=== PATIENT | male | born 1980 | race Caucasian/White ===

== ENCOUNTER 2016-10-04 07:50 | Day surgery (SDC) | payer BC ==
[2016-10-03 11:07] VITALS: BMI 36.3
[~2016-10-04 07:50] MED LIST: ACETAMINOPHEN TAB 500 MG TAB PO ONE; DEXAMETHASONE SOD PHOSPHATE 10 MG/ML 1 ML VIAL IV ONE; DEXAMETHASONE SOD PHOSPHATE 4 MG/ML 1 ML VIAL IV ONE; FAMOTIDINE 20 MG/2 ML VIAL IV ONE; LACTATED RINGERS 1,000 ML IV SCH; LIDOCAINE 1% 20 ML VIAL (10MG/ML) FOR IV START INTRADERMA PRN; MIDAZOLAM 2 MG/2 ML VIAL IV PRN; ONDANSETRON 4 MG/2 ML VIAL IVP ONE; Pre Op ABX Message 1 EACH MISC MISCELLANE ONE; SCOPOLAMINE 1.5MG/72HR PATCH TRANSDERM ONE
[2016-10-04] MEDS ORDERED: LIDOCAINE 1% 20 ML VIAL (10MG/ML) FOR IV START INTRADERMA ONE (08:57)
[2016-10-04] MEDS ORDERED: LACTATED RINGERS 1,000 ML IV ONE (08:58)
[2016-10-04 09:11] LABS: Glucose,Whole Blood 85 mg/dL (75-99)
[2016-10-04] MEDS ORDERED: LIDOCAINE 4% (PF) 5 ML AMP IH ONE ×2 (09:30→09:45)
[2016-10-04] MEDS ORDERED: SUCCINYLCHOLINE CHLORIDE VIAL 200 MG/10 ML VIAL IV ONE (09:46)
[2016-10-04] MEDS ORDERED: ePHEDrine 50 MG/ML 1 ML AMP ONE (09:46)
[2016-10-04] MEDS ORDERED: MIDAZOLAM 2 MG/2 ML VIAL ONE (09:46)
[2016-10-04] MEDS ORDERED: PROPOFOL 10 MG/ML 20 ML VIAL IV ONE (09:46)
[2016-10-04] MEDS ORDERED: LIDOCAINE 1% INJ 10MG/ML (20 ML MDV) ONE (09:46)
[2016-10-04] MEDS ORDERED: DEXAMETHASONE SOD PHOS (MDV) 100 MG/10 ML VIAL ONE (09:46)
[2016-10-04] MEDS ORDERED: fentaNYL (PF) 50 MCG/ML 2 ML AMP ONE (09:46)
[2016-10-04] MEDS ORDERED: FLUORESCEIN STRIPS 1 MG STRIP MISCELLANE ONE (10:42)
[2016-10-04] MEDS ORDERED: LIDOCAINE 1%-EPI 1:100,000 20 ML VIAL SQ ONE ×2 (10:43)
[2016-10-04] MEDS ORDERED: OXYMETAZOLINE 0.05% NASL SPRAY 15 ML EA NOSTRIL ONE (10:43)
[2016-10-04] MEDS ORDERED: EPINEPHrine 1 MG/ML (MDV) 30 ML VIAL TOPICAL ONE (10:43)
[2016-10-04 11:56] VITALS: TEMP 97.9
[2016-10-04] MEDS: HYDROmorphone 1 MG/ML 1 ML SYRINGE IVP PRN ×4 (12:10→12:45)
--- NOTE | 2016-10-04 12:11 | P.OP ---
Date of Procedure: 10/04/16 Preoperative Diagnosis: Deviated nasal septum Bilateral inferior turbinate hypertrophy Bilateral functional endoscopic sinus surgery with polypectomy. Postoperative Diagnosis: same Procedure(s) Performed: Septoplasty Bilateral outfracture and submucosal resection of the inferior turbinate Functional endoscopic sinus surgery with polypectomy Anesthesia: RAINE Surgeon: Carlos Arce Estimated Blood Loss (ml): 20 Pathology: other (sinonasal) Condition: stable Disposition: PACU Indications for Procedure: Patient is a severe right septal deviation evidence of chronic sinusitis with sinonasal cysts and polyps obstruction and inflammatory changes throughout all sinuses the inferior turbinates were large and obstructive Operative Findings: Deviated nasal septum to the right widespread inflammatory changes and obstructive inferior turbinates Description of Procedure: This patient was taken to the operative room and placed in the supine position. A general inhalation anesthetic was administered to the patient by the department of anesthesia with a functioning IV line in place. The patient was monitored throughout the entire case by the department of anesthesia. The eyes were taped shut for protection. The patient was placed in a slight reverse Trendelenburg position. The patient had previously utilize Afrin nasal spray preoperatively. The nose was evaluated and the septum lateral nasal wall and inferior turbinates were injected with lidocaine 1% with epinephrine 1 100,000 bilaterally. Approximately 10 minutes were allowed wait for full vasoconstrictive effects to take place. At this point a caudal incision was made over the caudal portion of the left septum down to the mucoperichondrium. A mucoperichondrial flap was elevated on the left side and dissection was carried with use of tunnels posteriorly. We then made a crossover incision through the cartilage to the contralateral side and for the mucoperichondrial flap development was performed to the extent of visualization on the contralateral side. After the cartilage was freed with use of several crosshatching incisions and removal of some redundant strips of septal cartilage, the septum was straightened and placed back in the midline. The septum was sutured fixated to the ovarian groove. Excellent straightening occurred and the septum was visibly straight. Incision was closed with a 40 rapid Vicryl. We utilized a running nonlocking fashion for closure of the incision. A quilting stitch was used to reapproximate the septal flaps with use of a 40 rapid Vicryl. We then entered the nose with a 0 and 30 Decker connie endoscope. Previous to this we did inject the lateral nasal wall and middle turbinate and uncinate process with lidocaine 1% with epinephrine 1 100,000. Approximately 10 minutes were allowed wait for full vasoconstrictive effects to take place. Intranasal polyps were noted. They were noted bilaterally. The intranasal polyps were removed with use of a microdebrider. With use of a microdebrider and a pediatric backbiter, we took down the uncinate process bilaterally. We then opened the maxillary sinuses bilaterally. We utilized a microdebrider for this and entered the maxillary sinuses and removed diseased tissue and polypoid tissue. This was done bilaterally. After the maxillary sinuses were opened and the diseased tissue and polyps were removed we entered the ethmoid bulla and with use of a microdebrider and up-biting bosstephany and Gopalley, we remove the anterior septations and remove diseased tissue from the anterior ethmoids with direct visualization. We then followed the fovea frontalis through the basal lamella and into the posterior ethmoid air cells and did a total ethmoidectomy with removal of polypoid material. Once the ethmoids cells were all taken down we then entered the sphenoid sinus medially and inferiorly underneath the inferior attachment of the superior turbinate. The sphenoid sinus was opened entered and diseased tissue and polyps were removed bilaterally. This was done with a microdebrider and Blakesley. We then entered the frontal sinuses with a giraffe and up-biting Blakesley entered on the agar nasi cells. We open the frontal sinuses and removed sinus tissue and polypoid tissue that was diseased. We explored the frontal sinuses bilaterally. To summarize all sinuses were open all sinuses were explored and we remove diseased tissue and polyps from the sphenoid maxillary and frontal sinuses. Polyps were removed from the nose. Ethmoid sinuses were opened totally. Nasal pore/xerogel was inserted and minimal bleeding was encountered. We reinspected the skull base there is no signs of any orbital penetration or signs of any intracranial penetration. The sugical site was reinspected after the nasal pore was placed and no bleeding was seen. Attention was then paid to the inferior turbinates. The bilateral inferior turbinates were hypertrophic and obstructive. We entered the anterior portion of the inferior turbinates with use of a microdebrider. We remove bone and submucosal elements with use of a microdebrider bilaterally. The inferior turbinates underwent a submucosal resection with removal of submucosal tissue and bone. We obtained a much better and normal in size for breathing. The inferior turbinates were then outfractured and compressed with a [employer] nasal elevator. Excellent airway was obtained and was symmetric bilaterally. No bleeding was encountered. Intranasal splints were inserted and fixated at the end of the case. We utilized Craft nasal splints. There will be removed and the patient returns to the office.
[2016-10-04] MEDS ORDERED: HYDROcodone/APAP 5-325MG 1 EACH TAB PO ONE (13:02)
[2016-10-04 14:02] VITALS: BP 127/75; PULSE 69; RESP 18
== END 2016-10-04 14:23 | disposition home or self-care (01) ==
LOC: OR 07:50
PROVIDERS: ATTEND Otolaryngology
DX: J34.2 Deviated nasal septum (principal); J34.3 Hypertrophy of nasal turbinates; R43.8 Other disturbances of smell and taste; J32.0 Chronic maxillary sinusitis; J32.2 Chronic ethmoidal sinusitis; J32.1 Chronic frontal sinusitis; J33.8 Other polyp of sinus; E66.01 Morbid (severe) obesity due to excess calories; Z68.36 Body mass index [BMI] 36.0-36.9, adult; F41.9 Anxiety disorder, unspecified; F32.9 Major depressive disorder, single episode, unspecified; Z79.899 Other long term (current) drug therapy; Z88.8 Allergy status to other drugs, medicaments and biological substances
CPT/HCPCS: 30520; 31255; 30130; 94640; 88305; 88300; J2001 ×2; J0171; J2250; J0330; J1100 ×2; J2405; J3010; J1170; J2704

== ENCOUNTER 2017-02-13 16:36 | Observation (INO) | payer BC ==
[2017-02-13] MEDS ORDERED: SODIUM CHLORIDE 0.9% 1,000 ML IV ONE (17:50)
--- NOTE | 2017-02-13 18:31 | CT ---
EXAMINATION TYPE: CT brain wo con DATE OF EXAM: 02/13/2017 COMPARISON: 07/15/2014 HISTORY: Headache CT DLP: mGycm Automated exposure control for dose reduction was used. FINDINGS: Ventricles and sulci appear normal. There is no mass effect nor midline shift. There is no sign of in tracranial hemorrhage. The calvarium appears intact. There is minimal mucosal thickening in the ethmo id air cells. IMPRESSION: No intracranial abnormality. Mild ethmoid sinusitis similar to old exam.
[2017-02-13 18:36] LABS: Basophils % (A) 0 %; CH 29.9; CHCM 33.7; Eosinophils % (A) 0 %; HCT 49.6 % (39.0-53.0); HDW 2.67; HGB 16.3 gm/dL (13.0-17.5); Luc # (Auto) 0.22; Luc % (Auto) 3; Lymphocytes # (A) 2.6 k/uL (1.0-4.8); Lymphocytes % (A) 31 %; MCH 29.2 pg (25.0-35.0); MCHC 32.8 g/dL (31.0-37.0); MCV 89.1 fL (80.0-100.0); Mean Platelet Volume 6.3; Monocytes # (A) 0.5 k/uL (0-1.0); Monocytes % (A) 6 %; Neutrophils % (A) 60 %; RBC 5.57 m/uL (4.30-5.90); RDW 13.2 % (11.5-15.5); WBC 8.4 k/uL (3.8-10.6)
[2017-02-13 18:46] LABS: ALT 55 U/L (21-72); AST 31 U/L (17-59); Acetaminophen <10.0 ug/mL; Alcohol <10 mg/dL; Alkaline Phosphatase 118 U/L (38-126); Amylase 65 U/L (30-110); Anion Gap 11 mmol/L; Blood Urea Nitrogen 10 mg/dL (9-20); Carbon Dioxide 27 mmol/L (22-30); Chloride 101 mmol/L (98-107); Glucose 98 mg/dL (74-99); Magnesium 2.2 mg/dL (1.6-2.3); Non-African American GFR(MDRD) >60 (>60 ml/min/1.73 sqM); Potassium 4.9 mmol/L (3.5-5.1); Sodium 139 mmol/L (137-145); Total Bilirubin 0.5 mg/dL (0.2-1.3); Total Protein 7.6 g/dL (6.3-8.2)
--- NOTE | 2017-02-13 19:20 | ED ---
Altered Mental Status HPI - General Chief Complaint: Altered Mental Status Stated Complaint: Altered Mental Status Time Seen by Provider: 02/13/17 17:01 Source: family Mode of arrival: wheelchair Limitations: altered mental status - History of Present Illness Initial Comments: This is a 36-year-old male with a history of hypertension and psychiatric illness who presents emergency department for mental status changes. The patient was reportedly having issues over the last couple of days and feeling like he was acting differently. Today around 3 or 4 PM he suddenly developed having hallucinations. He stated that he was seeing kids and rats in his back seat of his car. He also heard yelling from these kids. He was decided to bring the emergency Department after speaking with the psychiatrist. The patient does admit to having intermittent headaches over the last few days however does not have a headache now area denies any fevers or chills. He is currently on doxycycline because of suspected urinary tract infection or STD through his primary doctor. Patient denies any other complaints. - Related Data Home Medications Medication Instructions Recorded Confirmed Lisinopril [Zestril] 10 mg PO DAILY 10/03/16 02/13/17 Acetaminophen [Tylenol] 650 mg PO Q4HR PRN 02/13/17 02/13/17 Albuterol Inhaler [Ventolin Hfa 2 puff INHALATION RT-Q6H PRN 02/13/17 02/13/17 Inhaler] Doxycycline Hyclate 100 mg PO BID 02/13/17 02/13/17 lamoTRIgine [LaMICtal] 50 mg PO BID 02/13/17 02/13/17 Previous Rx's Medication Instructions Recorded LORazepam [Ativan] 1 mg PO TID PRN #30 tab 08/14/16 Venlafaxine HCl ER [Effexor XR] 300 mg PO DAILY 30 Days 08/14/16 traZODone HCL [Desyrel] 100 mg PO HS #20 tab 08/14/16 Allergies Allergy/AdvReac Type Severity Reaction Status Date / Time aripiprazole [From Abilify] AdvReac Rash/Hives, Verified 02/13/17 18:17 AGITATION Review of Systems ROS Statement: Those systems with pertinent positive or pertinent negative responses have been documented in the HPI. ROS Other: All systems not noted in ROS Statement are negative. Past Medical History Past Medical History: Hypertension Additional Past Medical History / Comment(s): MIGRAINES, History of Any Multi-Drug Resistant Organisms: None Reported Past Surgical History: Cholecystectomy Additional Past Surgical History / Comment(s): WISDOM TEETH EXTRACTIONS Past Anesthesia/Blood Transfusion Reactions: Postoperative Nausea & Vomiting ( PONV) Additional Past Anesthesia/Blood Transfusion Reaction / Comment(s): Patient has no previous surgical history EXCEPT FOR TOOTH EXTRACTIONS. Past Psychological History: Anxiety, Depression, PTSD Additional Psychological History / Comment(s): . Smoking Status: Never smoker Past Alcohol Use History: None Reported Additional Past Alcohol Use History / Comment(s): Patient states that he drinks alcohol twice yearly. Past Drug Use History: None Reported Additional Drug Use History / Comment(s): Patient denies history of drug use. - Past Family History Father Family Medical History: No Reported History Mother Family Medical History: Diabetes Mellitus, Fibromyalgia, GERD/Reflux Additional Family Medical History / Comment(s): VERTIGO General Exam - General Exam Comments Initial Comments: Constitutional: Awake alert Appears comfortable Head: Normocephalic atraumatic Eyes: no conjunctival injection No scleral icterus EOMI Neck: No JVD Supple Heart: Regular rate rhythm normal S1-S2 no murmurs Lungs: Clear to auscultation bilaterally No wheezing No rales Abdomen: Soft nondistended nontender Extremities: Non edematous DP pulses intact Radial pulses intact Neuro: She is awake and alert. He will not answer me when I ask him what the year is. He does state that it's warm outside however does not tell me what the season is or the president. He is able to recall certain people throughout his life however does not recall most of the day today. Renal nerves II through XII are grossly intact, 5 out of 5 strength in upper and lower extremity is bilaterally, normal finger to nose and heel to espinoza testing, pupils are 4 mm and reactive bilaterally. Psych: Appropriate mood and affect Limitations: altered mental status Course Vital Signs 02/13/17 02/13/17 17:11 19:19 Temperature 99.3 F 98.1 F Pulse Rate 79 70 Respiratory 20 18 Rate Blood Pressure 143/83 137/75 O2 Sat by Pulse 100 100 Oximetry - Reevaluation(s) Reevaluation #1: 02/13/17 19:20 EKG showing normal sinus rhythm with a rate of 73. No abnormal ST segment changes or T-wave inversions. QTC is 434. Other intervals are normal. No ectopy. Medical Decision Making - Medical Decision Making This is a 36-year-old male presents emergency room for hallucinations. This is all brand-new for him. At this time unsure of the etiology of these hallucinations. CT the head was negative. Blood work is unremarkable. They could be related to the doxycycline that he is on however this is not a very common side effect. He could be related to psychiatric causes as well. I like to keep him in the hospital for further evaluation. Dr. Richard accepts the admission. - Lab Data Result diagrams: 02/13/17 17:45 02/13/17 17:45 Lab Results 02/13/17 02/13/17 02/13/17 Range/Units 17:45 17:45 17:45 WBC 8.4 (3.8-10.6) k/uL RBC 5.57 (4.30-5.90) m/uL Hgb 16.3 (13.0-17.5) gm/dL Hct 49.6 (39.0-53.0) % MCV 89.1 (80.0-100.0) fL MCH 29.2 (25.0-35.0) pg MCHC 32.8 (31.0-37.0) g/dL RDW 13.2 (11.5-15.5) % Plt Count 316 (150-450) k/uL Neutrophils % 60 % Lymphocytes % 31 % Monocytes % 6 % Eosinophils % 0 % Basophils % 0 % Neutrophils # 5.0 (1.3-7.7) k/uL Lymphocytes # 2.6 (1.0-4.8) k/uL Monocytes # 0.5 (0-1.0) k/uL Eosinophils # 0.0 (0-0.7) k/uL Basophils # 0.0 (0-0.2) k/uL Sodium 139 (137-145) mmol/L Potassium 4.9 (3.5-5.1) mmol/L Chloride 101 (98-107) mmol/L Carbon Dioxide 27 (22-30) mmol/L Anion Gap 11 mmol/L BUN 10 (9-20) mg/dL Creatinine 1.06 (0.66-1.25) mg/dL Est GFR (MDRD) Af Amer >60 (>60 ml/min/1.73 sqM) Est GFR (MDRD) Non-Af >60 (>60 ml/min/1.73 sqM) Glucose 98 (74-99) mg/dL Calcium 10.0 (8.4-10.2) mg/dL Magnesium 2.2 (1.6-2.3) mg/dL Total Bilirubin 0.5 (0.2-1.3) mg/dL AST 31 (17-59) U/L ALT 55 (21-72) U/L Alkaline Phosphatase 118 (38-126) U/L Ammonia <9 (<30) umol/L Total Protein 7.6 (6.3-8.2) g/dL Albumin 4.8 (3.5-5.0) g/dL Amylase 65 (30-110) U/L Urine Color Urine Appearance Urine pH Ur Specific [place] Urine Protein Ur Protein Confirm Urine Glucose (UA) Urine Ketones Urine Blood Urine Nitrite Urine Bilirubin Ur Bilirubin Confirm Urine Urobilinogen Ur Leukocyte Esterase Urine RBC Urine Red Cell Clumps Urine WBC Urine WBC Clumps Ur Squamous Epith Cells Ur Transition Epith Cell Ur Renal Epithelial Cell Calcium Carbonate Cryst Calcium Phosphate Cryst Calcium Oxalate Crystal Leucine Crystals Cystine Crystals Uric Acid Crystals Triple Phos Crystals Tyrosine Crystals Other Crystals Amorphous Sediment Urine Bacteria Cellular Casts Epithelial Casts Fatty Casts Hyaline Casts Granular Casts Waxy Casts Broad Casts RBC Casts WBC Casts Other Casts Urine Mucus Urine Trichomonas Ur Yeast w Hyphae Urine Yeast (Budding) Urine Sperm Ur Oval Fat Bodies Urine Opiates Screen (NotDetected) Ur Oxycodone Screen (NotDetected) Urine Methadone Screen (NotDetected) Ur Propoxyphene Screen (NotDetected) Acetaminophen <10.0 ug/mL Ur Barbiturates Screen (NotDetected) U Tricyclic Antidepress (NotDetected) Ur Phencyclidine Scrn (NotDetected) Ur Amphetamines Screen (NotDetected) U Methamphetamines Scrn (NotDetected) U Benzodiazepines Scrn (NotDetected) Urine Cocaine Screen (NotDetected) U Marijuana (THC) Screen (NotDetected) Serum Alcohol <10 mg/dL Acetone, Qual Negative (Negative) 02/13/17 Range/Units 18:25 WBC (3.8-10.6) k/uL RBC (4.30-5.90) m/uL Hgb (13.0-17.5) gm/dL Hct (39.0-53.0) % MCV (80.0-100.0) fL MCH (25.0-35.0) pg MCHC (31.0-37.0) g/dL RDW (11.5-15.5) % Plt Count (150-450) k/uL Neutrophils % % Lymphocytes % % Monocytes % % Eosinophils % % Basophils % % Neutrophils # (1.3-7.7) k/uL Lymphocytes # (1.0-4.8) k/uL Monocytes # (0-1.0) k/uL Eosinophils # (0-0.7) k/uL Basophils # (0-0.2) k/uL Sodium (137-145) mmol/L Potassium (3.5-5.1) mmol/L Chloride (98-107) mmol/L Carbon Dioxide (22-30) mmol/L Anion Gap mmol/L BUN (9-20) mg/dL Creatinine (0.66-1.25) mg/dL Est GFR (MDRD) Af Amer (>60 ml/min/1.73 sqM) Est GFR (MDRD) Non-Af (>60 ml/min/1.73 sqM) Glucose (74-99) mg/dL Calcium (8.4-10.2) mg/dL Magnesium (1.6-2.3) mg/dL Total Bilirubin (0.2-1.3) mg/dL AST (17-59) U/L ALT (21-72) U/L Alkaline Phosphatase (38-126) U/L Ammonia (<30) umol/L Total Protein (6.3-8.2) g/dL Albumin (3.5-5.0) g/dL Amylase (30-110) U/L Urine Color Cancelled Urine Appearance Cancelled Urine pH Cancelled Ur Specific [place] Cancelled Urine Protein Cancelled Ur Protein Confirm Cancelled Urine Glucose (UA) Cancelled Urine Ketones Cancelled Urine Blood Cancelled Urine Nitrite Cancelled Urine Bilirubin Cancelled Ur Bilirubin Confirm Cancelled Urine Urobilinogen Cancelled Ur Leukocyte Esterase Cancelled Urine RBC Cancelled Urine Red Cell Clumps Cancelled Urine WBC Cancelled Urine WBC Clumps Cancelled Ur Squamous Epith Cells Cancelled Ur Transition Epith Cell Cancelled Ur Renal Epithelial Cell Cancelled Calcium Carbonate Cryst Cancelled Calcium Phosphate Cryst Cancelled Calcium Oxalate Crystal Cancelled Leucine Crystals Cancelled Cystine Crystals Cancelled Uric Acid Crystals Cancelled Triple Phos Crystals Cancelled Tyrosine Crystals Cancelled Other Crystals Cancelled Amorphous Sediment Cancelled Urine Bacteria Cancelled Cellular Casts Cancelled Epithelial Casts Cancelled Fatty Casts Cancelled Hyaline Casts Cancelled Granular Casts Cancelled Waxy Casts Cancelled Broad Casts Cancelled RBC Casts Cancelled WBC Casts Cancelled Other Casts Cancelled Urine Mucus Cancelled Urine Trichomonas Cancelled Ur Yeast w Hyphae Cancelled Urine Yeast (Budding) Cancelled Urine Sperm Cancelled Ur Oval Fat Bodies Cancelled Urine Opiates Screen Not Detected (NotDetected) Ur Oxycodone Screen Not Detected (NotDetected) Urine Methadone Screen Not Detected (NotDetected) Ur Propoxyphene Screen Not Detected (NotDetected) Acetaminophen ug/mL Ur Barbiturates Screen Not Detected (NotDetected) U Tricyclic Antidepress Not Detected (NotDetected) Ur Phencyclidine Scrn Not Detected (NotDetected) Ur Amphetamines Screen Not Detected (NotDetected) U Methamphetamines Scrn Not Detected (NotDetected) U Benzodiazepines Scrn Detected H (NotDetected) Urine Cocaine Screen Not Detected (NotDetected) U Marijuana (THC) Screen Not Detected (NotDetected) Serum Alcohol mg/dL Acetone, Qual (Negative) Disposition Clinical Impression: Encephalopathy Disposition: ADMITTED IP TO THIS [facility] Condition: Stable Referrals: Jean-Claude Buenrostro MD [Primary Care Provider] - 1-2 days
[2017-02-13] MEDS ORDERED: NALOXONE 0.4 MG/ML 1 ML VIAL IV PRN (20:30)
[2017-02-13] MEDS: SODIUM CHLORIDE 0.9% 1,000 ML IV SCH (20:57)
[2017-02-13] MEDS ORDERED: ACETAMINOPHEN TAB 500 MG TAB PO PRN (23:02)
[2017-02-13] MEDS ORDERED: LORazepam 2 MG/ML SYRINGE IV PRN (23:02)
[2017-02-13] MEDS ORDERED: TEMAZEPAM 15 MG CAP PO PRN (23:02)
[2017-02-13] MEDS ORDERED: ALBUTEROL NEBULIZED 2.5 MG/3 ML INHALATION PRN (23:02)
[2017-02-13] MEDS ORDERED: HYDROcodone/APAP 5-325MG 1 EACH TAB PO PRN (23:02)
[2017-02-13 23:13] LABS: Appearance,Urine Clear (Clear); Bilirubin,Urine Negative (Negative); Glucose,Urine (UA) Negative (Negative); Ketones,Urine Negative (Negative); Leukocyte Esterase,Urine Negative (Negative); Nitrite,Urine Negative (Negative); PH, Urine 5.5 (5.0-8.0); Protein,Urine Negative (Negative); Specific Gravity,Urine 1.014 (1.001-1.035); UA Billing (MACRO vs. MICRO) CHEM; Urobilinogen,Urine <2.0 mg/dL (<2.0)
--- NOTE | 2017-02-14 | XR ---
EXAM: XR Chest, 1 View CLINICAL HISTORY: Reason: confusion TECHNIQUE: Frontal view of the chest. COMPARISON: 05/09/16 FINDINGS: Cardiac and mediastinal silhouette stable allowing for differences in technique. No edema, consolidation or other acute cardiopulmonary process. IMPRESSION: No acute cardiopulmonary process
[2017-02-14] MEDS: PANTOPRAZOLE 40 MG TABLET PO SCH ×2 (00:06→07:49)
[2017-02-14 07:46] VITALS: RESP 20
[2017-02-14] MEDS ORDERED: DOXYCYCLINE 50 MG CAP PO SCH (09:00)
[2017-02-14] MEDS ORDERED: VENLAFAXINE HCL ER 150 MG CAP PO SCH (09:00)
[2017-02-14] MEDS ORDERED: lamoTRIgine 25 MG TAB PO SCH (09:00)
[2017-02-14] MEDS ORDERED: LISINOPRIL 10 MG TAB PO SCH (09:00)
[2017-02-14] MEDS: SODIUM CHLORIDE 0.9% 1,000 ML IV SCH (09:59)
[2017-02-14 10:11] LABS: Basophils % (A) 1 %; Eosinophils % (A) 0 %; HCT 47.8 % (39.0-53.0); HDW 2.62; HGB 15.5 gm/dL (13.0-17.5); Luc # (Auto) 0.15; Luc % (Auto) 3; Lymphocytes # (A) 2.1 k/uL (1.0-4.8); Lymphocytes % (A) 38 %; MCH 29.6 pg (25.0-35.0); MCHC 32.4 g/dL (31.0-37.0); MCV 91.3 fL (80.0-100.0); Mean Platelet Volume 6.4; Monocytes # (A) 0.4 k/uL (0-1.0); Monocytes % (A) 8 %; Neutrophils # (A) 2.9 k/uL (1.3-7.7); Neutrophils % (A) 52 %; RBC 5.24 m/uL (4.30-5.90); RDW 13.5 % (11.5-15.5); WBC 5.5 k/uL (3.8-10.6); WBC (Perox) 5.36
[2017-02-14 10:49] LABS: Anion Gap 11 mmol/L; Blood Urea Nitrogen 9 mg/dL (9-20); Calcium 9.6 mg/dL (8.4-10.2); Carbon Dioxide 27 mmol/L (22-30); Chloride 104 mmol/L (98-107); Glucose 91 mg/dL (74-99); Non-African American GFR(MDRD) >60 (>60 ml/min/1.73 sqM); Potassium 4.5 mmol/L (3.5-5.1); Sodium 142 mmol/L (137-145)
--- NOTE | 2017-02-14 11:33 | HP ---
DATE OF ADMISSION: DATE OF SERVICE: 02/13/2017 CHIEF COMPLAINT: Change in mental status. HISTORY OF PRESENT ILLNESS: This 36-year-old gentleman with a past medical history of multiple medical problems including hypertension, migraines, history of depression, history of cholecystectomy, history of anxiety, depression, PTSD being followed by Dr. Jean-Claude Buenrostro in the outpatient setting was admitted with change in mental status to [facility]. 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 suddenly develop hallucinations. The patient was apparently seeing kids and patient was talking about 4 kids traveling in his taxi in the back seat and rats running after. The patient also heard yelling from these kids. The patient came to the emergency room for further evaluation and treatment. There is no history of any fever or rigors. No history of headache, loss of consciousness or seizures. The patient is confused. PAST MEDICAL HISTORY: History of depression, history of hypertension, migraines, history of cholecystectomy, wisdom tooth extraction. History of recent infection. MEDICATIONS PRIOR TO ADMISSION: 1. Trazodone 100 mg p.o. q.h.s. 2. Lamictal 50 mg p.o. b.i.d. 3. Effexor XR 300 mg daily. 4. Zestril 10 mg daily. 5. Ativan 1 mg t.i.d. p.r.n. 6. Doxycycline 100 mg p.o. b.i.d. 7. Tylenol 650 q.4 p.r.n. 8. Ventolin 2 puffs q.6 p.r.n. Allergies are ABILIFY. FAMILY HISTORY: History of depression, diabetes mellitus type 2, fibromyalgia, GERD, vertigo in the family. SOCIAL HISTORY: No history of smoking,. No history of alcohol intake. REVIEW OF SYSTEMS: ENT: No diminishing hearing or diminished vision. CARDIOVASCULAR: No angina or palpitations. RESPIRATORY: No cough or hemoptysis. GI: No nausea. : No dysuria. NERVOUS SYSTEM: As mentioned earlier. ALLERGY/IMMUNOLOGY: No history of asthma or hayfever. MUSCULOSKELETAL: As mentioned earlier. HEMATOLOGY/ONCOLOGY: No history of anemia. ENDOCRINE: No history of diabetes mellitus or hypothyroidism. CONSTITUTIONAL: As mentioned earlier. DERMATOLOGY: Negative. RHEUMATOLOGY: Negative. PSYCHIATRY: As mentioned earlier. PHYSICAL EXAMINATION: The patient is alert and oriented x2. Pulse 70, blood pressure 137/75, respirations 18, temperature 98.1, pulse ox 100% on room air. HEENT: Conjunctivae normal. Oral mucosa moist. NECK: No jugular venous distention. No carotid bruit. No lymph node enlargement. CARDIOVASCULAR: S1 and S2, muffled. No S3, no S4. RESPIRATORY: Breath sounds diminished at the bases. No rhonchi, no crackles. ABDOMEN: Soft, nontender. No mass palpable. No hepatosplenomegaly. LEGS: No edema, no swelling. NERVOUS SYSTEM: Higher function mentioned earlier. Cranial nerves 2 through 12 grossly intact. Moves all 4 limbs. No focal motor or sensory deficits. LYMPHATICS: No lymphadenopathy of neck, axillae or groin. SKIN: No ulcers, rashes or bleeding. No neck stiffness . JOINTS: No active deforming arthropathy. LABS: CBC, CMP within normal limits. Drug screen is positive for benzodiazepines. Acetone is negative. Alcohol less 10. ASSESSMENT: 1. Change in mental status, possible acute encephalopathy of undetermined origin. 2. Rule out hallucinations and psychosis. 3. History of depression. 4. History of migraines. 5. History of hypertension. 6. History of cholecystectomy. 7. History of anxiety, depression, posttraumatic stress disorder. 8. FULL CODE. RECOMMENDATIONS AND DISCUSSION: This 36-year-old gentleman presented with multiple complex medical issues, we will monitor the patient closely. Continue the current medications and symptomatic treatment. Otherwise at this time I recommend psychiatry and neurology consultations. We will continue to monitor. Otherwise will also rule out the possibility of any physical issues and as well as organic encephalopathy before pursuing the psychiatric issues as well. Overall prognosis remains guarded. The patient definitely had hallucinations and continue to monitor. The basic labs appear to be normal at this time. Prognosis guarded. A brain CAT scan was also done which showed no acute intracranial abnormality. Will also obtain a chest x-ray also. [facility]
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
[2017-02-14 15:49] VITALS: BP 123/65; PULSE 62; TEMP 98.4
--- NOTE | 2017-02-14 16:41 | DS ---
DATE OF ADMISSION: 02/13/2017 DATE OF DISCHARGE: FINAL DIAGNOSES: 1. Hallucinations and change in mental status; possible psychosis. 2. History of depression. 3. Recent urinary tract infection. 4. History of migraines. 5. Hypertension. 6. History of polysubstance abuse. 7. History of anxiety, depression. 8. Post-traumatic stress disorder. 9. FULL CODE. DISCHARGE DISPOSITION: The patient will be transferred in stable condition with guarded prognosis to inpatient psych floor. HISTORY OF PRESENT ILLNESS: This 36-year-old gentleman with a past medical history of being followed by Dr. Jean-Claude Buenrostro in the outpatient setting, presented with change in mental status and hallucinations. Basic labs were normal. There was no evidence of any encephalopathy per se. Psychiatry saw the patient and recommended transfer to Inpatient Psychiatry. On exam, vitals are stable. CARDIOVASCULAR SYSTEM: S1, S2 muffled. ABDOMEN: Soft. NERVOUS SYSTEM: No focal deficit. Current medications are as follows: 1. Tylenol 500 mg q.6 p.r.n. 2. Ventolin 2.5 q.6 p.r.n. 3. Vibramycin (doxycycline) 100 mg p.o. b.i.d. 4. Lamictal 50 mg p.o. b.i.d. 5. Zestril 10 mg p.o. daily. 6. Ativan 0.5 q.6 p.r.n. 7. Narcan 0.2 q.2 p.r.n. 8. Protonix 40 mg daily. 9. Restoril 15 mg at bedtime p.r.n. 10. Desyrel 100 mg p.o. at bedtime. 11. Effexor XR 300 mg p.o. daily. MTDD
[2017-02-14] MEDS ORDERED: traZODone HCL 100 MG TAB PO SCH (21:00)
--- NOTE | 2017-02-15 15:39 | EEG ---
DATE OF SERVICE: 02/14/2017 REASON FOR TESTING: Altered mental status. DESCRIPTION OF THE PROCEDURE: This EEG was performed using a 21-channel digital electroencephalograph, following international 10-20 system. DESCRIPTION OF THE RECORDING: From the beginning of the tracing, and with the patient's eyes closed, the background rhythm was mostly consisting of 9 Hz alpha frequency in the posterior occipital leads. No obvious asymmetry is seen. Photic stimulation was performed with a good driving response seen. No pathological waves were elicited. Hyperventilation was not performed. Frequent movement artifacts are seen. The patient remains awake throughout the tracing. No epileptiform discharges were seen. His EKG lead showed a regular rate and rhythm. INTERPRETATION: This awake EEG can be considered within normal limits. There was no asymmetry seen. No epileptiform discharges were noticed. The absence of epileptiform discharges does not rule out the diagnosis of epilepsy; therefore clinical correlation is recommended.
== END 2017-02-14 18:15 ==
LOC: EC 16:36 → 4MS4W 20:30
PROVIDERS: ADMIT Hospitalist; ATTEND Hospitalist
DX: R41.82 Altered mental status, unspecified (principal); R44.3 Hallucinations, unspecified; F32.9 Major depressive disorder, single episode, unspecified; F41.9 Anxiety disorder, unspecified; I10 Essential (primary) hypertension; G43.909 Migraine, unspecified, not intractable, without status migrainosus; Z87.440 Personal history of urinary (tract) infections; F43.10 Post-traumatic stress disorder, unspecified; R51 Headache; Z79.899 Other long term (current) drug therapy; Z88.8 Allergy status to other drugs, medicaments and biological substances; Z81.8 Family history of other mental and behavioral disorders; F19.10 Other psychoactive substance abuse, uncomplicated
CPT/HCPCS: 96374; 96361; 99285; 36415; 95819; 93005; 80053; 80048; 82140; 82150; 82009; 83735; 85025 ×2; 81003; 87491; 87591; 80306; 83520; 80320; 87086; 71010; 70450; G0378 ×2; J2060

== ENCOUNTER 2017-02-14 17:49 | Inpatient (IN) | payer BC ==
[2017-02-14] MEDS ORDERED: MAGNESIUM HYDROXIDE 2,400 MG/10 ML CUP PO PRN (17:52)
[2017-02-14] MEDS ORDERED: MAG HYDROX/AL HYDROX/SIMETH 30 ML CUP PO PRN (17:52)
[2017-02-14] MEDS ORDERED: LORazepam 1 MG TAB PO PRN (17:52)
[2017-02-14] MEDS ORDERED: ACETAMINOPHEN TAB 325 MG TAB PO PRN (17:52)
[2017-02-14] MEDS ORDERED: ALBUTEROL INHALER 60 PUFF/8 GM INHALER INHALATION PRN (17:55)
[2017-02-14] MEDS ORDERED: OLANZapine ODT 5 MG TAB PO PRN (18:05)
[2017-02-14] MEDS: LORazepam 1 MG TAB PO PRN (20:50)
[2017-02-14] MEDS: lamoTRIgine 25 MG TAB PO SCH (20:50)
[2017-02-14] MEDS ORDERED: traZODone HCL 100 MG TAB PO SCH (21:00)
[2017-02-14] MEDS: DOXYCYCLINE 50 MG CAP PO SCH (22:47)
[2017-02-15 06:47] VITALS: TEMP 97.6
[2017-02-15] MEDS ORDERED: PANTOPRAZOLE 40 MG TABLET PO SCH (07:30)
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
[2017-02-15] MEDS: LORazepam 1 MG TAB PO PRN (08:47)
[2017-02-15] MEDS: lamoTRIgine 25 MG TAB PO SCH (08:47)
[2017-02-15] MEDS: DOXYCYCLINE 50 MG CAP PO SCH (08:48)
[2017-02-15 08:51] VITALS: BP 128/78; PULSE 70; RESP 18
[2017-02-15] MEDS ORDERED: VENLAFAXINE HCL ER 150 MG CAP PO SCH (09:00)
[2017-02-15] MEDS ORDERED: LISINOPRIL 10 MG TAB PO SCH (09:00)
== END 2017-02-15 14:22 | disposition home or self-care (01) | DRG 880 ==
LOC: 3MHU 18:14
PROVIDERS: ADMIT Psychiatry & Neurology Addiction Medicine; ATTEND Psychiatry & Neurology Addiction Medicine
DX: F44.1 Dissociative fugue (principal); R44.3 Hallucinations, unspecified; I10 Essential (primary) hypertension; N39.0 Urinary tract infection, site not specified; F32.9 Major depressive disorder, single episode, unspecified; F43.10 Post-traumatic stress disorder, unspecified; F41.9 Anxiety disorder, unspecified; G43.909 Migraine, unspecified, not intractable, without status migrainosus; Z79.899 Other long term (current) drug therapy; Z88.8 Allergy status to other drugs, medicaments and biological substances; Z90.49 Acquired absence of other specified parts of digestive tract; Z83.3 Family history of diabetes mellitus; Z81.8 Family history of other mental and behavioral disorders
CPT/HCPCS: 84443

== ENCOUNTER 2017-05-14 15:33 | Emergency (ER) | payer BC ==
[2017-05-14 15:37] VITALS: BP 125/72; PULSE 67; RESP 20; TEMP 98.2
--- NOTE | 2017-05-14 16:10 | ED ---
General Adult HPI - General Chief complaint: Skin/Abscess/Foreign Body Stated complaint: Finger pain Time Seen by Provider: 05/14/17 15:54 Source: patient Mode of arrival: ambulatory Limitations: no limitations - History of Present Illness Initial comments: This 37-year-old white male presents with 2 complaints. He is complaining of some pain and swelling to the area distal aspect of the right pinky finger around the nail. This is been present for the last 4 days. It is moderately tender, red, swollen. He states that when he presses on it it will drain a purulent-type material which will recur. He also is complaining of some perianal irritation. He states that he gets a malodorous type of drainage in this area as well and this is been present for the last 2 days. He has not tried anything for either condition. No other complaints or modifying factors. - Related Data Home Medications Medication Instructions Recorded Confirmed Lisinopril [Zestril] 10 mg PO DAILY 10/03/16 02/14/17 Acetaminophen [Tylenol] 650 mg PO Q4HR PRN 02/13/17 02/14/17 Albuterol Inhaler [Ventolin Hfa 2 puff INHALATION RT-Q6H PRN 02/13/17 02/14/17 Inhaler] Doxycycline Hyclate 100 mg PO BID 02/13/17 02/14/17 lamoTRIgine [LaMICtal] 50 mg PO BID 02/13/17 02/14/17 Previous Rx's Medication Instructions Recorded LORazepam [Ativan] 1 mg PO TID PRN #30 tab 08/14/16 Venlafaxine HCl ER [Effexor XR] 300 mg PO DAILY 30 Days 08/14/16 traZODone HCL [Desyrel] 100 mg PO HS #20 tab 08/14/16 HYDROcodone/APAP 5-325MG [[place] 1 each PO Q6HR PRN tab 02/14/17 5-325] Pantoprazole [Protonix] 40 mg PO AC-BRKFST tab 02/14/17 Hydrocortisone [Anusol-Hc] 30 gm TP TID #1 [email or web address] 05/14/17 Sulfamethox-Tmp 800-160Mg [Bactrim 1 tab PO Q12HR #20 tab 05/14/17 DS 800-160 mg] Allergies Allergy/AdvReac Type Severity Reaction Status Date / Time aripiprazole [From Abilify] AdvReac Rash/Hives, Verified 05/14/17 15:37 AGITATION Review of Systems ROS Statement: Those systems with pertinent positive or pertinent negative responses have been documented in the HPI. ROS Other: All systems not noted in ROS Statement are negative. Past Medical History Past Medical History: Hypertension Additional Past Medical History / Comment(s): MIGRAINES, History of Any Multi-Drug Resistant Organisms: None Reported Past Surgical History: Cholecystectomy Additional Past Surgical History / Comment(s): WISDOM TEETH EXTRACTIONS Past Anesthesia/Blood Transfusion Reactions: Postoperative Nausea & Vomiting ( PONV) Additional Past Anesthesia/Blood Transfusion Reaction / Comment(s): Patient has no previous surgical history EXCEPT FOR TOOTH EXTRACTIONS. Past Psychological History: Anxiety, Depression, PTSD Smoking Status: Never smoker Past Alcohol Use History: None Reported Past Drug Use History: None Reported - Past Family History Father Family Medical History: No Reported History Mother Family Medical History: Diabetes Mellitus, Fibromyalgia, GERD/Reflux Additional Family Medical History / Comment(s): VERTIGO General Exam Limitations: no limitations General appearance: alert, in no apparent distress Rectal exam: Present: tenderness (There is tenderness, erythema, and inflammation noted in the perianal region bilaterally and externally. There is no fluctuance or evidence of any abscess.) Extremities exam: Present: tenderness (There is tenderness noted to the distal aspect of the right fifth digit. There is mild swelling and erythema also noted more on the ulnar aspect of the nail and just proximal to this. There is no current drainage noted. There is no fluctuance.) Course Vital Signs 05/14/17 15:34 Temperature 98.2 F Pulse Rate 67 Respiratory 20 Rate Blood Pressure 125/72 O2 Sat by Pulse 99 Oximetry Medical Decision Making - Medical Decision Making The patient was seen and examined. It is felt as though he would benefit from some antibiotic treatment. He also benefit from some Anusol for his proctitis. He understands and agrees with this plan and leaves in no distress. Disposition Clinical Impression: Paronychia of finger of right hand, Proctitis Disposition: HOME SELF-CARE Condition: Good Instructions: Paronychia (ED), Proctitis (ED) Prescriptions: Hydrocortisone [Anusol-Hc] 30 gm TP TID #1 crm.pe.jenifefr Sulfamethox-Tmp 800-160Mg [Bactrim DS 800-160 mg] 1 tab PO Q12HR #20 tab Referrals: None,Stated [Primary Care Provider] - 1-2 days Time of Disposition: 16:08
== END 2017-05-14 16:21 | disposition home or self-care (01) ==
LOC: EC 15:33
DX: L03.011 Cellulitis of right finger (principal); K62.89 Other specified diseases of anus and rectum; I10 Essential (primary) hypertension; F41.9 Anxiety disorder, unspecified; F32.9 Major depressive disorder, single episode, unspecified; Z79.899 Other long term (current) drug therapy; Z88.8 Allergy status to other drugs, medicaments and biological substances
CPT/HCPCS: 99283

== ENCOUNTER 2017-09-06 14:19 | Emergency (ER) | payer BC, OTHER ==
[2017-09-06] MEDS ORDERED: ONDANSETRON 4 MG/2 ML VIAL IVP STA (15:27)
[2017-09-06] MEDS ORDERED: RX INFO: IV CONTRAST WAS GIVEN 1 EACH MISC MISCELLANE PRN (15:27)
[2017-09-06] MEDS ORDERED: SODIUM CHLORIDE 0.9% 1,000 ML IV ONE (15:27)
[2017-09-06] MEDS ORDERED: MORPHINE SULFATE 5 MG/ML SYRINGE IVP STA (15:27)
--- NOTE | 2017-09-06 15:55 | ED ---
Abdominal Pain HPI - General Chief Complaint: Abdominal Pain Stated Complaint: Abd pain Time Seen by Provider: 09/06/17 15:20 Source: patient Mode of arrival: ambulatory Limitations: no limitations - History of Present Illness Initial Comments: Is a 37-year-old male with history of cholecystectomy and sees Dr. Del Rosario who presents emergency department for umbilical pain with bloody drainage and vomiting. The patient states that it started yesterday. He states that he noted a little bit of blood coming from his belly button. He states that overnight he developed some nausea and vomited once with some bloody looking vomit. He states that he also noticed more drainage from his umbilicus. He admits to also some foul odorous drainage that he states is green. He called Dr. Oliveira's office who advised come emergency department for "concern for internal bleeding". Patient denies any fevers or chills. He states he did have a bowel movement earlier today that was without any blood. No dysuria or hematuria. No other complaints. - Related Data Home Medications Medication Instructions Recorded Confirmed Lisinopril [Zestril] 10 mg PO DAILY 10/03/16 09/06/17 Acetaminophen [Tylenol] 650 mg PO Q4HR PRN 02/13/17 09/06/17 Previous Rx's Medication Instructions Recorded LORazepam [Ativan] 1 mg PO TID PRN #30 tab 08/14/16 Venlafaxine HCl ER [Effexor XR] 300 mg PO DAILY 30 Days cap.er.24h 08/14/16 traZODone HCL [Desyrel] 100 mg PO HS #20 tab 08/14/16 Amoxicillin/Potassium Clav 1 tab PO Q12HR #14 tab 09/06/17 [Augmentin 875-125 Tablet] Hydrocodone/Acetaminophen [[place] 1 tab PO Q6HR PRN #15 tab 09/06/17 7.5-325] Ondansetron [Zofran ODT] 4 mg PO Q8HR #15 tab 09/06/17 Allergies Allergy/AdvReac Type Severity Reaction Status Date / Time aripiprazole [From Abilify] Allergy Rash/Hives, Verified 09/06/17 16:06 AGITATION Review of Systems ROS Statement: Those systems with pertinent positive or pertinent negative responses have been documented in the HPI. ROS Other: All systems not noted in ROS Statement are negative. Past Medical History Past Medical History: Hypertension Additional Past Medical History / Comment(s): MIGRAINES, History of Any Multi-Drug Resistant Organisms: None Reported Past Surgical History: Cholecystectomy Additional Past Surgical History / Comment(s): WISDOM TEETH EXTRACTIONS Past Anesthesia/Blood Transfusion Reactions: Postoperative Nausea & Vomiting ( PONV) Additional Past Anesthesia/Blood Transfusion Reaction / Comment(s): Patient has no previous surgical history EXCEPT FOR TOOTH EXTRACTIONS. Past Psychological History: Anxiety, Depression, PTSD Smoking Status: Never smoker Past Alcohol Use History: None Reported Past Drug Use History: None Reported - Past Family History Father Family Medical History: No Reported History Mother Family Medical History: Diabetes Mellitus, Fibromyalgia, GERD/Reflux Additional Family Medical History / Comment(s): VERTIGO General Exam - General Exam Comments Initial Comments: Constitutional: Awake alert Appears comfortable Head: Normocephalic atraumatic Eyes: no conjunctival injection No scleral icterus EOMI Neck: No JVD Supple Heart: Regular rate rhythm normal S1-S2 no murmurs Lungs: Clear to auscultation bilaterally No wheezing No rales Abdomen: Soft nondistended tenderness to palpation within the umbilicus without any noticeable bloody drainage or discharge. No tenderness in the epigastric right upper quadrant Extremities: Non edematous DP pulses intact Radial pulses intact Neuro: A&Ox3 No focal neurologic deficits Psych: Appropriate mood and affect Limitations: no limitations Course Vital Signs 09/06/17 09/06/17 09/06/17 14:20 18:17 18:58 Temperature 98.2 F 97.8 F Pulse Rate 71 61 66 Respiratory 20 16 16 Rate Blood Pressure 142/66 119/64 O2 Sat by Pulse 97 99 99 Oximetry - Reevaluation(s) Reevaluation #1: 09/06/17 18:59 EKG showing sinus bradycardia with rate 57. No numbness changes or T-wave inversion. QTC 426. Other intervals normal. No ectopy. Medical Decision Making - Medical Decision Making This is a 37-year-old male who presented for umbilical pain. The patient was found to have a fat-containing hernia. I spoke with Dr. Duffy about this and she stated that pain control and antibiotics would be adequate at this time. She recommended follow-up with Dr. Oliveira next week. The patient has worsening or changing symptoms she can return emergency Department. All questions were answered. - Lab Data Result diagrams: 09/06/17 15:50 09/06/17 15:50 Lab Results 09/06/17 09/06/17 09/06/17 Range/Units 15:50 15:50 15:50 WBC 5.9 (3.8-10.6) k/uL RBC 5.39 (4.30-5.90) m/uL Hgb 15.3 (13.0-17.5) gm/dL Hct 48.6 (39.0-53.0) % MCV 90.3 (80.0-100.0) fL MCH 28.4 (25.0-35.0) pg MCHC 31.5 (31.0-37.0) g/dL RDW 14.7 (11.5-15.5) % Plt Count 300 (150-450) k/uL Neutrophils % 54 % Lymphocytes % 38 % Monocytes % 7 % Eosinophils % 0 % Basophils % 0 % Neutrophils # 3.2 (1.3-7.7) k/uL Lymphocytes # 2.2 (1.0-4.8) k/uL Monocytes # 0.4 (0-1.0) k/uL Eosinophils # 0.0 (0-0.7) k/uL Basophils # 0.0 (0-0.2) k/uL PT 9.8 (9.0-12.0) sec INR 1.0 (<1.2) APTT 32.2 H (22.0-30.0) sec Sodium 141 (137-145) mmol/L Potassium 4.3 (3.5-5.1) mmol/L Chloride 102 (98-107) mmol/L Carbon Dioxide 29 (22-30) mmol/L Anion Gap 10 mmol/L BUN 13 (9-20) mg/dL Creatinine 1.08 (0.66-1.25) mg/dL Est GFR (MDRD) Af Amer >60 (>60 ml/min/1.73 sqM) Est GFR (MDRD) Non-Af >60 (>60 ml/min/1.73 sqM) Glucose 86 (74-99) mg/dL Calcium 9.8 (8.4-10.2) mg/dL Total Bilirubin 0.3 (0.2-1.3) mg/dL AST 20 (17-59) U/L ALT 40 (21-72) U/L Alkaline Phosphatase 86 (38-126) U/L Total Protein 7.2 (6.3-8.2) g/dL Albumin 4.4 (3.5-5.0) g/dL Lipase 74 (23-300) U/L Disposition Clinical Impression: Umbilical hernia Disposition: HOME SELF-CARE Condition: Stable Instructions: Umbilical Hernia (ED) Prescriptions: Amoxicillin/Potassium Clav [Augmentin 875-125 Tablet] 1 tab PO Q12HR #14 tab Hydrocodone/Acetaminophen [[place] 7.5-325] 1 tab PO Q6HR PRN #15 tab PRN Reason: Pain Ondansetron [Zofran ODT] 4 mg PO Q8HR #15 tab Referrals: Jean-Claude Buenrostro MD [Primary Care Provider] - 1-2 days Kimani Marcum MD [STAFF PHYSICIAN] - 1-2 days
[2017-09-06 15:58] LABS: Basophils % (A) 0 %; Eosinophils % (A) 0 %; HCT 48.6 % (39.0-53.0); HGB 15.3 gm/dL (13.0-17.5); Lymphocytes # (A) 2.2 k/uL (1.0-4.8); Lymphocytes % (A) 38 %; MCH 28.4 pg (25.0-35.0); MCHC 31.5 g/dL (31.0-37.0); MCV 90.3 fL (80.0-100.0); Mean Platelet Volume 6.5; Monocytes # (A) 0.4 k/uL (0-1.0); Monocytes % (A) 7 %; Neutrophils # (A) 3.2 k/uL (1.3-7.7); Neutrophils % (A) 54 %; Platelet Count 300 k/uL (150-450); RBC 5.39 m/uL (4.30-5.90); RDW 14.7 % (11.5-15.5); WBC 5.9 k/uL (3.8-10.6)
[2017-09-06 16:07] LABS: ALT 40 U/L (21-72); AST 20 U/L (17-59); Albumin 4.4 g/dL (3.5-5.0); Alkaline Phosphatase 86 U/L (38-126); Anion Gap 10 mmol/L; Blood Urea Nitrogen 13 mg/dL (9-20); Calcium 9.8 mg/dL (8.4-10.2); Carbon Dioxide 29 mmol/L (22-30); Chloride 102 mmol/L (98-107); Glucose 86 mg/dL (74-99); Lipase 74 U/L (23-300); Partial Thromboplastin Time 32.2 sec (22.0-30.0); Potassium 4.3 mmol/L (3.5-5.1); Prothrombin Time 9.8 sec (9.0-12.0); Sodium 141 mmol/L (137-145); Total Bilirubin 0.3 mg/dL (0.2-1.3); Total Protein 7.2 g/dL (6.3-8.2)
--- NOTE | 2017-09-06 16:45 | CT ---
EXAMINATION TYPE: CT abdomen pelvis w con DATE OF EXAM: 09/06/2017 COMPARISON: 08/09/2016 HISTORY: Umbilical pain and bloody drainage. Nausea. CT DLP: 1712.00 mGycm Automated exposure control for dose reduction was used. TECHNIQUE: Helical acquisition of images was performed from the lung bases through the pelvis. CONTRAST: Performed without Oral Contrast and with IV Contrast, patient injected with 100 mL of Omnipaque 300. FINDINGS: LUNG BASES: Bibasilar subsegmental atelectasis. LIVER/GB: Liver is unremarkable. Cholecystectomy clips are seen within the right upper quadrant and g allbladder surgically absent with cystic lesion in the gallbladder fossa measuring 3.2 x 2.3 cm ident ified, similar to the prior exam of 08/09/2016. PANCREAS: No significant abnormality is seen. No ductal dilatation. SPLEEN: No significant abnormality is seen. No splenomegaly. ADRENALS: No significant abnormality is seen. No nodularity. KIDNEYS: Kidneys enhance symmetrically. No hydronephrosis. FREE AIR: No free air is visualized. ADENOPATHY: None visualized REPRODUCTIVE ORGANS: No significant abnormality is seen URINARY BLADDER: Unremarkable OSSEOUS STRUCTURES: No significant abnormality is seen. BOWEL: Appendix is retrocecal, partially air-filled and within normal limits of size. 2 sigmoid dive rticula are present without pericolonic fat stranding. Incidental note is made of a small duodenal di verticulum. OTHER: There is a small fat filled umbilical hernia measuring 1.1 cm without surrounding inflammatory change. IMPRESSION: 1. SURGICAL ABSENCE OF THE GALLBLADDER WITH 3. A 3 CM FLUID ATTENUATED STRUCTURE WITHIN THE GALLBLADD ER FOSSA THAT COULD REPRESENT A BILOMA, SEROMA OR DILATED CYSTIC DUCT REMNANT. ABSCESS IS UNLIKELY THERE ARE NO SURROUNDING INFLAMMATORY CHANGES. 2. SMALL FAT FILLED UMBILICAL HERNIA WITHOUT AN INFLAMMATORY CHANGE. 3. NO EVIDENCE OF APPENDICITIS.
[2017-09-06] MEDS ORDERED: HYDROmorphone 1 MG/ML 1 ML SYRINGE IVP STA (17:44)
[2017-09-06 18:19] VITALS: RESP 16
[2017-09-06 19:08] VITALS: BP 142/62; PULSE 78; TEMP 98.6
== END 2017-09-06 19:20 | disposition home or self-care (01) ==
LOC: EC 14:19
DX: K42.9 Umbilical hernia without obstruction or gangrene (principal); R11.2 Nausea with vomiting, unspecified; I10 Essential (primary) hypertension; Z79.899 Other long term (current) drug therapy; Z88.8 Allergy status to other drugs, medicaments and biological substances; Z90.49 Acquired absence of other specified parts of digestive tract; Z83.79 Family history of other diseases of the digestive system
CPT/HCPCS: 36415; 80053; 83690; 85025; 85610; 85730; 74177; 99284; 96374; 96375 ×2; 96361 ×3; J2405; J1170; Q9967; J2274

== ENCOUNTER 2018-01-08 02:26 | Emergency (ER) | payer SELFPAY ==
--- NOTE | 2018-01-08 03:29 | ED ---
General Adult HPI - General Chief complaint: Psychiatric Symptoms Stated complaint: Petition Time Seen by Provider: 01/08/18 03:21 Source: patient, police, RN notes reviewed Mode of arrival: ambulatory Limitations: no limitations - History of Present Illness Initial comments: Patient is a pleasant 37-year-old male presenting to the emergency Department with complaints of depression and suicidal thoughts. Symptoms have been present for the past few hours. Patient recently lost his dog. Patient also recently was told she would not have a job. Patient is depressed with thoughts of driving into an oncoming semitruck or drowning. Patient does have a history of previous suicide attempt. No homicidal thoughts. No alcohol or street drug use. No physical complaints. - Related Data Home Medications Medication Instructions Recorded Confirmed Lisinopril [Zestril] 10 mg PO DAILY 10/03/16 01/08/18 Acetaminophen [Tylenol] 650 mg PO Q4HR PRN 02/13/17 01/08/18 Previous Rx's Medication Instructions Recorded LORazepam [Ativan] 1 mg PO TID PRN #30 tab 08/14/16 Venlafaxine HCl ER [Effexor XR] 300 mg PO DAILY 30 Days cap.er.24h 08/14/16 traZODone HCL [Desyrel] 100 mg PO HS #20 tab 08/14/16 Amoxicillin/Potassium Clav 1 tab PO Q12HR #14 tab 09/06/17 [Augmentin 875-125 Tablet] Hydrocodone/Acetaminophen [[place] 1 tab PO Q6HR PRN #15 tab 09/06/17 7.5-325] Ondansetron [Zofran ODT] 4 mg PO Q8HR #15 tab 09/06/17 Allergies Allergy/AdvReac Type Severity Reaction Status Date / Time aripiprazole [From Abilify] Allergy Rash/Hives, Verified 09/06/17 16:06 AGITATION Review of Systems ROS Statement: Those systems with pertinent positive or pertinent negative responses have been documented in the HPI. ROS Other: All systems not noted in ROS Statement are negative. Constitutional: Denies: fever Eyes: Denies: eye pain ENT: Denies: ear pain Respiratory: Denies: cough Cardiovascular: Denies: chest pain Endocrine: Denies: fatigue Gastrointestinal: Denies: abdominal pain Genitourinary: Denies: dysuria Musculoskeletal: Denies: back pain Skin: Denies: rash Neurological: Denies: headache Psychiatric: Reports: depression, suicidal thoughts. Denies: auditory hallucinations, visual hallucinations, homicidal thoughts Past Medical History Past Medical History: Hypertension Additional Past Medical History / Comment(s): MIGRAINES, History of Any Multi-Drug Resistant Organisms: None Reported Past Surgical History: Cholecystectomy Additional Past Surgical History / Comment(s): WISDOM TEETH EXTRACTIONS Past Anesthesia/Blood Transfusion Reactions: Postoperative Nausea & Vomiting ( PONV) Additional Past Anesthesia/Blood Transfusion Reaction / Comment(s): Patient has no previous surgical history EXCEPT FOR TOOTH EXTRACTIONS. Past Psychological History: Anxiety, Depression, PTSD Smoking Status: Never smoker Past Alcohol Use History: None Reported Past Drug Use History: None Reported - Past Family History Father Family Medical History: No Reported History Mother Family Medical History: Diabetes Mellitus, Fibromyalgia, GERD/Reflux Additional Family Medical History / Comment(s): VERTIGO General Exam Limitations: no limitations General appearance: alert, in no apparent distress Head exam: Present: atraumatic Eye exam: Present: normal appearance, PERRL ENT exam: Present: normal oropharynx Neck exam: Present: normal inspection Respiratory exam: Present: normal lung sounds bilaterally Cardiovascular Exam: Present: regular rate, normal rhythm GI/Abdominal exam: Present: soft. Absent: tenderness Extremities exam: Present: normal inspection Neurological exam: Present: alert Psychiatric exam: Present: depressed Skin exam: Present: normal color Course Vital Signs 01/08/18 02:49 Temperature 97.9 F Pulse Rate 74 Respiratory 20 Rate Blood Pressure 151/93 O2 Sat by Pulse 99 Oximetry Medical Decision Making - Medical Decision Making Patient was seen by mental health services, who recommends discharge. Patient reevaluated by myself. Patient does not feel suicidal. Patient does contract for safety. Disposition Clinical Impression: Depression Disposition: HOME SELF-CARE Condition: Stable Instructions: Depression (ED), Suicide Prevention for Adults (ED) Additional Instructions: Please follow-up with mental health services as directed as well as your primary care physician. Return for increased depression, thoughts of self-harm , worsening symptoms or other concerns Is patient prescribed a controlled substance at d/c from ED?: No Referrals: Jean-Claude Buenrostro MD [Primary Care Provider] - 1-2 days Herman Anthony DO [Medical Doctor] - 1-2 days Time of Disposition: 05:55
[2018-01-08 06:23] VITALS: BP 124/69; PULSE 58; RESP 14; TEMP 97
== END 2018-01-08 06:27 | disposition home or self-care (01) ==
LOC: EC 02:26
DX: F32.9 Major depressive disorder, single episode, unspecified (principal); I10 Essential (primary) hypertension; Z79.899 Other long term (current) drug therapy; Z88.8 Allergy status to other drugs, medicaments and biological substances
CPT/HCPCS: 82075; 99284

== ENCOUNTER 2018-07-29 20:40 | Emergency (ER) | payer OTHER ==
[2018-07-29 20:48] VITALS: RESP 16
--- NOTE | 2018-07-29 21:35 | ED ---
Male Urogenital HPI - General Chief complaint: Urogenital Stated complaint: Urogenital Time Seen by Provider: 07/29/18 20:52 Source: patient, RN notes reviewed, old records reviewed Mode of arrival: ambulatory Limitations: no limitations - History of Present Illness Initial comments: Patient is a 38-year-old male, who presents the emergency department today with chief complaint of penile pain, dysuria times one day. Patient reports that he' s noticed purulent drainage from the tip of his penis. Patient does report being homosexual. He is here with his partner. But denies any recent intercourse. Patient states that he has had some pain reaching up to the groin. Patient reports no testicular pain. - Related Data Home Medications Medication Instructions Recorded Confirmed Lisinopril [Zestril] 10 mg PO DAILY 10/03/16 07/29/18 Acetaminophen [Tylenol] 650 mg PO Q4HR PRN 02/13/17 07/29/18 Previous Rx's Medication Instructions Recorded LORazepam [Ativan] 1 mg PO TID PRN #30 tab 08/14/16 Venlafaxine HCl ER [Effexor XR] 300 mg PO DAILY 30 Days cap.er.24h 08/14/16 traZODone HCL [Desyrel] 100 mg PO HS #20 tab 08/14/16 Hydrocodone/Acetaminophen [[place] 1 tab PO Q6HR PRN #15 tab 09/06/17 7.5-325] Ondansetron [Zofran ODT] 4 mg PO Q8HR #15 tab 09/06/17 Ciprofloxacin HCl [Cipro] 500 mg PO Q12HR 10 Days tab 07/29/18 Doxycycline [Vibramycin] 100 mg PO BID #28 cap 07/29/18 Ketorolac [Toradol] 10 mg PO Q6HR #15 tab 07/29/18 Tamsulosin [Flomax] 0.4 mg PO DAILY #10 cap 07/29/18 Allergies Allergy/AdvReac Type Severity Reaction Status Date / Time aripiprazole [From Abilify] Allergy Rash/Hives, Verified 07/29/18 20:48 AGITATION Review of Systems ROS Statement: Those systems with pertinent positive or pertinent negative responses have been documented in the HPI. ROS Other: All systems not noted in ROS Statement are negative. Past Medical History Past Medical History: Hypertension Additional Past Medical History / Comment(s): MIGRAINES, History of Any Multi-Drug Resistant Organisms: None Reported Past Surgical History: Cholecystectomy Additional Past Surgical History / Comment(s): WISDOM TEETH EXTRACTIONS Past Anesthesia/Blood Transfusion Reactions: Postoperative Nausea & Vomiting ( PONV) Additional Past Anesthesia/Blood Transfusion Reaction / Comment(s): Patient has no previous surgical history EXCEPT FOR TOOTH EXTRACTIONS. Past Psychological History: Anxiety, Depression, PTSD Smoking Status: Never smoker Past Alcohol Use History: None Reported Past Drug Use History: None Reported - Past Family History Father Family Medical History: No Reported History Mother Family Medical History: Diabetes Mellitus, Fibromyalgia, GERD/Reflux Additional Family Medical History / Comment(s): VERTIGO General Exam - General Exam Comments Initial Comments: Is a 38-year-old male. Alert. No significant distress. Limitations: no limitations General appearance: alert Head exam: Present: atraumatic Eye exam: Present: normal appearance, PERRL, EOMI. Absent: scleral icterus, conjunctival injection, periorbital swelling ENT exam: Present: normal exam, mucous membranes moist Neck exam: Present: normal inspection. Absent: tenderness, meningismus, lymphadenopathy Respiratory exam: Present: normal lung sounds bilaterally. Absent: respiratory distress, wheezes, rales, rhonchi, stridor Cardiovascular Exam: Present: regular rate, normal rhythm, normal heart sounds. Absent: systolic murmur, diastolic murmur, rubs, gallop, clicks exam: Present: normal inspection, other (Patient has no evidence of urethral drainage. No tenderness to the scrotum or testicles. Patient reports tenderness over the glans penis.). Absent: testicular tenderness, urethral discharge, scrotal swelling, vertical testicular lie, circumcision Extremities exam: Present: normal inspection, full ROM, normal capillary refill. Absent: tenderness, pedal edema, joint swelling, calf tenderness Back exam: Present: normal inspection Neurological exam: Present: alert, oriented X3, CN II-XII intact Course Vital Signs 07/29/18 07/29/18 20:44 23:00 Temperature 98.6 F 98.7 F Pulse Rate 71 68 Respiratory 16 16 Rate Blood Pressure 131/81 128/78 O2 Sat by Pulse 99 99 Oximetry Medical Decision Making - Medical Decision Making 38-year-old male presents emergency department today with concerns for infection times one day with dysuria and purulent penile discharge. He has no discharge noted on exam this time. He did attempt to do a urethral swab however Patient refused and would not tolerate this. He had a urinalysis. This was positive for blood and evidence of sperm. Discussed we will culture this. I'm also concern for possibility of prostatitis with the Patient due to history of homosexuality. I discussed at this time we'll treat the Patient with Flomax, Toradol for pain. We'll put the Patient on Cipro. Patient was treated for STDs with Rocephin and azithromycin empirically this time. I discussed strict return parameters and following up with Dr. Nguyen. All questions answered. - Lab Data Lab Results 07/29/18 Range/Units 21:20 Urine Color Yellow Urine Appearance Cloudy (Clear) Urine pH 6.5 (5.0-8.0) Ur Specific [place] 1.023 (1.001-1.035) Urine Protein 2+ H (Negative) Urine Glucose (UA) Negative (Negative) Urine Ketones Negative (Negative) Urine Blood Trace H (Negative) Urine Nitrite Negative (Negative) Urine Bilirubin Negative (Negative) Urine Urobilinogen <2.0 (<2.0) mg/dL Ur Leukocyte Esterase Negative (Negative) Urine RBC 5 (0-5) /hpf Urine WBC 2 (0-5) /hpf Ur Squamous Epith Cells <1 (0-4) /hpf Urine Mucus Many H (None) /hpf Urine Sperm Moderate H (None) /hpf Disposition Clinical Impression: Dysuria Disposition: HOME SELF-CARE Instructions: Urinary Tract Infection in Men (ED) Additional Instructions: Patient has follow-up with PCP. Return to the emergency department if any alarming signs or symptoms occur. Follow-up with urology as well. Ensure drinking plenty of fluids. Prescriptions: Ciprofloxacin HCl [Cipro] 500 mg PO Q12HR 10 Days tab Doxycycline [Vibramycin] 100 mg PO BID #28 cap Ketorolac [Toradol] 10 mg PO Q6HR #15 tab Tamsulosin [Flomax] 0.4 mg PO DAILY #10 cap Is patient prescribed a controlled substance at d/c from ED?: No If Rx opioid, was Start Talking consent form obtained?: No Referrals: Jean-Claude Buenrostro MD [Primary Care Provider] - 1-2 days Leandro Lopez MD [STAFF PHYSICIAN] - 1-2 days Time of Disposition: 22:27
[2018-07-29 21:46] LABS: Appearance,Urine Cloudy (Clear); Bilirubin,Urine Negative (Negative); Blood,Urine Trace (Negative); Color,Urine Yellow; Glucose,Urine (UA) Negative (Negative); Ketones,Urine Negative (Negative); Leukocyte Esterase,Urine Negative (Negative); Mucus,Urine Many /hpf; Nitrite,Urine Negative (Negative); PH, Urine 6.5 (5.0-8.0); Protein,Urine 2+ (Negative); RBC,Urine 5 /hpf (0-5); Specific Gravity,Urine 1.023 (1.001-1.035); Sperm,Urine Moderate /hpf; Squamous Epithelial Cell,Urine <1 /hpf (0-4); Urobilinogen,Urine <2.0 mg/dL (<2.0)
[2018-07-29] MEDS ORDERED: cefTRIAXone 250 MG VIAL IM STA (22:14)
[2018-07-29] MEDS ORDERED: AZITHROMYCIN 500 MG TAB PO STA (22:14)
[2018-07-29] MEDS ORDERED: PHENAZOPYRIDINE 100 MG TAB PO STA (22:28)
[2018-07-29 23:01] VITALS: BP 128/78; PULSE 68; TEMP 98.7
--- NOTE | 2018-07-31 01:27 | CDI ---
Documentation Clarification OP Dear KATELYNN Choi: Please do addendum to ED report for HPI , Physical exam and MDM. Thank you, Adrianna Stein Lab Engineer If you have any question, Please contact equipment manager at [phone] [facility]
[2018-07-31 16:34] LABS: C. trachomatis,PCR Negative (Neg,Equiv); Chlamydia trachomatis Source Urine; N. gonorrhoeae,PCR Negative (Neg,Equiv); Neisseria Source Urine
== END 2018-07-29 23:00 | disposition home or self-care (01) ==
LOC: EC 20:40
DX: R30.0 Dysuria (principal); N48.89 Other specified disorders of penis; I10 Essential (primary) hypertension; Z79.899 Other long term (current) drug therapy; Z88.8 Allergy status to other drugs, medicaments and biological substances; Z90.49 Acquired absence of other specified parts of digestive tract
CPT/HCPCS: 81001; 87491; 87591; 99284; 96372; J0696

== ENCOUNTER 2018-08-03 23:26 | Emergency (ER) | payer OTHER ==
[2018-08-03 23:35] VITALS: BP 127/82; PULSE 77; RESP 18; TEMP 98.5
[2018-08-04 00:34] LABS: Appearance,Urine Clear (Clear); Bilirubin,Urine Negative (Negative); Blood,Urine Negative (Negative); Color,Urine Light Yellow; Glucose,Urine (UA) Negative (Negative); Ketones,Urine Negative (Negative); Leukocyte Esterase,Urine Negative (Negative); Nitrite,Urine Negative (Negative); Protein,Urine Negative (Negative); Specific Gravity,Urine 1.017 (1.001-1.035); Urobilinogen,Urine <2.0 mg/dL (<2.0)
--- NOTE | 2018-08-04 00:45 | ED ---
General Adult HPI - General Chief complaint: Recheck/Abnormal Lab/Rx Stated complaint: Concern with orders Time Seen by Provider: 08/03/18 23:38 Source: patient Mode of arrival: ambulatory Limitations: no limitations - History of Present Illness Initial comments: 38-year-old male patient presents to the emergency department today with complaints of penile shaft pain. Patient states his been going on for the last couple of weeks. States he was seen and evaluated for this here a few days ago was given prescriptions which the pharmacist told him he cannot take is interactive with his current prescriptions. Patient is upset and continued here for reevaluation. Patient states that he initially had some greenish discharge from the tip of his penis however states that that has resolved. He denies any hematuria, dysuria, urinary frequency, urinary urgency. He denies any fevers or chills with this. Denies any scrotal pain or swelling. Denies any abdominal pain, back pain, nausea, or vomiting. Patient denies any recent rash, shortness breath, chest pain, diarrhea, constipation, back pain, numbness , tingling, dizziness, weakness, headache, visual changes, or any other complaints. - Related Data Home Medications Medication Instructions Recorded Confirmed Lisinopril [Zestril] 10 mg PO DAILY 10/03/16 07/29/18 Acetaminophen [Tylenol] 650 mg PO Q4HR PRN 02/13/17 07/29/18 Previous Rx's Medication Instructions Recorded LORazepam [Ativan] 1 mg PO TID PRN #30 tab 08/14/16 Venlafaxine HCl ER [Effexor XR] 300 mg PO DAILY 30 Days cap.er.24h 08/14/16 traZODone HCL [Desyrel] 100 mg PO HS #20 tab 08/14/16 Hydrocodone/Acetaminophen [[place] 1 tab PO Q6HR PRN #15 tab 09/06/17 7.5-325] Ondansetron [Zofran ODT] 4 mg PO Q8HR #15 tab 09/06/17 Ciprofloxacin HCl [Cipro] 500 mg PO Q12HR 10 Days tab 07/29/18 Doxycycline [Vibramycin] 100 mg PO BID #28 cap 07/29/18 Ketorolac [Toradol] 10 mg PO Q6HR #15 tab 07/29/18 Tamsulosin [Flomax] 0.4 mg PO DAILY #10 cap 07/29/18 Acetaminophen-Codeine 300-30mg 1 tab PO Q6H PRN #12 tablet 08/04/18 [Tylenol #3] Allergies Allergy/AdvReac Type Severity Reaction Status Date / Time aripiprazole [From Abilify] Allergy Rash/Hives, Verified 08/03/18 23:35 AGITATION doxycycline Allergy Unknown Verified 08/03/18 23:35 Review of Systems ROS Statement: Those systems with pertinent positive or pertinent negative responses have been documented in the HPI. ROS Other: All systems not noted in ROS Statement are negative. Past Medical History Past Medical History: Hypertension Additional Past Medical History / Comment(s): MIGRAINES, History of Any Multi-Drug Resistant Organisms: None Reported Past Surgical History: Cholecystectomy Additional Past Surgical History / Comment(s): WISDOM TEETH EXTRACTIONS Past Anesthesia/Blood Transfusion Reactions: Postoperative Nausea & Vomiting ( PONV) Additional Past Anesthesia/Blood Transfusion Reaction / Comment(s): Patient has no previous surgical history EXCEPT FOR TOOTH EXTRACTIONS. Past Psychological History: Anxiety, Depression, PTSD Smoking Status: Never smoker Past Alcohol Use History: None Reported Past Drug Use History: None Reported - Past Family History Father Family Medical History: No Reported History Mother Family Medical History: Diabetes Mellitus, Fibromyalgia, GERD/Reflux Additional Family Medical History / Comment(s): VERTIGO General Exam Limitations: no limitations General appearance: alert, in no apparent distress, other (This is a well- developed, well-nourished adult male patient in no acute distress. Vital signs upon presentation are temperature 98.5F, pulse 77, respirations 18, blood pressure 127/82, pulse ox 98% on room air.) Eye exam: Present: normal appearance, PERRL, EOMI. Absent: scleral icterus, conjunctival injection, periorbital swelling ENT exam: Present: normal exam, normal oropharynx, mucous membranes moist Respiratory exam: Present: normal lung sounds bilaterally. Absent: respiratory distress, wheezes, rales, rhonchi, stridor Cardiovascular Exam: Present: regular rate, normal rhythm, normal heart sounds. Absent: systolic murmur, diastolic murmur, rubs, gallop, clicks GI/Abdominal exam: Present: soft, normal bowel sounds. Absent: distended, tenderness, guarding, rebound, rigid exam: Present: normal inspection, other (No rash or wounds noted). Absent: testicular tenderness, urethral discharge, scrotal swelling Back exam: Present: normal inspection. Absent: CVA tenderness (R), CVA tenderness (L) Neurological exam: Present: alert, oriented X3, CN II-XII intact Psychiatric exam: Present: normal affect, normal mood Skin exam: Present: warm, dry, intact, normal color. Absent: rash Course Vital Signs 08/03/18 23:32 Temperature 98.5 F Pulse Rate 77 Respiratory 18 Rate Blood Pressure 127/82 O2 Sat by Pulse 98 Oximetry Medical Decision Making - Medical Decision Making 38-year-old male patient presented to the emergency department today for reevaluation of penile shaft pain. Patient was seen and evaluated here a few days ago and was discharged with a prescription for Cipro to cover for both possibility of urinary tract infection or STD. STD cultures are back and are negative. Did repeat the urinalysis today showed no evidence of infection. Patient will be treated with pain medication and instructed to follow-up with urologist for further evaluation as soon as possible. He is advised to avoid sexual intercourse until after follow-up with urology. Return parameters were discussed in detail. He verbalizes understanding and agrees with this plan. - Lab Data Lab Results 08/04/18 Range/Units 00:05 Urine Color Light Yellow Urine Appearance Clear (Clear) Urine pH 6.0 (5.0-8.0) Ur Specific [place] 1.017 (1.001-1.035) Urine Protein Negative (Negative) Urine Glucose (UA) Negative (Negative) Urine Ketones Negative (Negative) Urine Blood Negative (Negative) Urine Nitrite Negative (Negative) Urine Bilirubin Negative (Negative) Urine Urobilinogen <2.0 (<2.0) mg/dL Ur Leukocyte Esterase Negative (Negative) Disposition Clinical Impression: Penile pain Disposition: HOME SELF-CARE Condition: Good Instructions: Cold Compress or Soak (ED) Additional Instructions: Avoid sexual intercourse until follow-up with urology. Follow-up with urologist for recheck as soon as possible. Return immediately for any new, worsening, or concerning symptoms. Prescriptions: Acetaminophen-Codeine 300-30mg [Tylenol #3] 1 tab PO Q6H PRN #12 tablet PRN Reason: Pain Is patient prescribed a controlled substance at d/c from ED?: No Referrals: Jean-Claude Buenrostro MD [Primary Care Provider] - 1-2 days Time of Disposition: 00:45
[2018-08-04] MEDS ORDERED: ACET/COD 300 MG/30 MG STARTER PACK 6 TAB BTL PO STA (00:49)
== END 2018-08-04 01:07 | disposition home or self-care (01) ==
LOC: EC 23:26
DX: N48.89 Other specified disorders of penis (principal); I10 Essential (primary) hypertension; Z90.49 Acquired absence of other specified parts of digestive tract; Z79.899 Other long term (current) drug therapy; Z88.1 Allergy status to other antibiotic agents; Z88.8 Allergy status to other drugs, medicaments and biological substances
CPT/HCPCS: 81003; 99283

== ENCOUNTER 2019-06-19 15:38 | Emergency (ER) | payer OTHER ==
--- NOTE | 2019-06-19 16:14 | ED ---
General Adult HPI - General Chief complaint: Weakness Stated complaint: Numbness on R Side Time Seen by Provider: 06/19/19 15:50 Source: patient, RN notes reviewed Mode of arrival: ambulatory Limitations: no limitations - History of Present Illness Initial comments: Patient is a pleasant 39-year-old male presenting to the emergency Department with complaints of right-sided paresthesias. Patient states decreased sensation on the right side. Patient states onset was yesterday morning. Patient states yesterday afternoon it seems slightly improved however has been worse again since early this morning. Patient does admit to some associated weakness. Patient denies any headaches. Patient states he does feel somewhat forgetful. Patient states he thought today was Saturday then later realized it does not. No history of similar symptoms previously. Patient denies any headaches associated with this at all. No facial involvement. - Related Data Home Medications Medication Instructions Recorded Confirmed Lisinopril [Zestril] 5 mg PO DAILY 10/03/16 06/19/19 Metoprolol Tartrate [Lopressor] 25 mg PO BID 06/19/19 06/19/19 Previous Rx's Medication Instructions Recorded LORazepam [Ativan] 1 mg PO TID PRN #30 tab 08/14/16 Venlafaxine HCl ER [Effexor XR] 300 mg PO DAILY 30 Days cap.er.24h 08/14/16 traZODone HCL [Desyrel] 100 mg PO HS #20 tab 08/14/16 Allergies Allergy/AdvReac Type Severity Reaction Status Date / Time aripiprazole [From Abilify] Allergy Rash/Hives, Verified 06/19/19 15:52 AGITATION doxycycline AdvReac Unknown Verified 06/19/19 15:52 Review of Systems ROS Statement: Those systems with pertinent positive or pertinent negative responses have been documented in the HPI. ROS Other: All systems not noted in ROS Statement are negative. Constitutional: Denies: fever Eyes: Denies: eye pain ENT: Denies: ear pain Respiratory: Denies: cough Cardiovascular: Denies: chest pain Endocrine: Denies: fatigue Gastrointestinal: Denies: abdominal pain Genitourinary: Denies: dysuria Musculoskeletal: Denies: back pain Skin: Denies: rash Neurological: Reports: weakness, paresthesias. Denies: headache Past Medical History Past Medical History: Hypertension Additional Past Medical History / Comment(s): MIGRAINES, History of Any Multi-Drug Resistant Organisms: None Reported Past Surgical History: Cholecystectomy Additional Past Surgical History / Comment(s): WISDOM TEETH EXTRACTIONS Past Anesthesia/Blood Transfusion Reactions: Postoperative Nausea & Vomiting (PONV) Additional Past Anesthesia/Blood Transfusion Reaction / Comment(s): Patient has no previous surgical history EXCEPT FOR TOOTH EXTRACTIONS. Past Psychological History: Anxiety, Depression, PTSD Smoking Status: Never smoker Past Alcohol Use History: None Reported Past Drug Use History: None Reported - Past Family History Father Family Medical History: No Reported History Mother Family Medical History: Diabetes Mellitus, Fibromyalgia, GERD/Reflux Additional Family Medical History / Comment(s): VERTIGO General Exam Limitations: no limitations General appearance: alert, in no apparent distress Head exam: Present: normocephalic Eye exam: Present: normal appearance, PERRL ENT exam: Present: normal oropharynx Respiratory exam: Present: normal lung sounds bilaterally Cardiovascular Exam: Present: regular rate, normal rhythm GI/Abdominal exam: Present: soft. Absent: tenderness Extremities exam: Present: normal inspection Neurological exam: Present: alert, CN II-XII intact Expanded Neurological exam: Present: protecting the airway Patient oriented to: Present: person, place. Absent: time (Patient is not oriented to month or year .) Speech: Present: fluid speech Cerebellar function: Finger to Nose: Abnormal Right Sensory exam: Upper Extremity Light Touch: Abnormal Right, Lower Extremity Light Touch: Abnormal Right Motor strength exam: RUE: 4, LUE: 5, RLE: 4, LLE: 5 Eye Response: (4) open spontaneously Motor Response: (6) obeys commands Verbal Response: (4) confused conversation Psychiatric exam: Present: normal affect, normal mood Skin exam: Present: normal color Course Vital Signs 06/19/19 06/19/19 06/19/19 15:40 16:29 17:40 Temperature 98.1 F Pulse Rate 62 59 L 56 L Respiratory 20 18 18 Rate Blood Pressure 133/87 126/78 131/79 O2 Sat by Pulse 99 98 98 Oximetry 06/19/19 18:40 Temperature Pulse Rate 60 Respiratory 18 Rate Blood Pressure 117/71 O2 Sat by Pulse 98 Oximetry EKG Findings - EKG Comments: EKG Findings:: Normal sinus rhythm 62. ME 174. QRS 108. QT 406. QTc 412. Normal axis. Normal QRS. No acute ST change. Medical Decision Making - Medical Decision Making Patient reevaluated and unchanged. Patient states there is some mild discomfort of his right forearm that is positional. No tenderness to palpation. Patient updated on results and plan. Case was discussed with Dr. Camp, at [facility], who will accept transfer. - Lab Data Result diagrams: 06/19/19 16:24 06/19/19 16:24 Lab Results 06/19/19 06/19/19 06/19/19 Range/Units 16:24 16:24 16:24 WBC 6.7 (3.8-10.6) k/uL RBC 5.08 (4.30-5.90) m/uL Hgb 15.5 (13.0-17.5) gm/dL Hct 45.1 (39.0-53.0) % MCV 88.8 (80.0-100.0) fL MCH 30.6 (25.0-35.0) pg MCHC 34.5 (31.0-37.0) g/dL RDW 13.0 (11.5-15.5) % Plt Count 265 (150-450) k/uL Neutrophils % 51 % Lymphocytes % 37 % Monocytes % 9 % Eosinophils % 0 % Basophils % 1 % Neutrophils # 3.4 (1.3-7.7) k/uL Lymphocytes # 2.5 (1.0-4.8) k/uL Monocytes # 0.6 (0-1.0) k/uL Eosinophils # 0.0 (0-0.7) k/uL Basophils # 0.1 (0-0.2) k/uL PT 9.8 (9.0-12.0) sec INR 0.9 (<1.2) APTT 31.4 H (22.0-30.0) sec Sodium 139 (137-145) mmol/L Potassium 4.6 (3.5-5.1) mmol/L Chloride 102 (98-107) mmol/L Carbon Dioxide 30 (22-30) mmol/L Anion Gap 7 mmol/L BUN 10 (9-20) mg/dL Creatinine 1.02 (0.66-1.25) mg/dL Est GFR (CKD-EPI)AfAm >90 (>60 ml/min/1.73 sqM) Est GFR (CKD-EPI)NonAf >90 (>60 ml/min/1.73 sqM) Glucose 84 (74-99) mg/dL Calcium 9.4 (8.4-10.2) mg/dL Total Bilirubin 0.4 (0.2-1.3) mg/dL AST 34 (17-59) U/L ALT 37 (21-72) U/L Alkaline Phosphatase 76 (38-126) U/L Total Protein 7.3 (6.3-8.2) g/dL Albumin 4.5 (3.5-5.0) g/dL - Radiology Data Radiology results: report reviewed (Computed tomography scan of the brain and CT A of the brain revealed no process.), image reviewed (X-ray shows no acute process) Disposition Clinical Impression: Right sided weakness Disposition: OTHER INSTITUTION NOT DEFINED Is patient prescribed a controlled substance at d/c from ED?: No Referrals: Jean-Claude Buenrostro MD [Primary Care Provider] - 1-2 days Time of Disposition: 19:24 - Out of Hospital Transfer - Req. Specs Out of Hospital Transfer - Requested Specifics: Other Emergency Center
[2019-06-19 16:29] VITALS: RESP 18
[2019-06-19 16:46] LABS: Basophils # (A) 0.1 k/uL (0-0.2); Basophils % (A) 1 %; Eosinophils % (A) 0 %; HCT 45.1 % (39.0-53.0); HGB 15.5 gm/dL (13.0-17.5); Lymphocytes # (A) 2.5 k/uL (1.0-4.8); Lymphocytes % (A) 37 %; MCH 30.6 pg (25.0-35.0); MCHC 34.5 g/dL (31.0-37.0); MCV 88.8 fL (80.0-100.0); Mean Platelet Volume 5.2; Monocytes # (A) 0.6 k/uL (0-1.0); Monocytes % (A) 9 %; Neutrophils # (A) 3.4 k/uL (1.3-7.7); Neutrophils % (A) 51 %; Platelet Count 265 k/uL (150-450); RBC 5.08 m/uL (4.30-5.90); WBC 6.7 k/uL (3.8-10.6)
[2019-06-19 16:49] LABS: INR 0.9 (<1.2); Partial Thromboplastin Time 31.4 sec (22.0-30.0); Prothrombin Time 9.8 sec (9.0-12.0)
[2019-06-19 16:57] LABS: ALT 37 U/L (21-72); AST 34 U/L (17-59); African American GFR (CKD) >90 (>60 ml/min/1.73 sqM); Albumin 4.5 g/dL (3.5-5.0); Alkaline Phosphatase 76 U/L (38-126); Anion Gap 7 mmol/L; Blood Urea Nitrogen 10 mg/dL (9-20); Calcium 9.4 mg/dL (8.4-10.2); Carbon Dioxide 30 mmol/L (22-30); Chloride 102 mmol/L (98-107); Glucose 84 mg/dL (74-99); Potassium 4.6 mmol/L (3.5-5.1); Sodium 139 mmol/L (137-145); Total Bilirubin 0.4 mg/dL (0.2-1.3); Total Protein 7.3 g/dL (6.3-8.2)
--- NOTE | 2019-06-19 17:39 | CT ---
EXAMINATION TYPE: CT brain wo con DATE OF EXAM: 06/19/2019 COMPARISON: 02/13/2017 HISTORY: Right sided weakness and numbness x [address] DLP: 1102.8 mGycm. Automated Exposure Control for Dose Reduction was Utilized. TECHNIQUE: CT scan of the head is performed without contrast. FINDINGS: Ventricles have normal size. There is no mass effect nor midline shift. There is no sign of intracranial hemorrhage. The calvarium is intact. IMPRESSION: Negative head CT scan. No change.
--- NOTE | 2019-06-19 17:48 | CT ---
EXAMINATION TYPE: CT angio head neck DATE OF EXAM: 06/19/2019 HISTORY: Right sided weakness and numbness x 2 days. COMPARISON: None CT DLP: 661.7 mGycm. Automated Exposure Control for Dose Reduction was Utilized. TECHNIQUE: CTA scan of the neck is performed with IV Contrast, patient injected with 65 mL of Isovue 370, axial images are obtained, coronal and sagittal reformatted images are reviewed. Three-D recons tructed images are created on an independent workstation and reviewed. FINDINGS: There is normal branching pattern of the great vessels on the aortic arch. There is bilateral arteria l flow in the subclavian arteries. There is arterial flow in the common internal and external carotid arteries bilaterally. The carotid artery bifurcations appear widely patent. There is bilateral arter ial flow in the vertebral arteries. There is no evidence of carotid or vertebral artery aneurysm or d issection. There is arterial flow in the vertebrobasilar artery system. There is arterial flow in the anterior m iddle and posterior cerebral arteries bilaterally. There is normal contrast opacification of the veno us sinuses. There is no evidence of hemodynamic stenosis. There is no aneurysm or neovascularity. The re is no mass effect. IMPRESSION: Normal CT angiogram of the brain. Normal CT angiogram of the neck.
--- NOTE | 2019-06-19 18:15 | XR ---
EXAMINATION TYPE: XR chest 2V DATE OF EXAM: 06/19/2019 COMPARISON: 02/13/2017 HISTORY: Altered mental status TECHNIQUE: Frontal and lateral views of the chest are obtained. FINDINGS: Heart and mediastinum are normal. Lungs are clear. Diaphragm is normal. Bony thorax is int act. There are chest leads. IMPRESSION: Normal chest. No change.
[2019-06-19 20:01] VITALS: TEMP 97.9
[2019-06-19 21:18] VITALS: BP 120/87; PULSE 71
== END 2019-06-19 21:42 | disposition other institution (70) ==
LOC: EC 15:38
DX: R53.1 Weakness (principal); R20.0 Anesthesia of skin; R20.2 Paresthesia of skin; I10 Essential (primary) hypertension; Z79.899 Other long term (current) drug therapy; Z88.1 Allergy status to other antibiotic agents; Z88.8 Allergy status to other drugs, medicaments and biological substances
CPT/HCPCS: 36415; 93005; 80053; 85025; 85610; 85730; 71046; 70496; 70450; 70498; 99285; Q9967

== ENCOUNTER 2019-07-17 03:14 | Emergency (ER) | payer OTHER ==
[2019-07-17 03:20] VITALS: RESP 20
[2019-07-17] MEDS ORDERED: PANTOPRAZOLE 40 MG/10 ML VIAL IVP STA (03:29)
[2019-07-17] MEDS ORDERED: SODIUM CHLORIDE 0.9% 1,000 ML IV STA (03:29)
[2019-07-17 03:39] LABS: Basophils # (A) 0.1 k/uL (0-0.2); Basophils % (A) 1 %; Eosinophils % (A) 0 %; HCT 43.5 % (39.0-53.0); HGB 14.8 gm/dL (13.0-17.5); Lymphocytes # (A) 2.5 k/uL (1.0-4.8); Lymphocytes % (A) 34 %; MCH 30.7 pg (25.0-35.0); MCV 90.3 fL (80.0-100.0); Mean Platelet Volume 5.5; Monocytes # (A) 0.6 k/uL (0-1.0); Monocytes % (A) 9 %; Neutrophils # (A) 3.7 k/uL (1.3-7.7); Neutrophils % (A) 52 %; Platelet Count 281 k/uL (150-450); RBC 4.82 m/uL (4.30-5.90); RDW 13.2 % (11.5-15.5); WBC 7.1 k/uL (3.8-10.6)
[2019-07-17 03:48] LABS: INR 0.9 (<1.2); Partial Thromboplastin Time 27.4 sec (22.0-30.0); Prothrombin Time 9.6 sec (9.0-12.0)
--- NOTE | 2019-07-17 03:49 | ED ---
GI Bleed HPI - General Chief complaint: GI Bleed Stated complaint: Abd Pain Time Seen by Provider: 07/17/19 03:16 Source: EMS Mode of arrival: EMS Limitations: no limitations - History of Present Illness Initial comments: Shekhar is a 39-year-old male who presents to the emergency department today via ambulance for evaluation of abdominal pain, nausea, vomiting and possibly vomiting of blood. Patient reports that during the day today he lost his appetite. He states that he called his mother who told him he should just eat soup which she did. Patient reports that he woke from sleep this evening feeling nauseated and had 2 episodes of vomiting which she reports she saw blood in the vomitus. Patient reports he is experiencing. Umbilical abdominal pain that radiates to the right lower quadrant. Patient also states that he's noticed some malodorous discharge from his umbilicus recently. Patient states that he is dealt with abdominal pain and vomiting in the past, he's been told that he has a hiatal hernia. Patient states he was concerned that his hernia may have ruptured causing the blood in the vomit which is why he called the ambulance come to the hospital. Patient denies any recent fevers or chills. Last bowel movement was yesterday evening patient reports it was loose but not bloody, black or tarry. - Related Data Home Medications Medication Instructions Recorded Confirmed RX: Lisinopril [Zestril] 5 mg PO DAILY 10/03/16 06/19/19 Metoprolol Tartrate [Lopressor] 25 mg PO BID 06/19/19 06/19/19 Previous Rx's Medication Instructions Recorded RX: LORazepam [Ativan] 1 mg PO TID PRN #30 tab 08/14/16 RX: Venlafaxine HCl ER [Effexor XR] 300 mg PO DAILY 30 Days cap.er.24h 08/14/16 RX: traZODone HCL [Desyrel] 100 mg PO HS #20 tab 08/14/16 Allergies Allergy/AdvReac Type Severity Reaction Status Date / Time aripiprazole [From Abilify] Allergy Rash/Hives, Verified 07/17/19 03:20 AGITATION doxycycline AdvReac Unknown Verified 07/17/19 03:20 Review of Systems ROS Statement: Those systems with pertinent positive or pertinent negative responses have been documented in the HPI. ROS Other: All systems not noted in ROS Statement are negative. Past Medical History Past Medical History: CVA/TIA, Hypertension Additional Past Medical History / Comment(s): MIGRAINES, History of Any Multi-Drug Resistant Organisms: None Reported Past Surgical History: Cholecystectomy Additional Past Surgical History / Comment(s): WISDOM TEETH EXTRACTIONS Past Anesthesia/Blood Transfusion Reactions: Postoperative Nausea & Vomiting (PONV) Additional Past Anesthesia/Blood Transfusion Reaction / Comment(s): Patient has no previous surgical history EXCEPT FOR TOOTH EXTRACTIONS. Past Psychological History: Anxiety, Depression, PTSD Smoking Status: Never smoker Past Alcohol Use History: None Reported Past Drug Use History: None Reported - Past Family History Father Family Medical History: No Reported History Mother Family Medical History: Diabetes Mellitus, Fibromyalgia, GERD/Reflux Additional Family Medical History / Comment(s): VERTIGO General Exam - General Exam Comments Initial Comments: Physical Exam GENERAL: Patient is well-developed and well-nourished. Patient is nontoxic and well- hydrated and is in no distress. HENT: Normocephalic, Atraumatic. EYES: PERRL, EOMI PULMONARY: Unlabored respirations. No audible rales rhonchi or wheezing was noted. CARDIOVASCULAR: There is a regular rate and rhythm without any murmurs gallops or rubs. ABDOMEN: Soft and nontender with normal bowel sounds. On peritoneal No erythema or drainage noted from the umbilicus, no umbilical hernia SKIN: Skin is clear with no lesions or rashes and otherwise unremarkable. : Deferred NEUROLOGIC: Patient is alert and oriented x3. Moving all extremities spontaneously MUSCULOSKELETAL: Normal extremities with adequate strength and full range of motion. No lower extremity swelling or edema. No calf tenderness. PSYCHIATRIC: Normal psychiatric evaluation. Limitations: no limitations Course Vital Signs 07/17/19 07/17/19 07/17/19 03:15 03:30 04:30 Temperature 98.1 F Pulse Rate 64 60 57 L Respiratory 20 16 20 Rate Blood Pressure 127/79 127/79 123/74 O2 Sat by Pulse 98 97 97 Oximetry Medical Decision Making - Medical Decision Making The patient was seen and evaluated, history is obtained from the patient. Shekhar is a 39-year-old gentleman with extensive psychiatric history who presents the ER reporting he had 2 episodes of hematemesis. Patient reports last episode was more than an hour prior to arrival. He received Zofran in route. Physical exam is unremarkable. Labs and imaging were ordered results with no acute findings, additional signs of anemia. Patient's hemoglobin stable 14.8. No leukocytosis. Computed tomography scan with no acute findings. No evidence of appendicitis no evidence of a urachal cyst, no inflammation around the umbilicus or evidence of umbilical hernia. These results were discussed with the patient. I advised the patient that if he is vomiting blood he needs to follow up with primary care or assistant chief engineer. All questions pertaining care were answered return parameters discussed patient was discharged home in stable condition. - Lab Data Result diagrams: 07/17/19 03:27 07/17/19 03:27 Lab Results 07/17/19 07/17/19 07/17/19 Range/Units 03:27 03:27 03:27 WBC 7.1 (3.8-10.6) k/uL RBC 4.82 (4.30-5.90) m/uL Hgb 14.8 (13.0-17.5) gm/dL Hct 43.5 (39.0-53.0) % MCV 90.3 (80.0-100.0) fL MCH 30.7 (25.0-35.0) pg MCHC 34.0 (31.0-37.0) g/dL RDW 13.2 (11.5-15.5) % Plt Count 281 (150-450) k/uL Neutrophils % 52 % Lymphocytes % 34 % Monocytes % 9 % Eosinophils % 0 % Basophils % 1 % Neutrophils # 3.7 (1.3-7.7) k/uL Lymphocytes # 2.5 (1.0-4.8) k/uL Monocytes # 0.6 (0-1.0) k/uL Eosinophils # 0.0 (0-0.7) k/uL Basophils # 0.1 (0-0.2) k/uL PT (9.0-12.0) sec INR (<1.2) APTT (22.0-30.0) sec Sodium 140 (137-145) mmol/L Potassium 3.9 (3.5-5.1) mmol/L Chloride 106 (98-107) mmol/L Carbon Dioxide 26 (22-30) mmol/L Anion Gap 8 mmol/L BUN 12 (9-20) mg/dL Creatinine 1.01 (0.66-1.25) mg/dL Est GFR (CKD-EPI)AfAm >90 (>60 ml/min/1.73 sqM) Est GFR (CKD-EPI)NonAf >90 (>60 ml/min/1.73 sqM) Glucose 111 H (74-99) mg/dL Plasma Lactic Acid Damian 1.1 (0.7-2.0) mmol/L Calcium 9.0 (8.4-10.2) mg/dL Total Bilirubin 0.3 (0.2-1.3) mg/dL AST 19 (17-59) U/L ALT 27 (21-72) U/L Alkaline Phosphatase 102 (38-126) U/L Total Protein 6.3 (6.3-8.2) g/dL Albumin 3.8 (3.5-5.0) g/dL 07/17/19 Range/Units 03:27 WBC (3.8-10.6) k/uL RBC (4.30-5.90) m/uL Hgb (13.0-17.5) gm/dL Hct (39.0-53.0) % MCV (80.0-100.0) fL MCH (25.0-35.0) pg MCHC (31.0-37.0) g/dL RDW (11.5-15.5) % Plt Count (150-450) k/uL Neutrophils % % Lymphocytes % % Monocytes % % Eosinophils % % Basophils % % Neutrophils # (1.3-7.7) k/uL Lymphocytes # (1.0-4.8) k/uL Monocytes # (0-1.0) k/uL Eosinophils # (0-0.7) k/uL Basophils # (0-0.2) k/uL PT 9.6 (9.0-12.0) sec INR 0.9 (<1.2) APTT 27.4 (22.0-30.0) sec Sodium (137-145) mmol/L Potassium (3.5-5.1) mmol/L Chloride (98-107) mmol/L Carbon Dioxide (22-30) mmol/L Anion Gap mmol/L BUN (9-20) mg/dL Creatinine (0.66-1.25) mg/dL Est GFR (CKD-EPI)AfAm (>60 ml/min/1.73 sqM) Est GFR (CKD-EPI)NonAf (>60 ml/min/1.73 sqM) Glucose (74-99) mg/dL Plasma Lactic Acid Damian (0.7-2.0) mmol/L Calcium (8.4-10.2) mg/dL Total Bilirubin (0.2-1.3) mg/dL AST (17-59) U/L ALT (21-72) U/L Alkaline Phosphatase (38-126) U/L Total Protein (6.3-8.2) g/dL Albumin (3.5-5.0) g/dL Disposition Clinical Impression: Nausea and vomiting, Umbilical pain Disposition: HOME SELF-CARE Condition: Stable Instructions (If sedation given, give patient instructions): Gastrointestinal Bleeding (ED) Is patient prescribed a controlled substance at d/c from ED?: No Referrals: None,Stated [Primary Care Provider] - 1-2 days June Gracia MD [STAFF PHYSICIAN] - 1-2 days
[2019-07-17 03:52] LABS: ALT 27 U/L (21-72); AST 19 U/L (17-59); African American GFR (CKD) >90 (>60 ml/min/1.73 sqM); Albumin 3.8 g/dL (3.5-5.0); Alkaline Phosphatase 102 U/L (38-126); Anion Gap 8 mmol/L; Blood Urea Nitrogen 12 mg/dL (9-20); Carbon Dioxide 26 mmol/L (22-30); Chloride 106 mmol/L (98-107); Glucose 111 mg/dL (74-99); Potassium 3.9 mmol/L (3.5-5.1); Sodium 140 mmol/L (137-145); Total Bilirubin 0.3 mg/dL (0.2-1.3); Total Protein 6.3 g/dL (6.3-8.2)
--- NOTE | 2019-07-17 04:14 | CT ---
EXAMINATION TYPE: CT abdomen pelvis w con DATE OF EXAM: 07/17/2019 COMPARISON: 09/06/2017 HISTORY: RLQ pain with umbilical drainage CT DLP: 2339.4 mGycm Automated exposure control for dose reduction was used. TECHNIQUE: Helical acquisition of images was performed from the lung bases through the pelvis. CONTRAST: Performed without Oral Contrast and with IV Contrast, patient injected with 100 mL of Isovue 300. FINDINGS: The lung bases are clear. There is no pleural effusion. There is no pericardial effusion. Liver splee n pancreas appear normal. There are clips from cholecystectomy. Bile ducts are not dilated. There is small hiatal hernia. Stomach is otherwise intact. There is no adrenal mass. Kidneys show satisfactory contrast opacification. There is no hydronephrosi s. The ureters are not dilated. Bladder distends smoothly. There is no inguinal hernia. Appendix appe ars normal. There is no mesenteric edema. There is no ascites or free air. There is no sign of a bowel obstructio n. The lumbar vertebra appear intact. Disc spaces are normal. Bony pelvis appears intact. There is ve ry small umbilical hernia that contains fat. IMPRESSION: NEGATIVE CT SCAN ABDOMEN AND PELVIS. SMALL FLUID COLLECTION AT THE GALLBLADDER FOSSA IS MOSTLY CLEARE D COMPARED TO OLD EXAM. THERE COULD BE A MINIMAL RESIDUAL SEROMA.
[2019-07-17 04:37] VITALS: BP 123/74; PULSE 57
[2019-07-17 04:48] VITALS: TEMP 98.3
== END 2019-07-17 04:48 | disposition home or self-care (01) ==
LOC: EC 03:14
DX: R11.2 Nausea with vomiting, unspecified (principal); R10.33 Periumbilical pain; I10 Essential (primary) hypertension; F41.9 Anxiety disorder, unspecified; F32.9 Major depressive disorder, single episode, unspecified; Z79.899 Other long term (current) drug therapy; Z88.1 Allergy status to other antibiotic agents; Z88.8 Allergy status to other drugs, medicaments and biological substances; Z86.73 Personal history of transient ischemic attack (TIA), and cerebral infarction without residual deficits
CPT/HCPCS: 36415; 80053; 83605; 85025; 85610; 85730; 74177; 99285; 96374; 96361; C9113; Q9967

== ENCOUNTER → 2019-10-14 | Outpatient (CLI) | payer OTHER ==
--- NOTE | 2019-10-14 20:20 | CONS ---
CONSULTATION DATE OF SERVICE: 10/14/2019 This patient is a 39-year-old gentleman who has been evaluated in the sleep center for possible obstructive sleep apnea-hypopnea syndrome. HISTORY OF PRESENT ILLNESS/SLEEP-WAKE EVALUATION: Patient's usual sleep schedule is from between 11 p.m. and 2 a.m. until between 8 a.m. and noon. He sometimes has problems with falling asleep, occasionally watching TV in the bedroom. He sleeps in different positions. He wakes up many times from sleep and sometimes has to go to the restroom at night. He snores, wakes up with a dry mouth, sweating, palpitations. In the morning he wakes up tired, has difficulties paying attention, worries about his sleep. [place] Sleepiness Scale is significantly increased at 12, although usually he does not take any naps. Episodes of nightmares during sleep. PAST MEDICAL HISTORY: Positive for depression, anxiety, PTSD. History of nasal fracture. PAST SURGICAL HISTORY: Cholecystectomy. MEDICATIONS: Effexor XR, trazodone, Ativan, Lopressor. SOCIAL HISTORY: Negative for smoking. Alcohol consumption rarely. FAMILY HISTORY: Hypertension, heart problems, hyperlipidemia, stroke, arthritis, asthma, sleep apnea, headaches, cancer, thyroid problems, diabetes, ulcers, mental illness. PHYSICAL EXAMINATION: GENERAL: A pleasant gentleman without distress. VITAL SIGNS: BP 146/81, HR 60, RR 16, height 5 feet 10 inches, weight 309.6, body mass index 44.3, temperature 98.4, oxygen saturation on room air 98%. HEENT: PERRLA, EOMI. Evaluation of oropharynx showed tongue protrudes midline. Extremely low position of soft palate. Mallampati IV. Nose is slightly asymmetric. Restriction of nasal breathing; possible nasal septum deviation. NECK: Supple. No JVD. Thyroid is not palpable. Wide neck; 18-1/3 inches in circumference. LUNGS: Clear to percussion and to auscultation. Good air exchange. No wheezing or rhonchi. HEART: S1, S2 regular. No murmurs, gallops or rubs. ABDOMEN: Slightly obese. EXTREMITIES: No clubbing or cyanosis. SHOT COAT TENDER: Awake, alert, and oriented X3. Cranial nerves 2 to 7 intact. There is no fasciculation or atrophy. noted. No focal deficits observed. IMPRESSION: 1. Snoring, multiple awakenings from sleep with a dry mouth and nocturia, extremely low position of soft palate, Mallampati IV, wide neck at 18-1/3 inches in circumference, excessive daytime sleepiness, [place] Sleepiness Scale of 12; obstructive sleep apnea-hypopnea syndrome. 2. History of nightmares. 3. Movements at night, including kicking. Rule out periodic limb movements. 4. History of depression. 5. History of anxiety. 6. History of post-traumatic stress disorder. 7. Status post cholecystectomy. 8. History of nasal fracture, possible nasal septum deviation. 9. Obesity; body mass index 43. PLAN: 1. Polysomnography for evaluation of patient's breathing during sleep. 2. CPAP/BiPAP titration if sleep study confirms obstructive sleep apnea-hypopnea syndrome. 3. Preferable position during sleep on the side. 4. No driving if patient feels any sleepiness. 5. I will see patient for follow up visit to explain results of testing and following plan. Thank you very much for referring this patient for consultation. Sincerely, All Majano MD, PhD, FAASM Diplomat of [employer] [employer] [facility] [place] MMODL / IJN: [id number] /
== END | disposition home or self-care (01) ==
LOC: SLEEP 14:52
PROVIDERS: ATTEND Internal Medicine
DX: G47.33 Obstructive sleep apnea (adult) (pediatric) (principal); G47.69 Other sleep related movement disorders; E66.9 Obesity, unspecified; R35.1 Nocturia; Z68.41 Body mass index [BMI] 40.0-44.9, adult; Z86.59 Personal history of other mental and behavioral disorders; Z90.49 Acquired absence of other specified parts of digestive tract; Z87.81 Personal history of (healed) traumatic fracture; Z83.6 Family history of other diseases of the respiratory system; Z79.899 Other long term (current) drug therapy
CPT/HCPCS: 99211

== ENCOUNTER 2020-03-25 20:15 | Emergency (ER) | payer OTHER ==
[2020-03-25 20:28] VITALS: TEMP 98.6
[2020-03-25] MEDS ORDERED: SODIUM CHLORIDE 0.9% 1,000 ML IV STA (20:29)
[2020-03-25] MEDS ORDERED: ONDANSETRON ODT 8 MG TAB.RAPDIS PO STA (20:29)
[2020-03-25] MEDS ORDERED: MORPHINE SULFATE 4 MG/ML SYRINGE IV STA (20:29)
[2020-03-25] MEDS ORDERED: ONDANSETRON 4 MG/2 ML VIAL IVP STA (20:41)
[2020-03-25] MEDS ORDERED: HYDROmorphone 1 MG/ML 1 ML SYRINGE IVP STA (20:44)
[2020-03-25 20:48] LABS: Basophils # (A) 0.1 k/uL (0-0.2); Basophils % (A) 1 %; Eosinophils # (A) 0.1 k/uL (0-0.7); Eosinophils % (A) 1 %; HCT 47.2 % (39.0-53.0); HGB 15.9 gm/dL (13.0-17.5); Lymphocytes # (A) 3.4 k/uL (1.0-4.8); Lymphocytes % (A) 41 %; MCH 29.3 pg (25.0-35.0); MCHC 33.6 g/dL (31.0-37.0); MCV 87.1 fL (80.0-100.0); Mean Platelet Volume 6.5; Monocytes # (A) 0.6 k/uL (0-1.0); Monocytes % (A) 8 %; Neutrophils # (A) 3.9 k/uL (1.3-7.7); Neutrophils % (A) 47 %; Platelet Count 325 k/uL (150-450); RBC 5.42 m/uL (4.30-5.90); RDW 13.8 % (11.5-15.5); WBC 8.3 k/uL (3.8-10.6)
--- NOTE | 2020-03-25 20:49 | ED ---
General Adult HPI - General Chief complaint: Abdominal Pain Stated complaint: Abdominal Pain Time Seen by Provider: 03/25/20 20:29 Source: patient, EMS Mode of arrival: EMS Limitations: no limitations - History of Present Illness Initial comments: Dictation was produced using [employer] dictation software. please excuse any grammatical, word or spelling errors. This patient was cared for during a federal and state declared state of emergency secondary to Covid 19 Chief Complaint: 39-year-old male with complex abdominal history presents with abdominal pain. History of Present Illness: Patient 39-year-old male presents via EMS for abd ominal pain. Patient states that he has pain to the umbilical region. Patient states this morning he noted some pus and blood coming out of his umbilicus. States that he also began experiencing acute periumbilical abdominal pain. Patient states he has history of hernia which occurred after he had a laparoscopic cholecystectomy proximally 4 years ago. Patient states he's been living with a hernia since then. He has not had a hernia repaired. He states he has a history of ruptured hernia. He was referred to hernia specialist down at [place]. Denies any fever. He states his pain is beyond 10 out of 10. Is on morphine because he states that he has not be addicted. He states he wants Dilaudid instead. The ROS documented in this emergency department record has been reviewed and c onfirmed by me. Those systems with pertinent positive or negative responses have been documented in the HPI. All other systems are other negative and/or noncontributory. PHYSICAL EXAM: General Impression: Alert and oriented x3, not in acute distress HEENT: Normocephalic atraumatic, extra-ocular movements intact, pupils equal and reactive to light bilaterally, mucous membranes moist. Cardiovascular: Heart regular rate and rhythm Chest: Able to complete full sentences, no retractions, no tachypnea Abdomen: abdomen soft, exquisite tenderness to the periumbilical region, non- distended, no organomegaly Musculoskeletal: Pulses present and equal in all extremities, no peripheral edema Motor: no focal deficits noted Neurological: CN II-XII grossly intact, no focal motor or sensory deficits noted Skin: Intact with no visualized rashes Psych: Normal affect and mood ED course: 39-year-old male presents with umbilical site pain. Vital signs upon arrival are within acceptable limits. He reports a very complex abdominal history. Reports history of cholecystectomy. Laboratory evaluation obtained. CBC is benign. No leukocytosis. Metabolic panel is unremarkable. Urinalysis is negative. Urine drug screen is positive for benzodiazepines. Patient's CT of the abdomen and pelvis was ordered today and showed no acute abnormalities. Chart review was performed. Patient did have a small umbilical hernia that was seen in August 2017. There is no documentation according to our EMR of patient having any sort of ruptured hernia. Patient reevaluated bedside he is well-appearing. He is not diaphoretic he does not appear to be in acute distress however he states that he is pain is 9-1/2 out of 10 after given hydromorphone. Discussed the patient that his workup is completely benign and he does not have any evidence for serious life-threatening illness. Patient states that he wants to be transferred to [facility] to be evaluated by hernia specialist there. He is discussed with patient that a would likely evaluate him and discharge him. He states he does not care and would rather prefer to be seen at [facility]. States that he is extremely unhappy with Dr. Johnson. Case is discussed in detail with [facility] emergency Department who is willing to accept patients care. Patient is aware that he is likely to be discharged after being transferred there. Patient is given the option to go there via private vehicle however states he does not have a car and would like to have ambulance transfer. EKG interpretation: Ventricular rate 75, normal sinus rhythm,. 170, QRS 108, QTC 424. No RI prolongation, no QTC prolongation, no ST or T-wave changes noted. . Overall, this EKG is unremarkable - Related Data Home Medications Medication Instructions Recorded Confirmed Acetaminophen [Tylenol] 1,000 mg PO ONCE PRN 03/25/20 03/25/20 Lisinopril [Zestril] 5 mg PO DAILY 03/25/20 03/25/20 Metoprolol Tartrate [Lopressor] 25 mg PO BID 03/25/20 03/25/20 traZODone HCL [Desyrel] 100 mg PO HS PRN 03/25/20 03/25/20 Previous Rx's Medication Instructions Recorded LORazepam [Ativan] 1 mg PO TID PRN #30 tab 08/14/16 Venlafaxine HCl ER [Effexor XR] 300 mg PO DAILY 30 Days cap.er.24h 08/14/16 Allergies Allergy/AdvReac Type Severity Reaction Status Date / Time aripiprazole [From Abilify] Allergy Rash/Hives, Verified 03/25/20 22:12 AGITATION doxycycline AdvReac Unknown Verified 03/25/20 22:12 Review of Systems ROS Statement: Those systems with pertinent positive or pertinent negative responses have been documented in the HPI. ROS Other: All systems not noted in ROS Statement are negative. Past Medical History Past Medical History: CVA/TIA, Hypertension Additional Past Medical History / Comment(s): MIGRAINES, hernia History of Any Multi-Drug Resistant Organisms: None Reported Past Surgical History: Cholecystectomy Additional Past Surgical History / Comment(s): WISDOM TEETH EXTRACTIONS Past Anesthesia/Blood Transfusion Reactions: Postoperative Nausea & Vomiting (P ONV) Additional Past Anesthesia/Blood Transfusion Reaction / Comment(s): Patient has no previous surgical history EXCEPT FOR TOOTH EXTRACTIONS. Past Psychological History: Anxiety, Depression, PTSD Smoking Status: Never smoker Past Alcohol Use History: None Reported Past Drug Use History: None Reported - Past Family History Father Family Medical History: No Reported History Mother Family Medical History: Diabetes Mellitus, Fibromyalgia, GERD/Reflux Additional Family Medical History / Comment(s): VERTIGO General Exam Limitations: no limitations Course Vital Signs 03/25/20 20:20 Temperature 98.6 F Pulse Rate 82 Respiratory 20 Rate Blood Pressure 130/86 O2 Sat by Pulse 99 Oximetry Medical Decision Making - Lab Data Result diagrams: 03/25/20 20:37 03/25/20 20:37 Lab Results 03/25/20 03/25/20 03/25/20 Range/Units 20:37 20:37 20:45 WBC 8.3 (3.8-10.6) k/uL RBC 5.42 (4.30-5.90) m/uL Hgb 15.9 (13.0-17.5) gm/dL Hct 47.2 (39.0-53.0) % MCV 87.1 (80.0-100.0) fL MCH 29.3 (25.0-35.0) pg MCHC 33.6 (31.0-37.0) g/dL RDW 13.8 (11.5-15.5) % Plt Count 325 (150-450) k/uL Neutrophils % 47 % Lymphocytes % 41 % Monocytes % 8 % Eosinophils % 1 % Basophils % 1 % Neutrophils # 3.9 (1.3-7.7) k/uL Lymphocytes # 3.4 (1.0-4.8) k/uL Monocytes # 0.6 (0-1.0) k/uL Eosinophils # 0.1 (0-0.7) k/uL Basophils # 0.1 (0-0.2) k/uL Sodium 139 (137-145) mmol/L Potassium 4.5 (3.5-5.1) mmol/L Chloride 103 (98-107) mmol/L Carbon Dioxide 26 (22-30) mmol/L Anion Gap 10 mmol/L BUN 11 (9-20) mg/dL Creatinine 1.08 (0.66-1.25) mg/dL Est GFR (CKD-EPI)AfAm >90 (>60 ml/min/1.73 sqM) Est GFR (CKD-EPI)NonAf 87 (>60 ml/min/1.73 sqM) Glucose 96 (74-99) mg/dL Calcium 9.6 (8.4-10.2) mg/dL Total Bilirubin 0.4 (0.2-1.3) mg/dL AST 37 (17-59) U/L ALT 47 (4-49) U/L Alkaline Phosphatase 96 (38-126) U/L Total Protein 7.3 (6.3-8.2) g/dL Albumin 4.8 (3.5-5.0) g/dL Lipase 122 (23-300) U/L Urine Color Yellow Urine Appearance Clear (Clear) Urine pH 6.5 (5.0-8.0) Ur Specific [place] 1.025 (1.001-1.035) Urine Protein Trace H (Negative) Urine Glucose (UA) Negative (Negative) Urine Ketones Negative (Negative) Urine Blood Negative (Negative) Urine Nitrite Negative (Negative) Urine Bilirubin Negative (Negative) Urine Urobilinogen <2.0 (<2.0) mg/dL Ur Leukocyte Esterase Negative (Negative) Urine Opiates Screen (NotDetected) Ur Oxycodone Screen (NotDetected) Urine Methadone Screen (NotDetected) Ur Propoxyphene Screen (NotDetected) Ur Barbiturates Screen (NotDetected) U Tricyclic Antidepress (NotDetected) Ur Phencyclidine Scrn (NotDetected) Ur Amphetamines Screen (NotDetected) U Methamphetamines Scrn (NotDetected) U Benzodiazepines Scrn (NotDetected) Urine Cocaine Screen (NotDetected) U Marijuana (THC) Screen (NotDetected) Serum Alcohol mg/dL 03/25/20 03/25/20 Range/Units 20:45 20:53 WBC (3.8-10.6) k/uL RBC (4.30-5.90) m/uL Hgb (13.0-17.5) gm/dL Hct (39.0-53.0) % MCV (80.0-100.0) fL MCH (25.0-35.0) pg MCHC (31.0-37.0) g/dL RDW (11.5-15.5) % Plt Count (150-450) k/uL Neutrophils % % Lymphocytes % % Monocytes % % Eosinophils % % Basophils % % Neutrophils # (1.3-7.7) k/uL Lymphocytes # (1.0-4.8) k/uL Monocytes # (0-1.0) k/uL Eosinophils # (0-0.7) k/uL Basophils # (0-0.2) k/uL Sodium (137-145) mmol/L Potassium (3.5-5.1) mmol/L Chloride (98-107) mmol/L Carbon Dioxide (22-30) mmol/L Anion Gap mmol/L BUN (9-20) mg/dL Creatinine (0.66-1.25) mg/dL Est GFR (CKD-EPI)AfAm (>60 ml/min/1.73 sqM) Est GFR (CKD-EPI)NonAf (>60 ml/min/1.73 sqM) Glucose (74-99) mg/dL Calcium (8.4-10.2) mg/dL Total Bilirubin (0.2-1.3) mg/dL AST (17-59) U/L ALT (4-49) U/L Alkaline Phosphatase (38-126) U/L Total Protein (6.3-8.2) g/dL Albumin (3.5-5.0) g/dL Lipase (23-300) U/L Urine Color Urine Appearance (Clear) Urine pH (5.0-8.0) Ur Specific [place] (1.001-1.035) Urine Protein (Negative) Urine Glucose (UA) (Negative) Urine Ketones (Negative) Urine Blood (Negative) Urine Nitrite (Negative) Urine Bilirubin (Negative) Urine Urobilinogen (<2.0) mg/dL Ur Leukocyte Esterase (Negative) Urine Opiates Screen Not Detected (NotDetected) Ur Oxycodone Screen Not Detected (NotDetected) Urine Methadone Screen Not Detected (NotDetected) Ur Propoxyphene Screen Not Detected (NotDetected) Ur Barbiturates Screen Not Detected (NotDetected) U Tricyclic Antidepress Not Detected (NotDetected) Ur Phencyclidine Scrn Not Detected (NotDetected) Ur Amphetamines Screen Not Detected (NotDetected) U Methamphetamines Scrn Not Detected (NotDetected) U Benzodiazepines Scrn Detected H (NotDetected) Urine Cocaine Screen Not Detected (NotDetected) U Marijuana (THC) Screen Not Detected (NotDetected) Serum Alcohol <10 mg/dL Disposition Clinical Impression: Abdominal pain Disposition: OTHER INSTITUTION NOT DEFINED Condition: Fair Referrals: Jean-Claude Buenrostro MD [Primary Care Provider] - 1-2 days Time of Disposition: 23:02 - Out of Hospital Transfer - Req. Specs Out of Hospital Transfer - Requested Specifics: Other Emergency Center ([facility])
[2020-03-25 21:02] LABS: Appearance,Urine Clear (Clear); Bilirubin,Urine Negative (Negative); Blood,Urine Negative (Negative); Color,Urine Yellow; Glucose,Urine (UA) Negative (Negative); Ketones,Urine Negative (Negative); Leukocyte Esterase,Urine Negative (Negative); Nitrite,Urine Negative (Negative); PH, Urine 6.5 (5.0-8.0); Protein,Urine Trace (Negative); Specific Gravity,Urine 1.025 (1.001-1.035); Urobilinogen,Urine <2.0 mg/dL (<2.0)
[2020-03-25 21:09] LABS: ALT 47 U/L (4-49); AST 37 U/L (17-59); African American GFR (CKD) >90 (>60 ml/min/1.73 sqM); Albumin 4.8 g/dL (3.5-5.0); Alkaline Phosphatase 96 U/L (38-126); Anion Gap 10 mmol/L; Blood Urea Nitrogen 11 mg/dL (9-20); Calcium 9.6 mg/dL (8.4-10.2); Carbon Dioxide 26 mmol/L (22-30); Chloride 103 mmol/L (98-107); Glucose 96 mg/dL (74-99); Non-African American GFR(CKD) 87 (>60 ml/min/1.73 sqM); Potassium 4.5 mmol/L (3.5-5.1); Sodium 139 mmol/L (137-145); Total Bilirubin 0.4 mg/dL (0.2-1.3); Total Protein 7.3 g/dL (6.3-8.2)
[2020-03-25 21:10] LABS: Amphetamine Screen,Urine Not Detected (NotDetected); Barbiturate Screen,Urine Not Detected (NotDetected); Benzodiazepines Screen,Urine Detected (NotDetected); Cocaine Screen,Urine Not Detected (NotDetected); Methadone Screen, Urine Not Detected (NotDetected); Opiate Screen,Urine Not Detected (NotDetected); Oxycodone Screen, Urine Not Detected (NotDetected); Phencyclidine Screen,Urine Not Detected (NotDetected); Tricyclic Antidepressant,Urine Not Detected (NotDetected); Urn Cannabinoid Scrn Not Detected (NotDetected)
--- NOTE | 2020-03-25 21:58 | CT ---
EXAMINATION TYPE: CT abdomen pelvis w con DATE OF EXAM: 03/25/2020 COMPARISON: 07/17/2019 HISTORY: Pt c/o abdominal pain, states he has imbulical hernia, hx danyelle. CT DLP: 2580.7 mGycm Automated exposure control for dose reduction was used. CONTRAST: Performed with IV Contrast, patient injected with 100 mL of Isovue 300. Lung bases are clear. There is no pleural effusion. Heart size is normal. Liver spleen pancreas stomach appear intact. Bile ducts are not dilated. There are clips from cholecy stectomy. There is no adrenal mass. Kidneys show normal size and contour. There is satisfactory contr ast opacification. There is no hydronephrosis. Ureters are not dilated. There is normal excretion on the delayed images. There is no retroperitoneal adenopathy. Bladder distends smoothly. There is no in guinal hernia. There is no free fluid in the pelvis. Appendix is posterior and appears normal. There is no mesenteric edema. There is no ascites or free a ir. There is small umbilical hernia that contains fat. There is no sign of a bowel obstruction. Lumba r vertebra have normal alignment. There is no evidence of focal bone destruction. The bony pelvis jeniffer ears intact. IMPRESSION: Normal appendix. No acute abnormality in the abdomen pelvis. No change compared to old exam. Normal appendix. I do not see a cause for right lower quadrant pain.
[2020-03-25 23:16] VITALS: BP 122/78; PULSE 70; RESP 18
== END 2020-03-26 00:03 | disposition other institution (70) ==
LOC: EC 20:15
DX: K42.9 Umbilical hernia without obstruction or gangrene (principal); R10.33 Periumbilical pain; I10 Essential (primary) hypertension; F32.9 Major depressive disorder, single episode, unspecified; F41.9 Anxiety disorder, unspecified; Z79.899 Other long term (current) drug therapy; Z88.8 Allergy status to other drugs, medicaments and biological substances; Z88.1 Allergy status to other antibiotic agents; Z86.73 Personal history of transient ischemic attack (TIA), and cerebral infarction without residual deficits; Z90.49 Acquired absence of other specified parts of digestive tract
CPT/HCPCS: 36415; 80053; 83690; 85025; 81003; 80306; 74177; 99285; 96374; 96375; 96361; G0480; J2405; J1170; Q9967; 80320

== ENCOUNTER 2020-05-04 00:18 | Observation (INO) | payer OTHER ==
[2020-05-04] MEDS ORDERED: SODIUM CHLORIDE 0.9% 1,000 ML IV STA (00:33)
--- NOTE | 2020-05-04 00:42 | ED ---
General Adult HPI - General Chief complaint: Syncope Stated complaint: syncope Time Seen by Provider: 05/04/20 00:20 Source: patient, EMS Mode of arrival: EMS Limitations: no limitations - History of Present Illness Initial comments: Shekhar is a 40-year-old gentleman with an extensive psychiatric history and reports a self-reported history of 2 strokes in the past. Patient presents the ER today stating that he has had a third stroke. Patient states that he got up from his couch, got lightheaded his vision went black and he fell to the ground landing on his right side. Patient believes he was on the ground for approximately 30 minutes. Patient states his stroke then resolved and he felt better. Patient states he had some weakness but was able to roll over crawl across the floor to get his dogs mechanical before calling EMS to come to the hospital. Patient denies any headache, vision changes, trouble with speech or swallowing. He denies any recent illness, fevers, chills, headache, nausea, vomiting. He reports he's been eating and drinking well. Patient states that he's had similar symptoms in the past with right-sided numbness and tingling and was told that he had a stroke. He's never had an MRI does not follow with neurology is not on antibiotic platelet or if a seizure medications. - Related Data Home Medications Medication Instructions Recorded Confirmed Acetaminophen [Tylenol] 1,000 mg PO ONCE PRN 03/25/20 03/25/20 Metoprolol Tartrate [Lopressor] 25 mg PO BID 03/25/20 03/25/20 lisinopriL [Zestril] 5 mg PO DAILY 03/25/20 03/25/20 traZODone HCL [Desyrel] 100 mg PO HS PRN 03/25/20 03/25/20 Previous Rx's Medication Instructions Recorded LORazepam [Ativan] 1 mg PO TID PRN #30 tab 08/14/16 Venlafaxine HCl ER [Effexor XR] 300 mg PO DAILY 30 Days cap.er.24h 08/14/16 Allergies Allergy/AdvReac Type Severity Reaction Status Date / Time aripiprazole [From Abilify] Allergy Rash/Hives, Verified 03/25/20 22:12 AGITATION doxycycline AdvReac Unknown Verified 03/25/20 22:12 Review of Systems ROS Statement: Those systems with pertinent positive or pertinent negative responses have been documented in the HPI. ROS Other: All systems not noted in ROS Statement are negative. Past Medical History Past Medical History: CVA/TIA, Hypertension Additional Past Medical History / Comment(s): MIGRAINES, hernia History of Any Multi-Drug Resistant Organisms: None Reported Past Surgical History: Cholecystectomy Additional Past Surgical History / Comment(s): WISDOM TEETH EXTRACTIONS Past Anesthesia/Blood Transfusion Reactions: Postoperative Nausea & Vomiting (PONV) Additional Past Anesthesia/Blood Transfusion Reaction / Comment(s): Patient has no previous surgical history EXCEPT FOR TOOTH EXTRACTIONS. Past Psychological History: Anxiety, Depression, PTSD Smoking Status: Never smoker Past Alcohol Use History: None Reported Past Drug Use History: None Reported - Past Family History Father Family Medical History: No Reported History Mother Family Medical History: Diabetes Mellitus, Fibromyalgia, GERD/Reflux Additional Family Medical History / Comment(s): VERTIGO General Exam - General Exam Comments Initial Comments: Physical Exam GENERAL: Patient is well-developed and well-nourished. Patient is nontoxic and well-hydrated and is in no distress. HENT: Normocephalic, Atraumatic. EYES: PERRL, EOMI PULMONARY: Unlabored respirations. No audible rales rhonchi or wheezing was noted. CARDIOVASCULAR: There is a regular rate and rhythm without any murmurs gallops or rubs. ABDOMEN: Soft and nontender with normal bowel sounds. Obese SKIN: Skin is clear with no lesions or rashes and otherwise unremarkable. : Deferred NEUROLOGIC: Patient is alert and oriented x3. Moving all extremities spontaneously NIH 0 Cranial nerves II through XII grossly intact Normal strength of upper and lower extremities MUSCULOSKELETAL: Normal extremities with adequate strength and full range of motion. No lower extremity swelling or edema. No calf tenderness. PSYCHIATRIC: Normal psychiatric evaluation. Limitations: no limitations Course Vital Signs 05/04/20 00:20 Temperature 98.4 F Pulse Rate 84 Respiratory 18 Rate Blood Pressure 134/87 O2 Sat by Pulse 98 Oximetry EKG Findings - EKG Comments: EKG Findings:: EKG was obtained due to complaint of syncope, EKG was obtained at 12:29 AM, rate is 94 rhythm is sinus there is a normal axis, there are normal intervals, NC 162, QRS 108, QTC 442 there are no acute ST elevations or depressions no evidence of acute ischemia, infarction or blood arrhythmia. Medical Decision Making - Medical Decision Making The patient was seen and evaluated, history was obtained from the patient and review of medical record 40-year-old male who believes he had a stroke because he passed out believes he was down for approximately 30 minutes never had any chest pain palpitations shortness of breath Asymptomatic on arrival here Computed tomography scan of head was negative Labs with no significant acute abnormalities, potassium mildly elevated at 5.2 patient receiving IV fluids Urine the patient's extensive history we will place in observation for carlyle luation of syncope with a detectable troponin. - Lab Data Result diagrams: 05/04/20 00:36 05/04/20 00:36 Lab Results 05/04/20 05/04/20 05/04/20 Range/Units 00:36 00:36 00:36 WBC 9.9 (3.8-10.6) k/uL RBC 5.33 (4.30-5.90) m/uL Hgb 15.6 (13.0-17.5) gm/dL Hct 47.1 (39.0-53.0) % MCV 88.3 (80.0-100.0) fL MCH 29.2 (25.0-35.0) pg MCHC 33.0 (31.0-37.0) g/dL RDW 13.8 (11.5-15.5) % Plt Count 304 (150-450) k/uL Neutrophils % 47 % Lymphocytes % 43 % Monocytes % 7 % Eosinophils % 0 % Basophils % 1 % Neutrophils # 4.6 (1.3-7.7) k/uL Lymphocytes # 4.3 (1.0-4.8) k/uL Monocytes # 0.7 (0-1.0) k/uL Eosinophils # 0.0 (0-0.7) k/uL Basophils # 0.1 (0-0.2) k/uL PT 10.0 (9.0-12.0) sec INR 1.0 (<1.2) APTT 29.3 (22.0-30.0) sec Sodium 136 L (137-145) mmol/L Potassium 5.2 H (3.5-5.1) mmol/L Chloride 102 (98-107) mmol/L Carbon Dioxide 26 (22-30) mmol/L Anion Gap 8 mmol/L BUN 8 L (9-20) mg/dL Creatinine 0.95 (0.66-1.25) mg/dL Est GFR (CKD-EPI)AfAm >90 (>60 ml/min/1.73 sqM) Est GFR (CKD-EPI)NonAf >90 (>60 ml/min/1.73 sqM) Glucose 119 H (74-99) mg/dL Calcium 9.3 (8.4-10.2) mg/dL Magnesium 2.2 (1.6-2.3) mg/dL Total Bilirubin 1.3 (0.2-1.3) mg/dL AST 61 H (17-59) U/L ALT 39 (4-49) U/L Alkaline Phosphatase 76 (38-126) U/L Troponin I (0.000-0.034) ng/mL Total Protein 7.8 (6.3-8.2) g/dL Albumin 4.8 (3.5-5.0) g/dL 05/04/20 Range/Units 00:36 WBC (3.8-10.6) k/uL RBC (4.30-5.90) m/uL Hgb (13.0-17.5) gm/dL Hct (39.0-53.0) % MCV (80.0-100.0) fL MCH (25.0-35.0) pg MCHC (31.0-37.0) g/dL RDW (11.5-15.5) % Plt Count (150-450) k/uL Neutrophils % % Lymphocytes % % Monocytes % % Eosinophils % % Basophils % % Neutrophils # (1.3-7.7) k/uL Lymphocytes # (1.0-4.8) k/uL Monocytes # (0-1.0) k/uL Eosinophils # (0-0.7) k/uL Basophils # (0-0.2) k/uL PT (9.0-12.0) sec INR (<1.2) APTT (22.0-30.0) sec Sodium (137-145) mmol/L Potassium (3.5-5.1) mmol/L Chloride (98-107) mmol/L Carbon Dioxide (22-30) mmol/L Anion Gap mmol/L BUN (9-20) mg/dL Creatinine (0.66-1.25) mg/dL Est GFR (CKD-EPI)AfAm (>60 ml/min/1.73 sqM) Est GFR (CKD-EPI)NonAf (>60 ml/min/1.73 sqM) Glucose (74-99) mg/dL Calcium (8.4-10.2) mg/dL Magnesium (1.6-2.3) mg/dL Total Bilirubin (0.2-1.3) mg/dL AST (17-59) U/L ALT (4-49) U/L Alkaline Phosphatase (38-126) U/L Troponin I 0.026 (0.000-0.034) ng/mL Total Protein (6.3-8.2) g/dL Albumin (3.5-5.0) g/dL Disposition Clinical Impression: Syncope Disposition: ADMITTED IP TO THIS HOSP Condition: Stable Is patient prescribed a controlled substance at d/c from ED?: No Referrals: Jean-Claude Buenrostro MD [Primary Care Provider] - 1-2 days
[2020-05-04 00:47] LABS: Basophils # (A) 0.1 k/uL (0-0.2); Basophils % (A) 1 %; Eosinophils % (A) 0 %; HCT 47.1 % (39.0-53.0); HGB 15.6 gm/dL (13.0-17.5); Lymphocytes # (A) 4.3 k/uL (1.0-4.8); Lymphocytes % (A) 43 %; MCH 29.2 pg (25.0-35.0); MCV 88.3 fL (80.0-100.0); Mean Platelet Volume 7.5; Monocytes # (A) 0.7 k/uL (0-1.0); Monocytes % (A) 7 %; Neutrophils # (A) 4.6 k/uL (1.3-7.7); Neutrophils % (A) 47 %; Platelet Count 304 k/uL (150-450); RBC 5.33 m/uL (4.30-5.90); RDW 13.8 % (11.5-15.5); WBC 9.9 k/uL (3.8-10.6)
[2020-05-04 00:56] LABS: African American GFR (CKD) >90 (>60 ml/min/1.73 sqM); Albumin 4.8 g/dL (3.5-5.0); Anion Gap 8 mmol/L; Calcium 9.3 mg/dL (8.4-10.2); Carbon Dioxide 26 mmol/L (22-30); Chloride 102 mmol/L (98-107); Glucose 119 mg/dL (74-99); Magnesium 2.2 mg/dL (1.6-2.3); Non-African American GFR(CKD) >90 (>60 ml/min/1.73 sqM); Sodium 136 mmol/L (137-145); Total Bilirubin 1.3 mg/dL (0.2-1.3); Total Protein 7.8 g/dL (6.3-8.2)
[2020-05-04 00:58] LABS: ALT 39 U/L (4-49); AST 61 U/L (17-59); Alkaline Phosphatase 76 U/L (38-126); Blood Urea Nitrogen 8 mg/dL (9-20); Potassium 5.2 mmol/L (3.5-5.1)
--- NOTE | 2020-05-04 01:06 | CT ---
EXAM: CT Head Without Intravenous Contrast CLINICAL HISTORY: Syncope, Right side numbness TECHNIQUE: Axial computed tomography images of the head/brain without intravenous contrast. CTDI is 49.27 mGy and DLP is 1216.40 mGy-cm. This CT exam was performed using one or more of the following dose reduction techniques: automated exposure control, adjustment of the mA and/or kV according to patient size, and/or use of iterative reconstruction technique. Coronal and sagittal reconstructions are performed COMPARISON: 06/19/19 FINDINGS: Brain: Unremarkable. No hemorrhage. No significant white matter disease. No edema. Ventricles: Unremarkable. No ventriculomegaly. Bones/joints: Unremarkable. No acute fracture. Soft tissues: Unremarkable. Sinuses: Unremarkable as visualized. No acute sinusitis. Mastoid air cells: Unremarkable as visualized. No mastoid effusion. IMPRESSION: No acute intracranial findings or substantial change. If acute intracranial infarction remains a concern, MRI may help to further evaluate if patient is a candidate
[2020-05-04] MEDS ORDERED: NALOXONE 0.4 MG/ML 1 ML VIAL IV PRN (01:13)
[2020-05-04] MEDS ORDERED: LORazepam 1 MG TAB PO PRN (01:14)
[2020-05-04 01:24] LABS: Partial Thromboplastin Time 29.3 sec (22.0-30.0)
--- NOTE | 2020-05-04 01:34 | XR ---
EXAM: XR Chest, 2 Views CLINICAL HISTORY: syncope TECHNIQUE: Frontal and lateral views of the chest. COMPARISON: 02/13/17 FINDINGS: Lungs: Unremarkable. No consolidation. Pleural space: Unremarkable. No pneumothorax. Heart: Unremarkable. No cardiomegaly. Mediastinum: Unremarkable. Bones/joints: Unremarkable. IMPRESSION: No acute findings or change
[2020-05-04 02:28] VITALS: RESP 16; TEMP 98.2
[2020-05-04 03:21] LABS: Appearance,Urine Clear (Clear); Bilirubin,Urine Negative (Negative); Blood,Urine Negative (Negative); Color,Urine Yellow; Glucose,Urine (UA) Negative (Negative); Ketones,Urine Negative (Negative); Leukocyte Esterase,Urine Negative (Negative); Nitrite,Urine Negative (Negative); Protein,Urine Negative (Negative); Specific Gravity,Urine 1.015 (1.001-1.035); Urobilinogen,Urine <2.0 mg/dL (<2.0)
[2020-05-04] MEDS ORDERED: SODIUM CHLORIDE 0.9% 1,000 ML IV SCH (08:45)
[2020-05-04] MEDS ORDERED: lisinopriL 5 MG TAB PO SCH (09:00)
[2020-05-04] MEDS ORDERED: METOPROLOL TARTRATE 50 MG TAB PO SCH (09:00)
[2020-05-04] MEDS ORDERED: VENLAFAXINE HCL ER 150 MG CAP PO SCH (09:00)
[2020-05-04 11:58] LABS: Glucose,Whole Blood 82 mg/dL (75-99)
--- NOTE | 2020-05-04 12:17 | P.DS ---
Providers Date of admission: 05/04/20 01:13 Attending physician: Grady Richard Consults: 05/04/20 08:28 Consult Physician Routine Consulting Provider: Eddie Moore Consult Reason/Comments: syncope, right-sided weakness tingling extremities Do you want consulting provider notified?: Yes Primary care physician: Jean-Claude Buenrostro [facility] Course: please refer to my HPI for further details Patient Condition at Discharge: Stable Plan - Discharge Summary New Discharge Prescriptions: Continue LORazepam [Ativan] 1 mg PO TID PRN #30 tab PRN Reason: Anxiety traZODone HCL [Desyrel] 100 mg PO HS Metoprolol Tartrate [Lopressor] 25 mg PO BID Venlafaxine HCl [Effexor XR] 150 mg PO DAILY Changed lisinopriL [Zestril] 2.5 mg PO DAILY #0 Discharge Medication List LORazepam [Ativan] 1 mg PO TID PRN #30 tab 08/14/16 [Rx] Metoprolol Tartrate [Lopressor] 25 mg PO BID 03/25/20 [History] traZODone HCL [Desyrel] 100 mg PO HS 03/25/20 [History] Venlafaxine HCl [Effexor XR] 150 mg PO DAILY 05/04/20 [History] lisinopriL [Zestril] 2.5 mg PO DAILY #0 05/04/20 [Rx] Follow up Appointment(s)/Referral(s): Jean-Claude Buenrostro MD [Primary Care Provider] - 3 Days
--- NOTE | 2020-05-04 12:17 | P.HPIM ---
History of Present Illness 40-year-old came in believing that he had a stroke patient appears to have a syncopal episode but as per the patient patient was having weakness and he has to crawl across the floor. Patient to got up from the couch and got lightheaded and he blacked out and fell landing on that side. Patient is also company of tingling and numbness in the right side in the past patient had similar symptoms and he was told that he had stroke at that time patient didn't have an MRI and didn't have a neurology follow-up. Patient believes he had a stroke again.patient had Later after evaluate the patient was called because patient was having chest pain patient chest pain is in the retrosternal area pressure-like sensation moderate severity nonradiating no known associated diaphoresis. Patient is still having pain. An EKG which did not show any acute ST-T wave changes patient had a troponin ER which was negative and troponins which is also negative.patient does have psychiatric issuesand admissions to psychiatric floor in the past. Review of Systems REVIEW OF SYSTEMS: CONSTITUTIONAL: No fever, no malaise, no fatigue. HEENT: No recent visual problems or hearing problems. Denied any sore throat. CARDIOVASCULAR: No orthopnea, PND, no palpitations, no syncope. PULMONARY: No shortness of breath, no cough, no hemoptysis. GASTROINTESTINAL: No diarrhea, no nausea, no vomiting, no abdominal pain. NEUROLOGICAL: No headaches, no weakness HEMATOLOGICAL: Denies any bleeding or petechiae. GENITOURINARY: Denies any burning micturition, frequency, or urgency. MUSCULOSKELETAL/RHEUMATOLOGICAL: Denies any joint pain, swelling, or any muscle pain. ENDOCRINE: Denies any polyuria or polydipsia. The rest of the 14-point review of systems is negative. Past Medical History Past Medical History: CVA/TIA, Hypertension Additional Past Medical History / Comment(s): MIGRAINES, hernia - surgery june 03, 2020 History of Any Multi-Drug Resistant Organisms: None Reported Past Surgical History: Cholecystectomy Additional Past Surgical History / Comment(s): WISDOM TEETH EXTRACTIONS Past Anesthesia/Blood Transfusion Reactions: Postoperative Nausea & Vomiting (PONV) Additional Past Anesthesia/Blood Transfusion Reaction / Comment(s): Patient has no previous surgical history EXCEPT FOR TOOTH EXTRACTIONS. Past Psychological History: Anxiety, Depression, PTSD Additional Psychological History / Comment(s): . Smoking Status: Never smoker Past Alcohol Use History: None Reported Additional Past Alcohol Use History / Comment(s): Patient states that he drinks alcohol twice yearly. Past Drug Use History: None Reported Additional Drug Use History / Comment(s): Patient denies history of drug use. - Past Family History Father Family Medical History: No Reported History Mother Family Medical History: Diabetes Mellitus, Fibromyalgia, GERD/Reflux Additional Family Medical History / Comment(s): VERTIGO Medications and Allergies Home Medications Medication Instructions Recorded Confirmed Type LORazepam [Ativan] 1 mg PO TID PRN #30 tab 08/14/16 05/04/20 Rx Metoprolol Tartrate [Lopressor] 25 mg PO BID 03/25/20 05/04/20 History lisinopriL [Zestril] 5 mg PO DAILY 03/25/20 05/04/20 History traZODone HCL [Desyrel] 100 mg PO HS 03/25/20 05/04/20 History Venlafaxine HCl [Effexor XR] 150 mg PO DAILY 05/04/20 05/04/20 History Allergies Allergy/AdvReac Type Severity Reaction Status Date / Time aripiprazole [From Abilify] Allergy Rash/Hives, Verified 05/04/20 09:05 AGITATION doxycycline AdvReac interaction Verified 05/04/20 09:05 w/psych meds Physical Exam Vitals: Vital Signs Temp Pulse Pulse Pulse Pulse Pulse Resp 05/04/20 09:00 16 05/04/20 08:39 60 05/04/20 07:53 64 77 60 16 05/04/20 02:28 98.2 F 67 16 05/04/20 00:20 98.4 F 84 18 BP BP BP BP BP Pulse Ox 05/04/20 09:00 05/04/20 08:39 111/68 97 05/04/20 07:53 122/77 111/77 101/64 100 05/04/20 02:28 121/79 97 05/04/20 00:20 134/87 98 Intake and Output 05/03/20 05/04/20 05/04/20 22:59 06:59 14:59 Output Total 350 Balance -350 Output: Urine 350 Other: Voiding Method Urinal Weight 113.398 kg PHYSICAL EXAMINATION: GENERAL: The patient is alert and oriented x3, not in any acute distress. Well developed, well nourished. HEENT: Pupils are round and equally reacting to light. EOMI. No scleral icterus. No conjunctival pallor. Normocephalic, atraumatic. No pharyngeal erythema. No thyromegaly. CARDIOVASCULAR: S1 and S2 present. No murmurs, rubs, or gallops. PULMONARY: Chest is clear to auscultation, no wheezing or crackles. ABDOMEN: Soft, nontender, nondistended, normoactive bowel sounds. No palpable organomegaly. MUSCULOSKELETAL: No joint swelling or deformity. EXTREMITIES: No cyanosis, clubbing, or pedal edema. NEUROLOGICAL: Gross neurological examination did not reveal any focal deficits. SKIN: No rashes. Results CBC & Chem 7: 05/04/20 00:36 05/04/20 00:36 Labs: Abnormal Lab Results - Last 24 Hours (Table) 05/04/20 Range/Units 00:36 Sodium 136 L (137-145) mmol/L Potassium 5.2 H (3.5-5.1) mmol/L BUN 8 L (9-20) mg/dL Glucose 119 H (74-99) mg/dL AST 61 H (17-59) U/L Thrombosis Risk Factor Assmnt - Choose All That Apply Any of the Below Risk Factors Present?: No Each Factor Represents 1 point: Obesity (BMI >25) Other Risk Factors: No Other congenital or acquired thrombophilia - If yes, enter type in comment: No Thrombosis Risk Factor Assessment Total Risk Factor Score: 1 Thrombosis Risk Factor Assessment Level: Very Low Risk Assessment and Plan Plan: -dizziness: Secondary to intravascular depletion patient will be started on continued on IV fluids will hold off on lisinopril.patient is also bit hyperkalemic because of lisinopril.she did also complain of vertigopatient had a CT of the head which did not show any significant acute intracranial abnormal ity. Did not show any old strokes either -Tingling and numbness of the right side of the body including right arm and right leg: My suspicion is low that the patient has a stroke neurology will evaluate the patient the symptoms may be psychosomatic. -Chest pain: We'll rule out acute coronary syndromes had one set of troponin will do 2 more sets next 6 hours and if they're negative patient will be discharged and that his chest pain appears to be psychosomatic too. Patient had a stress test and a stress echo in 2014 which was negative -anxiety disorder/depression -Hypertension: Holding off on RENUKA inhibitor because of above-mentioned reasonsnumber dose of RENUKA inhibitor will be cut down to half upon discharge
--- NOTE | 2020-05-04 15:53 | P.CNNES ---
History of Present Illness Consult date: 05/04/20 Requesting physician: Nasra Pete Reason for Consult: Syncope, right-sided weakness, tingling extremities History of Present Illness: Patient is a 40-year-old male with extensive psychiatric history and and reports of self reported history of 2 strokes in the past came to the hospital for syncopal spell and paresthesia. Patient states that at 10:30 PM he was sitting in the couch, got up to go to the kitchen to get a drink of water. While he was standing, everything went black. He grabbed onto the couch but fell and landed on the dog. He states he was out for "half an hour". Once he came to, he got up, texted his about the incident, who recommended to call 911 and patient was brought to the hospital shortly after midnight last night. Patient denies any tongue bite, or loss of control of urine. He denies any head injury or hitting his head to any object. He states that he did wake up with puddle of drool on the side. On arrival his blood pressure was 134/87 pulse rate 84 temperature 98.4. Patient underwent CT head showed no acute intracranial findings or substantial change. If acute infarction remains a concern, MRI may be considered. EKG shows normal sinus rhythm. Chest x-ray no acute findings or change. Today he is complaining of some numbness on the right side, lighthead edness or dizziness. Earlier complained of chest pain like an elephant was sitting on the chest. Patient also has history of major depression, anxiety, PTSD. He has had suicide attempts in the past. At this time he does not have any suicidal ideation. He complains of severe depression, rates 12 on a scale of 1-10 where 10 is the worst depression. Patient states that this morning he had hallucination, as he saw his brother sitting on the side of the bed holding his arms out. He wanted to hide his brother, but then he slowly faded away. Patient at present takes trazodone 100 mg at bedtime, but does not take it regularly. He is also on Ativan 1 mg twice a day, takes it regularly, has not run out of it. Also on Effexor, metoprolol and lisinopril. Patient has history of hypertension for about 15 years. Patient states he has history of strokes in the past but does not take any antiplatelet medication at home. Denies any tobacco or alcohol intake. Does not do any drugs. Patient denies any history of seizures in the past. On review of records, patient was seen with another neurologist on 08/09/2016 for left-sided chest pain, urinary retention and paresthesias of bilateral hands. Patient had a normal MRI of the brain, cervical and thoracic spines. No evidence of demyelinating disease or ischemic stroke. EEG was normal on 02/14/2017. Patient also has a subsequent CTA of head and neck on 06/19/2019 which were normal. Patient had a normal 2-D echo on 05/10/2016 with EF 60-65%. Right ventricle is moderately dilated. Review of Systems As per HPI in detail. All other review of systems unremarkable. He states that he is talking slow, has slowed remember stuff. Denies any suicidal ideation. Complains of depression. No neck pain. Denies abdominal pain. Past Medical History Past Medical History: CVA/TIA, Hypertension Additional Past Medical History / Comment(s): MIGRAINES, hernia - surgery june 03, 2020 History of Any Multi-Drug Resistant Organisms: None Reported Past Surgical History: Cholecystectomy Additional Past Surgical History / Comment(s): WISDOM TEETH EXTRACTIONS Past Anesthesia/Blood Transfusion Reactions: Postoperative Nausea & Vomiting (PONV) Additional Past Anesthesia/Blood Transfusion Reaction / Comment(s): Patient has no previous surgical history EXCEPT FOR TOOTH EXTRACTIONS. Past Psychological History: Anxiety, Depression, PTSD Additional Psychological History / Comment(s): . Smoking Status: Never smoker Past Alcohol Use History: None Reported Additional Past Alcohol Use History / Comment(s): Patient states that he drinks alcohol twice yearly. Past Drug Use History: None Reported Additional Drug Use History / Comment(s): Patient denies history of drug use. - Past Family History Father Family Medical History: No Reported History Mother Family Medical History: Diabetes Mellitus, Fibromyalgia, GERD/Reflux Additional Family Medical History / Comment(s): VERTIGO Medications and Allergies Home Medications Medication Instructions Recorded Confirmed Type LORazepam [Ativan] 1 mg PO TID PRN #30 tab 08/14/16 05/04/20 Rx Metoprolol Tartrate [Lopressor] 25 mg PO BID 03/25/20 05/04/20 History Aspirin 81 mg PO DAILY #30 chewable 05/04/20 Rx Venlafaxine HCl ER [Effexor XR] 225 mg PO DAILY #30 cap 05/04/20 Rx lisinopriL [Zestril] 2.5 mg PO DAILY #0 05/04/20 05/04/20 Rx traZODone HCL [Desyrel] 100 mg PO HS #30 tab 05/04/20 Rx Allergies Allergy/AdvReac Type Severity Reaction Status Date / Time a[facility] [[facility] Allergy Rash/Hives, Verified 05/04/20 09:05 AGITATION doxycycline AdvReac interaction Verified 05/04/20 09:05 w/psych meds Physical Examination - Vital Signs Vital Signs: Vital Signs Temp Pulse Pulse Pulse Pulse Pulse Resp 05/04/20 09:00 16 05/04/20 08:39 60 05/04/20 07:53 64 77 60 16 05/04/20 02:28 98.2 F 67 16 05/04/20 00:20 98.4 F 84 18 BP BP BP BP BP Pulse Ox 05/04/20 09:00 05/04/20 08:39 111/68 97 05/04/20 07:53 122/77 111/77 101/64 100 05/04/20 02:28 121/79 97 05/04/20 00:20 134/87 98 Intake and Output 05/03/20 05/04/20 05/04/20 22:59 06:59 14:59 Output Total 350 Balance -350 Output: Urine 350 Other: Voiding Method Urinal Weight 113.398 kg On examination patient is a young male, in no acute distress. Patient is alert awake oriented to time place and person speech and language functions are normal. Attention and concentration fund of knowledge is adequate. On cranial nerve exertion pupils are round and reactive to light, visual roman are full on confrontation, extraocular muscles are intact with no nystagmus. Face is symmetric, tongue protrudes the midline. Palatal elevation and sensation normal. Hearing and shoulder shrug normal on muscle strength testing there is no pronator drift and the strength is completely normal in the arms and legs distally and proximally reflexes are 1+ in the upper limbs to in the lower limbs and plantars are downgoing. No Babinski no clonus. No ataxia for [id number] or [id number] testing. Tone and bulk of muscles normal. Sensory touch to do some paresthesia on the right side. Gait appears normal. There is no carotid bruit, S1 and S2 was audible peripheral pulses are present no edema abdomen is soft nontender. Chest is clear. Results - Laboratory Findings CBC and BMP: 05/04/20 00:36 05/04/20 00:36 Abnormal Lab Findings: Abnormal Labs 05/04/20 00:36 Sodium 136 L Potassium 5.2 H BUN 8 L Glucose 119 H AST 61 H Assessment and Plan Assessment: * Syncopal spell, likely vasovagal. Patient had a visual blackout before passing out. * Right-sided paresthesias, normal neurological examination. Rule out TIA * Obesity * Hypertension * Severe depression, hallucinating at times. Plan: * Patient had a normal CTA of head and neck performed recently on 06/19/2019, no need to repeat. * Agree with checking 2-D echo. * Patient will be started on aspirin 81 mg daily for stroke prevention. * Patient underwent urgent blood testing, in which his TSH is elevated 6.92, free T4 is pending. May need thyroid replacement. * Total cholesterol 167, LDL 78, HDL 32 and triglycerides 285. Lipids are well- controlled. * Await hemoglobin A1c, B12. * For depression and hallucination, would defer to internal medicine. * Consider Holter monitoring as outpatient to rule out paroxysmal atrial fibrillation/arrhythmia. * Neurologically otherwise clear.
[2020-05-04 16:07] VITALS: BP 114/69; PULSE 58
[2020-05-04 16:09] LABS: T4, Free (Free Thyroxine) 0.89 ng/dL (0.78-2.19)
--- NOTE | 2020-05-04 20:38 | ECHOF ---
Referral Reason:syncope MEASUREMENTS -------- HEIGHT: 180.3 cm WEIGHT: 113.4 kg BP: IVSd: 1.1 cm (0.6 - 1.1) LVIDd: 4.2 cm (3.9 - 5.3) LVPWd: 1.1 cm (0.6 - 1.1) IVSs: 1.9 cm LVIDs: 1.9 cm LVPWs: 2.0 cm Ao Diam: 3.0 cm (2.0 - 3.7) AV Cusp: 2.1 cm (1.5 - 2.6) LA Diam: 2.4 cm (2.7 - 3.8) MV EXCURSION: 21.866 mm (> 18.000) MV EF SLOPE: 125 mm/s (70 - 150) EPSS: 0.6 cm MV E Tod: 0.60 m/s MV DecT: 222 ms MV A Tod: 0.52 m/s MV E/A Ratio: 1.16 RAP: 5.00 mmHg RVSP: 19.35 mmHg FINDINGS -------- Sinus rhythm. This was a technically difficult study with suboptimal views. The left ventricular size is normal. Left ventricular wall thickness is normal. Overall left vent ricular systolic function is normal with, an EF between 55 - 60 %. The diastolic filling pattern is normal for the age of the patient 5.94. The right ventricle is normal in size. The left atrial size is normal. The right atrial size is normal. Lumason used The aortic valve was not well visualized. The mitral valve is normal. There is trace mitral regurgitation. The tricuspid valve appears structurally normal. Trace tricuspid regurgitation present. Right naya tricular systolic pressure is normal at < 35 mmHg. The pulmonic valve was not well visualized. There is no pulmonic regurgitation present. The aortic root size is normal. IVC Not well visulized. There is no pericardial effusion. CONCLUSIONS -------- 1. Left ventricular wall thickness is normal. 2. Overall left ventricular systolic function is normal with, an EF between 55 - 60 %. 3. The left atrial size is normal. 4. There is trace mitral regurgitation. 5. Trace tricuspid regurgitation present. 6. There is no pericardial effusion. EXPLOSIVE OPERATOR SUPERVISOR: Wendy Wheeler RDCS
[2020-05-04 22:20] LABS: Hemoglobin A1C 5.4 % (4.0-6.0)
[2020-05-05] MEDS ORDERED: ASPIRIN 81 MG PO SCH (09:00)
[2020-05-05] MEDS ORDERED: VENLAFAXINE HCL ER 150 MG CAP PO SCH (09:00)
[2020-05-05] MEDS ORDERED: FOLIC ACID 1 MG TAB PO SCH (09:00)
== END 2020-05-04 17:11 | disposition home or self-care (01) ==
LOC: EC 00:18 → 1SOBS 01:13
PROVIDERS: ADMIT Hospitalist; ATTEND Hospitalist
DX: R55 Syncope and collapse (principal); R53.1 Weakness; R20.2 Paresthesia of skin; W19.XXXA Unspecified fall, initial encounter; R07.89 Other chest pain; F32.9 Major depressive disorder, single episode, unspecified; R44.2 Other hallucinations; I10 Essential (primary) hypertension; Z86.73 Personal history of transient ischemic attack (TIA), and cerebral infarction without residual deficits; G43.909 Migraine, unspecified, not intractable, without status migrainosus; Z98.890 Other specified postprocedural states; Z91.5 Personal history of self-harm; Z90.49 Acquired absence of other specified parts of digestive tract; F41.9 Anxiety disorder, unspecified; F43.10 Post-traumatic stress disorder, unspecified; Z83.3 Family history of diabetes mellitus; Z83.79 Family history of other diseases of the digestive system; Z82.69 Family history of other diseases of the musculoskeletal system and connective tissue; Z79.82 Long term (current) use of aspirin; Z79.899 Other long term (current) drug therapy; Z88.1 Allergy status to other antibiotic agents; Z88.8 Allergy status to other drugs, medicaments and biological substances
CPT/HCPCS: 96361; 96360; 99285; 36415; 93005 ×2; 84439; 80061; 80053; 84443; 82607; 83735; 84484; 85025; 85610; 85730; 81003; 83036; 71046; 70450; G0378; C8929; Q9950; 93306

== ENCOUNTER → 2020-07-28 | Outpatient (CLI) | payer OTHER ==
[2020-07-28 19:32] LABS: Calcium 9.6 mg/dL (8.7-10.3); Magnesium 2.2 mg/dL (1.5-2.4); Phosphorus 3.1 mg/dL (2.4-5.1); Potassium 4.3 mmol/L (3.5-5.5)
== END | disposition home or self-care (01) ==
LOC: LABWHC1 12:31
PROVIDERS: ATTEND Psychiatry & Neurology Neurology
DX: M62.838 Other muscle spasm (principal)
CPT/HCPCS: 36415; 82310; 82607; 83735; 84100; 84132; 84295

== ENCOUNTER 2020-09-30 06:32 | Emergency (ER) | payer OTHER ==
[2020-09-30 06:41] VITALS: RESP 16
[2020-09-30] MEDS ORDERED: OXYMETAZOLINE 0.05% NASL SPRAY 1 SPRAY BOTTLE NASAL STA (06:45)
--- NOTE | 2020-09-30 06:52 | ED ---
ENT HPI - General Chief complaint: ENT Stated complaint: Nose Bleed Time Seen by Provider: 09/30/20 06:33 Source: patient, EMS, RN notes reviewed Mode of arrival: EMS Limitations: no limitations - History of Present Illness Initial comments: This a 40-year-old male presents emergency Department with chief complaint of epistaxis. Patient states he woke up around by [facility]. He was sweaty but states it was blood. Patient states that he's never had nosebleeds in the past. Patient states bleeding. Prior to EMS arrival. He states her some pressure in his right nostril but no pain headache dizziness blurred vision chest pain shortness of breath. Patient states that he saw his PCP yesterday in which she had lab work drawn. Patient was started on antibiotics for a left otitis media. Patient offers no complaints of chest pain no abdominal pain. - Related Data Home Medications Medication Instructions Recorded Confirmed Metoprolol Tartrate [Lopressor] 25 mg PO BID 03/25/20 05/04/20 Previous Rx's Medication Instructions Recorded LORazepam [Ativan] 1 mg PO TID PRN #30 tab 08/14/16 Aspirin 81 mg PO DAILY #30 chewable 05/04/20 Venlafaxine HCl ER [Effexor XR] 225 mg PO DAILY #30 cap 05/04/20 lisinopriL [Zestril] 2.5 mg PO DAILY #0 05/04/20 traZODone HCL [Desyrel] 100 mg PO HS #30 tab 05/04/20 Allergies Allergy/AdvReac Type Severity Reaction Status Date / Time aripiprazole [From [facility]ilify] Allergy Rash/Hives, Verified 09/30/20 06:40 AGITATION doxycycline AdvReac interaction Verified 09/30/20 06:40 w/psych meds Review of Systems ROS Statement: Those systems with pertinent positive or pertinent negative responses have been documented in the HPI. ROS Other: All systems not noted in ROS Statement are negative. Past Medical History Past Medical History: CVA/TIA, Hypertension Additional Past Medical History / Comment(s): MIGRAINES, hernia - surgery sept 2019 History of Any Multi-Drug Resistant Organisms: None Reported Past Surgical History: Cholecystectomy Additional Past Surgical History / Comment(s): WISDOM TEETH EXTRACTIONS Past Anesthesia/Blood Transfusion Reactions: Postoperative Nausea & Vomiting (PONV) Additional Past Anesthesia/Blood Transfusion Reaction / Comment(s): Patient has no previous surgical history EXCEPT FOR TOOTH EXTRACTIONS. Past Psychological History: Anxiety, Depression, PTSD Smoking Status: Never smoker Past Alcohol Use History: None Reported Past Drug Use History: None Reported - Past Family History Father Family Medical History: No Reported History Mother Family Medical History: Diabetes Mellitus, Fibromyalgia, GERD/Reflux Additional Family Medical History / Comment(s): VERTIGO General Exam Limitations: no limitations General appearance: alert, in no apparent distress Head exam: Present: atraumatic, normocephalic, normal inspection Eye exam: Present: normal appearance, PERRL, EOMI. Absent: scleral icterus, conjunctival injection, periorbital swelling ENT exam: Present: normal oropharynx, mucous membranes moist, normal external ear exam, other (There is dry blood noted in the right nostril, no active signs of bleeding.). Absent: TM's normal bilaterally (Fluid noted in the left TM) Neck exam: Present: normal inspection, full ROM. Absent: tenderness, meningismus, lymphadenopathy Respiratory exam: Present: normal lung sounds bilaterally. Absent: respiratory distress, wheezes, rales, rhonchi, stridor Cardiovascular Exam: Present: regular rate, normal rhythm, normal heart sounds. Absent: systolic murmur, diastolic murmur, rubs, gallop, clicks Neurological exam: Present: alert, oriented X3 Skin exam: Present: warm, dry, intact, normal color. Absent: rash Course Vital Signs 09/30/20 06:36 Pulse Rate 69 Respiratory 16 Rate Blood Pressure 130/78 O2 Sat by Pulse 98 Oximetry - Reevaluation(s) Reevaluation #1: 09/30/20 07:25 patient was reevaluated on 2 separate occasions patient had no recurrence of bleeding. Patient was given Afrin in which patient tolerated well. Medical Decision Making - Medical Decision Making 40-year-old presented for an epistaxis there's been no recurrent bleeding. Patient has been observed and monitored. Patient was given Afrin. Vitals are stable. Patient does have mild irritation the nasal passages. We did discuss humidifier at home return parameters were discussed. Disposition Clinical Impression: Epistaxis Disposition: HOME SELF-CARE Condition: Stable Instructions (If sedation given, give patient instructions): Nosebleed (ED) Additional Instructions: Please return to the Emergency Department if symptoms worsen or any other concer ns. Is patient prescribed a controlled substance at d/c from ED?: No Referrals: Jean-Claude Buenrostro MD [Primary Care Provider] - 1-2 days Time of Disposition: 07:26
[2020-09-30 07:44] VITALS: BP 138/79; PULSE 88; TEMP 98.3
== END 2020-09-30 07:43 | disposition home or self-care (01) ==
LOC: EC 06:32
DX: R04.0 Epistaxis (principal); I10 Essential (primary) hypertension; Z79.899 Other long term (current) drug therapy; Z88.1 Allergy status to other antibiotic agents; Z88.8 Allergy status to other drugs, medicaments and biological substances; Z86.73 Personal history of transient ischemic attack (TIA), and cerebral infarction without residual deficits
CPT/HCPCS: 99283

== ENCOUNTER → 2020-11-30 | Outpatient (CLI) | payer OTHER ==
[2020-11-30 14:51] LABS: Basophils # (A) 0.02 X 10*3/uL (0.00-0.10); Basophils % (A) 0.3 %; Eosinophils # (A) 0 X 10*3/uL (0.04-0.35); Eosinophils % (A) 0 %; HCT 46.8 % (39.6-50.0); HGB 15.4 g/dL (13.0-17.0); Lymphocytes # (A) 2.55 X 10*3/uL (0.90-5.00); Lymphocytes % (A) 38.9 %; MCH 29.1 pg (27.0-32.0); MCHC 32.9 g/dL (32.0-37.0); MCV 88.5 fL (80.0-97.0); Mean Platelet Volume 9.1 fL (9.5-12.2); Monocytes # (A) 0.71 X 10*3/uL (0.20-1.00); Monocytes % (A) 10.8 %; Neutrophils # (A) 3.26 X 10*3/uL (1.80-7.70); Neutrophils % (A) 49.8 %; Platelet Count 292 X 10*3/uL (140-440); RBC 5.29 X 10*6/uL (4.40-5.60); RDW 12.7 % (11.5-14.5); WBC 6.55 X 10*3/uL (4.50-10.00)
[2020-11-30 16:16] LABS: Magnesium 2.2 mg/dL (1.5-2.4); Phosphorus 3.8 mg/dL (2.4-5.1)
[2020-11-30 16:17] LABS: African American GFR (CKD) 88.4 (60.0-200.0); Albumin 4.8 g/dL (3.80-4.90); Albumin/Globulin Ratio 2.67 (1.60-3.17); Anion Gap 7.7 mmol/L (4.00-12.00); BUN/Creat Ratio 12.5 Ratio (12.00-20.00); Calcium 9.5 mg/dL (8.7-10.3); Carbon Dioxide 28.3 mmol/L (21.6-31.8); Chol/HDL Ratio 3.81; Globulin 1.8 g/dL (1.6-3.3); LDL Cholesterol,Calculated 69.6 mg/dL (0.0-131.0); Non-African American GFR(CKD) 76.2 (60.0-200.0); Potassium 4.2 mmol/L (3.5-5.5); Total Bilirubin 0.6 mg/dL (0.3-1.2); Total Protein 6.6 g/dL (6.2-8.2); VLDL Calculation 31.4 mg/dL (5.00-40.00)
[2020-11-30 16:25] LABS: T4, Free (Free Thyroxine) 0.9 ng/dL (0.80-1.80)
== END | disposition home or self-care (01) ==
LOC: LABWHC1 10:38
PROVIDERS: ATTEND Psychiatry & Neurology Neurology
DX: F41.8 Other specified anxiety disorders (principal); E78.5 Hyperlipidemia, unspecified; M62.838 Other muscle spasm; Z11.59 Encounter for screening for other viral diseases
CPT/HCPCS: 36415; 80053; 80061; 82607; 83735; 84100; 84439; 84443; 85025; 86803

== ENCOUNTER 2020-12-06 10:09 | Inpatient (IN) | payer OTHER ==
--- NOTE | 2020-12-06 10:23 | ED ---
General Adult HPI - General Stated complaint: stroke sypmtoms Time Seen by Provider: 12/06/20 10:11 Source: patient, EMS, RN notes reviewed, old records reviewed - History of Present Illness Initial comments: 40-year-old male presenting with sudden onset right-sided numbness and weakness. He has previous history of multiple strokes and states that they have always affected the right side of his body previously. He is currently on aspirin. He has followed with his neurologist locally and is scheduled to follow at [facility]. He states he has a history of brain swelling and fluid on the brain. He denies previous neurosurgery. Denies shunt. He states that his previous strokes have affected the right side of his body as well. He is able to move his right arm but has numbness. He is unable to move his right leg. He does have some word finding difficulty or taking history. Fever or URI symptoms. No abdominal pain nausea vomiting. No symptoms on the left. - Related Data Home Medications Medication Instructions Recorded Confirmed Metoprolol Tartrate [Lopressor] 25 mg PO BID 03/25/20 05/04/20 Previous Rx's Medication Instructions Recorded LORazepam [Ativan] 1 mg PO TID PRN #30 tab 08/14/16 Aspirin 81 mg PO DAILY #30 chewable 05/04/20 Venlafaxine HCl ER [Effexor XR] 225 mg PO DAILY #30 cap 05/04/20 lisinopriL [Zestril] 2.5 mg PO DAILY #0 05/04/20 traZODone HCL [Desyrel] 100 mg PO HS #30 tab 05/04/20 Allergies Allergy/AdvReac Type Severity Reaction Status Date / Time aripiprazole [From Abilify] Allergy Rash/Hives, Verified 09/30/20 06:40 AGITATION doxycycline AdvReac interaction Verified 09/30/20 06:40 w/psych meds Review of Systems ROS Statement: Those systems with pertinent positive or pertinent negative responses have been documented in the HPI. ROS Other: All systems not noted in ROS Statement are negative. Past Medical History Past Medical History: CVA/TIA, Hypertension Additional Past Medical History / Comment(s): MIGRAINES, hernia - surgery june 03, 2020 History of Any Multi-Drug Resistant Organisms: None Reported Past Surgical History: Cholecystectomy Additional Past Surgical History / Comment(s): WISDOM TEETH EXTRACTIONS Past Anesthesia/Blood Transfusion Reactions: Postoperative Nausea & Vomiting (PONV) Additional Past Anesthesia/Blood Transfusion Reaction / Comment(s): Patient has no previous surgical history EXCEPT FOR TOOTH EXTRACTIONS. Past Psychological History: Anxiety, Depression, PTSD Smoking Status: Never smoker Past Alcohol Use History: None Reported Past Drug Use History: None Reported - Past Family History Father Family Medical History: No Reported History Mother Family Medical History: Diabetes Mellitus, Fibromyalgia, GERD/Reflux Additional Family Medical History / Comment(s): VERTIGO General Exam General appearance: alert, in no apparent distress Head exam: Present: atraumatic, normocephalic Eye exam: Present: normal appearance, PERRL Neck exam: Present: normal inspection. Absent: tenderness, meningismus Respiratory exam: Present: normal lung sounds bilaterally. Absent: respiratory distress, wheezes Cardiovascular Exam: Present: regular rate, normal rhythm GI/Abdominal exam: Present: soft. Absent: distended, tenderness, guarding Extremities exam: Present: normal inspection, normal capillary refill Neurological exam: Present: alert, motor sensory deficit (Patient has no movem ent of the right leg. No sensation in the right leg. He has very minimal drift in the right upper extremity, numbness throughout the right upper extremity. And he has word finding difficulty. Initial NIH of 7.). Absent: oriented X3 Psychiatric exam: Present: depressed, flat affect Skin exam: Present: warm, dry, intact Course Vital Signs 12/06/20 12/06/20 12/06/20 10:15 10:30 10:42 Pulse Rate 69 63 88 Respiratory 18 18 16 Rate Blood Pressure 160/100 142/95 150/89 O2 Sat by Pulse 99 99 99 Oximetry 12/06/20 12/06/20 11:00 11:21 Pulse Rate 61 60 Respiratory 18 16 Rate Blood Pressure 179/99 154/92 O2 Sat by Pulse 99 99 Oximetry - Reevaluation(s) Reevaluation #1: 12/06/20 10:[address] Sahni. Who has evaluated the patient on the stroke robot. Reevaluation #2: 12/06/20 11:00 Patient declines TPA both to myself and to the stroke neurologist Dr. De La Paz. He states that with his previous strokes he did improve in 1-2 days. Additionally the patient is tearful, depressed, with suicidal ideation patient placed in a suicide precautions, will be admitted for both neurology and psychiatry evaluation EKG Findings - EKG Comments: EKG Findings:: EKG: Normal sinus rhythm, rate of 68, IN interval 168, QRS duration 110, QTC 435, no ST segment elevation. Medical Decision Making - Medical Decision Making 40-year-old male presenting with acute right-sided numbness and weakness. Taken immediately to CAT scan as a code stroke. CT negative for intracranial hemorrhage or mass effect. Patient was evaluated on the stroke robot by the stroke neurologist Dr. Sahni. Patient himself had declined TPA. CT angiography pending this was reviewed by Dr. Sahni and felt to not have any large occlusion. I did give this patient aspirin and statin in the emergency department. He has been admitted with both neurology and psychiatry on consult. - Lab Data Result diagrams: 12/06/20 10:17 12/06/20 10:17 Lab Results 12/06/20 12/06/20 12/06/20 Range/Units 10:17 10:17 10:17 WBC 8.1 (3.8-10.6) k/uL RBC 5.41 (4.30-5.90) m/uL Hgb 16.1 (13.0-17.5) gm/dL Hct 47.2 (39.0-53.0) % MCV 87.3 (80.0-100.0) fL MCH 29.8 (25.0-35.0) pg MCHC 34.1 (31.0-37.0) g/dL RDW 13.2 (11.5-15.5) % Plt Count 255 (150-450) k/uL MPV 6.3 Neutrophils % 49 % Lymphocytes % 41 % Monocytes % 7 % Eosinophils % 0 % Basophils % 0 % Neutrophils # 4.0 (1.3-7.7) k/uL Lymphocytes # 3.3 (1.0-4.8) k/uL Monocytes # 0.6 (0-1.0) k/uL Eosinophils # 0.0 (0-0.7) k/uL Basophils # 0.0 (0-0.2) k/uL PT 10.0 (9.0-12.0) sec INR 0.9 (<1.2) APTT 28.5 (22.0-30.0) sec Sodium 139 (137-145) mmol/L Potassium 4.0 (3.5-5.1) mmol/L Chloride 103 (98-107) mmol/L Carbon Dioxide 26 (22-30) mmol/L Anion Gap 10 mmol/L BUN 11 (9-20) mg/dL Creatinine 1.13 (0.66-1.25) mg/dL Est GFR (CKD-EPI)AfAm >90 (>60 ml/min/1.73 sqM) Est GFR (CKD-EPI)NonAf 82 (>60 ml/min/1.73 sqM) Glucose 116 H (74-99) mg/dL Calcium 9.6 (8.4-10.2) mg/dL Total Bilirubin 0.8 (0.2-1.3) mg/dL AST 30 (17-59) U/L ALT 30 (4-49) U/L Alkaline Phosphatase 104 (38-126) U/L Troponin I (0.000-0.034) ng/mL Total Protein 7.1 (6.3-8.2) g/dL Albumin 4.4 (3.5-5.0) g/dL 12/06/20 Range/Units 10:17 WBC (3.8-10.6) k/uL RBC (4.30-5.90) m/uL Hgb (13.0-17.5) gm/dL Hct (39.0-53.0) % MCV (80.0-100.0) fL MCH (25.0-35.0) pg MCHC (31.0-37.0) g/dL RDW (11.5-15.5) % Plt Count (150-450) k/uL MPV Neutrophils % % Lymphocytes % % Monocytes % % Eosinophils % % Basophils % % Neutrophils # (1.3-7.7) k/uL Lymphocytes # (1.0-4.8) k/uL Monocytes # (0-1.0) k/uL Eosinophils # (0-0.7) k/uL Basophils # (0-0.2) k/uL PT (9.0-12.0) sec INR (<1.2) APTT (22.0-30.0) sec Sodium (137-145) mmol/L Potassium (3.5-5.1) mmol/L Chloride (98-107) mmol/L Carbon Dioxide (22-30) mmol/L Anion Gap mmol/L BUN (9-20) mg/dL Creatinine (0.66-1.25) mg/dL Est GFR (CKD-EPI)AfAm (>60 ml/min/1.73 sqM) Est GFR (CKD-EPI)NonAf (>60 ml/min/1.73 sqM) Glucose (74-99) mg/dL Calcium (8.4-10.2) mg/dL Total Bilirubin (0.2-1.3) mg/dL AST (17-59) U/L ALT (4-49) U/L Alkaline Phosphatase (38-126) U/L Troponin I <0.012 (0.000-0.034) ng/mL Total Protein (6.3-8.2) g/dL Albumin (3.5-5.0) g/dL Critical Care Time Critical Care Time: Yes Total Critical Care Time: 35 Disposition Clinical Impression: Cerebrovascular accident (CVA), Suicidal ideation, Depression Disposition: ADMITTED IP TO THIS [facility] Condition: Stable Is patient prescribed a controlled substance at d/c from ED?: No Referrals: Jean-Claude Buenrostro MD [Primary Care Provider] - 1-2 days Decision to Admit Reason: Admit from EC Decision Date: 12/06/20 Decision Time: 11:54
--- NOTE | 2020-12-06 10:40 | CT ---
EXAMINATION TYPE: CT brain wo con for TPA DATE OF EXAM: 12/06/2020 COMPARISON: 05/04/2020 INDICATION: Severe PAREKH, Rt sided weakness DLP: Unavailable at this time mGycm, Automated exposure control for dose reduction was used. CONTRAST: None CT of the brain is performed utilizing 3 mm thick sections through the posterior fossa and 3 mm thick sections through the remaining calvarium. Study is performed within 24 hours of arrival to the hosp ital. No abnormal hyperdensity is present to suggest an acute intracranial hemorrhage. No mass lesion is evident. No acute infarcts are evident. Ventricles and sulci are appropriate for the patient age. Paranasal sinuses and mastoid air cells within the [id number] are clear. IMPRESSIONS: 1. No acute intracranial process.
[2020-12-06] MEDS ORDERED: ATORVASTATIN 80 MG TAB PO STA (10:56)
[2020-12-06] MEDS ORDERED: ASPIRIN 325 MG TAB PO STA (10:56)
[2020-12-06 11:06] LABS: Basophils % (A) 0 %; Eosinophils % (A) 0 %; HCT 47.2 % (39.0-53.0); HGB 16.1 gm/dL (13.0-17.5); Lymphocytes # (A) 3.3 k/uL (1.0-4.8); Lymphocytes % (A) 41 %; MCH 29.8 pg (25.0-35.0); MCHC 34.1 g/dL (31.0-37.0); MCV 87.3 fL (80.0-100.0); Mean Platelet Volume 6.3; Monocytes # (A) 0.6 k/uL (0-1.0); Monocytes % (A) 7 %; Neutrophils % (A) 49 %; Platelet Count 255 k/uL (150-450); RBC 5.41 m/uL (4.30-5.90); RDW 13.2 % (11.5-15.5); WBC 8.1 k/uL (3.8-10.6)
[2020-12-06 11:13] LABS: INR 0.9 (<1.2); Partial Thromboplastin Time 28.5 sec (22.0-30.0)
[2020-12-06 11:18] LABS: ALT 30 U/L (4-49); AST 30 U/L (17-59); African American GFR (CKD) >90 (>60 ml/min/1.73 sqM); Albumin 4.4 g/dL (3.5-5.0); Alkaline Phosphatase 104 U/L (38-126); Anion Gap 10 mmol/L; Blood Urea Nitrogen 11 mg/dL (9-20); Calcium 9.6 mg/dL (8.4-10.2); Carbon Dioxide 26 mmol/L (22-30); Chloride 103 mmol/L (98-107); Glucose 116 mg/dL (74-99); Non-African American GFR(CKD) 82 (>60 ml/min/1.73 sqM); Sodium 139 mmol/L (137-145); Total Bilirubin 0.8 mg/dL (0.2-1.3); Total Protein 7.1 g/dL (6.3-8.2)
--- NOTE | 2020-12-06 12:16 | CT ---
EXAMINATION TYPE: CT angio head neck DATE OF EXAM: 12/06/2020 HISTORY: Severe PAREKH, Rt sided weakness COMPARISON: 06/19/2019 CT DLP: 2268.4 (brain without and CTA head and neck) mGycm. Automated Exposure Control for Dose Redu ction was Utilized. TECHNIQUE: CTA scan of the neck is performed with IV Contrast, patient injected with 65 mL of Isovue 370, axial images are obtained, coronal and sagittal reformatted images are reviewed. Source images are reviewed. FINDINGS: Due to contrast timing and patient cooperation level, 3-D reconstructed images cannot be pe rformed. There is limitation of this examination. Carotid/Vascular Structures: There is a three-vessel arch. Vertebral arteries appear codominant. Comm on carotid arteries bifurcate normally into internal and external carotid arteries. No significant fl ow-limiting stenosis is. Cervical of [place]: Vertebral basilar system appears normal. Posterior cerebral vasculature is unrema rkable. Internal carotid arteries bifurcate normally into A1 and M1 segments. A2 segments are normal. The anterior communicating artery is patent. Left Posterior communicating artery appears patent. Rig ht posterior communicating artery is patent. Other: Prevertebral space is normal. Vertebral body heights appear preserved. Mild disc space narrowi ng cervical spine is present. IMPRESSION: 1. No flow-limiting stenosis bilateral carotid bifurcations. 2. Normal [place]. 3. Contrast timing limits the exam. 3-D images could not be reconstructed.
[2020-12-06] MEDS: SODIUM CHLORIDE 0.9% 1,000 ML IV SCH (12:50)
[2020-12-06] MEDS ORDERED: VENLAFAXINE HCL ER 150 MG CAP PO STA (14:35)
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
--- NOTE | 2020-12-06 15:27 | HP ---
HISTORY AND PHYSICAL DATE OF SERVICE: 12/06/2020 CHIEF COMPLAINTS: Weakness of the right side of the body and numbness. HISTORY OF PRESENT ILLNESS: This 40-year-old gentleman with a past medical history of multiple medical problems including CVA, TIA, hypertension, history of migraine, hernia, cholecystomy being followed by Dr. Jean-Claude Buenrostro in the outpatient setting noted to have have significant weakness on the right side. The patient is currently on aspirin. The patient was seen by Dr. Verde, neurologist and was scheduled an appointment at [facility] for evaluation of the mini strokes apparently. The patient was apparently seen by tele- neurologist and recommended tPA, which the patient refused. The patient apparently also had suicidal ideations. Psychiatry also has been recommended. Neurology consultation is underway. There is no history of any fever or rigors. No history of headache, loss of consciousness or seizures. The patient is able to lift the right upper limb and on dropping it had a slow action. No chest pain. No palpitation. PAST MEDICAL HISTORY: CVA, TIA, hypertension, history of migraines. MEDICATIONS: Home medications are: 1. Desyrel 50-100 mg at bedtime. 2. Lamictal 50 mg b.i.d. 3. Lopressor 25 mg b.i.d. 4. Cozaar 50 mg daily. 5. Vitamin B12, 1000 mcg at bedtime. 6. Lipitor 40 mg at bedtime. 7. Aspirin 81 mg daily. ALLERGIES: ABILIFY, DOXYCYCLINE. FAMILY HISTORY: History of vertigo in the family. SOCIAL HISTORY: No history of smoking. No history of alcohol intake. REVIEW OF SYSTEMS: ENT: No diminished hearing or diminished vision. CARDIOVASCULAR SYSTEM: No angina. RESPIRATORY SYSTEM: As mentioned earlier. GI: No nausea. : No dysuria. NERVOUS SYSTEM: As mentioned earlier. ALLERGY/IMMUNOLOGY: No asthma or hay fever. MUSCULOSKELETAL: As mentioned earlier. HEMATOLOGY: No history of anemia. ENDOCRINE: No history of diabetes or hypothyroidism. CONSTITUTIONAL: As mentioned earlier. DERMATOLOGY: Negative. RHEUMATOLOGY: Negative. PSYCHIATRY: As mentioned earlier. PHYSICAL EXAMINATION: The patient is alert and oriented x3. Pulse is 58, blood pressure 143/93, respiration 18, temperature 98.3, pulse ox 100% on room air. HEENT: Conjunctivae normal. NECK: No jugular venous distention. CARDIOVASCULAR: S1, S2 muffled. RESPIRATORY: Breath sounds diminished at the bases. No rhonchi, no crackles. ABDOMEN: Soft, nontender. No mass palpable. LEGS: No edema, no swelling. NERVOUS SYSTEM: As mentioned, significant weakness of the right side and reflexes are diminished. SKIN: No ulcer, rash or bleeding. JOINTS: No active deforming arthropathy. LABS: CBC within normal limits. Sodium 139, potassium 4. Glucose 116. ASSESSMENT: 1. Weakness of the right side, rule out left-sided cerebrovascular accident or transient ischemic attack. 2. Elevated random glucose. 3. Suicidal ideations. 4. Cerebrovascular accident, transient ischemic attack history. 5. Hypertension. 6. History of migraines. 7. History of cholecystectomy. 8. History of anxiety, depression, posttraumatic stress disorder. 9. Obesity with body mass index 36.3. RECOMMENDATIONS AND DISCUSSION: This 40-year-old gentleman who presented with multiple complex medical issues, we will monitor the patient closely. Antiplatelet agents. Complete neurovascular workup. Neurology consultation. Otherwise, psychiatric evaluation. Prognosis guarded because of multiple complex medical consult. Further recommendations to follow. Will resume the home medications and discussed with the patient, understands and agrees. A copy of dictation forwarded to Dr. Jean-Claude Buenrostro who is the primary physician. MMODL / IJN: [id number] / MTDCassia
--- NOTE | 2020-12-06 15:30 | P.CNNES ---
History of Present Illness Consult date: 12/06/20 Requesting physician: Pietro Chapman Reason for Consult: right sided weakness and numbness History of Present Illness: This is a 40-year-old gentleman with history of extensive psychiatric history and self reported history strokes in the past with right-sided weakness, paresthesia that presented emergency department on 12/06/2020 for sudden onset right-sided weakness and numbness. He arrived to our facility at around 10:09 am today. Patient is accompanied with his , Jakob. He stated that he woke up at around 9 9:30 AM this morning and he noticed that he's having entire right-sided the numbness as well as worsening weakness over the right side that. He denies of any visual disturbance. He denies of other neurological deficits. Denies of any neck pain. His last normal state according to him was around 10 PM last night. According to the patient nurse the patient gives inconsistent histories. Patient stated that he has chronic headache and hasn't worsened. Patient also stated that he was told that he has history of brain swelling and was told he had fluid within the brain according to the nurse practioner at [facility] stroke team. He said that he is trying to see a stroke attending at [facility] but having insurance issues. Currently follows up with Dr. Verde for his neurological workup. Upon asking Jeremiah would not was Dr. Verde finding he said that he is not being treated for his stroke and getting some blood test workup and doesn't know what is he being worked up for. He denies any shunts or brain surgery. Patient stated that he is on home aspirin 81 mg daily, Ativan 1 mg 3 times a day when necessary, lisinopril, trazodone 100 mg daily at bedtime and Effexor 225 mg daily. Per the ED physician and he stated that he notified them that he has suicidal thoughts but he has not notified her to me. According to the patient's partner, he stated the patient does snore and the is waiting to get his the CPAP machine. Patient stated that he sleeps about 4-5 hours daily. Initial vital signs was blood pressure of 160/100, heart rate of 69, respiratory of 18, pulse ox of 99% at room air and the initial temperature is 98.3 Fahrenheit. In the ED a stroke code was activated. Per the ED it was felt that the patient is able to move his right arm but has numbness. He is unable to move his right leg. He does have word finding difficulty. And no symptoms over the left side. CT of the head is reported as no acute intracranial process. CT angiography of the head and neck was reported as no flow-limiting stenosis bilateral carotid bifurcation. Normal [place]. EKG is reported as normal sinus rhythm. Normal EKG. Initial serum glucose is 116. Dr. Sahni (endovascular/interventional neurologist) he has felt the patient was a TPA candidate the patient declined to get TPA. Per the ED note Dr. Sahni felt the patient did not have any large vessel occlusion. The patient NIH stroke scale document by the ED on the initial one was a 7 and the repeated was also 7. On initial one the loss of consciousness questions and he received the 2, the right leg he was therefore, ataxia received a 1. But then repeated he also received a 7 in which she got points for right arm was 1, right leg he received the 2, ataxia received 1, sensory was a 2 and the language was a 1. Per the patient nurse patient states she has weakness on the right arm but upon asking to left that he'll disease and pain but then when she picks up his and he'll able to raise it up and remain in that position. Of note the patient was evaluated by Dr. Moore (Neuro-hospitalist) on 05/04/2020 for syncopal episodes, right-sided weakness and tingling of the extremity. In the Dr. Delgado's note and mentioned the patient has history of major depression, anxiety, PTSD. He has suicidal attempts in the past. He notified Dr. Delgado that he does not have history of seizures. Dr. Delgado felt the syncopal episode was likely vasovagal. The right sided paresthesia he mentioned the neurological examination was normal rule out TIA and the patient had CTA of the head and neck on 06/19/2019 which was normal. He recommended an aspirin for secondary stroke prophylaxis. Patient had an EEG in our facility on 02/14/2017 and was reported normal. A shunt last MRI of the brain was in 2016 is reported as left maxillary, ethmoid and frontal sinus disease. Review of Systems Review of system: The 12 point system was reviewed and apparent positive and negative per HPI. Past Medical History Past Medical History: CVA/TIA, Hypertension Additional Past Medical History / Comment(s): MIGRAINES, hernia - surgery june 03, 2020 History of Any Multi-Drug Resistant Organisms: None Reported Past Surgical History: Cholecystectomy Additional Past Surgical History / Comment(s): WISDOM TEETH EXTRACTIONS Past Anesthesia/Blood Transfusion Reactions: Postoperative Nausea & Vomiting (PONV) Additional Past Anesthesia/Blood Transfusion Reaction / Comment(s): Patient has no previous surgical history EXCEPT FOR TOOTH EXTRACTIONS. Past Psychological History: Anxiety, Depression, PTSD Smoking Status: Never smoker Past Alcohol Use History: None Reported Past Drug Use History: None Reported - Past Family History Father Family Medical History: No Reported History Mother Family Medical History: Diabetes Mellitus, Fibromyalgia, GERD/Reflux Additional Family Medical History / Comment(s): VERTIGO Medications and Allergies Home Medications Medication Instructions Recorded Confirmed Type Metoprolol Tartrate [Lopressor] 25 mg PO BID 03/25/20 12/06/20 History Aspirin 81 mg PO DAILY #30 chewable 05/04/20 12/06/20 Rx Atorvastatin [Lipitor] 40 mg PO HS 12/06/20 12/06/20 History Cyanocobalamin (Vitamin B-12) 1,000 mcg PO HS 12/06/20 12/06/20 History [Vitamin B-12] Losartan [Cozaar] 50 mg PO DAILY 12/06/20 12/06/20 History Venlafaxine HCl [Effexor XR] 150 mg PO DAILY 12/06/20 12/06/20 History lamoTRIgine [LaMICtal] 50 mg PO BID 12/06/20 12/06/20 History traZODone HCL [Desyrel] 50 - 100 mg PO HS 12/06/20 12/06/20 History Allergies Allergy/AdvReac Type Severity Reaction Status Date / Time aripiprazole [From Abilify] Allergy Rash/Hives, Verified 12/06/20 11:58 AGITATION doxycycline AdvReac Interaction Verified 12/06/20 11:58 w/psych meds & Rash Physical Examination - Vital Signs Vital Signs: Vital Signs Temp Pulse Resp BP Pulse Ox 12/06/20 12:29 98.3 F 58 L 18 143/93 100 12/06/20 11:21 60 16 154/92 99 12/06/20 11:00 61 18 179/99 99 12/06/20 10:42 88 16 150/89 99 12/06/20 10:30 63 18 142/95 99 12/06/20 10:15 69 18 160/100 99 Intake and Output 12/05/20 12/06/20 12/06/20 22:59 06:59 14:59 Other: Weight 124.738 kg GENERAL: The patient is lying in bed and is not in acute distress. CHEST: The heart rate is regular rate rhythm. No murmurs to auscultation. LUNG: Clear to auscultation bilaterally no wheezing noted throughout. Not labored breathing. ABDOMEN/GI: Bowel sounds present in all 4 quadrants. No tenderness to palpation throughout. NEUROLOGICAL: Higher mental function: The patient is awake, alert, oriented to self and place. He stated the year was 2019 and month was Oct. Patient is following commands. No aphasia and no neglect. Cranial nerves: The pupils are round, equal and reactive to light and accommodation. Visual roman are full to confrontation throughout. Extraocular movement is intact no nystagmus is noted. Facial sensation is normal to touch throughout. The facial strength is normal throughout. Hearing is normal bilaterally to hand rub. Tongue is midline and moved [id number] without any difficulty. No dysarthria is noted. Shoulder shrug is normal bilaterally. Motor: Gait is deferred. The strength is on the right upper and lower extremity there are effort related. Initially upon asking the patient to raise the right arm up, he kept on saying he was in pain but was able to raise up above gravity 20-25 degree above bed. Bed upon raising his arm to 60 degrees he was able to maintain without drift and the same was for the right lower extremity. Then upon making him push against resistance he was able to do that and seem at least 4+ to 5- and again it seems there is effort related and improved with motivation. Left upper and lower extremity is 5/5. Normal tone and bulk. Cerebellum: Normal finger to nose heel to espinoza over the left and had hard time performing it on the right. Sensation: Sensation is decreased to touch over the right. Reflexes (right/left): Brachioradialis is 3+ bilaterally, left patellar is 3+. Otherise 2+ throughout. Plantars are downgoing bilaterally. Results White blood cells 8.1 which is normal. Rest of the basic chemistry panel is normal. Coagulation study: PT of 10.0, INR 0.9, PTT of 28.5. - Laboratory Findings CBC and BMP: 12/06/20 10:17 12/06/20 10:17 Abnormal Lab Findings: Abnormal Labs 12/06/20 10:17 Glucose 116 H Assessment and Plan Assessment: This is a 40-year-old gentleman with extensive psychiatry problems the presents emergency department on 12/06/2020 for right-sided weakness and numbness. Patient refused IV TPA. He gives inconsistent histories per patient's nurse. On examination his right sided weakness seems effort related. Right-sided weakness and numbness. Seems effort related on examination. I feels his symptoms are conversion. He had similar presentation in the past stating that he had multiple right-sided weakness and numbness and his CT of the head is normal which I would expect with someone with right-sided weakness will have some intraparenchymal chronic changes. ?Brain swelling and fluid according patient (which I don't see any sign on current CT head) Significant psychiatric history with depression, anxiety and PTSD Per ED he has suidical thoughts Plan: Patient was started on aspirin 325 daily by the ED team and was given Lipitor 80 mg daily by ED. 2-D echo was ordered by the ED team. PT, OT and LICENSED PROSTHETIST/ORTHOTIST are consulted Lipid panel is ordered and is pending Previous TSH was 6.0 on 11/30/2020 which is high but the free T4 is 0.90 which is normal. Does not need to be repeated. Vitamin B12 is 531 on 11/30/2020 which does not need to free. Does not need to be repeated. From neurological standpoint I feel this is conversion in which she has the same repeated episodes. Psychiatric team is consulted. Recommend patient to follow-up with a neurologist as an outpatient within 2 weeks (Follows-up with Dr. Verde and attempting to follow-up with stroke team at [facility]). Thank you for the consultation. Jeremiah Shankar MD Neuro-hospitalist Time with Patient: Greater than 30
[2020-12-06] MEDS: HEPARIN SODIUM,PORCINE 5,000 UNIT/ML 1 ML VIAL SQ SCH ×2 (16:14→22:12)
[2020-12-06] MEDS: LOSARTAN 50 MG TAB PO SCH (16:26)
[2020-12-06] MEDS: HYDROcodone/APAP 5-325MG 1 EACH TAB PO PRN (16:26)
[2020-12-06] MEDS: IBUPROFEN 600 MG TAB PO PRN (18:58)
[2020-12-06] MEDS: lamoTRIgine 25 MG TAB PO SCH (20:58)
[2020-12-06] MEDS: CYANOCOBALAMIN 500 MCG TAB PO SCH (20:58)
[2020-12-06] MEDS: METOPROLOL TARTRATE 25 MG TAB PO SCH (20:59)
[2020-12-06] MEDS ORDERED: QUEtiapine 50 MG TAB PO SCH (21:00)
[2020-12-06] MEDS ORDERED: ATORVASTATIN 80 MG TAB PO SCH (21:00)
[2020-12-06] MEDS ORDERED: traZODone HCL 100 MG TAB PO SCH (21:00)
[2020-12-07] MEDS: SODIUM CHLORIDE 0.9% 1,000 ML IV SCH ×3 (06:10→20:00)
[2020-12-07] MEDS: PANTOPRAZOLE 40 MG TABLET PO SCH (06:46)
[2020-12-07 07:33] LABS: Basophils % (A) 0 %; Eosinophils % (A) 0 %; HCT 42.4 % (39.0-53.0); HGB 14.5 gm/dL (13.0-17.5); Lymphocytes # (A) 2.8 k/uL (1.0-4.8); Lymphocytes % (A) 48 %; MCH 30.5 pg (25.0-35.0); MCHC 34.3 g/dL (31.0-37.0); MCV 88.9 fL (80.0-100.0); Mean Platelet Volume 6.4; Monocytes # (A) 0.5 k/uL (0-1.0); Monocytes % (A) 8 %; Neutrophils # (A) 2.3 k/uL (1.3-7.7); Neutrophils % (A) 40 %; Platelet Count 225 k/uL (150-450); RBC 4.77 m/uL (4.30-5.90); RDW 13.3 % (11.5-15.5); WBC 5.8 k/uL (3.8-10.6)
[2020-12-07 07:48] LABS: African American GFR (CKD) >90 (>60 ml/min/1.73 sqM); Anion Gap 7 mmol/L; Blood Urea Nitrogen 15 mg/dL (9-20); Carbon Dioxide 27 mmol/L (22-30); Chloride 104 mmol/L (98-107); Cholesterol 128 mg/dL (<200); Glucose 96 mg/dL (74-99); HDL Cholesterol 31 mg/dL (40-60); LDL Cholesterol,Calculated 70 mg/dL (0-99); Non-African American GFR(CKD) >90 (>60 ml/min/1.73 sqM); Potassium 4.2 mmol/L (3.5-5.1); Sodium 138 mmol/L (137-145); Triglycerides 135 mg/dL (<150)
[2020-12-07] MEDS: LOSARTAN 50 MG TAB PO SCH (08:19)
[2020-12-07] MEDS: lamoTRIgine 25 MG TAB PO SCH ×2 (08:19→20:54)
[2020-12-07] MEDS: METOPROLOL TARTRATE 25 MG TAB PO SCH ×2 (08:19→20:54)
[2020-12-07] MEDS: HEPARIN SODIUM,PORCINE 5,000 UNIT/ML 1 ML VIAL SQ SCH ×2 (08:19→20:54)
[2020-12-07] MEDS: VENLAFAXINE HCL ER 75 MG CAP PO SCH (08:20)
[2020-12-07] MEDS ORDERED: LOSARTAN 50 MG TAB PO SCH (09:00)
--- NOTE | 2020-12-07 09:46 | P.PN ---
Subjective Progress Note Date: 12/07/20 Patient was seen at bedside and he stated that he continues to have right-sided weakness but better today compared to yesterday. He continues to have numbness over the right side. He said that he has chronic right-sided weakness. Denies other neurological problems. Objective - Vital Signs Vital signs: Vital Signs Temp 97.8 F 12/07/20 08:23 Pulse 54 L 12/07/20 08:23 Resp 16 12/07/20 08:23 BP 99/54 12/07/20 08:23 Pulse Ox 97 12/07/20 08:23 Intake & Output 12/06/20 12/07/20 12/07/20 18:59 06:59 18:59 Intake Total 1570 Output Total 300 Balance 1570 -300 Weight 124.738 kg 124.8 kg Intake: Intake, IV Titration 800 Amount Sodium Chloride 0.9% 1, 800 000 ml @ 100 mls/hr IV . Q10H MAN Rx#:[id number] Oral 770 Output: Urine 300 Other: Voiding Method Urinal Urinal # Voids 350 - Exam GENERAL: The patient is lying in bed and is not in acute distress. NEUROLOGICAL: Higher mental function: The patient is awake, alert, oriented to self and place. He stated the year was 2019 and month was Oct. Patient is following commands. No aphasia and no neglect. Cranial nerves: The pupils are round, equal and reactive to light and accommodation. Visual roman are full to confrontation throughout. Extraocular movement is intact no nystagmus is noted. Facial sensation is normal to touch throughout. The facial strength is normal throughout. Hearing is normal bilaterally to hand rub. Tongue is midline and moved [id number] without any difficulty. No dysarthria is noted. Shoulder shrug is normal bilaterally. Motor: Gait is deferred. The strength is on the right upper and lower extremity there are effort related. He was able to lift right upper and lower above gravity without drift and he said that is it. But with resistance he had at least 4+ but seems dramatic on testing. Left upper and lower extremity is 5/5. Normal tone and bulk. Cerebellum: Normal finger to nose heel to espinoza over the left and had hard time performing it on the right. Sensation: Sensation is decreased to touch over the right. Reflexes (right/left): Brachioradialis is 3+ left, biceps 3+ left, bilateral patellar is 3+. Otherise 2+ throughout. Plantars are downgoing bilaterally. - Labs CBC & Chem 7: 12/07/20 06:42 12/07/20 06:42 Labs: Abnormal Lab Results - Last 24 Hours (Table) 12/06/20 12/07/20 Range/Units 10:17 06:42 Glucose 116 H (74-99) mg/dL HDL Cholesterol 31 L (40-60) mg/dL Assessment and Plan Assessment: This is a 40-year-old gentleman with extensive psychiatry problems the presents emergency department on 12/06/2020 for right-sided weakness and numbness. Patient refused IV TPA. He gives inconsistent histories per patient's nurse. On examination his right sided weakness seems effort related. * Right-sided weakness and numbness. Seems effort related on examination. I feels his symptoms are conversion. He had similar presentation in the past stating that he had multiple right-sided weakness and numbness and his CT of the head is normal which I would expect with someone with right-sided weakness will have some intraparenchymal chronic changes. * ?Brain swelling and fluid according patient according to the patient that was relayed by nurse practitioner stroke team (which I don't see any sign on current CT head) * Hyperreflexia over the left upper and bilateral patellar: Rule out cervical lesion. * Significant psychiatric history with depression, anxiety and PTSD * Per ED he has suidical thoughts * Morbid obesity Plan: Patient was started on aspirin 325 daily by the ED team and was given Lipitor 80 mg daily by ED. I could decrease the Lipitor from 80 mg to 40 mg daily at bed time 2-D echo: pending. PT, OT and DIRECTOR CONTENT MARKETING are consulted Lipid panel: Triglyceride is 135, cholesterol is 128, LDL is 70 and HDL is 31. The goal stroke is to keep the LDL less than 70. Previous TSH was 6.0 on 11/30/2020 which is high but the free T4 is 0.90 which is normal. Does not need to be repeated. Vitamin B12 is 531 on 11/30/2020 which does not need to free. Does not need to be repeated. I ordered MRI of the cervical spine since the patient had hyper-reflexia over the left upper extremity and bilateral lower. An MRI of the brain is not needed. Psychiatric team is consulted. Recommend patient to follow-up with a neurologist as an outpatient within 2 weeks (Follows-up with Dr. Verde and attempting to follow-up with stroke team at of ). Once MRI of the cervical spine is back and it's reported as normal. There is no further neurological workup needed from neurological standpoint. The plan was discussed with the patient as well as the patient's nurse. Jeremiah Shankar MD Neuro-hospitalist Time with Patient: Less than 30
--- NOTE | 2020-12-07 10:00 | ECHOF ---
Referral Reason:Stroke MEASUREMENTS -------- HEIGHT: 182.9 cm WEIGHT: 127.0 kg BP: RVIDd: 2.9 cm (< 3.3) IVSd: 1.2 cm (0.6 - 1.1) LVIDd: 4.7 cm (3.9 - 5.3) LVPWd: 1.0 cm (0.6 - 1.1) IVSs: 1.6 cm LVIDs: 3.6 cm LVPWs: 1.2 cm Ao Diam: 3.2 cm (2.0 - 3.7) AV Cusp: 1.8 cm (1.5 - 2.6) MV EXCURSION: 19.436 mm (> 18.000) MV EF SLOPE: 44 mm/s (70 - 150) MV E Tod: 0.80 m/s MV DecT: 195 ms MV A Tod: 0.65 m/s MV E/A Ratio: 1.23 FINDINGS -------- Sinus rhythm. Morbid Obesity This was a techncally difficult study with suboptimal views, , Definity utilized for enhancement of images. The left ventricular size is normal. There is mild concentric left ventricular hypertrophy. Overa ll left ventricular systolic function is normal with, an EF between 55 - 60 %. The right ventricle is normal in size. The left atrial size is normal. The right atrial size is normal. 1.5MG OF DEFINITY UTLIZED: 2 OR MORE WALL SEGMENTS NOT VISUALIZED. There is mild aortic valve sclerosis. There is no evidence of aortic regurgitation. Mild mitral regurgitation is present. Mild tricuspid regurgitation present. Right ventricular systolic pressure is normal at < 35 mmHg. The pulmonic valve was not well visualized. The aortic root size is normal. There is no pericardial effusion. CONCLUSIONS -------- 1. Morbid Obesity 2. This was a techncally difficult study with suboptimal views, , Definity utilized for enhancement o f images. 3. The left ventricular size is normal. 4. There is mild concentric left ventricular hypertrophy. 5. Overall left ventricular systolic function is normal with, an EF between 55 - 60 %. 6. The right ventricle is normal in size. 7. The left atrial size is normal. 8. The right atrial size is normal. 9. 1.5MG OF DEFINITY UTLIZED: 2 OR MORE WALL SEGMENTS NOT VISUALIZED. 10. There is mild aortic valve sclerosis. 11. Mild mitral regurgitation is present. 12. Mild tricuspid regurgitation present. 13. The pulmonic valve was not well visualized. 14. The aortic root size is normal. 15. There is no pericardial effusion. SUPERVISOR TELEPHONE INFORMATION: Jaylyn Cornell RDCS
--- NOTE | 2020-12-07 13:57 | P.PN ---
Progress Note - Text Progress Note Date: 12/07/20 Interval History: Patient was seen today for psychiatric follow-up regarding patient's depression. Patient was seen at the bedside today and appears to have an improvement in his affect and his demeanor. He was not irritable today and states that he is feeling better overall since the day prior. He claims that he was not able to sleep well last night, approx 4 hrs. He states that his mood is improving and denies any anxiety. He claims that he does not feel he needs to go to 3[facility] this admission and states that he spoke with his who agrees. He admits to improving appetite. He was agreeable to have his seroquel increased for tonight. At this time patient denies any suicidal or homical ideations, intent or plan. Patient denies any auditory, visual hallucinations and denies any paranoia or delusions. Patient denies any side effects from the medications and has been compliant with meds. Mental Status Exam: General Appearance: Patient appears to be overweight, stated age is alert, brighter affect and more cooperative today. Patient appears to have fair hygiene and grooming wearing hospital gown with fair eye contact. Behavior: Patient is calmly lying in bed without any agitated behavior. More cooperative today Speech: Patient's speech is fluent and nonpressured. Soft tone of voice Mood/Affect: Patient reports their mood is "better", affect is congruent Suicidality/Homicidality: Patient denies having any suicidal or homicidal ideation intent or plan. Perceptions: Patient denies any visual hallucinations and denies any auditory hallucinations Though content/process: There is no evidence of any delusional thought content and thought process is linear and goal-directed. Less somatically preoccupied. Memory and concentration: AOX3, grossly intact for the purposes of this session. Judgment and insight: Improving mildly Assessment Depressive disorder unspecified, likely adjustment disorder with depressed mood versus major depressive disorder History of PTSD Plan: -At this current time patient DOES NOT meet criteria for inpatient psychiatric admission -Would recommend the following medication changes/additions: continue with Effexor XR 225 mg tomorrow for mood/anxiety. continue with Lamictal 50 mg twice a day for mood stabilization/depression. Increased Seroquel 100 mg daily at bedtime for mood adjunct/insomnia. -Neurology following along and appreciate recommendations. -Will continue to follow along tomorrow and likely sign off tomorrow. -Please contact with any questions.
--- NOTE | 2020-12-07 14:25 | MR ---
EXAMINATION TYPE: MR cervical spine wo con DATE OF EXAM: 12/07/2020 2:16 PM COMPARISON: 16 HISTORY: Hyperreflexia of upper and lower with weakness Multiplanar MultiSpin echo imaging of the cervical spine was performed. C2-C3: Left paracentral disc protrusion noted with effacement of the ventral thecal sac and mild narr owing of the left neural foramen. No cord contact or central stenosis seen. C3-C4: No evidence for degenerative disc disease. No disc bulge/herniation or protrusion. No Canal stenosis. Foramina are patent bilaterally. C4-C5: No evidence for degenerative disc disease. No disc bulge/herniation or protrusion. No Canal stenosis. Foramina are patent bilaterally. C5-C6: No evidence for degenerative disc disease. No disc bulge/herniation or protrusion. No Canal stenosis. Foramina are patent bilaterally. C6-C7: There is disc herniation paracentrally and to the left with ventral cord contact and early com pressive myelopathy difficult to exclude. Disc herniation measures 9 mm craniocaudal dimension by 3.4 mm AP dimension. Borderline central stenosis present. Mild left foraminal encroachment. Mild disc de siccation noted. C7-T1: No evidence for degenerative disc disease. No disc bulge/herniation or protrusion. No Canal stenosis. Foramina are patent bilaterally. Cervical segments are intact. There is normal alignment. Craniovertebral junction relationships are within normal limits. IMPRESSION: 1. C6-7 extruded disc herniation paracentrally and to the left ventral CORD contact and early victor manuel sive myelopathy suggested. 2. Left paracentral disc protrusion at C2-3 with left neural foraminal encroachment.
[2020-12-07] MEDS: ASPIRIN 325 MG TAB PO SCH (16:58)
--- NOTE | 2020-12-07 19:41 | XR ---
EXAMINATION TYPE: XR chest 1V portable DATE OF EXAM: 12/07/2020 COMPARISON: 05/04/2020 HISTORY: Pneumonia TECHNIQUE: Single view FINDINGS: Heart is normal. Lungs are clear. Diaphragm is normal. There are chest leads. Bony thorax i s intact. IMPRESSION: Normal chest. No change.
[2020-12-07] MEDS: HYDROcodone/APAP 5-325MG 1 EACH TAB PO PRN (20:54)
[2020-12-07] MEDS: QUEtiapine 100 MG TAB PO SCH (20:54)
[2020-12-07] MEDS: CYANOCOBALAMIN 500 MCG TAB PO SCH (20:54)
[2020-12-07] MEDS: ATORVASTATIN 40 MG TAB PO SCH (20:54)
--- NOTE | 2020-12-07 20:54 | PN ---
PROGRESS NOTE DATE OF SERVICE: 12/07/2020 This 40-year-old gentleman who was admitted with weakness of the right side is being closely monitored. The patient also had cervical spine MRI done, which showed extruded herniation paracentrally and early compressive myelopathy is a possibility. The patient is being closely monitored. No chest pain. No palpitation. No fever. The patient has significant weakness on the right side. PAST MEDICAL HISTORY: Reviewed. REVIEW OF SYMPTOMS: CARDIOVASCULAR: No angina or palpitations. RESPIRATION: As mentioned earlier. GI: As mentioned earlier. : As mentioned earlier. NERVOUS SYSTEM: As mentioned earlier. CURRENT MEDICATIONS: Reviewed and include: [place] 5 mg, aspirin, Lipitor, vitamin B12, heparin, Motrin, the doses are reviewed. PHYSICAL EXAMINATION: The patient is alert and oriented times three. Pulse 55, blood pressure 104/60, respirations 16, temperature 97.4, pulse ox 98% on room air. HEENT: Conjunctivae normal. NECK: No JVD. CARDIOVASCULAR: S1, S2 muffled. RESPIRATORY: Breath sounds diminished in the bases. ABDOMEN: Soft. LEGS are no edema. No swelling. NERVOUS SYSTEM: Significant weakness of the right side present. LABS: Noted. ASSESSMENT: 1. Weakness of the right side, rule out cerebrovascular accident/transient ischemic attack or cervical myelopathy. 2. Increased random glucose. 3. Suicidal ideation. 4. Cerebrovascular accident/transient ischemic attack. 5. Hypertension. 6. History of migraines. 7. History of cholecystectomy. 8. History of anxiety, depression, posttraumatic stress disorder. 9. Obesity with body mass index of 36.3. RECOMMENDATIONS AND DISCUSSION: I recommend to continue current medications, management and symptomatic treatment. Otherwise neurology input appreciated. MRI is noted. Recommend orthopedic evaluation. Otherwise recommended outpatient followup. The patient was also seen by psychiatry also. Further recommendations to follow. MMODL / IJN: [id number] /
[2020-12-08] MEDS: PANTOPRAZOLE 40 MG TABLET PO SCH (06:31)
[2020-12-08] MEDS: SODIUM CHLORIDE 0.9% 1,000 ML IV SCH ×3 (06:33→20:26)
[2020-12-08 07:31] LABS: Appearance,Urine Clear (Clear); Bilirubin,Urine Negative (Negative); Blood,Urine Negative (Negative); Color,Urine Yellow; Glucose,Urine (UA) Negative (Negative); Ketones,Urine Negative (Negative); Leukocyte Esterase,Urine Negative (Negative); Nitrite,Urine Negative (Negative); Protein,Urine Negative (Negative); Specific Gravity,Urine 1.018 (1.001-1.035); Urobilinogen,Urine <2.0 mg/dL (<2.0)
[2020-12-08] MEDS ORDERED: DEXAMETHASONE SOD PHOSPHATE 10 MG/ML 1 ML VIAL IV STA (08:00)
[2020-12-08] MEDS: LOSARTAN 50 MG TAB PO SCH (08:21)
[2020-12-08] MEDS: lamoTRIgine 25 MG TAB PO SCH ×2 (08:21→20:25)
[2020-12-08] MEDS: ASPIRIN 325 MG TAB PO SCH (08:22)
[2020-12-08] MEDS: VENLAFAXINE HCL ER 75 MG CAP PO SCH (08:22)
[2020-12-08] MEDS: METOPROLOL TARTRATE 25 MG TAB PO SCH ×2 (08:23→20:25)
[2020-12-08] MEDS: DEXAMETHASONE SOD PHOSPHATE 4 MG/ML 1 ML VIAL IV SCH ×4 (08:36→23:01)
[2020-12-08] MEDS ORDERED: HEPARIN SODIUM,PORCINE/PF 5,000 UNIT/0.5 ML SYRINGE SQ SCH (09:00)
--- NOTE | 2020-12-08 10:00 | P.CNOR ---
History of Present Illness - HPI Consult date: 12/08/20 Consult reason: other (RUE weakness) History of present illness: 40 yo male presented with c/o RUE and RLE weakness that was off and on with numbness/tingling since May. He states that he has had episodes of numbness/tingling/weakness in his RUE and RLE since then and has had 4 different episodes. This most recent episode started back on saturday and he came to ED due to it. He has had extensive work up for stroke, TIA and other neurovascular issues which have not returned any issues. He was found to have hyperreflexxia in his LE and UE and so MRI of the C spine was ordered which does show C6-7 HNP with stenosis and the begnings of myelomalacia type changes. He states he is having difficulty with walking and an unsteady gait. He does not have any bowel or bladder issues. and denies any genital or rectal numbness/tingling at this time. He states no f/c/sob/cp at this time as well. Review of Systems 14 points review of systems completed and as stated in HPI, all other systems reviewed are negative. Past Medical History Past Medical History: CVA/TIA, Hypertension Additional Past Medical History / Comment(s): MIGRAINES History of Any Multi-Drug Resistant Organisms: None Reported Past Surgical History: Cholecystectomy Additional Past Surgical History / Comment(s): WISDOM TEETH EXTRACTIONS Past Anesthesia/Blood Transfusion Reactions: Postoperative Nausea & Vomiting (PONV) Additional Past Anesthesia/Blood Transfusion Reaction / Comm: Patient has no previous surgical history EXCEPT FOR TOOTH EXTRACTIONS. Past Psychological History: Anxiety, Depression, PTSD Smoking Status: Never smoker Past Alcohol Use History: None Reported Additional Past Alcohol Use History / Comment(s): Patient states that he drinks alcohol twice yearly. Past Drug Use History: None Reported Additional Drug Use History / Comment(s): Patient denies history of drug use. - Past Family History Father Family Medical History: No Reported History Mother Family Medical History: Diabetes Mellitus, Fibromyalgia, GERD/Reflux Additional Family Medical History / Comment(s): VERTIGO Medications and Allergies Home Medications Medication Instructions Recorded Confirmed Type Metoprolol Tartrate [Lopressor] 25 mg PO BID 03/25/20 12/06/20 History Aspirin 81 mg PO DAILY #30 chewable 05/04/20 12/06/20 Rx Atorvastatin [Lipitor] 40 mg PO HS 12/06/20 12/06/20 History Cyanocobalamin (Vitamin B-12) 1,000 mcg PO HS 12/06/20 12/06/20 History [Vitamin B-12] Losartan [Cozaar] 50 mg PO DAILY 12/06/20 12/06/20 History Venlafaxine HCl [Effexor XR] 150 mg PO DAILY 12/06/20 12/06/20 History lamoTRIgine [LaMICtal] 50 mg PO BID 12/06/20 12/06/20 History traZODone HCL [Desyrel] 50 - 100 mg PO HS 12/06/20 12/06/20 History Allergies Allergy/AdvReac Type Severity Reaction Status Date / Time aripiprazole [From Abilify] Allergy Rash/Hives, Verified 12/06/20 11:58 AGITATION doxycycline AdvReac Interaction Verified 12/06/20 11:58 w/psych meds & Rash Physical Examination Osteopathic Statement: *. No significant issues noted on an osteopathic struct ural exam other than those noted in the History and Physical/Consult. PHYSICAL EXAMINATION: Vitals: Stable at this time. General: Awake, alert, appropriate for age, in no acute distress. HEENT: No unusual neck masses around region of lateral neck triangle, thyroid, supraclavicular groove. [Heart: Regular rate and rhythm, normal S1, S2 and no murmur/gallop.] [Lungs: Clear to auscultation bilaterally with no use of accessory muscles.] Extremities: Skin warm and dry without no acute lesions, coloration, temperature, skin intact, no tenderness or erythema. Integument: Hairy patches: Absent Dorsal skin dimples: Absent Cafe au lait spots: Absent Surgical incisions: None Palpation: Please see Pain drawing on Intake sheet for further detail. (Tenderness = T, Nontender = NT, Swelling = S, Ecchymosis = E) Findings on Midline and paraspinal palpation and percussion: Cervical: TTP Thoracic: NT Lumbar: NT Sacral: NT Special findings: None POSTURAL and MUSCULO-SKELETAL EVALUATION: Shoulder ROM: Symmetric in abduction, ER/IR, painful ROM of the R shoulder with passive and active ROM Hip ROM: Symmetric in abduction, adduction, ER/IR Knee ROM: Symmetric and intact in Flexion / extension Hands: Normal appearing structure L and R Feet: Normal appearing structure L and R VASCULAR STATUS : Wrist Pulses: [2/4 bilateral radial and ulnar] Pedal Pulses: [2/4 bilateral DP and PT] Color: [Normal] Edema: [None] NEUROLOGIC EXAMINATION: Mental Status: Awake and alert, fully oriented, with normal attention, concentration and memory, and fluent, appropriate speech. Cranial Nerves: I: Olfactory not tested. II: Visual acuity normal, no visual field deficit noted with confrontation. III,IV: Normal pupillary reflexes & intact extraocular movements without nystagmus. V,: Intact symmetrical facial sensation. VII: Intact symmetrical facial motor movement VIII: Hearing intact. IX,X: Intact gag, swallow, & normal voice. XI: Sternocleidomastoid, trapezius function intact. XII: Tongue midline with normal movements. Special Tests: L'hermitte's Sign: Absent Spurling'Sign: Absent Bilateral Cubital percussion test: Absent Bilateral Erick-Tinel sign - Carpal region: Absent Bilateral Straight Leg Raising: Absent Bilateral Motor Exam (0-5/5, N/T) STRENGTH UPPER EXTREMITY Shoulder Abd (Not part of YAZMIN Motor score): RIGHT [3] LEFT [5] Elbow Flexors: RIGHT [3] LEFT [5] Elbow Extensor: RIGHT [3] LEFT [5] Wrrist Dorsiflexors: RIGHT [3] LEFT [5] Finger Abductor: RIGHT [3] LEFT [5] Turbine Measurements Engineer: RIGHT [3] LEFT [5] Cooperation efforts confound exam findings on the Right UE. LOWER EXTREMITY Hip Flexor (Not part of YAZMIN Motor Score): RIGHT [4] LEFT [5] Knee Flexor: RIGHT [4] LEFT [5] Knee Extensor: RIGHT [4] LEFT [5] Ankle Dorsiflexion: RIGHT [4] LEFT [5] Ankle Plantarflexion: RIGHT [4] LEFT [5] EHL: RIGHT [5] LEFT [5] FHL: RIGHT [5] LEFT [5] Cooperation efforts confound exam findings on the RLE REFLEXES Biecp: RIGHT [3] LEFT [3] Tricep: RIGHT [3] LEFT [3] Brachioradialis: RIGHT [3] LEFT [3] Patellar: RIGHT [3] LEFT [3] Achilles: RIGHT [3] LEFT [3] Pathological Reflexes Bird's: RIGHT PRESENT LEFT PRESENT Babinski: RIGHT [Absent] LEFT [Absent] Clonus: RIGHT [None] LEFT [None] SENSORY Joint Position: [Intact bilaterally] Vibration [Intact bilaterally] Pain and LT sense [Intact C5-T1 and L2-S1] Dermatomal deficit [None] Gait and Functional Evaluation: Ambulatory aids: Walker currently, normally nothing Romberg's test: Intact bilaterally. Hand and finger dexterity intact bilaterally[]. Disdiadochokinesis examination negative[] on the Left but positive on the RIGHT Results MRI of the C spine show large disc herniation at C6-7 with cord compression and early myelomalacia changes due to this. There is a small paracentral herniation also at C2-3 but this does not cause any cord effacement or significant stenosis. These findings could explain some of his symptoms in his UE and LE. - Labs Labs: H & H 12/06/20 12/07/20 Range/Units 10:17 06:42 Hgb 16.1 14.5 (13.0-17.5) gm/dL Hct 47.2 42.4 (39.0-53.0) % Coagulation 12/06/20 Range/Units 10:17 INR 0.9 (<1.2) Result Diagrams: 12/07/20 06:42 12/07/20 06:42 Assessment and Plan Assessment: 1. 40 yo male with RUE and RLE weakness with episodic numbness/tingling 2. 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 Cervical spondylotic myelopathy 4. Complex medical history 5. r/o demyelenating disease Plan: -Appreciate medicine management. -appreciate neurology consult -Pain control: AdequTE AT THIS TIME -MRI Brain w/wo, T and L spine to complete neuraxial imaging and r/o systemic issues -Start decadron with 10 mg now and 6q6hr after -Aggressive ambulation protocol. OOB with all meals. OOB or in chair 4-5x daily. -PT/OT -TEDs, SCDs, mechanical ppx. OK for heparin today. Early ambulation is best. -GI ppx. -Trend labs. -Medical clearance for OR Plan for OR 12/09/20 for C6-7 ACDF, pending films and clearances. -Dispo: Pending Time with Patient: Greater than 30
[2020-12-08 11:37] LABS: Basophils % (A) 0 %; Eosinophils % (A) 0 %; HCT 42.9 % (39.0-53.0); HGB 14.2 gm/dL (13.0-17.5); Lymphocytes # (A) 1.3 k/uL (1.0-4.8); Lymphocytes % (A) 23 %; MCH 29.5 pg (25.0-35.0); MCHC 33.1 g/dL (31.0-37.0); MCV 89.1 fL (80.0-100.0); Mean Platelet Volume 6.6; Monocytes # (A) 0.4 k/uL (0-1.0); Monocytes % (A) 7 %; Neutrophils # (A) 3.9 k/uL (1.3-7.7); Neutrophils % (A) 69 %; Platelet Count 209 k/uL (150-450); RBC 4.82 m/uL (4.30-5.90); RDW 13.3 % (11.5-15.5); WBC 5.6 k/uL (3.8-10.6)
[2020-12-08 11:51] LABS: African American GFR (CKD) >90 (>60 ml/min/1.73 sqM); Anion Gap 5 mmol/L; Blood Urea Nitrogen 13 mg/dL (9-20); Carbon Dioxide 26 mmol/L (22-30); Chloride 108 mmol/L (98-107); Glucose 94 mg/dL (74-99); Non-African American GFR(CKD) >90 (>60 ml/min/1.73 sqM); Potassium 4.3 mmol/L (3.5-5.1); Sodium 139 mmol/L (137-145)
--- NOTE | 2020-12-08 12:22 | P.CNOR ---
History of Present Illness - [facility] Consult date: 12/08/20 Requesting physician: Jeremiah Shankar Consult reason: joint pain, other (right arm, right leg weakness) History of present illness: Mr. Hernandez is 40-year-old male with a history of TIAs over the past several months and loss of memory is presenting to the hospital with progressive right arm and right leg weakness. Imaging showed herniation of intervertebral disk at level C6 to C7. Upon entering room patient was lying in bed semi-recumbent eating breakfast. Patient mentions he has been having some right arm weakness as well as right leg weakness. He also mentions difficulty with memory since May 2020. He says he is not steady on his feet and is prone to falling. He denies any previous orthopedic surgeries. Review of Systems Patient denies fever, chills, shortness of breath, chest pain, vision changes, hearing difficulty. Positive for right arm, right leg weakness. Positive for frequent falls. Positive for right arm numbness/tingling, right leg numbness/tingling. Past Medical History Past Medical History: CVA/TIA, Hypertension Additional Past Medical History / Comment(s): MIGRAINES History of Any Multi-Drug Resistant Organisms: None Reported Past Surgical History: Cholecystectomy Additional Past Surgical History / Comment(s): WISDOM TEETH EXTRACTIONS Past Anesthesia/Blood Transfusion Reactions: Postoperative Nausea & Vomiting (PONV) Additional Past Anesthesia/Blood Transfusion Reaction / Comm: Patient has no previous surgical history EXCEPT FOR TOOTH EXTRACTIONS. Past Psychological History: Anxiety, Depression, PTSD Smoking Status: Never smoker Past Alcohol Use History: None Reported Additional Past Alcohol Use History / Comment(s): Patient states that he drinks alcohol twice yearly. Past Drug Use History: None Reported Additional Drug Use History / Comment(s): Patient denies history of drug use. - Past Family History Father Family Medical History: No Reported History Mother Family Medical History: Diabetes Mellitus, Fibromyalgia, GERD/Reflux Additional Family Medical History / Comment(s): VERTIGO Medications and Allergies Home Medications Medication Instructions Recorded Confirmed Type Metoprolol Tartrate [Lopressor] 25 mg PO BID 03/25/20 12/06/20 History Aspirin 81 mg PO DAILY #30 chewable 05/04/20 12/06/20 Rx Atorvastatin [Lipitor] 40 mg PO HS 12/06/20 12/06/20 History Cyanocobalamin (Vitamin B-12) 1,000 mcg PO HS 12/06/20 12/06/20 History [Vitamin B-12] Losartan [Cozaar] 50 mg PO DAILY 12/06/20 12/06/20 History Venlafaxine HCl [Effexor XR] 150 mg PO DAILY 12/06/20 12/06/20 History lamoTRIgine [LaMICtal] 50 mg PO BID 12/06/20 12/06/20 History traZODone HCL [Desyrel] 50 - 100 mg PO HS 12/06/20 12/06/20 History Allergies Allergy/AdvReac Type Severity Reaction Status Date / Time aripiprazole [From Abilify] Allergy Rash/Hives, Verified 12/06/20 11:58 AGITATION doxycycline AdvReac Interaction Verified 12/06/20 11:58 w/psych meds & Rash Physical Examination During physical exam patient has pain to palpation of lower cervical region bilaterally. Patient is unable to actively lift right shoulder, shrug right shoulder. Passively right arm can be elevated to 90 before patient notes pain. No tenderness to palpation of right arm. No tenderness to palpation of right leg. During active range of motion of right leg, right leg can not be elevated. Passively right leg can be elevated. Positive Jose sign bilaterally. Right arm flexion strength 4 out of 5. Right arm Extension strength 5 out of 5. Results - Labs Labs: H & H 12/06/20 12/07/20 Range/Units 10:17 06:42 Hgb 16.1 14.5 (13.0-17.5) gm/dL Hct 47.2 42.4 (39.0-53.0) % Coagulation 12/06/20 Range/Units 10:17 INR 0.9 (<1.2) Result Diagrams: 12/07/20 06:42 12/07/20 06:42 Assessment and Plan Assessment: 1. C6 to C7 intervertebral disc herniation 2. Right arm weakness, right leg weakness 3. Memory loss Plan: 1. C6 to C7 intervertebral disc herniation - anterior cervical discectomy and fusion of C6-C7 scheduled for tomorrow 12/09/2020 2. Right arm weakness, right leg weakness - thoracic, lumbar MRI ordered, course of IV steroids ordered 3. Memory loss - patient is being followed by neuro 4. Pain management - controlled/stable 5. Ambulation protocol - needs assistance with nurse/tech 6. PT/OT Time with Patient: Less than 30
--- NOTE | 2020-12-08 13:32 | P.PN ---
Subjective Progress Note Date: 12/08/20 Patient was seen at bedside and he feels about the same today compared to yesterday. Denies any new weakness or numbness. MRI the cervical spine is reported as C6-C7 extruded disc herniation paracentrally into the left ventral cord contact and early compression myelopathy suggested. Left paracentral disc protrusion at the C2/C3 with left neural foraminal encroachment. Objective - Vital Signs Vital signs: Vital Signs Temp 97.6 F 12/08/20 08:27 Pulse 49 L 12/08/20 08:27 Resp 20 12/08/20 08:27 BP 103/59 12/08/20 08:27 Pulse Ox 99 12/08/20 08:27 Intake & Output 12/07/20 12/08/20 12/08/20 18:59 06:59 18:59 Intake Total 472 118 360 Output Total 1600 0 0 Balance -1128 118 360 Weight 122.5 kg Intake: Oral 472 118 360 Output: Urine 1600 0 Stool 0 0 Other: Voiding Method Urinal Urinal Urinal - Exam GENERAL: The patient is lying in bed and is not in acute distress. NEUROLOGICAL: Higher mental function: The patient is awake, alert, oriented to self and place. He stated the year was 2019 and month was Oct. Patient is following commands. No aphasia and no neglect. Cranial nerves: The pupils are round, equal and reactive to light and accommodation. Visual roman are full to confrontation throughout. Extraocular movement is intact no nystagmus is noted. Facial sensation is normal to touch throughout. The facial strength is normal throughout. Hearing is normal bilaterally to hand rub. Tongue is midline and moved [id number] without any difficulty. No dysarthria is noted. Shoulder shrug is normal bilaterally. Motor: Gait is deferred. The strength is on the right upper and lower extremity there are effort related. He was able to lift right upper and lower above gravity without drift and he said that is it. But with resistance he had at least 4+ but seems dramatic on testing. On examination it is possible the patient has right-sided weakness but because he is very dramatic and very inconsistent it's hard to tell how much true weakness he has or not. Left upper and lower extremity is 5/5. Normal tone and bulk. Cerebellum: Normal finger to nose heel to espinoza over the left and had hard time performing it on the right. Sensation: Sensation is decreased to touch over the right. Reflexes (right/left): Bilateral brachioradialis and biceps are 3+. Bilateral patellar are 3+. Otherise 2+ throughout. Plantars are downgoing bilaterally. - Labs CBC & Chem 7: 12/08/20 09:50 12/08/20 09:50 Labs: Abnormal Lab Results - Last 24 Hours (Table) 12/08/20 Range/Units 09:50 Chloride 108 H (98-107) mmol/L Assessment and Plan Assessment: This is a 40-year-old gentleman with extensive psychiatry problems the presents emergency department on 12/06/2020 for right-sided weakness and numbness. Patient refused IV TPA. He gives inconsistent histories per patient's nurse. On examination his right sided weakness seems effort related. * Acute on chronic Right-sided weakness and numbness with hyperreflexia of bilateral upper and lower is due to cervical myelopathy. Regarding having a true assessment of the patient's strength over the right side it hard because the patient the is very dramatic and on examination he has a lot of effort related but I do agree that he does have a component of weakness on the right side from the myelopathy but again to what degree of his weakness not sure. Patient right-sided weakness or worsening of the weakness does not seem to be due to acute ischemic stroke or TIA. * ?Brain swelling and fluid according patient according to the patient that was relayed by nurse practitioner stroke team (which I don't see any sign on current CT head) * Significant psychiatric history with depression, anxiety and PTSD * Per ED he has suidical thoughts * Morbid obesity Plan: On aspirin 325 daily and on Lipitor 40 mg daily at bedtime for secondary stroke prophylaxis. 2-D echo: It is reported as technically difficult study with suboptimal views. Overall left ventricle. Function is normal with ejection fraction of 55-60%. Left atrial size is normal. PT, OT and [employer] are on board. Lipid panel: Triglyceride is 135, cholesterol is 128, LDL is 70 and HDL is 31. The goal stroke is to keep the LDL less than 70. Previous TSH was 6.0 on 11/30/2020 which is high but the free T4 is 0.90 which is normal. Does not need to be repeated. Vitamin B12 is 531 on 11/30/2020 which does not need to free. Does not need to be repeated. I spoke with the orthopedic surgeon (Dr. Condon) in detailed regarding the case and it was in agreement that that patient will get neuro axis imaging of his back as well as the brain to rule out any other lesions. I ordered folate level and copper level. Psychiatric team is on board. Recommend patient to follow-up with a neurologist as an outpatient within 2 weeks (Follows-up with Dr. Verde and attempting to follow-up with stroke team at [facility]). The plan was discussed with the patient as well as the patient's nurse. Jeremiah Shankar MD Neuro-hospitalist Time with Patient: Less than 30
--- NOTE | 2020-12-08 13:52 | MR ---
EXAMINATION TYPE: MR tspine/lspine wo con DATE OF EXAM: 12/08/2020 COMPARISON: 08/10/2016 HISTORY: Right side weakness, ms symptoms. CONTRAST: Performed utilizing 0 mL intravenous Gadavist gadolinium contrast. TECHNIQUE: Multiplanar, multiecho imaging on a 3.0 Janki magnet is performed through the thoracic spi ne. T8-9: Some endplate spurring in the right paracentral region is anterior thecal sac contact. This com es in close approximation with the spinal cord. No spinal canal stenosis is evident. No cord deformit y is evident. T3-4: Right paracentral disc bulge is present with mild anterior thecal sac compression. There is mick e cord deformity present at this level. No AP spinal canal stenosis is present. This was present prev iously. Spinal cord maintains normal signal through its visualized course. No suspicious white matter changes are evident. Vertebral body alignment is normal. Vertebral body heights are preserved. Disc heights are preserved. Disc hydration levels are preserved. No spinal canal stenosis is evident. IMPRESSIONS: 1. Right paracentral disc bulge present previously has moderate right anterolateral cord flattening. 2. Small right paracentral disc bulge and/or endplate spur at T8-9 with mild anterior thecal sac comp ression EXAMINATION TYPE: MR tspine/lspine wo con DATE OF EXAM: 12/08/2020 COMPARISON: None HISTORY: Right side weakness, ms symptoms. CONTRAST: 0 mL intravenous Gadavist. TECHNIQUE: Multiplanar, multisequence images of the lumbar spine were acquired. FINDINGS: Cord terminates at the L1 level. No suspicious white matter changes within the distal spin al cord is evident. L5-S1: Broad-based disc bulge is present. No thecal sac compression is evident. Some more focal left paracentral disc bulge is present with anterior thecal sac contact. This may contact and possible pos terior displacement of the exiting left S1 nerve root. Correlate with radicular symptoms. Neural fora men are patent. No spinal canal stenosis. No foraminal stenosis. . L4-L5: No significant disc bulge or disc herniation. No spinal canal stenosis. No foraminal stenosi s. L3-L4: No significant disc bulge or disc herniation. No spinal canal stenosis. No foraminal stenosi s. L2-L3: No significant disc bulge or disc herniation. No spinal canal stenosis. No foraminal stenosi s. L1-L2: No significant disc bulge or disc herniation. No spinal canal stenosis. No foraminal stenosi s. T12-L1: No significant disc bulge or disc herniation. No spinal canal stenosis. No foraminal stenos is. IMPRESSION: 1. Left paracentral disc bulge L5-S1 some milder broad-based disc bulging. The focal protrusion has a moderate anterior thecal sac compression and possible left S1 nerve root displacement posteriorly wi thin the spinal canal.
--- NOTE | 2020-12-08 13:58 | MR ---
PRE AND POSTCONTRAST ENHANCED MRI OF THE BRAIN: CLINICAL HISTORY: Weakness rule out MS CONTRAST: Gadavist 12.5ml Multiplanar and multispin-echo imaging of the brain was performed both before and after the administr ation of contrast. The ventricles, basal cisterns and sulci overlying the cerebral convexities are within normal limits. There is no evidence for midline shift or mass effect. Acute intracranial hemorrhage or extra-axial collection is not evident. There is pulsation artifact within the frontal lobe however all within the high right parasagittal fr ontal lobe on the right there is a 5.5 mm focus of increased signal involving the subcortical white m atter as well as an additional focus within the juxtacortical white matter of the right frontal lobe. There is a tiny 2 mm lesion within the white matter of the left posterior centrum semioval bilateral ly. The findings are nonspecific and can be seen in patients with chronic migraine headaches, vasculi tis, Lyme's disease as well as a demyelinating process. Correlate clinically. Following contrast administration, there is no evidence for pathologic enhancement or enhancing mass. The paranasal sinuses demonstrate mucosal thickening of the ethmoid air cells. Mastoid air cells are well-aerated. IMPRESSION: 1. Nonspecific white matter changes. See above discussion
[2020-12-08 14:09] LABS: Glucose,Whole Blood 119 mg/dL (75-99)
--- NOTE | 2020-12-08 14:12 | P.PN ---
Progress Note - Text Progress Note Date: 12/08/20 Interval History: Patient was seen today for psychiatric follow-up regarding patient's depression. Patient was seen at the bedside today and appears to have an improvement in his affect and his demeanor. He was just finishing up his lunch. He states that he went down for the MRI today and claims that he feels better as he has more answers now about his condition. He states that he does have anxiety at this time because he spoke with the surgeon who will be taking her time in 4 surgery tomorrow which she is nervous about. He claims that he was able to sleep mildly better last night however was requesting to have the dose increased. Patient was able to accept the addition of melatonin instead as he claims that he was taking naps during the day. He states that his mood is improving. He admits to improving appetite. At this time patient denies any suicidal or homical ideations, intent or plan. Patient denies any auditory, visual hallucinations and denies any paranoia or delusions. Patient denies any side effects from the medications and has been compliant with meds. Mental Status Exam: General Appearance: Patient appears to be overweight, stated age is alert, brighter affect and more cooperative today. Patient appears to have fair hygiene and grooming wearing hospital gown with fair eye contact. Behavior: Patient is calmly lying in bed without any agitated behavior. More cooperative today Speech: Patient's speech is fluent and nonpressured. Soft tone of voice Mood/Affect: Patient reports their mood is "good", affect is congruent and appropriate Suicidality/Homicidality: Patient denies having any suicidal or homicidal ideation intent or plan. Perceptions: Patient denies any visual hallucinations and denies any auditory hallucinations Though content/process: There is no evidence of any delusional thought content and thought process is linear and goal-directed. Less somatically preoccupied. Memory and concentration: AOX3, grossly intact for the purposes of this session. Judgment and insight: Improving mildly Assessment Depressive disorder unspecified, likely adjustment disorder with depressed mood versus major depressive disorder History of PTSD Plan: -At this current time patient DOES NOT meet criteria for inpatient psychiatric admission -Would recommend the following medication changes/additions: continue with Effexor XR 225 mg tomorrow for mood/anxiety. continue with Lamictal 50 mg twice a day for mood stabilization/depression. Continue with Seroquel 100 mg daily at bedtime for mood adjunct/insomnia. I added melatonin 5 mg daily at bedtime for sleep. -Neurology following along and appreciate recommendations. PAtient will be going in for ortho surgery tomorrow as patient has disc herniation and disc protrusion in the cervical area. -Psychiatry will sign off at this time. Patient will be following up with [facility] for MH treatment upon discharge. -Please contact with any questions.
[2020-12-08 17:12] LABS: Glucose,Whole Blood 152 mg/dL (75-99)
[2020-12-08] MEDS: INSULIN ASPART (NovoLOG) 100 UNIT/ML VIAL SQ SCH ×2 (17:21→20:25)
[2020-12-08 20:24] LABS: Glucose,Whole Blood 208 mg/dL (75-99)
[2020-12-08] MEDS: CYANOCOBALAMIN 500 MCG TAB PO SCH (20:25)
[2020-12-08] MEDS: ATORVASTATIN 40 MG TAB PO SCH (20:25)
--- NOTE | 2020-12-08 21:42 | PN ---
PROGRESS NOTE DATE OF SERVICE: 12/08/2020 This 40-year-old gentleman was admitted with right upper and lower limbs weakness, is being closely monitored. C6-7 disc herniation with cervical myelopathy was considered at this time. Dr. Condon is planning surgery tomorrow. The patient apparently had a fall about 2 years ago from 15 flights of stairs and the patient also had some syncopal episodes. Dr. Verde is the patient's neurologist, is planning [facility] referral who will call the patient tomorrow according to him. There is no history of fever, rigors or chills. PAST MEDICAL HISTORY: Reviewed. REVIEW OF SYSTEMS: CARDIOVASCULAR: No angina. RESPIRATION: No cough. GI: As mentioned. : As mentioned earlier. CURRENT MEDICATIONS: Reviewed and include: [place] 5 mg. Lipitor, cefazolin, Motrin. NovoLog, Lamictal, Cozaar, Lopressor, doses reviewed. PHYSICAL EXAM: Patient is alert and oriented times three. Pulse is 100. Blood pressure 130/60, respirations 16, temperature 98.4, pulse ox 97% on room air. HEENT: Conjunctivae normal. NECK: No JVD. CARDIOVASCULAR: S1, S2 muffled. RESPIRATORY SYSTEM: Breath sounds diminished at the bases. No rhonchi. No crackles. ABDOMEN: Soft, nontender. LEGS: No edema. Nervous system: Right-sided weakness present. LABS: Accu-Cheks 152, 208. ASSESSMENT: 1. Weakness of the right side possible cervical myelopathy. 2. Rule out transient ischemic attack. 3. Previous history of syncopal episodes. 4. 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 5. Increased random glucose. 6. Suicidal ideation history. 7. History of cerebrovascular accident/transient ischemic attack. 8. Hypertension. 9. History of migraines. 10.History of cholecystectomy. 11.History of anxiety, depression, posttraumatic stress disorder. 12.Obesity with body mass index of 36.3. RECOMMENDATIONS AND DISCUSSION: Recommend to continue current medications, management and symptomatic treatment. Monitor blood sugars closely. DVT prophylaxis and closely follow with Dr. Condon. Repeat labs. Prognosis guarded and closely follow with neurology. Further recommendations to follow. MMODL / IJN: [id number] / [facility]
[2020-12-08] MEDS: HYDROcodone/APAP 5-325MG 1 EACH TAB PO PRN (23:01)
[2020-12-08] MEDS: MELATONIN 5 MG TABLET PO SCH (23:02)
[2020-12-08] MEDS: QUEtiapine 100 MG TAB PO SCH (23:02)
[2020-12-09 02:43] LABS: Glucose,Whole Blood 172 mg/dL (75-99)
[2020-12-09] MEDS: PANTOPRAZOLE 40 MG TABLET PO SCH (05:40)
[2020-12-09] MEDS: INSULIN ASPART (NovoLOG) 100 UNIT/ML VIAL SQ SCH ×4 (05:51→20:22)
[2020-12-09] MEDS: DEXAMETHASONE SOD PHOSPHATE 4 MG/ML 1 ML VIAL IV SCH ×4 (05:54→23:19)
[2020-12-09 05:56] LABS: Glucose,Whole Blood 193 mg/dL (75-99)
--- NOTE | 2020-12-09 08:29 | P.PN ---
Subjective Progress Note Date: 12/09/20 Principal diagnosis: RUE weakness RLE weakness RUE radiculopathy Cervical myelopathy Patient was seen and examined this morning. He is doing okay. He states his symptoms are the same with right upper extremity weakness and pain. Patient complains of numbness and tingling as well. He states his right lower extremity is somewhat weak. He states it is difficult to ambulate secondary to this. I discussed his MRI findings as well as his clinical signs and symptoms with him. We discussed about surgery as well. He denies any perineal numbness or tingling. He denies any fevers chills shortness of breath or chest pain at this time. He states that he is ready for surgery. Objective - Vital Signs Vital signs: Vital Signs Temp 98.0 F 12/09/20 03:07 Pulse 53 L 12/09/20 03:07 Resp 18 12/09/20 03:07 BP 104/51 12/09/20 03:07 Pulse Ox 94 L 12/09/20 03:07 Intake & Output 12/08/20 12/09/20 12/09/20 18:59 06:59 18:59 Intake Total 1080 800 Output Total 1025 1350 Balance 55 -550 Weight 122 kg Intake: Intake, IV Titration 800 Amount Sodium Chloride 0.9% 1, 800 000 ml @ 100 mls/hr IV . Q10H [facility] Rx#:[id number] Oral 1080 Output: Urine 1025 1350 Stool 0 Other: Voiding Method Urinal Urinal # Voids 3 - Exam Exam is stable today. There is no interval change or improvement with the medications. Patient still has weakness in his right upper extremity. He still has pain in his right upper extremity. He has limited sensation over his deltoi d on the right. No bowel bladder issues intact sensation. Intact sensation perirectal and scrotal. Still exhibits hyperreflexia as well as bilateral Hoffmans. PHYSICAL EXAMINATION: Vitals: Stable at this time. General: Awake, alert, appropriate for age, in no acute distress. HEENT: No unusual neck masses around region of lateral neck triangle, thyroid, supraclavicular groove. [Heart: Regular rate and rhythm, normal S1, S2 and no murmur/gallop.] [Lungs: Clear to auscultation bilaterally with no use of accessory muscles.] Extremities: Skin warm and dry without no acute lesions, coloration, temperature, skin intact, no tenderness or erythema. Integument: Hairy patches: Absent Dorsal skin dimples: Absent Cafe au lait spots: Absent Surgical incisions: None Palpation: Please see Pain drawing on Intake sheet for further detail. (Tenderness = T, Nontender = NT, Swelling = S, Ecchymosis = E) Findings on Midline and paraspinal palpation and percussion: Cervical: TTP Thoracic: NT Lumbar: NT Sacral: NT Special findings: None POSTURAL and MUSCULO-SKELETAL EVALUATION: Shoulder ROM: Symmetric in abduction, ER/IR, painful ROM of the R shoulder with passive and active ROM Hip ROM: Symmetric in abduction, adduction, ER/IR Knee ROM: Symmetric and intact in Flexion / extension Hands: Normal appearing structure L and R Feet: Normal appearing structure L and R VASCULAR STATUS : Wrist Pulses: [2/4 bilateral radial and ulnar] Pedal Pulses: [2/4 bilateral DP and PT] Color: [Normal] Edema: [None] NEUROLOGIC EXAMINATION: Mental Status: Awake and alert, fully oriented, with normal attention, concentration and memory, and fluent, appropriate speech. Cranial Nerves: I: Olfactory not tested. II: Visual acuity normal, no visual field deficit noted with confrontation. III,IV: Normal pupillary reflexes & intact extraocular movements without nystagmus. V,: Intact symmetrical facial sensation. VII: Intact symmetrical facial motor movement VIII: Hearing intact. IX,X: Intact gag, swallow, & normal voice. XI: Sternocleidomastoid, trapezius function intact. XII: Tongue midline with normal movements. Special Tests: L'hermitte's Sign: Absent Spurling'Sign: Absent Bilateral Cubital percussion test: Absent Bilateral Erick-Tinel sign - Carpal region: Absent Bilateral Straight Leg Raising: Absent Bilateral Motor Exam (0-5/5, N/T) STRENGTH UPPER EXTREMITY Shoulder Abd (Not part of YAZMIN Motor score): RIGHT [3] LEFT [5] Elbow Flexors: RIGHT [3] LEFT [5] Elbow Extensor: RIGHT [3] LEFT [5] Wrrist Dorsiflexors: RIGHT [3] LEFT [5] Finger Abductor: RIGHT [3] LEFT [5] Boiler Welder: RIGHT [3] LEFT [5] Cooperation efforts confound exam findings on the Right UE. LOWER EXTREMITY Hip Flexor (Not part of YAZMIN Motor Score): RIGHT [4] LEFT [5] Knee Flexor: RIGHT [4] LEFT [5] Knee Extensor: RIGHT [4] LEFT [5] Ankle Dorsiflexion: RIGHT [4] LEFT [5] Ankle Plantarflexion: RIGHT [4] LEFT [5] EHL: RIGHT [5] LEFT [5] FHL: RIGHT [5] LEFT [5] Cooperation efforts confound exam findings on the RLE REFLEXES Biecp: RIGHT [3] LEFT [3] Tricep: RIGHT [3] LEFT [3] Brachioradialis: RIGHT [3] LEFT [3] Patellar: RIGHT [3] LEFT [3] Achilles: RIGHT [3] LEFT [3] Pathological Reflexes Bird's: RIGHT PRESENT LEFT PRESENT Babinski: RIGHT [Absent] LEFT [Absent] Clonus: RIGHT [None] LEFT [None] SENSORY Joint Position: [Intact bilaterally] Vibration [Intact bilaterally] Pain and LT sense [Intact C5-T1 and L2-S1] Dermatomal deficit [None] Gait and Functional Evaluation: Ambulatory aids: Walker currently, normally nothing Romberg's test: Intact bilaterally. Hand and finger dexterity intact bilaterally[]. Disdiadochokinesis examination negative[] on the Left but positive on the RIGHT - Labs CBC & Chem 7: 12/08/20 09:50 12/08/20 09:50 Labs: Abnormal Lab Results - Last 24 Hours (Table) 12/08/20 12/08/20 12/08/20 Range/Units 09:50 13:59 16:55 Chloride 108 H (98-107) mmol/L POC Glucose (mg/dL) 119 H 152 H (75-99) mg/dL 12/08/20 12/09/20 12/09/20 Range/Units 20:22 02:38 05:46 Chloride (98-107) mmol/L POC Glucose (mg/dL) 208 H 172 H 193 H (75-99) mg/dL Assessment and Plan Assessment: 1. 40 yo male with RUE and RLE weakness with episodic numbness/tingling 2. 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 Cervical spondylotic myelopathy 4. Complex medical history 5. No evidence demyelenating disease. Plan: -Appreciate medicine management. -appreciate neurology consult -Pain control: AdequTE AT THIS TIME -MRI Brain w/wo, T and L spine to complete neuraxial imaging and r/o systemic issues -Start decadron with 10 mg now and 6q6hr after -Aggressive ambulation protocol. OOB with all meals. OOB or in chair 4-5x daily. -PT/OT -TEDs, SCDs, mechanical ppx. OK for heparin today. Early ambulation is best. -GI ppx. -Trend labs. -Medical clearance for OR Plan for OR 12/09/20 for C6-7 ACDF, pending films and clearances. Spine Surgery Risk Review Shekhar hernandez is a 40-year-old male presenting for evaluation of right upper extremity weakness numbness and tingling and pain with right lower extremity weakness difficulty with ambulation progressive changes. It was my pleasure to have seen and examined Shekhar hernandez. In our visit today we have had a chance to go over subjective complaints, physical examination findings and treatments including the natural course history without intervention and various interventional options. The patients imaging demonstrates C6-C7 extruded disc herniation with myelomalacia and myelopathy. On physical exam, Shekhar hernandez demonstrates right upper extremity weakness bilateral Jose signs lower extremity hyperreflexia upper extremity) hyperreflexia myelopathic changes. I have explained to the patient that as their condition progresses it will cause further neurological deficits and eventual paralysis. Based on the patients imaging, physical exam, and the rapid progression and disabling nature of their symptoms, at this time I recommend surgery in the form or a: Anterior cervical discectomy and fusion C6-C7. I discussed the risk and benefits of this procedure at length with Shekhar hernandez. The patient and his mother agreed to considered pursuing the procedure abovementioned. Prior to surgery, she should follow up with her PCP (Cardio, ID, IM etc) for clearance. Questions were invited and answered, and the patient wishes to proceed as outlined below. Currently, I am recommendin. C6-C7 anterior cervical discectomy and fusion 2. Follow up with PCP for surgical clearance 3. Review of surgical risks and benefits as well as an educational packet on the proposed surgical procedure. Risks: All surgical procedures come with inherent risks, including those related to positioning, anesthesia, intraoperative findings, and postoperative complications. It is important to understand that surgery does not come with any guarantee of a successful outcome as complications and adverse events are always possible. The patient was given a handout in office today discussing the surgical procedure and risks associated with the intervention, both of which were discussed with the patient. These risks include but are not limited to the following: * Experiencing same, different or even worse symptoms in back, neck, arms, or legs compared to before surgery. * Requiring further surgery or other forms of treatment presently or at some time in the future at same or other levels of the intended spine surgery. * On an extreme but fortunately relatively rare basis severe complication such as blindness, stroke, heart attack, temporary and/or permanent nerve injury, paralysis, coma, or may occur, sometimes without known explanation. * Surgical complications may include but are not limited to risk of infection, fluid accumulation in the surgical dissection site, including a seroma or hematoma, that requires additional surgery, wound drainage, bleeding, new numbness or weakness, vision changes/loss, spinal fluid leakage, non-healing and/or infected incision, headaches, difficulty or inability to swallow, hoarseness, hemopneumothorax, pneumothorax, impotence, retrograde ejaculation, vaginal dryness; injury to nerves, spinal cord, blood vessels, lymphatics or other vital organs (i.e., bowel injury, injury to the great vessels); heterotopic bone formation; complications related to the hardware such as screws, rods, cages including misplaced hardware, device failure, instrumentation at the wrong spine level, hardware fracture/breakage, or hardware loosening; vertebral failure of the spinal column above or below the newly placed hardware; retained surgical instrumentations or devices and the need for further surgery. * Medical risks of the planned spine surgery include but are not limited to generalized Infections to the whole body or local areas outside of the surg ical site (sepsis), heart attack, bleeding, anaphylaxis, meningitis, seizure, epilepsy, hearing loss, burn sofia, laceration of the head or other areas of the body, bruising, hypersensitivity of the skin, bladder over distension; allergic reaction; shoulder injury related to positioning; fat, blood and air clots to other areas of the body like heart, lungs, brain; failure of internal organs such as lungs, kidneys, liver and excessive bleeding. If blood transfusions are necessary, note that transfusions may cause intolerance reactions such as anaphylaxis or other complex reactions. * Despite best efforts, the results of spine surgery might not heal in terms of bone, soft tissues such as skin, fascia, ligaments, and joints. Additionally, in order to achieve best possible results, spine surgery may be carried out beyond the initially planned levels and involve decompression, fusion includin g insertion of hardware at levels other than the original intended area of surgical interest change some portions of the procedure in order to ensure the best possible outcomes. * With spine surgery and spinal fusion, there are different off label uses of instrumentation (devices, implants and hardware) as well as biological substances (bone morphogenic proteins, demineralized bone matrix) as well as using extra bone from allograft sources (i.e. cadaver bone) or autograft (iliac crest bone, ribs, or the spine itself). The patient has been given information about these practices and their inherent risks and benefits. * [facility] is an educational center that serves as a training facility for neurosurgical and orthopedic spine residents and fellows. Residents are physicians who are completing their surgical intensive training following medical school. They assist in the operating room with direct supervision of the attending surgeons. [place] are surgeons who have complet ed their training and eligible for board certification. They have opted for an elective year of more specialized training in their field. They assist in the operating room under the supervision of the attending surgeons. Physician assistants are medically trained surgical providers who function in the outpatient, inpatient, and operating room setting under the direct supervision of the attending surgeon. * [facility] has multiple operating rooms with single and overlapping rooms running daily. They currently function under the required guidelines as produced by the [facility] Finance Committee with regards to the overlapping rooms and will continue to comply with changes to this policy as they occur. The requirements include and are complied with as follows: (1) the critical portions of the overlapping rooms will not occur at the same time, (2) the attending physician will be physically present during the critical portions of the procedure and immediately available during the entire case, and (3) a back-up attending is designated should the primary attending not be immedia tely available. The patient has had a chance to review all the listed information, has been given print outs detailing this information, and has had all his/her questions answered to their satisfaction. It was my pleasure to have seen and examined Shekhar Hernandez. In our visit today we have had a chance to go over my understanding of our patient's current condition, the natural course history without intervention and various interventional options. Questions were invited and answered, and the patient wishes to proceed as outlined above. I have seen and examined the patient for 25 minutes and we have spent more than 50% of the time in repeat and detailed counseling about the patient's condition, its natural course history with out and as much as can be predicted with surgery and re-review of various surgical treatment options. In conclusion, Shekhar Hernandez and his mother requested we proceed with the above suggested surgery and are willing to accept risks and limitations of the suggested surgery as nature of the disease process and our best attempts at treatment for the condition. Thank you again for allowing us to be part of your patient's care. Please don't hesitate to contact me if you have any further questions. Signed and authenticated by: [facility] [address] [place] [address] Time with Patient: Greater than 30
--- NOTE | 2020-12-09 08:59 | CT ---
EXAMINATION TYPE: CT cervical spine wo con DATE OF EXAM: 12/09/2020 COMPARISON: 12/07/2010 MRI I cervical spine HISTORY: CVA, Pre op neck surgery CT DLP: 948.1 mGycm CONTRAST: None CT of the cervical spine is performed in the axial plane at 2 mm thick sections. Reconstructed image s in the coronal, and sagittal plane are reviewed on the computer. No acute fractures are evident. Vertebral body alignment is normal. Disc heights are preserved. Left paracentral disc herniation is present C6-7. See MRI report. Vertebral body heights are preserved. No spinal canal stenosis is evident No neural foraminal stenosis is evident. IMPRESSIONS: 1. The disc herniation C6-7 is evident.
[2020-12-09 09:12] LABS: Basophils % (A) 0 %; Eosinophils % (A) 0 %; HCT 44.2 % (39.0-53.0); HGB 14.8 gm/dL (13.0-17.5); Lymphocytes # (A) 1.4 k/uL (1.0-4.8); Lymphocytes % (A) 10 %; MCH 29.8 pg (25.0-35.0); MCHC 33.5 g/dL (31.0-37.0); MCV 88.9 fL (80.0-100.0); Mean Platelet Volume 6.8; Monocytes # (A) 0.4 k/uL (0-1.0); Monocytes % (A) 3 %; Neutrophils # (A) 11.7 k/uL (1.3-7.7); Neutrophils % (A) 87 %; Platelet Count 264 k/uL (150-450); RBC 4.97 m/uL (4.30-5.90); RDW 13.1 % (11.5-15.5); WBC 13.6 k/uL (3.8-10.6)
[2020-12-09 09:35] LABS: African American GFR (CKD) >90 (>60 ml/min/1.73 sqM); Anion Gap 6 mmol/L; Blood Urea Nitrogen 13 mg/dL (9-20); Calcium 9.1 mg/dL (8.4-10.2); Carbon Dioxide 26 mmol/L (22-30); Chloride 107 mmol/L (98-107); Glucose 175 mg/dL (74-99); Non-African American GFR(CKD) >90 (>60 ml/min/1.73 sqM); Potassium 4.3 mmol/L (3.5-5.1); Sodium 139 mmol/L (137-145)
[2020-12-09] MEDS: LOSARTAN 50 MG TAB PO SCH (10:25)
[2020-12-09] MEDS: lamoTRIgine 25 MG TAB PO SCH ×2 (10:25→23:10)
[2020-12-09] MEDS: VENLAFAXINE HCL ER 75 MG CAP PO SCH (10:25)
[2020-12-09] MEDS: METOPROLOL TARTRATE 25 MG TAB PO SCH ×2 (10:25→20:35)
[2020-12-09] MEDS: SODIUM CHLORIDE 0.9% 1,000 ML IV SCH ×2 (10:26→18:07)
[2020-12-09] MEDS ORDERED: ceFAZolin 3 GM in SODIUM CHLORIDE 0.9% 100 ML IVPB ONE (12:00)
[2020-12-09] MEDS ORDERED: TRANEXAMIC ACID 1,000 MG in SODIUM CHLORIDE 0.9% 100 ML IVPB ONE (12:00)
[2020-12-09 12:23] LABS: Glucose,Whole Blood 125 mg/dL (75-99)
--- NOTE | 2020-12-09 13:03 | P.PN ---
Subjective Progress Note Date: 12/09/20 Patient was seen at bedside and he feels that the symptoms compared to yesterday. He continues to have right-sided weakness. And it's somewhat slightly improved compared to his initial presentation. He also has right-sided numbness. He said that he's been having right-sided weakness for the last 1 year and a half. Denies of any new visual disturbance. I could not access the CT or MRI images since there is something wrong with the system. But according to the reports MR the brain is reported as nonspecific white matter changes. See above discussion. In the body of the report it is mentioned there is pulsation artifact within the frontal lobe however all within the high right. Sagittal frontal lobe on the right there is 5.5 mm focus of increased signal involving the subcortical white matter as well as additional focus within the juxtacortical white matter of the right frontal lobe. There is a tiny 2 mm lesion within the white matter of the left posterior central 70 old valve bilaterally at. This finding are nonspecific and can be in patients with chronic migraine headache, vasculitis, Lyme disease as well as demyelinating process at. Correlate clinically area. I could not open the MRI of the brain images to review. MRI of thoracic and lumbar spine is reported as right paracentral disc bulge present previously has moderate right anterior lateral cord flattening. Small right paracentral disc bulge and/or endplate spur at T8/T9 with mild anterior thecal sac compression. There is a left paracentral disc bulge L5/S1 some milder broad based disc bulging. The focal protrusion has moderate anterior thecal sac compression and possible left S1 nerve root displacement posteriorly within the spinal canal. Also it seems that the patient had repeated the cervical imaging but this time he had cervical spine CT and it's reported as disc herniation of C6-C7 is evident. According to the orthopedic team he is scheduled for surgery for cervical for discectomy and fusion today. Patient is aware of that and he was to go forward with the surgery Objective - Vital Signs Vital signs: Vital Signs Temp 98.3 F 12/09/20 12:00 Pulse 54 L 12/09/20 12:00 Resp 20 12/09/20 12:00 BP 121/55 12/09/20 12:00 Pulse Ox 98 12/09/20 12:00 Intake & Output 12/08/20 12/09/20 12/09/20 18:59 06:59 18:59 Intake Total 1080 800 0 Output Total 1025 1350 450 Balance 55 -550 -450 Weight 122 kg Intake: Intake, IV Titration 800 Amount Sodium Chloride 0.9% 1, 800 000 ml @ 100 mls/hr IV . Q10H [facility] Rx#:[id number] Oral 1080 0 Output: Urine 1025 1350 450 Stool 0 Other: Voiding Method Urinal Urinal # Voids 3 - Exam GENERAL: The patient is lying in bed and is not in acute distress. NEUROLOGICAL: Higher mental function: The patient is awake, alert, oriented to self and place. He stated the year was 2019 and month was Oct. Patient is following commands. No aphasia and no neglect. Cranial nerves: The pupils are round, equal and reactive to light and accommodation. Visual roman are full to confrontation throughout. Extraocular movement is intact no nystagmus is noted. Facial sensation is normal to touch throughout. The facial strength is normal throughout. Hearing is normal bilaterally to hand rub. Tongue is midline and moved [id number] without any difficulty. No dysarthria is noted. Shoulder shrug is normal bilaterally. Motor: Gait is deferred. The strength is on the right upper and lower extremity there are effort related. He was able to lift right upper and lower above gravity without drift and he said that is it. But with resistance he had at zach st 4+ but seems dramatic on testing. On examination it is possible the patient has right-sided weakness but because he is very dramatic and very inconsistent it's hard to tell how much true weakness he has or not. Left upper and lower extremity is 5/5. Normal tone and bulk. Cerebellum: Normal finger to nose heel to espinoza over the left and had hard time performing it on the right. Sensation: Sensation is decreased to touch over the right. Reflexes (right/left): Bilateral brachioradialis and biceps are 3+. Bilateral patellar are 3+. Otherise 2+ throughout. Plantars are downgoing bilaterally. - Labs CBC & Chem 7: 12/09/20 08:17 12/09/20 08:17 Labs: Abnormal Lab Results - Last 24 Hours (Table) 12/08/20 12/08/20 12/08/20 Range/Units 13:59 16:55 20:22 WBC (3.8-10.6) k/uL Neutrophils # (1.3-7.7) k/uL Glucose (74-99) mg/dL POC Glucose (mg/dL) 119 H 152 H 208 H (75-99) mg/dL 12/09/20 12/09/20 12/09/20 Range/Units 02:38 05:46 08:17 WBC 13.6 H (3.8-10.6) k/uL Neutrophils # 11.7 H (1.3-7.7) k/uL Glucose (74-99) mg/dL POC Glucose (mg/dL) 172 H 193 H (75-99) mg/dL 12/09/20 12/09/20 Range/Units 08:17 12:21 WBC (3.8-10.6) k/uL Neutrophils # (1.3-7.7) k/uL Glucose 175 H (74-99) mg/dL POC Glucose (mg/dL) 125 H (75-99) mg/dL Assessment and Plan Assessment: This is a 40-year-old gentleman with extensive psychiatry problems the presents emergency department on 12/06/2020 for right-sided weakness and numbness. Patient refused IV TPA. He gives inconsistent histories per patient's nurse. On examination his right sided weakness seems effort related. 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 Regarding having a true assessment of the patient's strength over the right side it hard because the patient the is very dramatic and on examination he has a lot of effort related but I do agree that he does have a component of weakness on the right side from the myelopathy but again to what degree of his weakness not sure. Patient right-sided weakness or worsening of the weakness does not seem to be due to acute ischemic stroke or TIA. * ?Brain swelling and fluid according patient according to the patient that was relayed by nurse practitioner stroke team (which I don't see any sign on current CT head) * Thoracic spondylosis (Small right paracentral disc bulge and/or endplate spur at T8/T9 with mild anterior thecal sac compression). * Lumbosacral spondylosis (disc bulge in L5/S1 with possible left S1 nerve root). * Significant psychiatric history with depression, anxiety and PTSD * Per ED he has suidical thoughts * Morbid obesity Plan: On aspirin 325 daily and on Lipitor 40 mg daily at bedtime for secondary stroke prophylaxis. Currently the aspirin was held for surgery. I commended restar ting aspirin once orthopedic team met states its safe to restart aspirin after surgery. 2-D echo: It is reported as technically difficult study with suboptimal views. Overall left ventricle. Function is normal with ejection fraction of 55-60%. Left atrial size is normal. PT, OT and MATERIAL CONTROL MANAGER are on board. Lipid panel: Triglyceride is 135, cholesterol is 128, LDL is 70 and HDL is 31. The goal stroke is to keep the LDL less than 70. Previous TSH was 6.0 on 11/30/2020 which is high but the free T4 is 0.90 which is normal. Does not need to be repeated. Vitamin B12 is 531 on 11/30/2020 which does not need to free. Does not need to be repeated. RBC folate is 695 (normal) Copper level is pending. MR the brain is reported as nonspecific white matter changes. See above discussion. In the body of the report it is mentioned there is pulsation artifact within the frontal lobe however all within the high right. Sagittal frontal lobe on the right there is 5.5 mm focus of increased signal involving the subcortical white matter as well as additional focus within the juxtacortical white matter of the right frontal lobe. There is a tiny 2 mm lesion within the white matter of the left posterior central 70 old valve bilaterally at. This finding are nonspecific and can be in patients with chr onic migraine headache, vasculitis, Lyme disease as well as demyelinating process at. Correlate clinically area. I could not open the MRI of the brain images to review. MRI of thoracic and lumbar spine is reported as right paracentral disc bulge present previously has moderate right anterior lateral cord flattening. Small right paracentral disc bulge and/or endplate spur at T8/T9 with mild ante rior thecal sac compression. There is a left paracentral disc bulge L5/S1 some milder broad based disc bulging. The focal protrusion has moderate anterior thecal sac compression and possible left S1 nerve root displacement posteriorly within the spinal canal. could not open the MRI of the brain images to review. Orthopedic team is on board and patient is scheduled for surgery today for cervical discectomy and fusion Regarding the nonspecific white matter seen on the MRI is a possibility it could be due to headaches since the patient stated that he does have chronic history of migraines but I would recommended the patient to get a lumbar puncture as an outpatient to rule out any underlying process such as demylinating process. Psychiatric team is on board. Recommend patient to follow-up with a neurologist as an outpatient within 2 weeks (Follows-up with Dr. Verde and attempting to follow-up with stroke team at [facility]). The plan was discussed with the patient as well as the patient's nurse. We'll follow up with the patient sporadically. Jeremiah Shankar MD Neuro-hospitalist Time with Patient: Less than 30
[2020-12-09] MEDS ORDERED: IV FLUID CONTINUATION 1,000 ML IV ONE ×2 (13:09→13:12)
[2020-12-09] MEDS ORDERED: ONDANSETRON 4 MG/2 ML VIAL ONE (13:17)
[2020-12-09] MEDS ORDERED: ONDANSETRON 4 MG/2 ML VIAL IVP ONE (13:19)
[2020-12-09] MEDS ORDERED: LIDOCAINE 2% (PF) 20 MG/ML 5 ML VIAL INHALATION ONE (13:37)
[2020-12-09] MEDS ORDERED: LIDOCAINE 1% INJ 10MG/ML (20 ML MDV) ONE (14:04)
[2020-12-09] MEDS ORDERED: ceFAZolin 1,000 MG VIAL ONE (14:04)
[2020-12-09] MEDS ORDERED: SUCCINYLCHOLINE CHLORIDE VIAL 200 MG/10 ML VIAL IV ONE (14:04)
[2020-12-09] MEDS ORDERED: GLYCOPYRROLATE 0.2 MG/ML 2 ML VIAL ONE (14:04)
[2020-12-09] MEDS ORDERED: MIDAZOLAM 2 MG/2 ML VIAL ONE (14:04)
[2020-12-09] MEDS ORDERED: fentaNYL (PF) 50 MCG/ML 2 ML AMP ONE (14:04)
[2020-12-09] MEDS ORDERED: DEXAMETHASONE SOD PHOSPHATE 10 MG/ML 1 ML VIAL ONE (14:04)
[2020-12-09] MEDS ORDERED: KETAMINE 10 MG/ML 20 ML VIAL ONE (14:04)
[2020-12-09] MEDS ORDERED: SODIUM CHLORIDE 0.9% 100 ML BAG ONE (14:04)
[2020-12-09] MEDS ORDERED: PROPOFOL 10 MG/ML 20 ML VIAL IV ONE (14:04)
--- NOTE | 2020-12-09 15:31 | PN ---
PROGRESS NOTE DATE OF SERVICE: 12/09/2020 This 40-year-old gentleman admitted with significant weakness had C6-7 disc herniation which was confirmed by CT scan. MRI also showed significant lesions. The patient also had multiple other MRIs, including brain MRI which did not show acute abnormality. Dr. Condon is planning possible decompression today. The patient is being closely monitored. PT/OT evaluation. Neurology has seen the patient also. Past medical history reviewed. REVIEW OF SYSTEMS: CARDIOVASCULAR SYSTEM: No angina, palpitations. RESPIRATORY SYSTEM: As mentioned earlier. GI: As mentioned earlier. : No dysuria or retention. NERVOUS SYSTEM: No numbness, weakness. CURRENT MEDICATIONS: Reviewed. They include [place] 5 mg, Lipitor, Decadron, Motrin, Lamictal, Cozaar, melatonin, lopressor, Protonix. Doses are reviewed. PHYSICAL EXAMINATION: Patient alert and oriented x3. Pulse 58, blood pressure 116/74, respiration 18, temperature 98.1, pulse ox 100% on room air. HEENT: Conjunctivae normal. NECK: No jugular venous distention. CARDIOVASCULAR SYSTEM: S1, S2 muffled. RESPIRATORY SYSTEM: Breath sounds diminished at the bases. No rhonchi. No crackles. ABDOMEN: Soft, non-tender. LEGS: No edema. No swelling. NERVOUS SYSTEM: Mild weakness on the right side, right upper and lower limbs. LABS: WBC 13.6, hemoglobin 14.8. Glucose noted. ASSESSMENT: 1. Weakness of the right side, possible cervical myelopathy. 2. Cervical disc herniation at C6-7 on the left. 3. Previous history of syncopal episodes. 4. 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 5. Suicidal ideation history. 6. History of cerebrovascular accident, transient ischemic attack. 7. Hypertension. 8. History of migraines. 9. History of cholecystectomy. 10.History of anxiety, depression, post-traumatic stress disorder. 11.Obesity with body mass index of 36.3. RECOMMENDATIONS AND DISCUSSION: This 40-year-old gentleman who presented with multiple complex medical issues, we will monitor the patient closely. Otherwise, I recommend closely following with Dr. Condon for surgery. DVT prophylaxis. Incentive spirometry. Monitor blood sugars closely. Continue the rest of the medications. Closely follow with Neurology. Overall prognosis is guarded because of multiple complex medical issues. Further recommendations to follow. MMODL / IJN: [id number] /
--- NOTE | 2020-12-09 15:39 | P.PCN ---
Date of Procedure: 12/09/20 Procedure(s) Performed: BRIEF HISTORY: Patient is a 40-year-old, pleasant, white male is undergoing cervical neck surgery and while he was being intubated there was a small piece of plastic tube that got dislodged from the syringe and patient immediately started complaining of throat pain.. Because of the concern that the foreign body is lodged in the throat vs esophagus we were consulted for a stat EGD. PROCEDURE PERFORMED: Esophagogastroduodenoscopy with foreign body retrieval. PREOPERATIVE DIAGNOSIS: The throat pain/Foreign body in the esophagus IV sedation per anesthesia. PROCEDURE: After informed consent was obtained, the patient was brought into the endoscopy unit. IV sedation was administered by Anesthesia under continuous monitoring. Initially the Olympus GIF-140 video endoscope was inserted into the mouth. Esophagus intubated without any difficulty. It was gradually advanced into the stomach . There was 2 inch then plastic tube with a #noted in the fundus of the stomach. The scope was quickly advanced into the duodenum. The bulb and the second part of the duodenum appeared normal. The scope at this time was withdrawn to the stomach, adequately insufflated with air, and upon careful examination, mucosa of the antrum, body, cardia and the fundus appeared normal. The tip of the plastic tube was held by the snare that was passed through the scope and was gently withdrawn along with the scope. The visualized portions of the esophagus appeared normal. The plastic tube was pulled out of the mouth along with the scope without any difficulty and the patient tolerated the procedure well. IMPRESSION: 1. Two inch small thin plastic tube dislodged into the stomach status post removal as described above. 2. No obvious injury noted at the esophagus or in the throat area.. RECOMMENDATIONS: Proceed with planned surgery today.
--- NOTE | 2020-12-09 16:17 | P.PN ---
Progress Note - Text Progress Note Date: 12/09/20 Pt was brought to operative suite. Attempts were made at intubation with several different methods to no avail. There was an issue with one of the catheters for the lidocaine updraft which caused it to break and get stuck in pts esophagus. Acting swiftly and emergently anesthesia quickly activated the endo team and Dr. Perez was able to retrieve the lost piece without any consequence to the patient. There is no damage to the area. It was elected at this point since we had a team of people available and ready to attempt intubation again to complete the case. Anesthesia attempted intubation several more times with several different methods to no avail. At this point the patient's airway and esophagus and throat were starting to become very agitated swollen and slightly spasm and so anesthesia stated that it was not safe to continue with the case. At this point we called it. They will monitor the patient and recovery with anesthesia in the postop team. I did speak to his mother at length about this and apologized to her for the inconvenience. They do want to couple of days for his airway and pharynx to calm down and so he will be scheduled for surgery SaturdayDecember 13. We will monitor his neuro status in the hospital until then. We will do neuro checks as well as keep him on steroids for swelling. I discussed all this with his mother who is comfortable with this plan of care and appreciative of our care today. We will see the patient through his stay.
[2020-12-09 17:11] LABS: Glucose,Whole Blood 111 mg/dL (75-99)
[2020-12-09 20:15] LABS: Glucose,Whole Blood 136 mg/dL (75-99)
[2020-12-09] MEDS: CYANOCOBALAMIN 500 MCG TAB PO SCH (20:35)
[2020-12-09] MEDS: IBUPROFEN 600 MG TAB PO PRN (20:35)
[2020-12-09] MEDS: ATORVASTATIN 40 MG TAB PO SCH (20:35)
[2020-12-09] MEDS: QUEtiapine 100 MG TAB PO SCH (23:10)
[2020-12-09] MEDS: HYDROcodone/APAP 5-325MG 1 EACH TAB PO PRN (23:10)
[2020-12-09] MEDS: MELATONIN 5 MG TABLET PO SCH (23:10)
[2020-12-10 06:13] LABS: Glucose,Whole Blood 140 mg/dL (75-99)
[2020-12-10] MEDS: DEXAMETHASONE SOD PHOSPHATE 4 MG/ML 1 ML VIAL IV SCH ×4 (06:18→22:39)
[2020-12-10] MEDS: PANTOPRAZOLE 40 MG TABLET PO SCH (06:19)
[2020-12-10] MEDS: INSULIN ASPART (NovoLOG) 100 UNIT/ML VIAL SQ SCH ×4 (06:19→20:18)
[2020-12-10] MEDS: SODIUM CHLORIDE 0.9% 1,000 ML IV SCH ×3 (06:19→23:49)
[2020-12-10] MEDS: LOSARTAN 50 MG TAB PO SCH (08:41)
[2020-12-10] MEDS: VENLAFAXINE HCL ER 75 MG CAP PO SCH (08:41)
[2020-12-10] MEDS: lamoTRIgine 25 MG TAB PO SCH ×2 (08:41→22:39)
[2020-12-10] MEDS: METOPROLOL TARTRATE 25 MG TAB PO SCH (08:41)
[2020-12-10] MEDS ORDERED: SENNOSIDES 8.6 MG TAB PO PRN (08:55)
--- NOTE | 2020-12-10 09:55 | P.PN ---
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 Patient's voice is raspy. He complains of sore throat. He denies any fevers, shortness of breath, chest pain. Patient mentions he felt yesterday was not a good day to do surgery anyway. He had a feeling it would not go well. At this time he does feel that this coming Saturday will be a better day for surgery. He says he has not had any bowel movements. He did mention he tried to get up to go to the bathroom last night. He says he still can't move his right arm and right leg. He says he does have sensation to genital region. He denies any perineal numbness/tingling. Objective - Vital Signs Vital signs: Vital Signs Temp 97.9 F 12/10/20 03:32 Pulse 45 L 12/10/20 03:32 Resp 18 12/10/20 03:32 BP 110/61 12/10/20 03:32 Pulse Ox 95 12/10/20 03:32 Intake & Output 12/09/20 12/10/20 12/10/20 18:59 06:59 18:59 Intake Total 1150 118 240 Output Total 1300 600 Balance -150 -482 240 Weight 113.5 kg Intake: IV 1150 Oral 0 118 240 Output: Urine 1300 600 Stool 0 Other: Voiding Method Urinal - Exam Patient denies any sensation in right arm or right leg. 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 No physical exam changes. No perineal numbness/tingling. - Labs CBC & Chem 7: 12/09/20 08:17 12/09/20 08:17 Labs: Abnormal Lab Results - Last 24 Hours (Table) 12/09/20 12/09/20 12/09/20 Range/Units 12:21 17:09 20:14 POC Glucose (mg/dL) 125 H 111 H 136 H (75-99) mg/dL 12/10/20 Range/Units 06:12 POC Glucose (mg/dL) 140 H (75-99) mg/dL Assessment and Plan Assessment: 1. C6 to C7 intervertebral disc herniation 2. Right arm weakness, right leg weakness 3. Memory loss Plan: 1. C6 to C7 intervertebral disc herniation - anterior cervical discectomy and fusion of C6-C7 scheduled for Saturday12/13/2020 2. Medicine and neuro follow-up 3. Memory loss - patient is being followed by neuro 4. Pain management - controlled/stable 5. Ambulation protocol - out of bed with all meals. Out of bed or in chair 4- 5 times daily 6. PT/OT 7. DVT ppx - Jono's, SCDs, mechanical ppx. Start on Lovenox 40 twice a day 8. GI prophylaxis Time with Patient: Less than 30 <Bunny Condon - Last Filed: 12/10/20 11:28> Subjective Pt s/e. No issues overnight. Throat soreness today. States no other changes in symptoms still has weakness and decreased sensation in his RUE and RLE. He has been up to the bathroom with assist, but has not had a recent bowel movement. Denies any f/c/sob/cp at this time. Denies any perineal numbness/tingling. Denies any urgency, or incontinence. Objective - Vital Signs Vital signs: Vital Signs Temp 97.9 F 12/10/20 03:32 Pulse 45 L 12/10/20 03:32 Resp 18 12/10/20 03:32 BP 110/61 12/10/20 03:32 Pulse Ox 95 12/10/20 03:32 Intake & Output 12/09/20 12/10/20 12/10/20 18:59 06:59 18:59 Intake Total 1150 118 240 Output Total 1300 600 Balance -150 -482 240 Weight 113.5 kg Intake: IV 1150 Oral 0 118 240 Output: Urine 1300 600 Stool 0 Other: Voiding Method Urinal - Exam Exam is stable at this time. Still displays weakness in his RUE and RLE. He has weakness in SA B/T and intrinsics as well as machine group leader 3-4/5 on the R with 5/5 on the L. His RLE while he moves when distracted will not cooperate with testing at this time and exhibits weakness secondary to this. SILT L2-S1 except for RUE and RLE subjectively. +hoffmans b/l. Neg clonus b/l. Neg babinski. - Labs CBC & Chem 7: 12/09/20 08:17 12/09/20 08:17 Labs: Abnormal Lab Results - Last 24 Hours (Table) 12/09/20 12/09/20 12/09/20 Range/Units 12:21 17:09 20:14 POC Glucose (mg/dL) 125 H 111 H 136 H (75-99) mg/dL 12/10/20 Range/Units 06:12 POC Glucose (mg/dL) 140 H (75-99) mg/dL Assessment and Plan Plan: We have added him to the schedule for Saturday for C6-7 ACDF Add senna and miralax for bm IS 10x/hr Teds/SCDs at all times Add lovenox 40 BID until Saturday Continue Decadron 6q6hr Medical management
--- NOTE | 2020-12-10 11:50 | P.CRDCN ---
History of Present Illness Consult date: 12/10/20 History of present illness: HISTORY OF PRESENT ILLNESS: This is a 40-year-old male with a past medical history significant for hypertension, hyper lipidemia, and TIA. 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 We have been asked to see the patient in consultation for bradycardia. Patient examined at the bedside. Patient initially presented to the hospital with right arm and leg weakness. He was initially thought to have a TIA. Patient was found to have C6-C7 intravertebral disc herniation. Patient was scheduled to undergo anterior cervical discectomy and fusion yesterday. However, patient ended up requiring EGD yesterday to remove 2 small thin plastic tubes from his stomach that broke off from a catheter of the lidocaine updraft when patient was being intubated. His procedure was canceled and he is rescheduled for surgery on 12/13/2020. Patient is currently bradycardic with heart rate in the 40s. He has been receiving metoprolol 25 mg 3 times a day. Patient states he has been on this medication for about 5 years. Patient reports feeling dizzy and lightheaded this morning which she states is chronic for him. EKG obtained reveals sinus bradycardia with no evidence of AV block EKG reveals sinus bradycardia with no evidence of AV block Chest xray negative for acute process Laboratory data: WBC 13.6. Hemoglobin 14.8. Platelet count 264. Sodium 139. Potassium 4.3. BUN 13. Creatinine 0.90. TSH 1.840 Current home cardiac medications include metoprolol tartrate 25 mg twice a day, losartan 50 mg daily, Lipitor 40 mg daily, and aspirin 81 mg daily Most recent echocardiogram obtained on 12/06/2020 reveals ejection fraction 55- 60%, mild mitral regurgitation, and mild tricuspid regurgitation REVIEW OF SYSTEMS: At the time of my exam: CONSTITUTIONAL: Denies fever or chills. HEENT: Denies blurred vision, vision changes, or eye pain. Denies hemoptysis CARDIOVASCULAR: Denies chest pain. Denies orthopnea. Denies PND. Denies palpitations RESPIRATORY: Denies shortness of breath. GASTROINTESTINAL: Denies abdominal pain. Denies nausea or vomiting. HEMATOLOGIC: Denies bleeding disorders. GENITOURINARY: Denies any blood in urine. SKIN: Denies pruitis. Denies rash. PHYSICAL EXAM: VITAL SIGNS: Reviewed. GENERAL: Well-developed in no acute distress. HEENT: Head is normocephalic. Pupils are equal, round. Sclerae anicteric. Mucous membranes of the mouth are moist. Neck supple. No JVD or thyromegaly LUNGS: Respirations even and unlabored. Lungs essentially clear to auscultation bilaterally. HEART: Regular rate and rhythm. S1 and S2 heard. ABDOMEN: Soft. Nondistended. Nontender. EXTREMITIES: Right-sided weakness. No clubbing or cyanosis. Peripheral pulses intact. No lower extremity edema NEUROLOGIC: Awake and alert. Oriented x 3. ASSESSMENT: Right arm and leg weakness C6-C7 intravertebral disc herniation Hypertension Hyperlipidemia History of TIA 4 History of memory loss secondary to TIA per patient PLAN: Discontinue metoprolol. Avoid AV taina blocking agents. Continue to monitor telemetry 2D echo reviewed. TSH within normal limits Further recommendations pending patient course Nurse practitioner note has been reviewed by physician. Signing provider agrees with the documented findings, assessment, and plan of care. Past Medical History Past Medical History: CVA/TIA, Hypertension Additional Past Medical History / Comment(s): MIGRAINES History of Any Multi-Drug Resistant Organisms: None Reported Past Surgical History: Cholecystectomy Additional Past Surgical History / Comment(s): WISDOM TEETH EXTRACTIONS Past Anesthesia/Blood Transfusion Reactions: Postoperative Nausea & Vomiting (PONV) Additional Past Anesthesia/Blood Transfusion Reaction / Comment(s): Patient has no previous surgical history EXCEPT FOR TOOTH EXTRACTIONS. Past Psychological History: Anxiety, Depression, PTSD Smoking Status: Never smoker Past Alcohol Use History: None Reported Additional Past Alcohol Use History / Comment(s): Patient states that he drinks alcohol twice yearly. Past Drug Use History: None Reported Additional Drug Use History / Comment(s): Patient denies history of drug use. - Past Family History Father Family Medical History: No Reported History Mother Family Medical History: Diabetes Mellitus, Fibromyalgia, GERD/Reflux Additional Family Medical History / Comment(s): VERTIGO Medications and Allergies Home Medications Medication Instructions Recorded Confirmed Type Metoprolol Tartrate [Lopressor] 25 mg PO BID 03/25/20 12/06/20 History Aspirin 81 mg PO DAILY #30 chewable 05/04/20 12/06/20 Rx Atorvastatin [Lipitor] 40 mg PO HS 12/06/20 12/06/20 History Cyanocobalamin (Vitamin B-12) 1,000 mcg PO HS 12/06/20 12/06/20 History [Vitamin B-12] Losartan [Cozaar] 50 mg PO DAILY 12/06/20 12/06/20 History Venlafaxine HCl [Effexor XR] 150 mg PO DAILY 12/06/20 12/06/20 History lamoTRIgine [LaMICtal] 50 mg PO BID 12/06/20 12/06/20 History traZODone HCL [Desyrel] 50 - 100 mg PO HS 12/06/20 12/06/20 History Allergies Allergy/AdvReac Type Severity Reaction Status Date / Time aripiprazole [From Abilify] Allergy Rash/Hives, Verified 12/06/20 11:58 AGITATION doxycycline AdvReac Interaction Verified 12/06/20 11:58 w/psych meds & Rash Physical Exam Vitals: Vital Signs Temp Pulse Pulse Pulse Resp BP Pulse Ox 12/10/20 03:32 97.9 F 45 L 18 110/61 95 12/10/20 01:19 60 16 12/09/20 23:42 60 16 99/49 97 12/09/20 20:00 98.2 F 55 L 18 133/76 96 12/09/20 16:45 63 16 124/67 94 L 12/09/20 16:30 58 L 16 127/64 94 L 12/09/20 16:22 55 L 16 132/65 98 12/09/20 16:06 98 F 65 14 132/62 97 12/09/20 16:00 98.1 F 59 L 18 116/81 93 L 12/09/20 14:02 61 12/09/20 13:52 59 L 12/09/20 13:07 98.1 F 58 L 18 116/74 100 12/09/20 12:00 98.3 F 54 L 20 121/55 98 Intake and Output 12/09/20 12/10/20 12/10/20 22:59 06:59 14:59 Intake Total 468 240 Output Total 550 600 Balance -82 -600 240 Intake: IV 350 Oral 118 240 Output: Urine 550 600 Stool 0 Other: Voiding Method Urinal Urinal Weight 113.5 kg Results 12/09/20 08:17 12/09/20 08:17 Current Medications Generic Name Dose Route Start Last Admin Trade Name Freq PRN Reason Stop Dose Admin Hydrocodone Bitart/Acetaminophen 1 each 12/06/20 14:00 12/09/20 23:10 Hydrocodone/Apap 5-325mg 1 Each Tab PO 1 each Q6HR PRN Administration Pain Atorvastatin Calcium 40 mg 12/07/20 21:00 12/09/20 20:35 Atorvastatin 40 Mg Tab PO 40 mg HS MAN Administration Benzocaine/Menthol 1 each 12/10/20 08:58 Benzocaine/Menthol Lozeng 1 Each Lozenge MUCOUS MEM Q4HR PRN Sore Throat Cyanocobalamin 1,000 mcg 12/06/20 21:00 12/09/20 20:35 Cyanocobalamin 500 Mcg Tab PO 1,000 mcg HS MAN Administration Dexamethasone Sodium Phosphate 6 mg 12/08/20 07:45 12/10/20 06:18 Dexamethasone Sod Phosphate 4 Mg/Ml 1 Ml Vial IV 6 mg Q6HR MAN Administration Enoxaparin Sodium 40 mg 12/10/20 09:00 Enoxaparin 40 Mg/0.4 Ml Syringe SQ BID MAN Sodium Chloride 1,000 mls @ 100 mls/hr 12/06/20 12:00 12/10/20 06:19 Saline 0.9% IV 100 mls/hr .Q10H MAN Administration Ibuprofen 600 mg 12/06/20 18:36 12/09/20 20:35 Ibuprofen 600 Mg Tab PO 600 mg QID PRN Administration Pain Insulin Aspart 0 unit 12/08/20 17:30 12/10/20 06:19 Insulin Aspart (Novolog) 100 Unit/Ml Vial SQ 1 unit ACHS MAN Administration Protocol Lamotrigine 50 mg 12/06/20 21:00 12/10/20 08:41 Lamotrigine 25 Mg Tab PO 50 mg BID MAN Administration Losartan Potassium 50 mg 12/06/20 16:20 12/10/20 08:41 Losartan 50 Mg Tab PO 50 mg DAILY MAN Administration Melatonin 5 mg 12/08/20 21:00 12/09/20 23:10 Melatonin 5 Mg Tablet PO 5 mg HS MAN Administration Pantoprazole Sodium 40 mg 12/07/20 07:30 12/10/20 06:19 Pantoprazole 40 Mg Tablet PO 40 mg [id number] MAN Administration Polyethylene Glycol 17 gm 12/10/20 09:00 Polyethylene Glycol 3350 17 Gm Powd.Pack PO DAILY MAN Quetiapine Fumarate 100 mg 12/07/20 21:00 12/09/20 23:10 Quetiapine 100 Mg Tab PO 100 mg HS MAN Administration Senna 8.6 mg 12/10/20 08:55 Sennosides 8.6 Mg Tab PO BID PRN Constipation Venlafaxine HCl 225 mg 12/07/20 09:00 12/10/20 08:41 Venlafaxine Hcl Er 75 Mg Cap PO 225 mg DAILY MAN Administration Intake and Output 12/09/20 12/10/20 12/10/20 22:59 06:59 14:59 Intake Total 468 240 Output Total 550 600 Balance -82 -600 240 Intake: IV 350 Oral 118 240 Output: Urine 550 600 Stool 0 Other: Voiding Method Urinal Urinal Weight 113.5 kg 12/09/20 08:17 12/09/20 08:17
[2020-12-10] MEDS: ENOXAPARIN 40 MG/0.4 ML SYRINGE SQ SCH ×2 (11:57→20:18)
[2020-12-10] MEDS: polyethylene glycoL 3350 17 GM POWD.PACK PO SCH (11:57)
[2020-12-10] MEDS: BENZOCAINE/MENTHOL LOZENG 1 EACH LOZENGE MUCOUS MEM PRN (11:57)
[2020-12-10] MEDS: IBUPROFEN 600 MG TAB PO PRN (11:58)
[2020-12-10 12:02] LABS: Glucose,Whole Blood 171 mg/dL (75-99)
--- NOTE | 2020-12-10 15:50 | PN ---
PROGRESS NOTE DATE OF SERVICE: 12/10/2020 This 40-year-old gentleman who was admitted after ( ) discontinuation was supposed to have surgery yesterday. Apparently a plastic tube was inhaled by the patient during the intubation process. Please refer to the anesthesia and as well as GI notes. Dr. Gracia performed EGD and extraction of the plastic tube. No chest pain. No palpitations. No fever. Cardiology has seen the patient today for bradycardia. Metoprolol has been stopped at this time. No chest pain. No palpitations. No fever. PHYSICAL EXAMINATION: Alert and oriented. Pulse 44, blood pressure 120/60, respiration 20, temperature 98 degrees, pulse ox 98% on room air. HEENT: Conjunctivae normal. Oral mucosa moist. NECK: No jugular venous distention. No lymph node enlargement. CARDIOVASCULAR: S1, S2, muffled. No S3, no S4, RESPIRATORY: Diminished breath sounds at the bases. A few scattered rhonchi and crackles. ABDOMEN: Soft, nontender. LEGS: No edema, no swelling. NERVOUS SYSTEM: No focal deficits. LABS: Glucose 141, 71. WBC 13.6. ASSESSMENT: 1. Weakness of the right side, possible cervical myelopathy. 2. Cervical disk herniation C6-7 on the right. 3. Sinus bradycardia secondary to beta blockers, improved. 4. Previous history of syncopal episodes. 5. 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 6. Suicidal history. 7. History of cerebrovascular accident, transient ischemic attack. 8. Hypertension. 9. History of migraine. 10.History of cholecystectomy. 11.History of anxiety, depression, posttraumatic stress disorder. 12.Obesity with body mass index of 36.3. RECOMMENDATION: Recommend to continue current medications, symptomatic treatment. Otherwise at this time I recommend to stop the beta blockers, monitor blood sugars closely. Otherwise, surgical plans will be per Orthopedic Surgery. Further recommendations to follow. MMODL / IJN: [id number] /
[2020-12-10 16:58] LABS: Glucose,Whole Blood 133 mg/dL (75-99)
[2020-12-10 20:01] LABS: Glucose,Whole Blood 174 mg/dL (75-99)
[2020-12-10] MEDS: ATORVASTATIN 40 MG TAB PO SCH (20:18)
[2020-12-10] MEDS: CYANOCOBALAMIN 500 MCG TAB PO SCH (20:18)
[2020-12-10] MEDS: MELATONIN 5 MG TABLET PO SCH (22:39)
[2020-12-10] MEDS: QUEtiapine 100 MG TAB PO SCH (22:39)
[2020-12-11 06:00] LABS: Glucose,Whole Blood 121 mg/dL (75-99)
[2020-12-11] MEDS: INSULIN ASPART (NovoLOG) 100 UNIT/ML VIAL SQ SCH ×4 (06:03→20:56)
[2020-12-11] MEDS: DEXAMETHASONE SOD PHOSPHATE 4 MG/ML 1 ML VIAL IV SCH ×4 (06:32→23:15)
[2020-12-11] MEDS: PANTOPRAZOLE 40 MG TABLET PO SCH (06:32)
--- NOTE | 2020-12-11 08:39 | P.PN ---
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 Patient's voice is raspy. He complains of sore throat. He denies any fevers, shortness of breath, chest pain. Patient says he was able to use restroom yesterday and had multiple bowel movements. He says his previous bowel movement was last Saturday. He complains of pain at neck and head rated 9/10. He states neck pain is mostly at right front area. He says he is able to move his right arm and leg today. He says he does have sensation to genital region. He denies any perineal numbness/tingling. Patient says PT has not been there to work with him, but the nurses aides have been helpful about getting him up and out of bed. Objective - Vital Signs Vital signs: Vital Signs Temp 97.9 F 12/11/20 04:00 Pulse 54 L 12/11/20 04:00 Resp 16 12/11/20 04:00 BP 106/59 12/11/20 04:00 Pulse Ox 95 12/11/20 04:00 Intake & Output 12/10/20 12/11/20 12/11/20 18:59 06:59 18:59 Intake Total 460 480 Output Total 1200 700 Balance -740 -220 Weight 113.3 kg Intake: Oral 460 480 Output: Urine 1200 700 Stool 0 Other: Voiding Method Urinal - Exam Patient has sensation to right arm. Still denies sensation to right leg. Is able to wiggle toes. Radial and dorsalis pedal pulses are intact bilaterally in upper and lower extremities. Patient is able to move right and forward elevate to 90 degrees. Enrober Tender strength in right hand is better at 3/5. Right leg can be elevated off bed to 30 degrees. No perineal numbness/tingling. - Labs CBC & Chem 7: 12/09/20 08:17 12/09/20 08:17 Labs: Abnormal Lab Results - Last 24 Hours (Table) 12/10/20 12/10/20 12/10/20 Range/Units 12:00 16:56 20:00 POC Glucose (mg/dL) 171 H 133 H 174 H (75-99) mg/dL 12/11/20 Range/Units 05:59 POC Glucose (mg/dL) 121 H (75-99) mg/dL Assessment and Plan Assessment: 1. C6 to C7 intervertebral disc herniation 2. Right arm weakness, right leg weakness 3. Memory loss Plan: 1. C6 to C7 intervertebral disc herniation - anterior cervical discectomy and fusion of C6-C7 scheduled for Saturday12/13/2020 2. Medicine and neuro follow-up 3. Memory loss - patient is being followed by neuro 4. Pain management - controlled/stable 5. Ambulation protocol - out of bed with all meals. Out of bed or in chair 4- 5 times daily 6. PT/OT 7. DVT ppx - Jono's, SCDs, mechanical ppx. 8. GI prophylaxis Time with Patient: Less than 30
[2020-12-11] MEDS: BENZOCAINE/MENTHOL LOZENG 1 EACH LOZENGE MUCOUS MEM PRN (09:07)
[2020-12-11] MEDS: polyethylene glycoL 3350 17 GM POWD.PACK PO SCH (09:09)
[2020-12-11] MEDS: lamoTRIgine 25 MG TAB PO SCH ×2 (09:09→20:56)
[2020-12-11] MEDS: VENLAFAXINE HCL ER 75 MG CAP PO SCH (09:09)
[2020-12-11] MEDS: ENOXAPARIN 40 MG/0.4 ML SYRINGE SQ SCH ×2 (09:09→20:56)
[2020-12-11] MEDS: LOSARTAN 50 MG TAB PO SCH (09:09)
[2020-12-11] MEDS: IBUPROFEN 600 MG TAB PO PRN ×2 (09:10→23:16)
--- NOTE | 2020-12-11 12:20 | P.PN ---
Subjective Progress Note Date: 12/11/20 HISTORY OF PRESENT ILLNESS: 12/10/2020 This is a 40-year-old male with a past medical history significant for hypertension, hyper lipidemia, and TIA. Patient does not follow with a car diologist. We have been asked to see the patient in consultation for bradycardia. Patient examined at the bedside. Patient initially presented to the hospital with right arm and leg weakness. He was initially thought to have a TIA. Patient was found to have C6-C7 intravertebral disc herniation. Patient was scheduled to undergo anterior cervical discectomy and fusion yesterday. However, patient ended up requiring EGD yesterday to remove 2 small thin plastic tubes from his stomach that broke off from a catheter of the lidocaine updraft when patient was being intubated. His procedure was canceled and he is rescheduled for surgery on 12/13/2020. Patient is currently bradycardic with heart rate in the 40s. He has been receiving metoprolol 25 mg 3 times a day. Patient states he has been on this medication for about 5 years. Patient reports feeling dizzy and lightheaded this morning which she states is chronic for him. EKG obtained reveals sinus bradycardia with no evidence of AV block EKG reveals sinus bradycardia with no evidence of AV block Chest xray negative for acute process Laboratory data: WBC 13.6. Hemoglobin 14.8. Platelet count 264. Sodium 139. Potassium 4.3. BUN 13. Creatinine 0.90. TSH 1.840 Current home cardiac medications include metoprolol tartrate 25 mg twice a day, losartan 50 mg daily, Lipitor 40 mg daily, and aspirin 81 mg daily Most recent echocardiogram obtained on 12/06/2020 reveals ejection fraction 55- 60%, mild mitral regurgitation, and mild tricuspid regurgitation 12/11/2020 Patient examined this morning at the bedside. Patient denies chest pain or pressure. He currently denies shortness of breath. He reports feeling tired. Blood pressure 109/58. Telemetry continues to reveals sinus bradycardia with a heart rate in the 40s and 50s. PHYSICAL EXAM: VITAL SIGNS: Reviewed. GENERAL: Well-developed in no acute distress. HEENT: Head is normocephalic. Pupils are equal, round. Sclerae anicteric. Mucous membranes of the mouth are moist. Neck supple. No JVD or thyromegaly LUNGS: Respirations even and unlabored. Lungs essentially clear to auscultation bilaterally. HEART: Regular rate and rhythm. S1 and S2 heard. ABDOMEN: Soft. Nondistended. Nontender. EXTREMITIES: Right-sided weakness. No clubbing or cyanosis. Peripheral pulses intact. No lower extremity edema NEUROLOGIC: Awake and alert. Oriented x 3. ASSESSMENT: Right arm and leg weakness C6-C7 intravertebral disc herniation Asymptomatic bradycardia Chronic dizziness/lightheadedness per patient Hypertension Hyperlipidemia History of TIA 4 History of memory loss secondary to TIA per patient PLAN: Continue to hold metoprolol. Avoid AV taina blocking agents. Continue to monitor telemetry 2D echo reviewed. TSH within normal limits Patient scheduled for surgery with Dr. Condon on Saturday Further recommendations pending patient course Nurse practitioner note has been reviewed by physician. Signing provider agrees with the documented findings, assessment, and plan of care. Objective - Vital Signs Vital signs: Vital Signs Temp 97.7 F 12/11/20 08:00 Pulse 48 L 12/11/20 08:00 Resp 16 12/11/20 08:00 BP 109/58 12/11/20 08:00 Pulse Ox 98 12/11/20 08:00 Intake & Output 12/10/20 12/11/20 12/11/20 18:59 06:59 18:59 Intake Total 460 480 320 Output Total 1200 700 0 Balance -740 -220 320 Weight 113.3 kg Intake: IV 20 Invasive Line 2 20 Oral 460 480 300 Output: Urine 1200 700 Stool 0 0 Other: Voiding Method Urinal Urinal - Labs CBC & Chem 7: 12/09/20 08:17 12/09/20 08:17 Labs: Abnormal Lab Results - Last 24 Hours (Table) 12/10/20 12/10/20 12/11/20 Range/Units 16:56 20:00 05:59 POC Glucose (mg/dL) 133 H 174 H 121 H (75-99) mg/dL
[2020-12-11 12:31] LABS: Glucose,Whole Blood 119 mg/dL (75-99)
[2020-12-11] MEDS: SODIUM CHLORIDE 0.9% 1,000 ML IV SCH (13:06)
--- NOTE | 2020-12-11 17:03 | PN ---
PROGRESS NOTE DATE OF SERVICE: 12/11/2020 This 40-year-old gentleman admitted with significant weakness of the right upper and lower limbs had C6-7 intervertebral disc herniation as well as possibly myelomalacia. Surgery recently again rescheduled for Saturday. No chest pain. No palpitations. No fever. Weakness of the right side persists. PHYSICAL EXAMINATION: Alert and oriented times three. Pulse is 57, blood pressure 140/77. Respirations 16, temperature 97.2, pulse ox 98% on room air. HEENT: Conjunctivae normal. NECK: No JVD. CARDIOVASCULAR: S1, S2 muffled. RESPIRATORY SYSTEM: Breath sounds diminished at the bases. No rhonchi. No crackles. ABDOMEN: Soft, nontender. LEGS are no edema. No swelling. Nervous system: Minimal weakness of the right upper and lower limbs. right lower limb weakness, grade 3-4. LABS: WBC 13.7, sodium 130, potassium 4.2. ASSESSMENT: 1. Weakness of the right side possible cervical myelopathy. 2. Cervical disc herniation C6-7. 3. Sinus bradycardia possibly secondary to beta blockers. 4. Previous history of syncopal episode. 5. Increased random blood sugar, possibly steroid induced. 6. Diabetes type 2. 7. Suicidal history. 8. History of cerebrovascular accident, transient ischemic attack. 9. Hypertension. 10.History of migraines. 11.History of cholecystectomy. 12.Anxiety, depression, posttraumatic stress disorder. 13.Obesity with body mass index of 36.3. RECOMMENDATIONS AND DISCUSSION: I recommend to continue current medications, management and symptomatic treatment. Avoid beta blockers. Continue to follow closely with Orthopedic Surgery. Multiple consultants. Monitor blood sugars closely. Otherwise, the surgery rescheduled for Saturday. Further recommendations to follow. MMODL / IJN: [id number] /
[2020-12-11 17:39] LABS: Glucose,Whole Blood 143 mg/dL (75-99)
[2020-12-11 20:27] LABS: Glucose,Whole Blood 159 mg/dL (75-99)
[2020-12-11] MEDS: CYANOCOBALAMIN 500 MCG TAB PO SCH (20:55)
[2020-12-11] MEDS: ATORVASTATIN 40 MG TAB PO SCH (20:55)
[2020-12-11] MEDS: QUEtiapine 100 MG TAB PO SCH (23:16)
[2020-12-11] MEDS: MELATONIN 5 MG TABLET PO SCH (23:16)
[2020-12-12] MEDS: SODIUM CHLORIDE 0.9% 1,000 ML IV SCH ×3 (03:35→17:28)
[2020-12-12] MEDS ORDERED: ONDANSETRON 4 MG/2 ML VIAL IVP PRN (05:00)
[2020-12-12 05:58] LABS: Glucose,Whole Blood 168 mg/dL (75-99)
[2020-12-12] MEDS: DEXAMETHASONE SOD PHOSPHATE 4 MG/ML 1 ML VIAL IV SCH ×4 (06:11→23:10)
[2020-12-12] MEDS: PANTOPRAZOLE 40 MG TABLET PO SCH (06:11)
[2020-12-12] MEDS: INSULIN ASPART (NovoLOG) 100 UNIT/ML VIAL SQ SCH ×4 (06:11→22:13)
--- NOTE | 2020-12-12 08:42 | P.PN ---
Subjective Progress Note Date: 12/12/20 Principal diagnosis: RUE weakness RLE weakness RUE radiculopathy Cervical myelopathy Patient seen and examined this morning is doing fairly well. He is using his right arm to eat breakfast. 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 TEDs to complain of weakness in his right lower extremity as well as pain and numbness and tingling. The same in the upper extremity. He complains of neck pain and headaches as well as interscapular pain. He denies any bowel or bladder issues. He denies any perineal numbness or tingling. Denies fevers chills shortness of breath or chest pain at this time. Objective - Vital Signs Vital signs: Vital Signs Temp 97.6 F 12/12/20 04:00 Pulse 47 L 12/12/20 04:00 Resp 16 12/12/20 04:00 BP 121/62 12/12/20 04:00 Pulse Ox 96 12/12/20 04:00 Intake & Output 12/11/20 12/12/20 12/12/20 18:59 06:59 18:59 Intake Total 1540 Output Total 2100 600 575 Balance -560 -600 -575 Intake: IV 40 Invasive Line 2 40 Oral 1500 Output: Urine 2100 600 575 Stool 0 Other: Voiding Method Urinal Urinal # Voids 1 - Exam Exam is improved in the RUE today see below. Patient still has weakness in his right upper extremity. He still has pain in his right upper extremity. He has limited sensation over his deltoid on the right. No bowel bladder issues intact sensation. Intact sensation perirectal and scrotal. Still exhibits hyperreflexia as well as bilateral Hoffmans. PHYSICAL EXAMINATION: Vitals: Stable at this time. General: Awake, alert, appropriate for age, in no acute distress. HEENT: No unusual neck masses around region of lateral neck triangle, thyroid, supraclavicular groove. [Heart: Regular rate and rhythm, normal S1, S2 and no murmur/gallop.] [Lungs: Clear to auscultation bilaterally with no use of accessory muscles.] Extremities: Skin warm and dry without no acute lesions, coloration, temperature, skin intact, no tenderness or erythema. Integument: Hairy patches: Absent Dorsal skin dimples: Absent Cafe au lait spots: Absent Surgical incisions: None Palpation: Please see Pain drawing on Intake sheet for further detail. (Tenderness = T, Nontender = NT, Swelling = S, Ecchymosis = E) Findings on Midline and paraspinal palpation and percussion: Cervical: TTP Thoracic: NT Lumbar: NT Sacral: NT Special findings: None POSTURAL and MUSCULO-SKELETAL EVALUATION: Shoulder ROM: Symmetric in abduction, ER/IR, painful ROM of the R shoulder with passive and active ROM Hip ROM: Symmetric in abduction, adduction, ER/IR Knee ROM: Symmetric and intact in Flexion / extension Hands: Normal appearing structure L and R Feet: Normal appearing structure L and R VASCULAR STATUS : Wrist Pulses: [2/4 bilateral radial and ulnar] Pedal Pulses: [2/4 bilateral DP and PT] Color: [Normal] Edema: [None] NEUROLOGIC EXAMINATION: Mental Status: Awake and alert, fully oriented, with normal attention, concentration and memory, and fluent, appropriate speech. Cranial Nerves: I: Olfactory not tested. II: Visual acuity normal, no visual field deficit noted with confrontation. III,IV: Normal pupillary reflexes & intact extraocular movements without nystagmus. V,: Intact symmetrical facial sensation. VII: Intact symmetrical facial motor movement VIII: Hearing intact. IX,X: Intact gag, swallow, & normal voice. XI: Sternocleidomastoid, trapezius function intact. XII: Tongue midline with normal movements. Special Tests: L'hermitte's Sign: Absent Spurling'Sign: Absent Bilateral Cubital percussion test: Absent Bilateral Erick-Tinel sign - Carpal region: Absent Bilateral Straight Leg Raising: Absent Bilateral Motor Exam (0-5/5, N/T) STRENGTH UPPER EXTREMITY Shoulder Abd (Not part of YAZMIN Motor score): RIGHT [4] LEFT [5] Elbow Flexors: RIGHT [4-] LEFT [5] Elbow Extensor: RIGHT [4-] LEFT [5] Wrrist Dorsiflexors: RIGHT [4-] LEFT [5] Finger Abductor: RIGHT [3] LEFT [5] Obstetrics Gynecology Physician: RIGHT [4-] LEFT [5] Cooperation efforts continue to confound exam findings on the Right UE and LE. When distracted, can observe him moving his RLE under his blankets which would likely be at least a 3/5 strength in most facet. LOWER EXTREMITY Hip Flexor (Not part of YAZMIN Motor Score): RIGHT [4] LEFT [5] Knee Flexor: RIGHT [4-] LEFT [5] Knee Extensor: RIGHT [4-] LEFT [5] Ankle Dorsiflexion: RIGHT [4-] LEFT [5] Ankle Plantarflexion: RIGHT [4-] LEFT [5] EHL: RIGHT [4+] LEFT [5] FHL: RIGHT [4+] LEFT [5] Cooperation efforts confound exam findings on the RLE REFLEXES Biecp: RIGHT [3] LEFT [3] Tricep: RIGHT [3] LEFT [3] Brachioradialis: RIGHT [3] LEFT [3] Patellar: RIGHT [3] LEFT [3] Achilles: RIGHT [3] LEFT [3] Pathological Reflexes Bird's: RIGHT PRESENT LEFT PRESENT Babinski: RIGHT [Absent] LEFT [Absent] Clonus: RIGHT [None] LEFT [None] SENSORY Joint Position: [Intact bilaterally] Vibration [Intact bilaterally] Pain and LT sense [Intact C5-T1 and L2-S1] Dermatomal deficit [None] Gait and Functional Evaluation: Ambulatory aids: Walker currently, normally nothing Romberg's test: Intact bilaterally. Hand and finger dexterity intact bilaterally[]. Disdiadochokinesis examination negative[] on the Left but positive on the RIGHT - Labs CBC & Chem 7: 12/09/20 08:17 12/09/20 08:17 Labs: Abnormal Lab Results - Last 24 Hours (Table) 12/11/20 12/11/20 12/11/20 Range/Units 12:03 17:26 20:25 POC Glucose (mg/dL) 119 H 143 H 159 H (75-99) mg/dL 12/12/20 Range/Units 05:56 POC Glucose (mg/dL) 168 H (75-99) mg/dL Assessment and Plan Assessment: 1. 40 yo male with RUE and RLE weakness with episodic numbness/tingling 2. 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 Cervical spondylotic myelopathy 4. Complex medical history 5. No evidence demyelenating disease. Plan: We have added him to the schedule for Saturday for C6-7 ACDF -Appreciate medicine cardio and neurology management. Symptom Control: -Pain control: Adequate at this time . -Continue Decadron -Aggressive ambulation protocol. OOB with all meals. OOB or in chair 4-5x daily. -PT/OT Prophylaxis: -TEDs, SCDs, mechanical ppx. -GI ppx. -Stop Lovenox for surgery tomorrow Imaging/labs: -No new imaging -Trend labs as appropriate Intervention: Nothing by mouth at midnight Stop Lovenox Antibiotics preop hold Dispo: Pending
[2020-12-12] MEDS: lamoTRIgine 25 MG TAB PO SCH ×2 (09:20→23:09)
[2020-12-12] MEDS: VENLAFAXINE HCL ER 75 MG CAP PO SCH (09:20)
[2020-12-12] MEDS: polyethylene glycoL 3350 17 GM POWD.PACK PO SCH (09:20)
[2020-12-12] MEDS: IBUPROFEN 600 MG TAB PO PRN ×3 (09:21→23:11)
[2020-12-12] MEDS: LOSARTAN 50 MG TAB PO SCH (09:21)
[2020-12-12] MEDS: ENOXAPARIN 40 MG/0.4 ML SYRINGE SQ SCH (09:23)
--- NOTE | 2020-12-12 09:58 | P.PN ---
Subjective Progress Note Date: 12/12/20 Principal diagnosis: Preoperative cardiac assessment This is a 40 year old we consulted to see for bradycardia and also for preoperative cardiac assessment. The patient was seen today. He continues to be bradycardic with a resting heart rate in the 50s. He is not on any AV taina sesar agents. The TSH was within normal limits. The echo showed normal LV function. From a cardiovascular standpoint of view, the patient can proceed with the surgery. He is going to undergo C6-C7 disc herniation surgery. He is going to undergo anterior cervical discectomy. He denies any chest pain or chest discomfort or shortness of breath. Objective - Vital Signs Vital signs: Vital Signs Temp 97.6 F 12/12/20 04:00 Pulse 47 L 12/12/20 04:00 Resp 16 12/12/20 04:00 BP 121/62 12/12/20 04:00 Pulse Ox 96 12/12/20 04:00 Intake & Output 12/11/20 12/12/20 12/12/20 18:59 06:59 18:59 Intake Total 1540 Output Total 2100 600 575 Balance -560 -600 -575 Intake: IV 40 Invasive Line 2 40 Oral 1500 Output: Urine 2100 600 575 Stool 0 Other: Voiding Method Urinal Urinal # Voids 1 - Constitutional General appearance: Present: no acute distress - Respiratory Respiratory: bilateral: CTA, diminished - Cardiovascular Rhythm: regular Heart sounds: normal: S1, S2 - Labs CBC & Chem 7: 12/09/20 08:17 12/09/20 08:17 Labs: Abnormal Lab Results - Last 24 Hours (Table) 12/11/20 12/11/20 12/11/20 Range/Units 12:03 17:26 20:25 POC Glucose (mg/dL) 119 H 143 H 159 H (75-99) mg/dL 12/12/20 Range/Units 05:56 POC Glucose (mg/dL) 168 H (75-99) mg/dL Assessment and Plan Assessment: Assessment #1 asymptomatic bradycardia #2 right arm and leg weakness #3 C6-C7 disc herniation #4 multiple comorbid conditions Plan #1 continue holding any AV taina sesar agents #2 the patient can proceed with the surgery
[2020-12-12] MEDS ORDERED: LIDOCAINE 1% (10MG/ML) FOR IV START INTRADERMA PRN (11:04)
[2020-12-12] MEDS ORDERED: MIDAZOLAM 2 MG/2 ML VIAL IV PRN (11:04)
[2020-12-12 12:29] LABS: Glucose,Whole Blood 175 mg/dL (75-99)
[2020-12-12 14:20] VITALS: BMI 32.9
--- NOTE | 2020-12-12 16:01 | P.PN ---
Subjective Progress Note Date: 12/12/20 Patient is a 40-year-old male came to the hospital on 12/06/2020 with sudden onset of right-sided numbness and weakness. Patient states he has previous history of multiple strokes, that affected right side of the body. Currently on aspirin. He follows up with Dr. Jeremiah Verde, and was not process of evaluation at the [facility]. Patient states that on Saturday he had a bad episode, when he couldn't get up and he was paralyzed "waist down". He has numbness of right-sided arm and leg. Also has lot of memory issues. Patient states that he had fell down a flight of 20 stairs 2 years ago. He has neck pain and low back pain. He rates his neck pain 12 on a scale of 1-10. He states that he gets pain in the neck, then goes to the right side of the body and he loses feeling. It has happened 5 times in the past. Patient's blood test shows WBC 13.6 hemoglobin 14.8, platelets 264. PT/PTT normal. Patient's hemoglobin A1c 5.4 on 05/04/2020. Patient's total cholesterol is 128, LDL 70, HDL 31 and triglycerides 135. B12 is 531, folate is normal. TSH normal. Castro virus negative. MRI of the cervical spine from 12/07/2020 shows C6 7 extruded disc herniation paracentrally and to the left ventral cord contact and early compressive myelopathy suggested. Left paracentral disc protrusion at C2 3 with left neural foraminal encroachment. MRI is normal. There is a 5.5 mm focus of increased signal involving the subcortical white matter as well as additional focus within the juxtacortical white matter of the right frontal lobe. These are nonspecific findings and may be related to chronic migraine, vasculitis, Lyme disease or a demyelinating process. MRI lumbar spine 12/08/2020 shows left paracentral disc bulge L5-S1, with some mild broad-based disc bulging. The focal protrusion has a moderate anterior thecal sac compression and possible left S1 nerve root displacement posteriorly within the spinal canal. MRI thoracic spine from 12/08/2020 shows right paracentral disc bulge present previously has moderate right anterior lateral cord flattening. Small right paracentral disc bulge and/or endplate 18 89 with mild anterior thecal sac compression. Objective - Vital Signs Vital signs: Vital Signs Temp 97.7 F 12/12/20 08:15 Pulse 61 12/12/20 08:15 Resp 16 12/12/20 08:15 BP 136/72 12/12/20 08:15 Pulse Ox 96 12/12/20 08:15 Intake & Output 12/11/20 12/12/20 12/12/20 18:59 06:59 18:59 Intake Total 1540 300 Output Total 2100 600 575 Balance -560 -600 -275 Intake: IV 40 Invasive Line 2 40 Oral 1500 300 Output: Urine 2100 600 575 Stool 0 Other: Voiding Method Urinal Urinal Urinal # Voids 1 - Exam Patient's mental status, speech and language functions are normal. Cranial n erves are normal. Muscle strength is normal in the arms and legs. Reflexes are brisk in the arms and legs. Plantar is possible up on the right, downgoing on the left. Sensory touch he does not feel in the right arm or right leg. No ataxia for [id number] testing. Gait deferred. - Labs CBC & Chem 7: 12/09/20 08:17 12/09/20 08:17 Labs: Abnormal Lab Results - Last 24 Hours (Table) 12/11/20 12/11/20 12/12/20 Range/Units 17:26 20:25 05:56 POC Glucose (mg/dL) 143 H 159 H 168 H (75-99) mg/dL 12/12/20 Range/Units 12:26 POC Glucose (mg/dL) 175 H (75-99) mg/dL Assessment and Plan Assessment: * Right-sided weakness and numbness * Previous history of possible TIA/CVA * Cervical disc extrusion at C6 7 with early myelopathic changes, but MRI cervical spine * Depressive disorder unspecified, likely adjustment disorder with depressed mood versus major depressive disorder. * History of PTSD. * Obesity * Lumbosacral spondylosis. Plan: * Patient undergoing C6-7 ACDF in a.m. * Patient had a normal CTA of head and neck on 12/06/2020. No flow-limiting stenosis bilateral carotid bifurcations. Normal ramona of [place]. * 2-D echo showed normal left-ventricular size, mild concentric LVH. EF is 55- 60%. * Hemoglobin A1c 5.4 * Lipid panel with cholesterol 128, LDL 70, HDL 31 and triglycerides 135. * Blood pressure 136/72.
[2020-12-12 17:16] LABS: Glucose,Whole Blood 150 mg/dL (75-99)
[2020-12-12 17:16] LABS: Glucose,Whole Blood 166 mg/dL (75-99)
[2020-12-12 20:25] LABS: Glucose,Whole Blood 187 mg/dL (75-99)
[2020-12-12] MEDS: ATORVASTATIN 40 MG TAB PO SCH (22:11)
[2020-12-12] MEDS: CYANOCOBALAMIN 500 MCG TAB PO SCH (22:12)
[2020-12-12] MEDS: LACTATED RINGERS 1,000 ML IV SCH (22:12)
--- NOTE | 2020-12-12 23:03 | PN ---
PROGRESS NOTE DATE IS SERVICE: 12/12/2020. This 40-year-old gentleman who was admitted with significant weakness, has possibly right-sided cervical myelopathy. Patient is slated for surgery tomorrow by Orthopedic surgery. No chest pain. No palpitations. No fever. PHYSICAL EXAMINATION: Alert and oriented times three. Pulse 62, blood pressure 118/60, respirations 16, temperature 98.2, pulse ox 97% on room air. HEENT: Conjunctivae normal. NECK: No JVD. CARDIOVASCULAR: S1, S2 muffled. RESPIRATION: Breath sounds diminished in the bases. No rhonchi. No crackles. ABDOMEN: Soft, nontender. No mass palpable. LEGS: Minimal weakness on the right side present. LABS: Glucose 150. Other labs are noted. ASSESSMENT: 1. Weakness of the right side, possibly cervical myelopathy. 2. Cervical disc herniation C6-7. 3. Sinus bradycardia, possibly secondary to beta blockers. 4. Previous history of syncopal episode. 5. 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 6. Suicide ideation history. 7. History of cerebrovascular accident/transient ischemic attack. 8. Hypertension. 9. History of migraines. 10.History of cholecystectomy. 11.Anxiety, depression, posttraumatic stress disorder. 12.Obesity with body mass index of 36.3. RECOMMENDATIONS AND DISCUSSION: Recommend to continue current medications, monitoring and symptomatic treatment. Continue the rest of medications. DVT prophylaxis. Possible surgery tomorrow per Orthopedic surgery. Further recommendations to follow. MMODL / IJN: [id number] /
[2020-12-12] MEDS: QUEtiapine 100 MG TAB PO SCH (23:09)
[2020-12-12] MEDS: MELATONIN 5 MG TABLET PO SCH (23:09)
[2020-12-13] MEDS: SODIUM CHLORIDE 0.9% 1,000 ML IV SCH ×2 (04:16→18:50)
[2020-12-13 06:21] LABS: Glucose,Whole Blood 131 mg/dL (75-99)
[2020-12-13] MEDS: PANTOPRAZOLE 40 MG TABLET PO SCH (06:31)
[2020-12-13] MEDS: DEXAMETHASONE SOD PHOSPHATE 4 MG/ML 1 ML VIAL IV SCH ×3 (06:31→18:51)
[2020-12-13] MEDS: INSULIN ASPART (NovoLOG) 100 UNIT/ML VIAL SQ SCH ×4 (06:32→20:46)
[2020-12-13] MEDS: IBUPROFEN 600 MG TAB PO PRN (06:35)
[2020-12-13] MEDS ORDERED: HYDROmorphone 0.5 MG/0.5 ML SYRINGE IVP PRN (07:00)
[2020-12-13] MEDS: LIDOCAINE 4% (PF) 5 ML AMP IH SCH (10:04)
[2020-12-13 10:14] LABS: Glucose,Whole Blood 125 mg/dL (75-99)
[2020-12-13] MEDS ORDERED: IV FLUID CONTINUATION 750 ML IV ONE (10:19)
[2020-12-13] MEDS ORDERED: LACTATED RINGERS 1,000 ML IV ONE ×3 (10:20→15:54)
[2020-12-13] MEDS ORDERED: GLYCOPYRROLATE 0.2 MG/ML 2 ML VIAL IVP ONE (10:32)
--- NOTE | 2020-12-13 11:53 | P.PN ---
Subjective Progress Note Date: 12/13/20 Principal diagnosis: RUE weakness RLE weakness RUE radiculopathy Cervical myelopathy Pt s/e this AM. He is doing OK. Still having weakness in his RUE and RLE. States not out of bed. Denies any bowel or bladder issues. Denies any perineal numbness/tingling. no f/c/sob/cp at this time. Objective - Vital Signs Vital signs: Vital Signs Temp 98.1 F 12/13/20 09:35 Pulse 61 12/13/20 11:01 Resp 16 12/13/20 11:01 BP 130/74 12/13/20 11:01 Pulse Ox 97 12/13/20 11:01 Intake & Output 12/12/20 12/13/20 12/13/20 18:59 06:59 18:59 Intake Total 1510 10 0 Output Total 1375 1720 500 Balance 135 -1710 -500 Weight 113.3 kg 176.5 kg 175.5 kg Intake: IV 10 10 Invasive Line 2 10 10 Oral 1500 0 Output: Urine 1375 1720 500 Other: Voiding Method Urinal Urinal # Voids 1 10 # Bowel Movements 1 - Exam Exam is stable in the RUE today see below. Patient still has weakness in his right upper extremity. He still has pain in his right upper extremity. He has limited sensation over his deltoid on the right. No bowel bladder issues intact sensation. Intact sensation perirectal and scrotal. Still exhibits hyperreflexia as well as bilateral Hoffmans. PHYSICAL EXAMINATION: Vitals: Stable at this time. General: Awake, alert, appropriate for age, in no acute distress. HEENT: No unusual neck masses around region of lateral neck triangle, thyroid, supraclavicular groove. [Heart: Regular rate and rhythm, normal S1, S2 and no murmur/gallop.] [Lungs: Clear to auscultation bilaterally with no use of accessory muscles.] Extremities: Skin warm and dry without no acute lesions, coloration, temperature, skin intact, no tenderness or erythema. Integument: Hairy patches: Absent Dorsal skin dimples: Absent Cafe au lait spots: Absent Surgical incisions: None Palpation: Please see Pain drawing on Intake sheet for further detail. (Tenderness = T, Nontender = NT, Swelling = S, Ecchymosis = E) Findings on Midline and paraspinal palpation and percussion: Cervical: TTP Thoracic: NT Lumbar: NT Sacral: NT Special findings: None POSTURAL and MUSCULO-SKELETAL EVALUATION: Shoulder ROM: Symmetric in abduction, ER/IR, painful ROM of the R shoulder with passive and active ROM Hip ROM: Symmetric in abduction, adduction, ER/IR Knee ROM: Symmetric and intact in Flexion / extension Hands: Normal appearing structure L and R Feet: Normal appearing structure L and R VASCULAR STATUS : Wrist Pulses: [2/4 bilateral radial and ulnar] Pedal Pulses: [2/4 bilateral DP and PT] Color: [Normal] Edema: [None] NEUROLOGIC EXAMINATION: Mental Status: Awake and alert, fully oriented, with normal attention, concentration and memory, and fluent, appropriate speech. Cranial Nerves: I: Olfactory not tested. II: Visual acuity normal, no visual field deficit noted with confrontation. III,IV: Normal pupillary reflexes & intact extraocular movements without nystagmus. V,: Intact symmetrical facial sensation. VII: Intact symmetrical facial motor movement VIII: Hearing intact. IX,X: Intact gag, swallow, & normal voice. XI: Sternocleidomastoid, trapezius function intact. XII: Tongue midline with normal movements. Special Tests: L'hermitte's Sign: Absent Spurling'Sign: Absent Bilateral Cubital percussion test: Absent Bilateral Erick-Tinel sign - Carpal region: Absent Bilateral Straight Leg Raising: Absent Bilateral Motor Exam (0-5/5, N/T) STRENGTH UPPER EXTREMITY Shoulder Abd (Not part of YAZMIN Motor score): RIGHT [4] LEFT [5] Elbow Flexors: RIGHT [4-] LEFT [5] Elbow Extensor: RIGHT [4-] LEFT [5] Wrrist Dorsiflexors: RIGHT [4-] LEFT [5] Finger Abductor: RIGHT [3] LEFT [5] Leadite Worker: RIGHT [4-] LEFT [5] Cooperation efforts continue to confound exam findings on the Right UE and LE. When distracted, can observe him moving his RLE under his blankets which would likely be at least a 3/5 strength in most facet. LOWER EXTREMITY Hip Flexor (Not part of YAZMIN Motor Score): RIGHT [4] LEFT [5] Knee Flexor: RIGHT [4-] LEFT [5] Knee Extensor: RIGHT [4-] LEFT [5] Ankle Dorsiflexion: RIGHT [4-] LEFT [5] Ankle Plantarflexion: RIGHT [4-] LEFT [5] EHL: RIGHT [4+] LEFT [5] FHL: RIGHT [4+] LEFT [5] Cooperation efforts confound exam findings on the RLE REFLEXES Biecp: RIGHT [3] LEFT [3] Tricep: RIGHT [3] LEFT [3] Brachioradialis: RIGHT [3] LEFT [3] Patellar: RIGHT [3] LEFT [3] Achilles: RIGHT [3] LEFT [3] Pathological Reflexes Bird's: RIGHT PRESENT LEFT PRESENT Babinski: RIGHT [Absent] LEFT [Absent] Clonus: RIGHT [None] LEFT [None] SENSORY Joint Position: [Intact bilaterally] Vibration [Intact bilaterally] Pain and LT sense [Intact C5-T1 and L2-S1] Dermatomal deficit [None] Gait and Functional Evaluation: Ambulatory aids: Walker currently, normally nothing Romberg's test: Intact bilaterally. Hand and finger dexterity intact bilaterally[]. Disdiadochokinesis examination negative[] on the Left but positive on the RIGHT - Labs CBC & Chem 7: 12/09/20 08:17 12/09/20 08:17 Labs: Abnormal Lab Results - Last 24 Hours (Table) 12/12/20 12/12/20 12/12/20 Range/Units 12:26 17:13 17:14 POC Glucose (mg/dL) 175 H 166 H 150 H (75-99) mg/dL 12/12/20 12/13/20 12/13/20 Range/Units 20:24 06:19 10:08 POC Glucose (mg/dL) 187 H 131 H 125 H (75-99) mg/dL Assessment and Plan Assessment: 1. 40 yo male with RUE and RLE weakness with episodic numbness/tingling 2. 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 Cervical spondylotic myelopathy 4. Complex medical history 5. No evidence demyelenating disease. Plan: We have added him to the schedule for Saturday for C6-7 ACDF -Appreciate medicine cardio and neurology management. Symptom Control: -Pain control: Adequate at this time . -Continue Decadron -Aggressive ambulation protocol. OOB with all meals. OOB or in chair 4-5x daily. -PT/OT Prophylaxis: -TEDs, SCDs, mechanical ppx. -GI ppx. -Stop Lovenox for surgery tomorrow Imaging/labs: -No new imaging -Trend labs as appropriate Intervention: Nothing by mouth at midnight Stop Lovenox Antibiotics preop hold Spine Surgery Risk Review Shekhar hernandez is a 40-year-old male presenting for evaluation of right upper extremity weakness numbness and tingling and pain with right lower extremity weakness difficulty with ambulation progressive changes. It was my pleasure to have seen and examined Shekhar hernandez. In our visit today we have had a chance to go over subjective complaints, physic al examination findings and treatments including the natural course history without intervention and various interventional options. The patients imaging demonstrates C6-C7 extruded disc herniation with myelomalacia and myelopathy. On physical exam, Shekhar hernandez demonstrates right upper extremity weakness bilateral Jose signs lower extremity hyperreflexia upper extremity) hyperreflexia myelopathic changes. I have explained to the patient that as their condition progresses it will cause further neurological deficits and eventual paralysis. Based on the patients imaging, physical exam, and the rapid progression and disabling nature of their symptoms, at this time I recommend surgery in the form or a: Anterior cervical discectomy and fusion C6-C7. I discussed the risk and benefits of this procedure at length with Shekhar hernandez. The patient and his mother agreed to considered pursuing the procedure abovementioned. Prior to surgery, she should follow up with her PCP (Cardio, ID, IM etc) for clearance. Questions were invited and answered, and the patient wishes to proceed as outlined below. Currently, I am recommendin. C6-C7 anterior cervical discectomy and fusion 2. Follow up with PCP for surgical clearance 3. Review of surgical risks and benefits as well as an educational packet on the proposed surgical procedure. Risks: All surgical procedures come with inherent risks, including those related to positioning, anesthesia, intraoperative findings, and postoperative complications. It is important to understand that surgery does not come with any guarantee of a successful outcome as complications and adverse events are always possible. The patient was given a handout in office today discussing the surgical procedure and risks associated with the intervention, both of which were discussed with the patient. These risks include but are not limited to the following: * Experiencing same, different or even worse symptoms in back, neck, arms, or legs compared to before surgery. * Requiring further surgery or other forms of treatment presently or at some time in the future at same or other levels of the intended spine surgery. * On an extreme but fortunately relatively rare basis severe complication such as blindness, stroke, heart attack, temporary and/or permanent nerve injury, paralysis, coma, or may occur, sometimes without known explanation. * Surgical complications may include but are not limited to risk of infection, fluid accumulation in the surgical dissection site, including a seroma or hematoma, that requires additional surgery, wound drainage, bleeding, new numbness or weakness, vision changes/loss, spinal fluid leakage, non-healing and/or infected incision, headaches, difficulty or inability to swallow, hoarseness, hemopneumothorax, pneumothorax, impotence, retrograde ejaculation, vaginal dryness; injury to nerves, spinal cord, blood vessels, lymphatics or other vital organs (i.e., bowel injury, injury to the great vessels); heterotopic bone formation; complications related to the hardware such as screws, rods, cages including misplaced hardware, device failure, instrumentation at the wrong spine level, hardware fracture/breakage, or hardware loosening; vertebral failure of the spinal column above or below the newly placed hardware; retained surgical instrumentations or devices and the need for further surgery. * Medical risks of the planned spine surgery include but are not limited to generalized Infections to the whole body or local areas outside of the surgical site (sepsis), heart attack, bleeding, anaphylaxis, meningitis, seizure, epilepsy, hearing loss, burn sofia, laceration of the head or other areas of the body, bruising, hypersensitivity of the skin, bladder over distension; allergic reaction; shoulder injury related to positioning; fat, bl ood and air clots to other areas of the body like heart, lungs, brain; failure of internal organs such as lungs, kidneys, liver and excessive bleeding. If blood transfusions are necessary, note that transfusions may cause intolerance reactions such as anaphylaxis or other complex reactions. * Despite best efforts, the results of spine surgery might not heal in terms of bone, soft tissues such as skin, fascia, ligaments, and joints. Additionally, in order to achieve best possible results, spine surgery may be carried out beyond the initially planned levels and involve decompression, fusion incl uding insertion of hardware at levels other than the original intended area of surgical interest change some portions of the procedure in order to ensure the best possible outcomes. * With spine surgery and spinal fusion, there are different off label uses of instrumentation (devices, implants and hardware) as well as biological substances (bone morphogenic proteins, demineralized bone matrix) as well as using extra bone from allograft sources (i.e. cadaver bone) or autograft (iliac crest bone, ribs, or the spine itself). The patient has been given information about these practices and their inherent risks and benefits. * [facility] is an educational center that serves as a training facility for neurosurgical and orthopedic spine residents and fellows. Residents are physicians who are completing their surgical intensive training following medical school. They assist in the operating room with direct supervision of the attending surgeons. [place] are surgeons who have com pleted their training and eligible for board certification. They have opted for an elective year of more specialized training in their field. They assist in the operating room under the supervision of the attending surgeons. Physician assistants are medically trained surgical providers who function in the outpatient, inpatient, and operating room setting under the direct supervision of the attending surgeon. * [facility] has multiple operating rooms with single and overlapping rooms running daily. They currently function under the required guidelines as produced by the [facility] Finance Committee with regards to the overlapping rooms and will continue to comply with changes to this policy as they occur. The requirements include and are complied with as follows: (1) the critical portions of the overlapping rooms will not occur at the same time, (2) the attending physician will be physically present during the critical portions of the procedure and immediately available during the entire case, and (3) a back-up attending is designated should the primary attending not be imm ediately available. The patient has had a chance to review all the listed information, has been giv en print outs detailing this information, and has had all his/her questions answered to their satisfaction. It was my pleasure to have seen and examined Shekhar Hernandez. In our visit today we have had a chance to go over my understanding of our patient's current condition, the natural course history without intervention and various interventional options. Questions were invited and answered, and the patient wishes to proceed as outlined above. I have seen and examined the patient for 25 minutes and we have spent more than 50% of the time in repeat and detailed counseling about the patient's condition, its natural course history with out and as much as can be predicted with surgery and re-review of various surgical treatment options. In conclusion, Shekhar Hernandez and his mother requested we proceed with the above suggested surgery and are willing to accept risks and limitations of the suggested surgery as nature of the disease process and our best attempts at treatment for the condition. Thank you again for allowing us to be part of your patient's care. Please don't hesitate to contact me if you have any further questions. Signed and authenticated by: [facility] [id number] [id number]
[2020-12-13] MEDS ORDERED: ceFAZolin 3 GM in SODIUM CHLORIDE 0.9% 100 ML IVPB ONE (12:00)
[2020-12-13] MEDS ORDERED: LIDOCAINE 4% (PF) 5 ML AMP IH ONE (12:30)
[2020-12-13] MEDS ORDERED: SUCCINYLCHOLINE CHLORIDE 100 MG/5 ML SYR IV ONE (12:50)
[2020-12-13] MEDS ORDERED: KETAMINE 10 MG/ML 20 ML VIAL ONE (12:50)
[2020-12-13] MEDS ORDERED: DEXAMETHASONE SOD PHOSPHATE 10 MG/ML 1 ML VIAL ONE (12:50)
[2020-12-13] MEDS ORDERED: PROPOFOL 10 MG/ML 20 ML VIAL IV ONE (12:50)
[2020-12-13] MEDS ORDERED: fentaNYL (PF) 50 MCG/ML 2 ML AMP ONE (12:50)
[2020-12-13] MEDS ORDERED: MIDAZOLAM 2 MG/2 ML VIAL ONE (12:50)
[2020-12-13] MEDS ORDERED: THROMBIN (BOVINE) 5,000 UNIT VIAL TOPICAL ONE (12:54)
[2020-12-13] MEDS ORDERED: BUPIVACAINE (PF) 0.5% 30 ML VIAL SQ ONE (12:54)
[2020-12-13] MEDS ORDERED: GELATIN SPONGE,ABSORB (LARGE) 1 EACH SPONGE TOPICAL ONE (12:54)
[2020-12-13] MEDS ORDERED: LIDOCAINE 2%-EPI 1:100,000 20 ML VIAL SQ ONE (12:54)
--- NOTE | 2020-12-13 15:56 | FL ---
Fluoroscopy History: Cervical fusion 46 SEC FL
[2020-12-13 17:22] LABS: ABG Base Excess 3.8 mmol/L; ABG HCO3 29 mmol/L (21-25); ABG Oxygen Saturation 99.4 % (94-97); ABG PCO2 46 mmHg (35-45); ABG PO2 171 mmHg (83-108); ABG TCO2 30 mmol/L (19-24); Allen Test Performed? Yes
--- NOTE | 2020-12-13 18:23 | P.PN ---
Subjective Progress Note Date: 12/13/20 Principal diagnosis: Right-sided weakness/possible right-sided cervical myelopathy Evaluated 40-year-old gentleman this a.m., resting comfortably in bed. She has significant history of cervical disc herniation from C6 to C7, secondary bradycardia possibly due to beta blockers, syncopal episodes, steroid-induced diabetes type 2 suicidal ideation history, history of cerebrovascular accident/transient ischemic attack, hypertension, history of migraines, anxiety depression posttraumatic stress disorder. On evaluation this a.m. patient is resting comfortably in bed noted to have right-sided weakness patient awaiting, cervical intervention with orthopedics this a.m. patient denies any fever, chills, chest pain, palpitations, abdominal pain, nausea, vomiting, diarrhea, or new additional symptoms. Objective - Vital Signs Vital signs: Vital Signs Temp 97.0 F L 12/13/20 16:18 Pulse 55 L 12/13/20 18:00 Resp 22 12/13/20 18:00 BP 110/55 12/13/20 18:00 Pulse Ox 98 12/13/20 18:00 Intake & Output 12/12/20 12/13/20 12/13/20 18:59 06:59 18:59 Intake Total 1510 10 2050 Output Total 1375 1720 1775 Balance 135 -1710 275 Weight 113.3 kg 176.5 kg 175.5 kg Intake: IV 10 10 2050 Invasive Line 2 10 10 Oral 1500 0 Output: Urine 1375 1720 1700 Estimated Blood Loss 75 Other: Voiding Method Urinal Urinal # Voids 1 10 # Bowel Movements 1 - Constitutional General appearance: Present: cooperative - EENT Eyes: Present: EOMI, PERRLA ENT: Present: normal oropharynx Ears: bilateral: normal - Neck Neck: Present: normal ROM Thyroid: bilateral: normal size - Respiratory Respiratory: bilateral: CTA (Throughout lung roman) - Cardiovascular Details: Normal sinus rhythm Heart rate: 74 Rhythm: regular Heart sounds: normal: S1, S2 - Peripheral pulses radial pulse Peripheral Pulses: bilateral: Normal dorsalis pedis Peripheral Pulses: bilateral: Normal - Gastrointestinal General gastrointestinal: Present: normal bowel sounds - Integumentary Integumentary: Present: pale - Neurologic Neurologic: Present: CNII-XII intact - Musculoskeletal Musculoskeletal: Present: generalized weakness, right sided weakness - Psychiatric Psychiatric: Present: A&O x's 3, appropriate affect, intact judgment & insight - Allied health notes Allied health notes reviewed: nursing - Labs CBC & Chem 7: 12/09/20 08:17 12/09/20 08:17 Labs: Abnormal Lab Results - Last 24 Hours (Table) 12/12/20 12/13/20 12/13/20 Range/Units 20:24 06:19 10:08 ABG pCO2 (35-45) mmHg ABG pO2 (83-108) mmHg ABG HCO3 (21-25) mmol/L ABG Total CO2 (19-24) mmol/L ABG O2 Saturation (94-97) % POC Glucose (mg/dL) 187 H 131 H 125 H (75-99) mg/dL 12/13/20 Range/Units 17:18 ABG pCO2 46 H (35-45) mmHg ABG pO2 171 H (83-108) mmHg ABG HCO3 29 H (21-25) mmol/L ABG Total CO2 30 H (19-24) mmol/L ABG O2 Saturation 99.4 H (94-97) % POC Glucose (mg/dL) (75-99) mg/dL Assessment and Plan Assessment: Weakness of right side, possibly cervical myelopathy Cervical disc herniation C6 to C7 Sinus bradycardia possibly due to beta blockers Previous history of syncopal episode Elevated blood sugars possibly due to steroids History of suicidal ideation History of cerebrovascular accident/transient ischemic attack Hypertension History of migraines History of cholecystectomy Anxiety, depression, posttraumatic stress disorder Obesity Plan: Continue current medications, monitor symptomatic treatment, continue the rest of medications, DVT prophylaxis Orthopedic surgery plan this a.m. Continue home medications Continue medical management Further recommendations based on patient's clinical status Time with Patient: Greater than 30
[2020-12-13] MEDS: polyethylene glycoL 3350 17 GM POWD.PACK PO SCH (18:49)
[2020-12-13] MEDS: LOSARTAN 50 MG TAB PO SCH (18:49)
[2020-12-13] MEDS: lamoTRIgine 25 MG TAB PO SCH ×2 (18:49→20:59)
[2020-12-13] MEDS: VENLAFAXINE HCL ER 75 MG CAP PO SCH (18:50)
[2020-12-13] MEDS: LACTATED RINGERS 1,000 ML IV SCH (18:50)
[2020-12-13 19:02] LABS: Glucose,Whole Blood 111 mg/dL (75-99)
--- NOTE | 2020-12-13 20:41 | P.PN ---
Progress Note - Text Progress Note Date: 12/13/20 Patient seen and examined by series resting comfortably nursing at bedside vital signs are stable at this time soft c-collar in place patient was moving all 4 extremities per nursing just earlier and had re-sedated him. No other events at this time. He will likely be extubated in the morning with anesthesia bedside Pain control as needed CT C-spine in the a.m. when extubated Continue Decadron Flexeril [place] senna gabapentin when awake and able to take Appreciate ICU management
[2020-12-13] MEDS: ATORVASTATIN 40 MG TAB PO SCH (20:43)
[2020-12-13] MEDS: MELATONIN 5 MG TABLET PO SCH (20:43)
[2020-12-13] MEDS: CYANOCOBALAMIN 500 MCG TAB PO SCH (20:44)
[2020-12-13 20:48] LABS: Glucose,Whole Blood 94 mg/dL (75-99)
[2020-12-13] MEDS: ceFAZolin 3 GM in SODIUM CHLORIDE 0.9% 100 ML IVPB SCH (20:49)
[2020-12-13] MEDS: QUEtiapine 100 MG TAB PO SCH (20:59)
[2020-12-13 21:18] LABS: African American GFR (CKD) >90 (>60 ml/min/1.73 sqM); Anion Gap 5 mmol/L; Blood Urea Nitrogen 23 mg/dL (9-20); Calcium 8.1 mg/dL (8.4-10.2); Carbon Dioxide 27 mmol/L (22-30); Chloride 103 mmol/L (98-107); Glucose 113 mg/dL (74-99); Non-African American GFR(CKD) >90 (>60 ml/min/1.73 sqM); Potassium 4.6 mmol/L (3.5-5.1); Sodium 135 mmol/L (137-145)
[2020-12-14] MEDS: DEXAMETHASONE SOD PHOSPHATE 4 MG/ML 1 ML VIAL IV SCH ×4 (00:37→18:49)
[2020-12-14] MEDS: SODIUM CHLORIDE 0.9% 1,000 ML IV SCH ×3 (00:38→21:00)
[2020-12-14 05:04] LABS: ABG Base Excess 4.7 mmol/L; ABG HCO3 28 mmol/L (21-25); ABG Oxygen Saturation 98.8 % (94-97); ABG PCO2 39 mmHg (35-45); ABG PH 7.47 (7.35-7.45); ABG PO2 124 mmHg (83-108); ABG TCO2 30 mmol/L (19-24); Allen Test Performed? Yes
[2020-12-14] MEDS: ceFAZolin 3 GM in SODIUM CHLORIDE 0.9% 100 ML IVPB SCH ×3 (05:13→21:07)
[2020-12-14 05:58] LABS: Glucose,Whole Blood 122 mg/dL (75-99)
[2020-12-14 06:28] LABS: Basophils % (A) 0 %; Eosinophils # (A) 0.1 k/uL (0-0.7); Eosinophils % (A) 0 %; HCT 44.3 % (39.0-53.0); HGB 15.4 gm/dL (13.0-17.5); Lymphocytes # (A) 1.3 k/uL (1.0-4.8); Lymphocytes % (A) 9 %; MCH 30.6 pg (25.0-35.0); MCHC 34.7 g/dL (31.0-37.0); MCV 88.2 fL (80.0-100.0); Mean Platelet Volume 7.4; Monocytes % (A) 7 %; Neutrophils # (A) 11.9 k/uL (1.3-7.7); Neutrophils % (A) 83 %; Platelet Count 293 k/uL (150-450); RBC 5.02 m/uL (4.30-5.90); RDW 13.4 % (11.5-15.5); WBC 14.4 k/uL (3.8-10.6)
[2020-12-14] MEDS: INSULIN ASPART (NovoLOG) 100 UNIT/ML VIAL SQ SCH ×3 (06:38→18:41)
[2020-12-14 06:52] LABS: ALT 19 U/L (4-49); AST 30 U/L (17-59); African American GFR (CKD) >90 (>60 ml/min/1.73 sqM); Alkaline Phosphatase 52 U/L (38-126); Anion Gap 9 mmol/L; Blood Urea Nitrogen 25 mg/dL (9-20); Calcium 8.5 mg/dL (8.4-10.2); Carbon Dioxide 24 mmol/L (22-30); Chloride 107 mmol/L (98-107); Glucose 137 mg/dL (74-99); Magnesium 2.6 mg/dL (1.6-2.3); Non-African American GFR(CKD) >90 (>60 ml/min/1.73 sqM); Potassium 5.9 mmol/L (3.5-5.1); Sodium 140 mmol/L (137-145); Total Bilirubin 0.6 mg/dL (0.2-1.3); Total Protein 5.3 g/dL (6.3-8.2)
--- NOTE | 2020-12-14 08:45 | XR ---
EXAMINATION TYPE: XR chest 1V DATE OF EXAM: 12/14/2020 COMPARISON: 12/07/2020 INDICATION: Intubated difficulty breathing TECHNIQUE: Single frontal view of the chest is obtained semiupright position. FINDINGS: The heart size is normal. The pulmonary vasculature is normal. No significant infiltrates are identified. Minimal increased density may be at the lung bases Endotracheal tube tip is above the zulma. Nasogastric tube transverses the thorax IMPRESSION: 1. Lines and catheters discussed above. 2. Minimal subsegmental atelectasis in otherwise normal chest x-ray
--- NOTE | 2020-12-14 09:20 | P.PN ---
Subjective Progress Note Date: 12/14/20 Principal diagnosis: RUE weakness RLE weakness RUE radiculopathy Cervical myelopathy Patient seen and examined this morning in the ICU. He is still vented and sedated. He is not responding to commands currently. No acute events overnight. The patient's monitor does show bradycardia at this time however its normal sinus rhythm. No other issues noted. Objective - Vital Signs Vital signs: Vital Signs Temp 97.6 F 12/14/20 04:00 Pulse 54 L 12/14/20 07:00 Resp 18 12/14/20 07:00 BP 143/88 12/14/20 07:00 Pulse Ox 98 12/14/20 07:00 Intake & Output 12/13/20 12/14/20 12/14/20 18:59 06:59 18:59 Intake Total 2050 1655.001 100 Output Total 1790 3080 250 Balance 260 -1424.999 -150 Weight 175.5 kg 148.1 kg Intake: IV 0 1300 100 Sodium Chloride 0.9% 1, 1200 100 000 ml @ 100 mls/hr IV . Q10H [facility] Rx#:[id number] ceFAZolin 3 gm In Sodium 100 Chloride 0.9% 100 ml @ 200 mls/hr IVPB ONCE ONE Rx#:[id number] Intake, IV Titration 355.001 Amount propofoL 1,000 mg In 355.001 Empty Bag 1 bag @ Titrate IV .Q0M [facility] Rx#: [id number] Oral 0 Output: Drainage 20 Back 20 Urine 1700 3060 250 Estimated Blood Loss 90 Other: Voiding Method Indwelling Catheter - Exam Currently not following commands. Does slightly wince and retract to pain in all 4 extremities. Palpable distal pulses in all 4 extremities. Negative Babinski's negative clonus. Mild Bird still present bilaterally but better - Labs CBC & Chem 7: 12/14/20 05:33 12/14/20 05:29 Labs: Abnormal Lab Results - Last 24 Hours (Table) 12/13/20 12/13/20 12/13/20 Range/Units 10:08 17:18 19:00 WBC (3.8-10.6) k/uL Neutrophils # (1.3-7.7) k/uL ABG pH (7.35-7.45) ABG pCO2 46 H (35-45) mmHg ABG pO2 171 H (83-108) mmHg ABG HCO3 29 H (21-25) mmol/L ABG Total CO2 30 H (19-24) mmol/L ABG O2 Saturation 99.4 H (94-97) % Sodium (137-145) mmol/L Potassium (3.5-5.1) mmol/L BUN (9-20) mg/dL Glucose (74-99) mg/dL POC Glucose (mg/dL) 125 H 111 H (75-99) mg/dL Calcium (8.4-10.2) mg/dL Magnesium (1.6-2.3) mg/dL Total Protein (6.3-8.2) g/dL Albumin (3.5-5.0) g/dL 12/13/20 12/14/20 12/14/20 Range/Units 20:58 05:02 05:29 WBC (3.8-10.6) k/uL Neutrophils # (1.3-7.7) k/uL ABG pH 7.47 H (7.35-7.45) ABG pCO2 (35-45) mmHg ABG pO2 124 H (83-108) mmHg ABG HCO3 28 H (21-25) mmol/L ABG Total CO2 30 H (19-24) mmol/L ABG O2 Saturation 98.8 H (94-97) % Sodium 135 L (137-145) mmol/L Potassium 5.9 H (3.5-5.1) mmol/L BUN 23 H 25 H (9-20) mg/dL Glucose 113 H 137 H (74-99) mg/dL POC Glucose (mg/dL) (75-99) mg/dL Calcium 8.1 L (8.4-10.2) mg/dL Magnesium 2.6 H (1.6-2.3) mg/dL Total Protein 5.3 L (6.3-8.2) g/dL Albumin 3.0 L (3.5-5.0) g/dL 12/14/20 12/14/20 Range/Units 05:33 05:56 WBC 14.4 H (3.8-10.6) k/uL Neutrophils # 11.9 H (1.3-7.7) k/uL ABG pH (7.35-7.45) ABG pCO2 (35-45) mmHg ABG pO2 (83-108) mmHg ABG HCO3 (21-25) mmol/L ABG Total CO2 (19-24) mmol/L ABG O2 Saturation (94-97) % Sodium (137-145) mmol/L Potassium (3.5-5.1) mmol/L BUN (9-20) mg/dL Glucose (74-99) mg/dL POC Glucose (mg/dL) 122 H (75-99) mg/dL Calcium (8.4-10.2) mg/dL Magnesium (1.6-2.3) mg/dL Total Protein (6.3-8.2) g/dL Albumin (3.5-5.0) g/dL Assessment and Plan Assessment: 1. 40 yo male with RUE and RLE weakness with episodic numbness/tingling 2. 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 Cervical spondylotic myelopathy 4. Complex medical history 5. No evidence demyelenating disease. Plan: -Appreciate medicine ICU neurology and cardiology management. Symptom Control: -Pain control: Adequate at this time . Pending tests: -Aggressive ambulation protocol. OOB with all meals. OOB or in chair 4-5x daily. -PT/OT -Soft cervical collar to comfort Prophylaxis: -TEDs, SCDs, mechanical ppx. OK for heparin today. Early ambulation is best. -GI ppx. Imaging/labs: -Computed tomography scan of the lumbar spine pending at this time -Trend labs as appropriate Intervention: Soft cervical collar Await computed tomography scan PT OT when appropriate Dispo: Pending
[2020-12-14] MEDS: LOSARTAN 50 MG TAB PO SCH (09:33)
[2020-12-14] MEDS: PANTOPRAZOLE 40 MG TABLET PO SCH (09:33)
[2020-12-14] MEDS: LACTATED RINGERS 1,000 ML IV SCH (09:35)
[2020-12-14] MEDS: lamoTRIgine 25 MG TAB PO SCH ×2 (09:51→21:05)
--- NOTE | 2020-12-14 10:07 | P.PN ---
Subjective Progress Note Date: 12/14/20 Principal diagnosis: RUE weakness RLE weakness RUE radiculopathy Cervical myelopathy Evaluated 40-year-old gentleman this a.m., resting comfortably in bed. She has significant history of cervical disc herniation from C6 to C7, secondary bradycardia possibly due to beta blockers, syncopal episodes, steroid-induced diabetes type 2 suicidal ideation history, history of cerebrovascular accident/transient ischemic attack, hypertension, history of migraines, anxiety depression posttraumatic stress disorder. On evaluation this a.m. patient is resting comfortably in bed noted to have right-sided weakness patient awaiting, cervical intervention with orthopedics this a.m. patient denies any fever, chills, chest pain, palpitations, abdominal pain, nausea, vomiting, diarrhea, or new additional symptoms. December 14, 2020 Evaluated patient this a.m., postsurgical invention through orthopedics for cervical fusion. Patient resting comfortably on ventilator, sedation in place an d expected patient to be intubated per pulmonary critical care will follow-up CAT scan of the neck. Awaiting for expert opinion from pulmonary critical care for further recommendations and treatment plan. Diagnostics and vital signs reviewed Objective - Vital Signs Vital signs: Vital Signs Temp 97.6 F 12/14/20 04:00 Pulse 54 L 12/14/20 07:00 Resp 18 12/14/20 07:00 BP 143/88 12/14/20 07:00 Pulse Ox 98 12/14/20 07:00 Intake & Output 12/13/20 12/14/20 12/14/20 18:59 06:59 18:59 Intake Total 2049 1655.001 300 Output Total 1790 3080 600 Balance 260 -1424.999 -300 Weight 175.5 kg 148.1 kg Intake: IV 2049 1300 300 Sodium Chloride 0.9% 1, 1200 300 000 ml @ 100 mls/hr IV . Q10H [facility] Rx#:[id number] ceFAZolin 3 gm In Sodium 100 Chloride 0.9% 100 ml @ 200 mls/hr IVPB ONCE ONE Rx#:[id number] Intake, IV Titration 355.001 Amount propofoL 1,000 mg In 355.001 Empty Bag 1 bag @ Titrate IV .Q0M [facility] Rx#: [id number] Oral 0 Output: Drainage 20 Back 20 Urine 1700 3060 600 Estimated Blood Loss 90 Other: Voiding Method Indwelling Catheter - Constitutional Constitutional Comment(s): Sedated on ventilator - EENT EENT Comment(s): Sedated on ventilator Ears: bilateral: normal - Neck Details: C-collar in place due to post cervical fusion Thyroid: bilateral: normal size - Respiratory Respiratory: bilateral: CTA - Cardiovascular Details: Sinus bradycardia Heart rate: 57 Rhythm: regular Heart sounds: normal: S1, S2 - Peripheral pulses dorsalis pedis Peripheral Pulses: bilateral: Normal radial pulse Peripheral Pulses: bilateral: Normal - Gastrointestinal Gastrointestinal Comment(s): Oral gastric tube in place - Integumentary Integumentary: Present: pale - Allied health notes Allied health notes reviewed: nursing - Labs CBC & Chem 7: 12/14/20 05:33 12/14/20 09:00 Labs: Abnormal Lab Results - Last 24 Hours (Table) 12/13/20 12/13/20 12/13/20 Range/Units 10:08 17:18 19:00 WBC (3.8-10.6) k/uL Neutrophils # (1.3-7.7) k/uL ABG pH (7.35-7.45) ABG pCO2 46 H (35-45) mmHg ABG pO2 171 H (83-108) mmHg ABG HCO3 29 H (21-25) mmol/L ABG Total CO2 30 H (19-24) mmol/L ABG O2 Saturation 99.4 H (94-97) % Sodium (137-145) mmol/L Potassium (3.5-5.1) mmol/L BUN (9-20) mg/dL Glucose (74-99) mg/dL POC Glucose (mg/dL) 125 H 111 H (75-99) mg/dL Calcium (8.4-10.2) mg/dL Magnesium (1.6-2.3) mg/dL Total Protein (6.3-8.2) g/dL Albumin (3.5-5.0) g/dL 12/13/20 12/14/20 12/14/20 Range/Units 20:58 05:02 05:29 WBC (3.8-10.6) k/uL Neutrophils # (1.3-7.7) k/uL ABG pH 7.47 H (7.35-7.45) ABG pCO2 (35-45) mmHg ABG pO2 124 H (83-108) mmHg ABG HCO3 28 H (21-25) mmol/L ABG Total CO2 30 H (19-24) mmol/L ABG O2 Saturation 98.8 H (94-97) % Sodium 135 L (137-145) mmol/L Potassium 5.9 H (3.5-5.1) mmol/L BUN 23 H 25 H (9-20) mg/dL Glucose 113 H 137 H (74-99) mg/dL POC Glucose (mg/dL) (75-99) mg/dL Calcium 8.1 L (8.4-10.2) mg/dL Magnesium 2.6 H (1.6-2.3) mg/dL Total Protein 5.3 L (6.3-8.2) g/dL Albumin 3.0 L (3.5-5.0) g/dL 12/14/20 12/14/20 Range/Units 05:33 05:56 WBC 14.4 H (3.8-10.6) k/uL Neutrophils # 11.9 H (1.3-7.7) k/uL ABG pH (7.35-7.45) ABG pCO2 (35-45) mmHg ABG pO2 (83-108) mmHg ABG HCO3 (21-25) mmol/L ABG Total CO2 (19-24) mmol/L ABG O2 Saturation (94-97) % Sodium (137-145) mmol/L Potassium (3.5-5.1) mmol/L BUN (9-20) mg/dL Glucose (74-99) mg/dL POC Glucose (mg/dL) 122 H (75-99) mg/dL Calcium (8.4-10.2) mg/dL Magnesium (1.6-2.3) mg/dL Total Protein (6.3-8.2) g/dL Albumin (3.5-5.0) g/dL Assessment and Plan Assessment: Weakness of right side, possibly cervical myelopathy Cervical disc herniation C6 to C7 Sinus bradycardia possibly due to beta blockers Previous history of syncopal episode Elevated blood sugars possibly due to steroids History of suicidal ideation History of cerebrovascular accident/transient ischemic attack Hypertension History of migraines History of cholecystectomy Anxiety, depression, posttraumatic stress disorder Obesity Plan: Continue current medications, monitor symptomatic treatment, continue the rest of medications, DVT prophylaxis continue follow treatment from ortho for cervical fusion Continue home medications Continue medical management Further recommendations based on patient's clinical status Time with Patient: Greater than 30
[2020-12-14] MEDS: VENLAFAXINE HCL ER 75 MG CAP PO SCH ×2 (13:11→20:59)
[2020-12-14 13:20] LABS: Glucose,Whole Blood 103 mg/dL (75-99)
--- NOTE | 2020-12-14 14:41 | P.CNPUL ---
History of Present Illness Consult date: 12/14/20 Requesting physician: Jean-Claude Buenrostro Reason for consult: other Chief complaint: Inability to extubate patient after surgery. History of present illness: This is a 40-year-old male, who we were asked to see after he had a C6-C7 fusion. Apparently, the patient was not able to be extubated after his operation. Currently, the patient is resting comfortably in the ICU room 265. He's postop day #1. He is on the volume assist control mode, with a rate of 18, tidal volume 500, FiO2 50%, and PEEP of 5. Arterial blood gases show a PaO2 of 124, CO2 39, and the pH is 7.47. The blood gases are consistent with mild hyperoxia, and a metabolic alkalosis. The patient is getting saline at 100 mL an hour, and propofol at 40 mcg/kg/m. On rounds today, I asked the respiratory therapist and primary nurse to do a daily interruption of sedation, with spontaneous breathing trial, and weaning parameters. Apparently yesterday when I was called, the patient did not have a cuff leak. The patient was placed on Decadron. White count 14.4, hemoglobin 15.4, hematocrit 44.3, platelet count 393,000. Sodium 140, potassium 5.9, chlorides 107, CO2 24, anion gap 9 BUN 25, creatinine 0.85. Chest x-ray shows some bilateral basilar minimal atelectasis. Review of Systems Op a 14 point review of systems cannot be obtained, as the patient is currently intubated, mechanically ventilated, and sedated. Past Medical History Past Medical History: CVA/TIA, Hypertension Additional Past Medical History / Comment(s): MIGRAINES History of Any Multi-Drug Resistant Organisms: None Reported Past Surgical History: Cholecystectomy Additional Past Surgical History / Comment(s): WISDOM TEETH EXTRACTIONS Past Anesthesia/Blood Transfusion Reactions: Postoperative Nausea & Vomiting (PONV) Additional Past Anesthesia/Blood Transfusion Reaction / Comment(s): Patient has no previous surgical history EXCEPT FOR TOOTH EXTRACTIONS. Past Psychological History: Anxiety, Depression, PTSD Smoking Status: Never smoker Past Alcohol Use History: None Reported Additional Past Alcohol Use History / Comment(s): Patient states that he drinks alcohol twice yearly. Past Drug Use History: None Reported Additional Drug Use History / Comment(s): Patient denies history of drug use. - Past Family History Father Family Medical History: No Reported History Mother Family Medical History: Diabetes Mellitus, Fibromyalgia, GERD/Reflux Additional Family Medical History / Comment(s): VERTIGO Medications and Allergies Home Medications Medication Instructions Recorded Confirmed Type Metoprolol Tartrate [Lopressor] 25 mg PO BID 03/25/20 12/06/20 History Aspirin 81 mg PO DAILY #30 chewable 05/04/20 12/06/20 Rx Atorvastatin [Lipitor] 40 mg PO HS 12/06/20 12/06/20 History Cyanocobalamin (Vitamin B-12) 1,000 mcg PO HS 12/06/20 12/06/20 History [Vitamin B-12] Losartan [Cozaar] 50 mg PO DAILY 12/06/20 12/06/20 History Venlafaxine HCl [Effexor XR] 150 mg PO DAILY 12/06/20 12/06/20 History lamoTRIgine [LaMICtal] 50 mg PO BID 12/06/20 12/06/20 History traZODone HCL [Desyrel] 50 - 100 mg PO HS 12/06/20 12/06/20 History Allergies Allergy/AdvReac Type Severity Reaction Status Date / Time aripiprazole [From Abilify] Allergy Rash/Hives, Verified 12/13/20 09:37 AGITATION doxycycline AdvReac Interaction Verified 12/13/20 09:37 w/psych meds & Rash Physical Exam Osteopathic Statement: *. No significant issues noted on an osteopathic structural exam other than those noted in the History and Physical/Consult. Vitals: Vital Signs Temp Pulse Pulse Resp BP BP BP 12/14/20 14:00 48 L 18 165/81 12/14/20 13:00 50 L 18 152/79 12/14/20 12:00 97.6 F 50 L 22 134/83 12/14/20 11:00 45 L 21 138/88 12/14/20 10:00 45 L 18 140/80 12/14/20 09:00 46 L 18 143/91 12/14/20 08:00 47 L 21 154/99 12/14/20 07:00 54 L 18 143/88 12/14/20 06:00 45 L 18 124/72 12/14/20 05:00 42 L 18 128/82 12/14/20 04:00 97.6 F 45 L 18 119/75 12/14/20 03:00 45 L 18 116/75 12/14/20 02:00 48 L 18 129/82 12/14/20 01:00 49 L 18 116/68 12/14/20 00:04 50 L 18 116/68 12/14/20 00:00 97.3 F L 48 L 18 114/78 12/13/20 23:30 48 L 18 115/68 12/13/20 23:00 51 L 18 113/67 12/13/20 22:30 50 L 18 112/68 12/13/20 22:00 50 L 18 115/67 12/13/20 21:30 53 L 18 112/62 12/13/20 21:00 53 L 18 115/79 12/13/20 20:30 53 L 18 109/78 12/13/20 20:00 97.9 F 52 L 18 128/78 12/13/20 19:30 52 L 18 137/78 12/13/20 19:05 97.9 F 57 L 16 145/83 12/13/20 18:30 56 L 16 113/57 12/13/20 18:11 55 L 17 108/55 12/13/20 18:00 55 L 22 110/55 12/13/20 17:45 56 L 16 111/59 12/13/20 17:11 59 L 22 115/57 12/13/20 17:00 64 22 119/58 12/13/20 16:53 64 22 117/59 12/13/20 16:49 67 22 117/57 12/13/20 16:41 63 22 120/59 12/13/20 16:18 97.0 F L 57 L 16 109/57 Pulse Ox 12/14/20 14:00 98 12/14/20 13:00 98 12/14/20 12:00 96 12/14/20 11:00 97 12/14/20 10:00 97 12/14/20 09:00 97 12/14/20 08:00 96 12/14/20 07:00 98 12/14/20 06:00 100 12/14/20 05:00 98 12/14/20 04:00 100 12/14/20 03:00 97 12/14/20 02:00 98 12/14/20 01:00 100 12/14/20 00:04 97 12/14/20 00:00 98 12/13/20 23:30 98 12/13/20 23:00 98 12/13/20 22:30 97 12/13/20 22:00 97 12/13/20 21:30 97 12/13/20 21:00 98 12/13/20 20:30 99 12/13/20 20:00 99 12/13/20 19:30 98 12/13/20 19:05 100 12/13/20 18:30 99 12/13/20 18:11 98 12/13/20 18:00 98 12/13/20 17:45 98 12/13/20 17:11 98 12/13/20 17:00 98 12/13/20 16:53 95 12/13/20 16:49 94 L 12/13/20 16:41 95 12/13/20 16:18 96 Intake and Output 12/13/20 12/14/20 12/14/20 22:59 06:59 14:59 Intake Total 436.057 3778.222 759.391 Output Total 1970 2099 1999 Balance -1198.221 -1016.778 -1240.609 Intake: IV 700 800 600 Sodium Chloride 0.9% 1, 400 800 600 000 ml @ 100 mls/hr IV . Q10H [facility] Rx#:[id number] ceFAZolin 3 gm In Sodium 100 Chloride 0.9% 100 ml @ 200 mls/hr IVPB ONCE ONE Rx#:[id number] Intake, IV Titration 71.779 283.222 159.391 Amount propofoL 1,000 mg In 71.779 283.222 159.391 Empty Bag 1 bag @ Titrate IV .Q0M [facility] Rx#: [id number] Oral 0 Output: Drainage 20 Back 20 Urine 0 2079 1999 Estimated Blood Loss 90 Other: Voiding Method Indwelling Catheter Indwelling Catheter Weight 148.1 kg No acute distress, sedated, and mechanically ventilated.. HEENT examination is grossly unremarkable. Neck supple. Full range of motion. No adenopathy thyromegaly or neck vein distention. Cardiovascular examination reveals regular rhythm rate. S1-S2 normal. No S3 or S4. No discernible murmur noted. Heart rate 50 bpm. Lungs reveal clear breath sounds. Her sounds are equal bilaterally. No adventitious lung sounds including wheezes rhonchi or crackles. Abdomen soft bowel sounds are heard. No masses or tenderness. Extremities are intact. No cyanosis clubbing or edema. Skin is without rash or lesion. Neurologic examination cannot be assessed as the patient is currently sedated. Results - Laboratory Findings CBC and BMP: 12/14/20 05:33 12/14/20 09:00 ABG ABG pH 7.47 (7.35-7.45) H 12/14/20 05:02 ABG pCO2 39 mmHg (35-45) 12/14/20 05:02 ABG pO2 124 mmHg (83-108) H 12/14/20 05:02 ABG O2 Saturation 98.8 % (94-97) H 12/14/20 05:02 PT/INR, D-dimer PT 10.0 sec (9.0-12.0) 12/06/20 10:17 INR 0.9 (<1.2) 12/06/20 10:17 Abnormal lab findings: Abnormal Labs 12/06/20 12/07/20 12/08/20 10:17 06:42 09:50 WBC Neutrophils # ABG pH ABG pCO2 ABG pO2 ABG HCO3 ABG Total CO2 ABG O2 Saturation Sodium Potassium Chloride 108 H BUN Glucose 116 H POC Glucose (mg/dL) Calcium Magnesium Total Protein Albumin HDL Cholesterol 31 L 12/08/20 12/08/20 12/08/20 13:59 16:55 20:22 WBC Neutrophils # ABG pH ABG pCO2 ABG pO2 ABG HCO3 ABG Total CO2 ABG O2 Saturation Sodium Potassium Chloride BUN Glucose POC Glucose (mg/dL) 119 H 152 H 208 H Calcium Magnesium Total Protein Albumin HDL Cholesterol 12/09/20 12/09/20 12/09/20 02:38 05:46 08:17 WBC 13.6 H Neutrophils # 11.7 H ABG pH ABG pCO2 ABG pO2 ABG HCO3 ABG Total CO2 ABG O2 Saturation Sodium Potassium Chloride BUN Glucose POC Glucose (mg/dL) 172 H 193 H Calcium Magnesium Total Protein Albumin HDL Cholesterol 12/09/20 12/09/20 12/09/20 08:17 12:21 17:09 WBC Neutrophils # ABG pH ABG pCO2 ABG pO2 ABG HCO3 ABG Total CO2 ABG O2 Saturation Sodium Potassium Chloride BUN Glucose 175 H POC Glucose (mg/dL) 125 H 111 H Calcium Magnesium Total Protein Albumin HDL Cholesterol 12/09/20 12/10/20 12/10/20 20:14 06:12 12:00 WBC Neutrophils # ABG pH ABG pCO2 ABG pO2 ABG HCO3 ABG Total CO2 ABG O2 Saturation Sodium Potassium Chloride BUN Glucose POC Glucose (mg/dL) 136 H 140 H 171 H Calcium Magnesium Total Protein Albumin HDL Cholesterol 12/10/20 12/10/20 12/11/20 16:56 20:00 05:59 WBC Neutrophils # ABG pH ABG pCO2 ABG pO2 ABG HCO3 ABG Total CO2 ABG O2 Saturation Sodium Potassium Chloride BUN Glucose POC Glucose (mg/dL) 133 H 174 H 121 H Calcium Magnesium Total Protein Albumin HDL Cholesterol 12/11/20 12/11/20 12/11/20 12:03 17:26 20:25 WBC Neutrophils # ABG pH ABG pCO2 ABG pO2 ABG HCO3 ABG Total CO2 ABG O2 Saturation Sodium Potassium Chloride BUN Glucose POC Glucose (mg/dL) 119 H 143 H 159 H Calcium Magnesium Total Protein Albumin HDL Cholesterol 12/12/20 12/12/20 12/12/20 05:56 12:26 17:13 WBC Neutrophils # ABG pH ABG pCO2 ABG pO2 ABG HCO3 ABG Total CO2 ABG O2 Saturation Sodium Potassium Chloride BUN Glucose POC Glucose (mg/dL) 168 H 175 H 166 H Calcium Magnesium Total Protein Albumin HDL Cholesterol 12/12/20 12/12/20 12/13/20 17:14 20:24 06:19 WBC Neutrophils # ABG pH ABG pCO2 ABG pO2 ABG HCO3 ABG Total CO2 ABG O2 Saturation Sodium Potassium Chloride BUN Glucose POC Glucose (mg/dL) 150 H 187 H 131 H Calcium Magnesium Total Protein Albumin HDL Cholesterol 12/13/20 12/13/20 12/13/20 10:08 17:18 19:00 WBC Neutrophils # ABG pH ABG pCO2 46 H ABG pO2 171 H ABG HCO3 29 H ABG Total CO2 30 H ABG O2 Saturation 99.4 H Sodium Potassium Chloride BUN Glucose POC Glucose (mg/dL) 125 H 111 H Calcium Magnesium Total Protein Albumin HDL Cholesterol 12/13/20 12/14/20 12/14/20 20:58 05:02 05:29 WBC Neutrophils # ABG pH 7.47 H ABG pCO2 ABG pO2 124 H ABG HCO3 28 H ABG Total CO2 30 H ABG O2 Saturation 98.8 H Sodium 135 L Potassium 5.9 H Chloride BUN 23 H 25 H Glucose 113 H 137 H POC Glucose (mg/dL) Calcium 8.1 L Magnesium 2.6 H Total Protein 5.3 L Albumin 3.0 L HDL Cholesterol 12/14/20 12/14/20 12/14/20 05:33 05:56 13:19 WBC 14.4 H Neutrophils # 11.9 H ABG pH ABG pCO2 ABG pO2 ABG HCO3 ABG Total CO2 ABG O2 Saturation Sodium Potassium Chloride BUN Glucose POC Glucose (mg/dL) 122 H 103 H Calcium Magnesium Total Protein Albumin HDL Cholesterol - Diagnostic Findings Chest x-ray: image reviewed Assessment and Plan Assessment: Postop day 1, status post C6/C7 fusion with inability to extubate the patient in the operating room. The patient was a difficult intubation, requiring fiberoptic equipment. Routine postoperative ventilator management. History of CVA. History of hypertension. History of migraine cephalgia. History of anxiety/depression/PTSD. Plan: Plan dated 12/14/2020. The patient will have a daily eruption of sedation. We'll do a spontaneous breathing trial on pressure support of 5 and CPAP of 5. In addition, we'll get a full set a weaning parameters including a rapid shallow breathing index, and a cuff leak test. He is currently on Decadron for his upper airway edema. No additional recommendations are made. Prognosis is guarded. We will only ex tubate the patient if he has a good cuff leak, and adequate weaning parameters. Time with Patient: Greater than 30
--- NOTE | 2020-12-14 14:50 | P.PN ---
Subjective Progress Note Date: 12/14/20 12/14/2020: Patient was seen in the ICU. Patient was not able to be extubated yesterday. Patient currently on 40 g of propofol. Plan is for extubation today. 12/13/2020: Patient in OR 12/12/2020: Patient is a 40-year-old male came to the hospital on 12/06/2020 with sudden onset of right-sided numbness and weakness. Patient states he has previous history of multiple strokes, that affected right side of the body. Currently on aspirin. He follows up with Dr. Jeremiah Verde, and was not process of evaluation at the [facility]. Patient states that on Saturday he had a bad episode, when he couldn't get up and he was paralyzed "waist down". He has numbness of right-sided arm and leg. Also has lot of memory issues. Patient states that he had fell down a flight of 20 stairs 2 years ago. He has neck pain and low back pain. He rates his neck pain 12 on a scale of 1-10. He states that he gets pain in the neck, then goes to the right side of the body and he loses feeling. It has happened 5 times in the past. Patient's blood test shows WBC 13.6 hemoglobin 14.8, platelets 264. PT/PTT normal. Patient's hemoglobin A1c 5.4 on 05/04/2020. Patient's total cholesterol is 128, LDL 70, HDL 31 and triglycerides 135. B12 is 531, folate is normal. TSH normal. Castro virus negative. MRI of the cervical spine from 12/07/2020 shows C6 7 extruded disc herniation paracentrally and to the left ventral cord contact and early compressive myelopathy suggested. Left paracentral disc protrusion at C2 3 with left neural foraminal encroachment. MRI is normal. There is a 5.5 mm focus of increased signal involving the subcortical white matter as well as additional focus within the juxtacortical white matter of the right frontal lobe. These are nonspecific findings and may be related to chronic migraine, vasculitis, Lyme disease or a demyelinating process. MRI lumbar spine 12/08/2020 shows left paracentral disc bulge L5-S1, with some mild broad-based disc bulging. The focal protrusion has a moderate anterior thecal sac compression and possible left S1 nerve root displacement posteriorly within the spinal canal. MRI thoracic spine from 12/08/2020 shows right paracentral disc bulge present previously has moderate right anterior lateral cord flattening. Small right paracentral disc bulge and/or endplate 18 89 with mild anterior thecal sac compression. Objective - Vital Signs Vital signs: Vital Signs Temp 97.6 F 12/14/20 12:00 Pulse 48 L 12/14/20 14:00 Resp 18 12/14/20 14:00 BP 165/81 12/14/20 14:00 Pulse Ox 98 12/14/20 14:00 Intake & Output 12/13/20 12/14/20 12/14/20 18:59 06:59 18:59 Intake Total 2049 1655.001 759.391 Output Total 1790 3080 1999 Balance 260 -1424.999 -1240.609 Weight 175.5 kg 148.1 kg Intake: IV 2049 1300 600 Sodium Chloride 0.9% 1, 1200 600 000 ml @ 100 mls/hr IV . Q10H [facility] Rx#:[id number] ceFAZolin 3 gm In Sodium 100 Chloride 0.9% 100 ml @ 200 mls/hr IVPB ONCE ONE Rx#:[id number] Intake, IV Titration 355.001 159.391 Amount propofoL 1,000 mg In 355.001 159.391 Empty Bag 1 bag @ Titrate IV .Q0M [facility] Rx#: [id number] Oral 0 Output: Drainage 20 Back 20 Urine 1700 3060 2000 Estimated Blood Loss 90 Other: Voiding Method Indwelling Catheter - Exam Patient is currently sedated on propofol 40 g. Pupils are round and reacting. Patient is intubated. Oculocephalics not checked. Tone is equal bilaterally. Patient has Babinski on the right but downgoing on the left. - Labs CBC & Chem 7: 12/14/20 05:33 12/14/20 09:00 Labs: Abnormal Lab Results - Last 24 Hours (Table) 12/13/20 12/13/20 12/13/20 Range/Units 17:18 19:00 20:58 WBC (3.8-10.6) k/uL Neutrophils # (1.3-7.7) k/uL ABG pH (7.35-7.45) ABG pCO2 46 H (35-45) mmHg ABG pO2 171 H (83-108) mmHg ABG HCO3 29 H (21-25) mmol/L ABG Total CO2 30 H (19-24) mmol/L ABG O2 Saturation 99.4 H (94-97) % Sodium 135 L (137-145) mmol/L Potassium (3.5-5.1) mmol/L BUN 23 H (9-20) mg/dL Glucose 113 H (74-99) mg/dL POC Glucose (mg/dL) 111 H (75-99) mg/dL Calcium 8.1 L (8.4-10.2) mg/dL Magnesium (1.6-2.3) mg/dL Total Protein (6.3-8.2) g/dL Albumin (3.5-5.0) g/dL 12/14/20 12/14/20 12/14/20 Range/Units 05:02 05:29 05:33 WBC 14.4 H (3.8-10.6) k/uL Neutrophils # 11.9 H (1.3-7.7) k/uL ABG pH 7.47 H (7.35-7.45) ABG pCO2 (35-45) mmHg ABG pO2 124 H (83-108) mmHg ABG HCO3 28 H (21-25) mmol/L ABG Total CO2 30 H (19-24) mmol/L ABG O2 Saturation 98.8 H (94-97) % Sodium (137-145) mmol/L Potassium 5.9 H (3.5-5.1) mmol/L BUN 25 H (9-20) mg/dL Glucose 137 H (74-99) mg/dL POC Glucose (mg/dL) (75-99) mg/dL Calcium (8.4-10.2) mg/dL Magnesium 2.6 H (1.6-2.3) mg/dL Total Protein 5.3 L (6.3-8.2) g/dL Albumin 3.0 L (3.5-5.0) g/dL 12/14/20 12/14/20 Range/Units 05:56 13:19 WBC (3.8-10.6) k/uL Neutrophils # (1.3-7.7) k/uL ABG pH (7.35-7.45) ABG pCO2 (35-45) mmHg ABG pO2 (83-108) mmHg ABG HCO3 (21-25) mmol/L ABG Total CO2 (19-24) mmol/L ABG O2 Saturation (94-97) % Sodium (137-145) mmol/L Potassium (3.5-5.1) mmol/L BUN (9-20) mg/dL Glucose (74-99) mg/dL POC Glucose (mg/dL) 122 H 103 H (75-99) mg/dL Calcium (8.4-10.2) mg/dL Magnesium (1.6-2.3) mg/dL Total Protein (6.3-8.2) g/dL Albumin (3.5-5.0) g/dL Assessment and Plan Assessment: * 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 * Previous history of possible TIA/CVA * Depressive disorder unspecified, likely adjustment disorder with depressed mood versus major depressive disorder. * History of PTSD. * Obesity * Lumbosacral spondylosis. Plan: * Patient had undergone C6-7 ACDF yesterday. Patient is still on mechanical ventilation. Possible extubation today. * Patient had a normal CTA of head and neck on 12/06/2020. No flow-limiting stenosis bilateral carotid bifurcations. Normal [facility]. * 2-D echo showed normal left-ventricular size, mild concentric LVH. EF is 55- 60%. * Hemoglobin A1c 5.4 * Lipid panel with cholesterol 128, LDL 70, HDL 31 and triglycerides 135. * Blood pressure 136/72.
[2020-12-14] MEDS: polyethylene glycoL 3350 17 GM POWD.PACK PO SCH (16:25)
[2020-12-14 18:41] LABS: Glucose,Whole Blood 104 mg/dL (75-99)
[2020-12-14] MEDS: QUEtiapine 100 MG TAB PO SCH (20:59)
[2020-12-14] MEDS: ATORVASTATIN 40 MG TAB PO SCH (20:59)
[2020-12-14] MEDS: MELATONIN 5 MG TABLET PO SCH (20:59)
[2020-12-14] MEDS: CYANOCOBALAMIN 500 MCG TAB PO SCH (20:59)
--- NOTE | 2020-12-14 23:26 | CT ---
EXAMINATION TYPE: CT cervical spine wo con DATE OF EXAM: 12/14/2020 COMPARISON: December 09, 2020 HISTORY: post-op cervical fusion CT DLP: 649 mGycm Automated exposure control for dose reduction was used. Images were obtained from the skull base to T1 vertebra without contrast. Cervical vertebra have normal alignment. There is plate with screws fusing anteriorly the cervical sp ine at C6-7. Disc spaces are fairly normal. There is disc prosthesis at C6-7. Facet joints are intact . The skull base is intact. There is normal aeration of the mastoid sinuses. I see no bony destructiv e process. IMPRESSION: Anterior fusion surgery. No complicating process seen. No adverse change compared to previous exam.
[2020-12-14] MEDS ORDERED: CISATRACURIUM 2 MG/ML 5 ML VIAL IV ONE (23:31)
[2020-12-14] MEDS ORDERED: CISATRACURIUM 200 MG in SODIUM CHLORIDE 0.9% 180 ML IV SCH (23:45)
[2020-12-15] MEDS: INSULIN ASPART (NovoLOG) 100 UNIT/ML VIAL SQ SCH ×5 (00:49→21:03)
[2020-12-15] MEDS: DEXAMETHASONE SOD PHOSPHATE 4 MG/ML 1 ML VIAL IV SCH ×5 (01:11→23:49)
[2020-12-15] MEDS: ceFAZolin 3 GM in SODIUM CHLORIDE 0.9% 100 ML IVPB SCH ×3 (05:52→21:03)
[2020-12-15 06:45] LABS: Basophils % (A) 0 %; Eosinophils % (A) 0 %; HCT 44.3 % (39.0-53.0); HGB 14.9 gm/dL (13.0-17.5); Lymphocytes % (A) 9 %; MCH 29.7 pg (25.0-35.0); MCHC 33.6 g/dL (31.0-37.0); MCV 88.4 fL (80.0-100.0); Mean Platelet Volume 6.4; Monocytes # (A) 0.7 k/uL (0-1.0); Monocytes % (A) 7 %; Neutrophils # (A) 9.3 k/uL (1.3-7.7); Neutrophils % (A) 83 %; Platelet Count 292 k/uL (150-450); RBC 5.01 m/uL (4.30-5.90); RDW 13.3 % (11.5-15.5); WBC 11.1 k/uL (3.8-10.6)
[2020-12-15 06:58] LABS: ALT 15 U/L (4-49); AST 15 U/L (17-59); African American GFR (CKD) >90 (>60 ml/min/1.73 sqM); Albumin 2.9 g/dL (3.5-5.0); Alkaline Phosphatase 64 U/L (38-126); Anion Gap 3 mmol/L; Blood Urea Nitrogen 24 mg/dL (9-20); Carbon Dioxide 28 mmol/L (22-30); Chloride 105 mmol/L (98-107); Glucose 167 mg/dL (74-99); Magnesium 2.7 mg/dL (1.6-2.3); Non-African American GFR(CKD) >90 (>60 ml/min/1.73 sqM); Potassium 4.2 mmol/L (3.5-5.1); Sodium 136 mmol/L (137-145); Total Bilirubin 0.5 mg/dL (0.2-1.3); Total Protein 5.1 g/dL (6.3-8.2)
[2020-12-15 06:59] LABS: Glucose,Whole Blood 151 mg/dL (75-99)
[2020-12-15] MEDS: PANTOPRAZOLE 40 MG TABLET PO SCH (07:09)
--- NOTE | 2020-12-15 08:35 | P.PN ---
Subjective Progress Note Date: 12/15/20 Principal diagnosis: RUE weakness RLE weakness RUE radiculopathy Cervical myelopathy Evaluated 40-year-old gentleman this a.m., resting comfortably in bed. She has significant history of cervical disc herniation from C6 to C7, secondary bradycardia possibly due to beta blockers, syncopal episodes, steroid-induced diabetes type 2 suicidal ideation history, history of cerebrovascular accident/transient ischemic attack, hypertension, history of migraines, anxiety depression posttraumatic stress disorder. On evaluation this a.m. patient is resting comfortably in bed noted to have right-sided weakness patient awaiting, cervical intervention with orthopedics this a.m. patient denies any fever, chills, chest pain, palpitations, abdominal pain, nausea, vomiting, diarrhea, or new additional symptoms. December 14, 2020 Evaluated patient this a.m., postsurgical invention through orthopedics for cervical fusion. Patient resting comfortably on ventilator, sedation in place an d expected patient to be intubated per pulmonary critical care will follow-up CAT scan of the neck. Awaiting for expert opinion from pulmonary critical care for further recommendations and treatment plan. Diagnostics and vital signs reviewed 12/15/2020 Evaluated patient this a.m., post intervention through orthopedist for cervical fusion. Patient was extubated around 1400 yesterday. Upon evaluation this a.m. patient is awake alert and oriented and following commands appropriately. Patient denies any complaints at this time. Diagnostic testing reviewed from a medical standpoint patient is able to transfer to cardiac stepdown or MedSurg telemetry. Awaiting recommendations from orthopedic spinal surgeon Objective - Vital Signs Vital signs: Vital Signs Temp 98.9 F 12/15/20 04:00 Pulse 51 L 12/15/20 07:00 Resp 18 12/15/20 07:00 BP 115/67 12/15/20 07:00 Pulse Ox 95 12/15/20 07:00 Intake & Output 12/14/20 12/15/20 12/15/20 18:59 06:59 18:59 Intake Total 7675.890 3391 100 Output Total 2400 1425 100 Balance -1240.609 -25 0 Weight 143.1 kg Intake: IV 1000 1400 100 Sodium Chloride 0.9% 1, 1000 1200 100 000 ml @ 100 mls/hr IV . Q10H [facility] Rx#:[id number] ceFAZolin 3 gm In Sodium 200 Chloride 0.9% 100 ml @ 200 mls/hr IVPB Q8H [facility] Rx#:[id number] Intake, IV Titration 159.391 Amount propofoL 1,000 mg In 159.391 Empty Bag 1 bag @ Titrate IV .Q0M [facility] Rx#: [id number] Output: Urine 2400 1425 100 Other: Voiding Method Indwelling Catheter Indwelling Catheter - Constitutional General appearance: Present: cooperative, mild distress - EENT Eyes: Present: EOMI, PERRLA ENT: Present: normal oropharynx Ears: bilateral: normal - Neck Details: Soft c-collar in place NAJMA drain draining serosanguineous fluid Carotids: bilateral: upstroke normal Thyroid: bilateral: normal size - Respiratory Respiratory: bilateral: CTA (Anterior lung roman), diminished (Posterior lung roman) - Cardiovascular Details: Sinus bradycardia Heart rate: 64 Rhythm: regular - Peripheral edema ankle Peripheral Edema: bilateral: Trace - Peripheral pulses radial pulse Peripheral Pulses: bilateral: Normal dorsalis pedis Peripheral Pulses: bilateral: Normal - Gastrointestinal General gastrointestinal: Present: hyperactive bowel sounds - Integumentary Integumentary: Present: pale - Neurologic Neurologic: Present: CNII-XII intact - Musculoskeletal Musculoskeletal Comment(s): Right-sided strength upper extremity and lower extremity +3 Left-sided strength upper extremity and lower extremity +5 - Psychiatric Psychiatric: Present: A&O x's 3, appropriate affect, intact judgment & insight - Allied health notes Allied health notes reviewed: nursing - Labs CBC & Chem 7: 12/15/20 06:19 12/15/20 06:19 Labs: Abnormal Lab Results - Last 24 Hours (Table) 12/14/20 12/14/20 12/15/20 Range/Units 13:19 18:40 06:19 WBC 11.1 H (3.8-10.6) k/uL Neutrophils # 9.3 H (1.3-7.7) k/uL Sodium (137-145) mmol/L BUN (9-20) mg/dL Glucose (74-99) mg/dL POC Glucose (mg/dL) 103 H 104 H (75-99) mg/dL Calcium (8.4-10.2) mg/dL Magnesium (1.6-2.3) mg/dL AST (17-59) U/L Total Protein (6.3-8.2) g/dL Albumin (3.5-5.0) g/dL 12/15/20 12/15/20 Range/Units 06:19 06:57 WBC (3.8-10.6) k/uL Neutrophils # (1.3-7.7) k/uL Sodium 136 L (137-145) mmol/L BUN 24 H (9-20) mg/dL Glucose 167 H (74-99) mg/dL POC Glucose (mg/dL) 151 H (75-99) mg/dL Calcium 8.0 L (8.4-10.2) mg/dL Magnesium 2.7 H (1.6-2.3) mg/dL AST 15 L (17-59) U/L Total Protein 5.1 L (6.3-8.2) g/dL Albumin 2.9 L (3.5-5.0) g/dL - Imaging and Cardiology CT of cervical spine reviewed Assessment and Plan Assessment: Weakness of right side, possibly cervical myelopathy Cervical disc herniation C6 to C7 Sinus bradycardia possibly due to beta blockers Previous history of syncopal episode Elevated blood sugars possibly due to steroids History of suicidal ideation History of cerebrovascular accident/transient ischemic attack Hypertension History of migraines History of cholecystectomy Anxiety, depression, posttraumatic stress disorder Obesity Full code Plan: Continue current medications, monitor symptomatic treatment, continue the rest of medications, DVT prophylaxis continue follow treatment from ortho for cervical fusion Continue home medications Continue medical management From a medical standpoint patient able to to go to cardiac stepdown [facility] telemetry surgical floor Further recommendations based on patient's clinical status Time with Patient: Greater than 30
--- NOTE | 2020-12-15 08:44 | P.PN ---
Subjective Progress Note Date: 12/15/20 Principal diagnosis: RUE weakness RLE weakness RUE radiculopathy Cervical myelopathy Pt s/e this AM. Was extubated yesterday and has been doing well. He is alert and answering all questions. He states he fells quite well. Denies any new numbness/tingling/weakness. States his RUE feels better. States he is able to move his RLE better although not perfect. Denies any PAREKH/f/c/sob/cp/change in vision/n/v today. Denies any perineal numbness tingling. Has not been out of b ed as of yet but plans on it sometime today. Drain in place. Minimal output. Objective - Vital Signs Vital signs: Vital Signs Temp 98.9 F 12/15/20 04:00 Pulse 51 L 12/15/20 07:00 Resp 18 12/15/20 07:00 BP 115/67 12/15/20 07:00 Pulse Ox 95 12/15/20 07:00 Intake & Output 12/14/20 12/15/20 12/15/20 18:59 06:59 18:59 Intake Total 9687.585 3576 100 Output Total 2400 1425 100 Balance -1240.609 -25 0 Weight 143.1 kg Intake: IV 1000 1400 100 Sodium Chloride 0.9% 1, 1000 1200 100 000 ml @ 100 mls/hr IV . Q10H [facility] Rx#:[id number] ceFAZolin 3 gm In Sodium 200 Chloride 0.9% 100 ml @ 200 mls/hr IVPB Q8H [facility] Rx#:[id number] Intake, IV Titration 159.391 Amount propofoL 1,000 mg In 159.391 Empty Bag 1 bag @ Titrate IV .Q0M [facility] Rx#: [id number] Output: Urine 2400 1425 100 Other: Voiding Method Indwelling Catheter Indwelling Catheter - Exam GEN AOX3 NAD VSS Symmetric chest rise RRR on monitor 4-5/5 strength RUE and LUE all major muscle groups. Some weakness in RUE still in deltoid but improved from previous exams 4-5/5 strength LLE and RLE all major muscle groups. Pt able to pick his RLE up off bed which is improvement from previous exams. SILT C5-T1 and L2-S1 with some C5 numbness in RUE still but pt states subjective improvement. NEG clonus, babinski. Mild Hoffmans R, Neg left. 2/4 distal pulses all Compartments soft compressive. - Labs CBC & Chem 7: 12/15/20 06:19 12/15/20 06:19 Labs: Abnormal Lab Results - Last 24 Hours (Table) 12/14/20 12/14/20 12/15/20 Range/Units 13:19 18:40 06:19 WBC 11.1 H (3.8-10.6) k/uL Neutrophils # 9.3 H (1.3-7.7) k/uL Sodium (137-145) mmol/L BUN (9-20) mg/dL Glucose (74-99) mg/dL POC Glucose (mg/dL) 103 H 104 H (75-99) mg/dL Calcium (8.4-10.2) mg/dL Magnesium (1.6-2.3) mg/dL AST (17-59) U/L Total Protein (6.3-8.2) g/dL Albumin (3.5-5.0) g/dL 12/15/20 12/15/20 Range/Units 06:19 06:57 WBC (3.8-10.6) k/uL Neutrophils # (1.3-7.7) k/uL Sodium 136 L (137-145) mmol/L BUN 24 H (9-20) mg/dL Glucose 167 H (74-99) mg/dL POC Glucose (mg/dL) 151 H (75-99) mg/dL Calcium 8.0 L (8.4-10.2) mg/dL Magnesium 2.7 H (1.6-2.3) mg/dL AST 15 L (17-59) U/L Total Protein 5.1 L (6.3-8.2) g/dL Albumin 2.9 L (3.5-5.0) g/dL Assessment and Plan Assessment: 1. 40 yo male with RUE and RLE weakness with episodic numbness/tingling POD2 C6- 7 ACDF 2. 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 Cervical spondylotic myelopathy 4. Complex medical history 5. No evidence demyelenating disease. Plan: -Appreciate medicine ICU neurology and cardiology management. Symptom Control: -Pain control: Adequate at this time . Pending tests: -Aggressive ambulation protocol. OOB with all meals. OOB or in chair 4-5x daily. -PT/OT -Soft cervical collar to comfort Prophylaxis: -TEDs, SCDs, mechanical ppx. OK for heparin today. Early ambulation is best. -GI ppx. Imaging/labs: -CT reveals hardware at C6-7. No issues and good fixation -Trend labs as appropriate Intervention: Soft cervical collar PT OT Dispo: Pending
--- NOTE | 2020-12-15 09:05 | P.PN ---
Subjective Progress Note Date: 12/15/20 Principal diagnosis: Preoperative cardiac assessment This is a 40 year old we consulted to see for bradycardia and also for preoperative cardiac assessment. The patient was seen today 12/15/2020. He underwent surgery the day before yesterday. He is stable hemodynamically. The heart rate continues to be marginally low. The pressure is within normal limits. From the cardiovascular standpoint of view, we'll continue the current medical regimen and follow-up with the patient on when necessary case Objective - Vital Signs Vital signs: Vital Signs Temp 98.9 F 12/15/20 04:00 Pulse 51 L 12/15/20 07:00 Resp 18 12/15/20 07:00 BP 115/67 12/15/20 07:00 Pulse Ox 95 12/15/20 07:00 Intake & Output 12/14/20 12/15/20 12/15/20 18:59 06:59 18:59 Intake Total 5685.677 5199 100 Output Total 2400 1425 100 Balance -1240.609 -25 0 Weight 143.1 kg Intake: IV 1000 1400 100 Sodium Chloride 0.9% 1, 1000 1200 100 000 ml @ 100 mls/hr IV . Q10H [facility] Rx#:[id number] ceFAZolin 3 gm In Sodium 200 Chloride 0.9% 100 ml @ 200 mls/hr IVPB Q8H [facility] Rx#:[id number] Intake, IV Titration 159.391 Amount propofoL 1,000 mg In 159.391 Empty Bag 1 bag @ Titrate IV .Q0M [facility] Rx#: [id number] Output: Urine 2400 1425 100 Other: Voiding Method Indwelling Catheter Indwelling Catheter - Labs CBC & Chem 7: 12/15/20 06:19 12/15/20 06:19 Labs: Abnormal Lab Results - Last 24 Hours (Table) 12/14/20 12/14/20 12/15/20 Range/Units 13:19 18:40 06:19 WBC 11.1 H (3.8-10.6) k/uL Neutrophils # 9.3 H (1.3-7.7) k/uL Sodium (137-145) mmol/L BUN (9-20) mg/dL Glucose (74-99) mg/dL POC Glucose (mg/dL) 103 H 104 H (75-99) mg/dL Calcium (8.4-10.2) mg/dL Magnesium (1.6-2.3) mg/dL AST (17-59) U/L Total Protein (6.3-8.2) g/dL Albumin (3.5-5.0) g/dL 12/15/20 12/15/20 Range/Units 06:19 06:57 WBC (3.8-10.6) k/uL Neutrophils # (1.3-7.7) k/uL Sodium 136 L (137-145) mmol/L BUN 24 H (9-20) mg/dL Glucose 167 H (74-99) mg/dL POC Glucose (mg/dL) 151 H (75-99) mg/dL Calcium 8.0 L (8.4-10.2) mg/dL Magnesium 2.7 H (1.6-2.3) mg/dL AST 15 L (17-59) U/L Total Protein 5.1 L (6.3-8.2) g/dL Albumin 2.9 L (3.5-5.0) g/dL Assessment and Plan Assessment: Assessment #1 asymptomatic bradycardia #2 right arm and leg weakness #3 C6-C7 disc herniation #4 multiple comorbid conditions Plan #1 continue holding any AV taina sesar agents #2 the patient remains stable from a cardiovascular standpoint of view #3 follow-up with the patient on when necessary case
[2020-12-15] MEDS: SODIUM CHLORIDE 0.9% 1,000 ML IV SCH (09:11)
[2020-12-15] MEDS: polyethylene glycoL 3350 17 GM POWD.PACK PO SCH (10:11)
[2020-12-15] MEDS: VENLAFAXINE HCL ER 75 MG CAP PO SCH (10:17)
[2020-12-15] MEDS: lamoTRIgine 25 MG TAB PO SCH ×2 (10:17→21:03)
[2020-12-15] MEDS: LOSARTAN 50 MG TAB PO SCH (10:17)
[2020-12-15] MEDS: IBUPROFEN 600 MG TAB PO PRN (10:36)
--- NOTE | 2020-12-15 11:17 | P.PN ---
Subjective Progress Note Date: 12/15/20 Principal diagnosis: Mechanical ventilator management. This is a 40-year-old male, who we were asked to see after he had a C6-C7 fusion. Apparently, the patient was not able to be extubated after his operation. Currently, the patient is resting comfortably in the ICU room 265. He's postop day #1. He is on the volume assist control mode, with a rate of 18, tidal volume 500, FiO2 50%, and PEEP of 5. Arterial blood gases show a PaO2 of 124, CO2 39, and the pH is 7.47. The blood gases are consistent with mild hyperoxia, and a metabolic alkalosis. The patient is getting saline at 100 mL an hour, and propofol at 40 mcg/kg/m. On rounds today, I asked the respiratory therapist and primary nurse to do a daily interruption of sedation, with spontaneous breathing trial, and weaning parameters. Apparently yesterday when I was called, the patient did not have a cuff leak. The patient was placed on Decadron. White count 14.4, hemoglobin 15.4, hematocrit 44.3, platelet count 393,000. Sodium 140, potassium 5.9, chlorides 107, CO2 24, anion gap 9 BUN 25, creatinine 0.85. Chest x-ray shows some bilateral basilar minimal atelectasis. Progress note dated 12/15/2020. 40-year-old male, postoperative C6-C7 fusion. He's postop day #2 the patient was extubated at 3 PM, December 14. Currently, he is getting saline at 100 mL an hour, and is on nasal cannula at 3 L. He is doing well, and he can be transferred out of the intensive care unit to the general medical floor. Initially, the patient had some issues with the upper airway, did not have an adequate cuff leak. Is placed on Decadron for that. White count 11.1, hemoglobin hematocrit and platelet count are normal. Sodium 136, potassium 4.2, chlorides 105, CO2 28, anion gap 3, BUN 24, creatinine 0.92. There was no chest x-ray today. Objective - Vital Signs Vital signs: Vital Signs Temp 98.1 F 12/15/20 08:00 Pulse 63 12/15/20 10:00 Resp 19 12/15/20 10:00 BP 127/66 12/15/20 10:00 Pulse Ox 92 L 12/15/20 10:00 Intake & Output 12/14/20 12/15/20 12/15/20 18:59 06:59 18:59 Intake Total 4864.019 7992 200 Output Total 2400 1425 450 Balance -1240.609 -25 -250 Weight 143.1 kg Intake: IV 1000 1400 200 Sodium Chloride 0.9% 1, 1000 1200 200 000 ml @ 100 mls/hr IV . Q10H [facility] Rx#:[id number] ceFAZolin 3 gm In Sodium 200 Chloride 0.9% 100 ml @ 200 mls/hr IVPB Q8H [facility] Rx#:[id number] Intake, IV Titration 159.391 Amount propofoL 1,000 mg In 159.391 Empty Bag 1 bag @ Titrate IV .Q0M [facility] Rx#: [id number] Output: Urine 2400 1425 450 Other: Voiding Method Indwelling Catheter Indwelling Catheter - Exam No acute distress, on nasal O2 at 3 L... HEENT examination is grossly unremarkable. Neck supple. Full range of motion. No adenopathy thyromegaly or neck vein distention. Cardiovascular examination reveals regular rhythm rate. S1-S2 normal. No S3 or S4. No discernible murmur noted. Heart rate 63 bpm. Lungs reveal clear breath sounds. Her sounds are equal bilaterally. No adventitious lung sounds including wheezes rhonchi or crackles. Abdomen soft bowel sounds are heard. No masses or tenderness. Extremities are intact. No cyanosis clubbing or edema. Skin is without rash or lesion. Neurologic examination is brief but nonfocal. - Labs CBC & Chem 7: 12/15/20 06:19 12/15/20 06:19 Labs: Abnormal Lab Results - Last 24 Hours (Table) 12/14/20 12/14/20 12/15/20 Range/Units 13:19 18:40 06:19 WBC 11.1 H (3.8-10.6) k/uL Neutrophils # 9.3 H (1.3-7.7) k/uL Sodium (137-145) mmol/L BUN (9-20) mg/dL Glucose (74-99) mg/dL POC Glucose (mg/dL) 103 H 104 H (75-99) mg/dL Calcium (8.4-10.2) mg/dL Magnesium (1.6-2.3) mg/dL AST (17-59) U/L Total Protein (6.3-8.2) g/dL Albumin (3.5-5.0) g/dL 12/15/20 12/15/20 Range/Units 06:19 06:57 WBC (3.8-10.6) k/uL Neutrophils # (1.3-7.7) k/uL Sodium 136 L (137-145) mmol/L BUN 24 H (9-20) mg/dL Glucose 167 H (74-99) mg/dL POC Glucose (mg/dL) 151 H (75-99) mg/dL Calcium 8.0 L (8.4-10.2) mg/dL Magnesium 2.7 H (1.6-2.3) mg/dL AST 15 L (17-59) U/L Total Protein 5.1 L (6.3-8.2) g/dL Albumin 2.9 L (3.5-5.0) g/dL Assessment and Plan Assessment: Postop day 2, status post C6/C7 fusion with inability to extubate the patient in the operating room. The patient was a difficult intubation, requiring fiberoptic equipment. Routine postoperative ventilator management, status post extubation on December 14 at 3 PM. History of CVA. History of hypertension. History of migraine cephalgia. History of anxiety/depression/PTSD. Plan: Plan dated 12/14/2020. The patient will have a daily eruption of sedation. We'll do a spontaneous breathing trial on pressure support of 5 and CPAP of 5. In addition, we'll get a full set a weaning parameters including a rapid shallow breathing index, and a cuff leak test. He is currently on Decadron for his upper airway edema. No additional recommendations are made. Prognosis is guarded. We will only extubate the patient if he has a good cuff leak, and adequate weaning parameters. Plan dated 12/15/2020. The patient did well with his daily interruption of sedation. His spontaneous breathing trial went well, and his weaning parameters were excellent, with an excellent cuff leak. Hence, the patient was extubated on December 14, at 3 PM. He's currently on 3 L. He is getting saline at 100 mL an hour. The patient can be transferred out to the general medical floor. He is doing very well. Time with Patient: Less than 30
[2020-12-15 12:09] LABS: Glucose,Whole Blood 149 mg/dL (75-99)
[2020-12-15 17:25] LABS: Glucose,Whole Blood 128 mg/dL (75-99)
--- NOTE | 2020-12-15 18:21 | P.PN ---
Subjective Progress Note Date: 12/15/20 12/15/2020: Patient is extubated, transferred to the regular floor. Patient states that he is doing much better. No pain in the neck. He states his legs are getting stronger. He can feel sensations although still has some tingling in the legs. Denies any headache, problem with the vision. He has sub conjunctival hemorrhage on the right. 12/14/2020: Patient was seen in the ICU. Patient was not able to be extubated yesterday. Patient currently on 40 g of propofol. Plan is for extubation today. 12/13/2020: Patient in OR 12/12/2020: Patient is a 40-year-old male came to the hospital on 12/06/2020 with sudden onset of right-sided numbness and weakness. Patient states he has previous history of multiple strokes, that affected right side of the body. Currently on aspirin. He follows up with Dr. Jeremiah Verde, and was not process of evaluation at the [facility]. Patient states that on Saturday he had a bad episode, when he couldn't get up and he was paralyzed "waist down". He has numbness of right-sided arm and leg. Also has lot of memory issues. Patient states that he had fell down a flight of 20 stairs 2 years ago. He has neck pain and low back pain. He rates his neck pain 12 on a scale of 1-10. He states that he gets pain in the neck, then goes to the right side of the body and he loses feeling. It has happened 5 times in the past. Patient's blood test shows WBC 13.6 hemoglobin 14.8, platelets 264. PT/PTT normal. Patient's hemoglobin A1c 5.4 on 05/04/2020. Patient's total cholesterol is 128, LDL 70, HDL 31 and triglycerides 135. B12 is 531, folate is normal. TSH normal. Castro virus negative. MRI of the cervical spine from 12/07/2020 shows C6 7 extruded disc herniation paracentrally and to the left ventral cord contact and early compressive my elopathy suggested. Left paracentral disc protrusion at C2 3 with left neural foraminal encroachment. MRI is normal. There is a 5.5 mm focus of increased signal involving the subcortical white matter as well as additional focus within the juxtacortical white matter of the right frontal lobe. These are nonspecific findings and may be related to chronic migraine, vasculitis, Lyme disease or a demyelinating process. MRI lumbar spine 12/08/2020 shows left paracentral disc bulge L5-S1, with some mild broad-based disc bulging. The focal protrusion has a moderate anterior thecal sac compression and possible left S1 nerve root displacement posteriorly within the spinal canal. MRI thoracic spine from 12/08/2020 shows right paracentral disc bulge present previously has moderate right anterior lateral cord flattening. Small right paracentral disc bulge and/or endplate 18 89 with mild anterior thecal sac compression. Objective - Vital Signs Vital signs: Vital Signs Temp 98.3 F 12/15/20 11:36 Pulse 61 12/15/20 11:36 Resp 18 12/15/20 11:36 BP 118/67 12/15/20 11:36 Pulse Ox 91 L 12/15/20 11:36 Intake & Output 12/14/20 12/15/20 12/15/20 18:59 06:59 18:59 Intake Total 2784.466 2213 300 Output Total 2400 1425 450 Balance -1240.609 -25 -150 Weight 143.1 kg Intake: IV 1000 1400 300 Sodium Chloride 0.9% 1, 1000 1200 200 000 ml @ 100 mls/hr IV . Q10H [facility] Rx#:[id number] ceFAZolin 3 gm In Sodium 200 100 Chloride 0.9% 100 ml @ 200 mls/hr IVPB Q8H [facility] Rx#:[id number] Intake, IV Titration 159.391 Amount propofoL 1,000 mg In 159.391 Empty Bag 1 bag @ Titrate IV .Q0M [facility] Rx#: [id number] Output: Urine 2400 1425 450 Other: Voiding Method Indwelling Catheter Indwelling Catheter Indwelling Catheter # Voids 2 # Bowel Movements 1 - Exam Patient's mental status, speech and language functions are normal. Cranial nerves are normal. Muscle strength appears normal in the arms and legs. Very aggressive testing not performed because of recent surgery. Patient continues to have brisk reflexes with nonsustained clonus and possible Babinski. - Labs CBC & Chem 7: 12/15/20 06:19 12/15/20 06:19 Labs: Abnormal Lab Results - Last 24 Hours (Table) 12/14/20 12/15/20 12/15/20 Range/Units 18:40 06:19 06:19 WBC 11.1 H (3.8-10.6) k/uL Neutrophils # 9.3 H (1.3-7.7) k/uL Sodium 136 L (137-145) mmol/L BUN 24 H (9-20) mg/dL Glucose 167 H (74-99) mg/dL POC Glucose (mg/dL) 104 H (75-99) mg/dL Calcium 8.0 L (8.4-10.2) mg/dL Magnesium 2.7 H (1.6-2.3) mg/dL AST 15 L (17-59) U/L Total Protein 5.1 L (6.3-8.2) g/dL Albumin 2.9 L (3.5-5.0) g/dL 12/15/20 12/15/20 12/15/20 Range/Units 06:57 12:07 17:06 WBC (3.8-10.6) k/uL Neutrophils # (1.3-7.7) k/uL Sodium (137-145) mmol/L BUN (9-20) mg/dL Glucose (74-99) mg/dL POC Glucose (mg/dL) 151 H 149 H 128 H (75-99) mg/dL Calcium (8.4-10.2) mg/dL Magnesium (1.6-2.3) mg/dL AST (17-59) U/L Total Protein (6.3-8.2) g/dL Albumin (3.5-5.0) g/dL Assessment and Plan Assessment: * 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 * Previous history of possible TIA/CVA * Depressive disorder unspecified, likely adjustment disorder with depressed mood versus major depressive disorder. * History of PTSD. * Obesity * Lumbosacral spondylosis. Plan: * Patient had undergone C6-7 ACDF 12/13/2020. Patient is doing much better. His muscle strength has improved. Paresthesias has decreased. * Patient had a normal CTA of head and neck on 12/06/2020. No flow-limiting s tenosis bilateral carotid bifurcations. Normal [place]. * 2-D echo showed normal left-ventricular size, mild concentric LVH. EF is 55- 60%. * Hemoglobin A1c 5.4 * Lipid panel with cholesterol 128, LDL 70, HDL 31 and triglycerides 135. * Resume aspirin 81 mg when cleared from surgery standpoint. * PT OT and rehab. Neurologically clear. Neurology will sign off.
[2020-12-15 20:14] LABS: Glucose,Whole Blood 167 mg/dL (75-99)
[2020-12-15] MEDS: ATORVASTATIN 40 MG TAB PO SCH (21:03)
[2020-12-15] MEDS: CYANOCOBALAMIN 500 MCG TAB PO SCH (21:03)
[2020-12-15] MEDS: QUEtiapine 100 MG TAB PO SCH (23:50)
[2020-12-15] MEDS: MELATONIN 5 MG TABLET PO SCH (23:50)
[2020-12-16] MEDS: DEXAMETHASONE SOD PHOSPHATE 4 MG/ML 1 ML VIAL IV SCH ×3 (05:43→17:57)
[2020-12-16] MEDS: ceFAZolin 3 GM in SODIUM CHLORIDE 0.9% 100 ML IVPB SCH ×3 (05:44→20:27)
[2020-12-16 05:46] LABS: Basophils % (A) 0 %; Eosinophils % (A) 0 %; HCT 45.2 % (39.0-53.0); HGB 14.9 gm/dL (13.0-17.5); Lymphocytes # (A) 1.3 k/uL (1.0-4.8); Lymphocytes % (A) 13 %; MCH 29.4 pg (25.0-35.0); MCHC 32.9 g/dL (31.0-37.0); MCV 89.1 fL (80.0-100.0); Mean Platelet Volume 6.6; Monocytes # (A) 0.7 k/uL (0-1.0); Monocytes % (A) 7 %; Neutrophils # (A) 7.9 k/uL (1.3-7.7); Neutrophils % (A) 79 %; Platelet Count 282 k/uL (150-450); RBC 5.07 m/uL (4.30-5.90); RDW 13.8 % (11.5-15.5)
[2020-12-16 06:41] LABS: ALT 14 U/L (4-49); AST 17 U/L (17-59); African American GFR (CKD) >90 (>60 ml/min/1.73 sqM); Albumin 3.1 g/dL (3.5-5.0); Albumin/Globulin Ratio 1.3; Alkaline Phosphatase 69 U/L (38-126); Anion Gap 8 mmol/L; Blood Urea Nitrogen 25 mg/dL (9-20); Calcium 8.6 mg/dL (8.4-10.2); Carbon Dioxide 28 mmol/L (22-30); Chloride 100 mmol/L (98-107); Globulin 2.3 g/dL; Glucose 150 mg/dL (74-99); Magnesium 2.6 mg/dL (1.6-2.3); Non-African American GFR(CKD) >90 (>60 ml/min/1.73 sqM); Potassium 4.7 mmol/L (3.5-5.1); Sodium 136 mmol/L (137-145); Total Bilirubin 0.5 mg/dL (0.2-1.3); Total Protein 5.4 g/dL (6.3-8.2)
[2020-12-16 07:16] LABS: Glucose,Whole Blood 152 mg/dL (75-99)
[2020-12-16] MEDS ORDERED: ARTIFICIAL TEARS-HYPROMELLOSE DROPS 15 ML BTL BOTH EYES PRN (07:49)
[2020-12-16] MEDS: PANTOPRAZOLE 40 MG TABLET PO SCH (08:14)
[2020-12-16] MEDS: LOSARTAN 50 MG TAB PO SCH (08:14)
[2020-12-16] MEDS: INSULIN ASPART (NovoLOG) 100 UNIT/ML VIAL SQ SCH ×4 (08:14→21:45)
[2020-12-16] MEDS: VENLAFAXINE HCL ER 75 MG CAP PO SCH (08:15)
[2020-12-16] MEDS: lamoTRIgine 25 MG TAB PO SCH ×2 (08:15→20:26)
[2020-12-16] MEDS: HYDROcodone/APAP 5-325MG 1 EACH TAB PO PRN ×3 (08:32→20:26)
--- NOTE | 2020-12-16 08:38 | XR ---
EXAMINATION TYPE: XR chest 1V portable DATE OF EXAM: 12/16/2020 COMPARISON: 12/14/2020 INDICATION: Short of breath TECHNIQUE: Single frontal view of the chest is obtained. FINDINGS: The heart size is upper limits of normal. The pulmonary vasculature is normal. Some streak opacity may be the retrocardiac region more likely atelectasis. Findings are improving fr om comparison IMPRESSION: 1. Improving aeration. Some streak atelectasis may remain at the left posterior lung base.
[2020-12-16] MEDS: polyethylene glycoL 3350 17 GM POWD.PACK PO SCH (10:23)
[2020-12-16 11:41] LABS: Glucose,Whole Blood 150 mg/dL (75-99)
[2020-12-16] MEDS ORDERED: MAG HYDROX/AL HYDROX/SIMETH 30 ML, HYOSCYAMINE ELIXIR 10 ML, LIDOCAINE VISCOUS 2% 10 ML PO ONE ×3 (11:45)
--- NOTE | 2020-12-16 14:06 | P.PN ---
Subjective Progress Note Date: 12/16/20 Principal diagnosis: Status post C6-C7 ACDF Patient was evaluated today at bedside, he is resting comfortably in his hospital bed. Patient does state he is having some anterior chest discomfort, this started before breakfast. He seems to be more comfortable when lying on that side. He has no previous history of DVTs or pulmonary embolisms. He does have history of multiple TIAs. He has no history he states of gastric reflux, he states it feels different than heartburn. He currently reports no worsening pain involving the anterior posterior neck. He notes no worsening symptoms with regards to weakness, numbness or tingling of the bilateral upper or lower extremity is. He denies any loss of bowel or bladder function. He feels that the symptoms with regards to the right upper and lower extremity weakness along with paresthesias are improving. Objective - Vital Signs Vital signs: Vital Signs Temp 98.1 F 12/16/20 11:27 Pulse 54 L 12/16/20 11:27 Resp 16 12/16/20 11:27 BP 116/66 12/16/20 11:27 Pulse Ox 93 L 12/16/20 11:27 Intake & Output 12/15/20 12/16/20 12/16/20 18:59 06:59 18:59 Intake Total 300 Output Total 450 900 600 Balance -150 -900 -600 Intake: IV 300 Sodium Chloride 0.9% 1, 200 000 ml @ 100 mls/hr IV . Q10H [facility] Rx#:[id number] ceFAZolin 3 gm In Sodium 100 Chloride 0.9% 100 ml @ 200 mls/hr IVPB Q8H [facility] Rx#:[id number] Output: Urine 450 900 600 Other: Voiding Method Indwelling Catheter Toilet # Voids 2 1 # Bowel Movements 1 1 - Exam GEN AOX3 NAD VSS Symmetric chest rise 4-5/5 strength RUE and LUE all major muscle groups. Some weakness in RUE still in deltoid but improved from previous exams 4-5/5 strength LLE and RLE all major muscle groups. Pt able to pick his RLE up off bed which is improvement from previous exams. SILT C5-T1 and L2-S1 with some C5 numbness in RUE still but pt states subjective improvement. NEG clonus, babinski. Mild Hoffmans R, Neg left. 2/4 distal pulses all Compartments soft compressive. - Labs CBC & Chem 7: 12/16/20 04:12 12/16/20 04:12 Labs: Abnormal Lab Results - Last 24 Hours (Table) 12/15/20 12/15/20 12/16/20 Range/Units 17:06 20:12 04:12 Neutrophils # 7.9 H (1.3-7.7) k/uL Sodium (137-145) mmol/L BUN (9-20) mg/dL Glucose (74-99) mg/dL POC Glucose (mg/dL) 128 H 167 H (75-99) mg/dL Magnesium (1.6-2.3) mg/dL Total Protein (6.3-8.2) g/dL Albumin (3.5-5.0) g/dL 12/16/20 12/16/20 12/16/20 Range/Units 04:12 07:10 11:38 Neutrophils # (1.3-7.7) k/uL Sodium 136 L (137-145) mmol/L BUN 25 H (9-20) mg/dL Glucose 150 H (74-99) mg/dL POC Glucose (mg/dL) 152 H 150 H (75-99) mg/dL Magnesium 2.6 H (1.6-2.3) mg/dL Total Protein 5.4 L (6.3-8.2) g/dL Albumin 3.1 L (3.5-5.0) g/dL Assessment and Plan Assessment: Postoperative day #3 status post ACDF C6-C7 Multiple medical comorbidities Plan: Pain control, patient taking one Deforest 5 mg/325 mg. Pain control seems adequate at this time Wound care instructions were discussed patient, Optefoam dressing will remain in place until next week Use of the cervical soft collar was discussed with patient today at bedside Activity level restrictions were discussed the patient at bedside Discussed with nursing to discuss patient's current chest/abdominal discomfort with internal medicine to discuss further options of treatment or workup Discharge planning: On an orthopedic standpoint patient remained stable for discharge. We will be available for any further questions regarding this patient. Patient will be scheduled to see Dr. Condon in the outpatient setting and 10 days. Time with Patient: Less than 30
[2020-12-16 17:16] LABS: Glucose,Whole Blood 172 mg/dL (75-99)
--- NOTE | 2020-12-16 17:22 | P.PN ---
Subjective Progress Note Date: 12/16/20 Principal diagnosis: RUE weakness RLE weakness RUE radiculopathy Cervical myelopathy Evaluated 40-year-old gentleman this a.m., resting comfortably in bed. She has significant history of cervical disc herniation from C6 to C7, secondary bradycardia possibly due to beta blockers, syncopal episodes, steroid-induced diabetes type 2 suicidal ideation history, history of cerebrovascular accident/transient ischemic attack, hypertension, history of migraines, anxiety depression posttraumatic stress disorder. On evaluation this a.m. patient is resting comfortably in bed noted to have right-sided weakness patient awaiting, cervical intervention with orthopedics this a.m. patient denies any fever, chills, chest pain, palpitations, abdominal pain, nausea, vomiting, diarrhea, or new additional symptoms. December 14, 2020 Evaluated patient this a.m., postsurgical invention through orthopedics for cervical fusion. Patient resting comfortably on ventilator, sedation in place an d expected patient to be intubated per pulmonary critical care will follow-up CAT scan of the neck. Awaiting for expert opinion from pulmonary critical care for further recommendations and treatment plan. Diagnostics and vital signs reviewed 12/15/2020 Evaluated patient this a.m., post intervention through orthopedist for cervical fusion. Patient was extubated around 1400 yesterday. Upon evaluation this a.m. patient is awake alert and oriented and following commands appropriately. Patient denies any complaints at this time. Diagnostic testing reviewed from a medical standpoint patient is able to transfer to cardiac stepdown or MedSurg telemetry. Awaiting recommendations from orthopedic spinal surgeon 12/16/2020 Evaluated patient this a.m., post intervention through orthopedist for cervical fusion. Patient was awake and alert and answering questions appropriately this a.m. patient moving all extremities. Patient denies fever, chills shortness of breath, chest pain, palpitations, abdominal pain, nausea, or vomiting. Diagnostic testing reviewed. Patient able to use incentive spirometer without difficulty and moving extremities without pain Objective - Vital Signs Vital signs: Vital Signs Temp 98.1 F 12/16/20 11:27 Pulse 54 L 12/16/20 11:27 Resp 16 12/16/20 11:27 BP 116/66 12/16/20 11:27 Pulse Ox 93 L 12/16/20 11:27 Intake & Output 12/15/20 12/16/20 12/16/20 18:59 06:59 18:59 Intake Total 300 Output Total 450 900 600 Balance -150 -900 -600 Intake: IV 300 Sodium Chloride 0.9% 1, 200 000 ml @ 100 mls/hr IV . Q10H [facility] Rx#:[id number] ceFAZolin 3 gm In Sodium 100 Chloride 0.9% 100 ml @ 200 mls/hr IVPB Q8H [facility] Rx#:[id number] Output: Urine 450 900 600 Other: Voiding Method Indwelling Catheter Toilet Toilet # Voids 2 1 # Bowel Movements 1 1 - Constitutional General appearance: Present: mild distress - EENT Eyes: Present: EOMI, PERRLA Ears: bilateral: normal - Neck Carotids: bilateral: upstroke normal Thyroid: bilateral: normal size - Respiratory Respiratory: bilateral: CTA (Anterior and posterior lung roman) - Cardiovascular Details: Sinus bradycardia Heart rate: 58 Rhythm: regular Heart sounds: normal: S1, S2 - Peripheral pulses radial pulse Peripheral Pulses: bilateral: Normal dorsalis pedis Peripheral Pulses: bilateral: Normal - Gastrointestinal General gastrointestinal: Present: normal bowel sounds - Integumentary Integumentary: Present: pale - Neurologic Neurologic: Present: CNII-XII intact - Musculoskeletal Musculoskeletal: Present: generalized weakness - Psychiatric Psychiatric: Present: appropriate affect, intact judgment & insight - Labs CBC & Chem 7: 12/16/20 04:12 12/16/20 04:12 Labs: Abnormal Lab Results - Last 24 Hours (Table) 12/15/20 12/15/20 12/16/20 Range/Units 17:06 20:12 04:12 Neutrophils # 7.9 H (1.3-7.7) k/uL Sodium (137-145) mmol/L BUN (9-20) mg/dL Glucose (74-99) mg/dL POC Glucose (mg/dL) 128 H 167 H (75-99) mg/dL Magnesium (1.6-2.3) mg/dL Total Protein (6.3-8.2) g/dL Albumin (3.5-5.0) g/dL 12/16/20 12/16/20 12/16/20 Range/Units 04:12 07:10 11:38 Neutrophils # (1.3-7.7) k/uL Sodium 136 L (137-145) mmol/L BUN 25 H (9-20) mg/dL Glucose 150 H (74-99) mg/dL POC Glucose (mg/dL) 152 H 150 H (75-99) mg/dL Magnesium 2.6 H (1.6-2.3) mg/dL Total Protein 5.4 L (6.3-8.2) g/dL Albumin 3.1 L (3.5-5.0) g/dL 12/16/20 Range/Units 17:14 Neutrophils # (1.3-7.7) k/uL Sodium (137-145) mmol/L BUN (9-20) mg/dL Glucose (74-99) mg/dL POC Glucose (mg/dL) 172 H (75-99) mg/dL Magnesium (1.6-2.3) mg/dL Total Protein (6.3-8.2) g/dL Albumin (3.5-5.0) g/dL - Imaging and Cardiology Chest x-ray: report reviewed Assessment and Plan Assessment: Weakness of right side, possibly cervical myelopathy Cervical disc herniation C6 to C7 Sinus bradycardia possibly due to beta blockers Previous history of syncopal episode Elevated blood sugars possibly due to steroids History of suicidal ideation History of cerebrovascular accident/transient ischemic attack Hypertension History of migraines History of cholecystectomy Anxiety, depression, posttraumatic stress disorder Obesity Full code Plan: Continue current medications, monitor symptomatic treatment, continue the rest of medications, DVT prophylaxis continue follow treatment from ortho for cervical fusion Continue home medications Continue medical management Further recommendations based on patient's clinical status Time with Patient: Greater than 30
[2020-12-16] MEDS ORDERED: PROCHLORPERAZINE INJ 10 MG/2 ML VIAL IVP PRN (17:24)
[2020-12-16] MEDS ORDERED: ONDANSETRON 4 MG/2 ML VIAL IVP PRN (17:25)
--- NOTE | 2020-12-16 18:55 | XR ---
EXAMINATION TYPE: XR abdomen acute w cxr DATE OF EXAM: 12/16/2020 COMPARISON: None HISTORY: Pain TECHNIQUE: Acute abdominal series performed with a frontal chest and upright and supine views of the abdomen. FINDINGS: Heart size is normal. Some mild infiltrates at the left base. Lungs are otherwise clear. Psoas margins are normal. Fecal debris is in the ascending colon. No suspicious calcifications are ev ident. No free air is under the diaphragm. No suspicious differential air-fluid levels are present. IMPRESSION: 1. Mild left lower lobe infiltrate. 2. Nonspecific abdomen
[2020-12-16] MEDS ORDERED: LORazepam 2 MG/ML INJ IV PRN (18:58)
[2020-12-16] MEDS ORDERED: AZITHROMYCIN 500 MG in SODIUM CHLORIDE 0.9% 250 ML IVPB SCH (19:15)
[2020-12-16] MEDS: QUEtiapine 100 MG TAB PO SCH (20:26)
[2020-12-16] MEDS: ATORVASTATIN 40 MG TAB PO SCH (20:26)
[2020-12-16] MEDS: MELATONIN 5 MG TABLET PO SCH (20:26)
[2020-12-16] MEDS: CYANOCOBALAMIN 500 MCG TAB PO SCH (20:26)
[2020-12-16 21:08] LABS: Glucose,Whole Blood 202 mg/dL (75-99)
--- NOTE | 2020-12-16 22:06 | P.PN ---
Subjective Progress Note Date: 12/16/20 12/16/2020: Patient states he is doing better. Denies any neck pain. Patient complains of some tightness and tension in the chest. Patient states his is primary physician said maybe possibly gas. No new numbness weakness. 12/15/2020: Patient is extubated, transferred to the regular floor. Patient st ates that he is doing much better. No pain in the neck. He states his legs are getting stronger. He can feel sensations although still has some tingling in the legs. Denies any headache, problem with the vision. He has subconjunctival hemorrhage on the right. 12/14/2020: Patient was seen in the ICU. Patient was not able to be extubated yesterday. Patient currently on 40 g of propofol. Plan is for extubation today. 12/13/2020: Patient in OR 12/12/2020: Patient is a 40-year-old male came to the hospital on 12/06/2020 with sudden onset of right-sided numbness and weakness. Patient states he has previous history of multiple strokes, that affected right side of the body. Currently on aspirin. He follows up with Dr. Jeremiah Verde, and was not process of evaluation at the [facility]. Patient states that on Saturday he had a bad episode, when he couldn't get up and he was paralyzed "waist down". He has numbness of right-sided arm and leg. Also has lot of memory issues. Patient states that he had fell down a flight of 20 stairs 2 years ago. He has neck pain and low back pain. He rates his neck pain 12 on a scale of 1-10. He states that he gets pain in the neck, then goes to the right side of the body and he loses feeling. It has happened 5 times in the past. Patient's blood test shows WBC 13.6 hemoglobin 14.8, platelets 264. PT/PTT normal. Patient's hemoglobin A1c 5.4 on 05/04/2020. Patient's total cholesterol is 128, LDL 70, HDL 31 and triglycerides 135. B12 is 531, folate is normal. TSH normal. Castro virus negative. MRI of the cervical spine from 12/07/2020 shows C6 7 extruded disc herniation paracentrally and to the left ventral cord contact and early compressive myelopathy suggested. Left paracentral disc protrusion at C2 3 with left neural foraminal encroachment. MRI is normal. There is a 5.5 mm focus of increased signal involving the subcortical white matter as well as additional focus within the juxtacortical white matter of the right frontal lobe. These are nonspecific findings and may be related to chronic migraine, vasculitis, Lyme disease or a demyelinating process. MRI lumbar spine 12/08/2020 shows left paracentral disc bulge L5-S1, with some mild broad-based disc bulging. The focal protrusion has a moderate anterior thecal sac compression and possible left S1 nerve root displacement posteriorly within the spinal canal. MRI thoracic spine from 12/08/2020 shows right paracentral disc bulge present previously has moderate right anterior lateral cord flattening. Small right paracentral disc bulge and/or endplate 18 89 with mild anterior thecal sac compression. Objective - Vital Signs Vital signs: Vital Signs Temp 98.1 F 12/16/20 11:27 Pulse 54 L 12/16/20 11:27 Resp 16 12/16/20 11:27 BP 116/66 12/16/20 11:27 Pulse Ox 93 L 12/16/20 11:27 Intake & Output 12/15/20 12/16/20 12/16/20 18:59 06:59 18:59 Intake Total 300 Output Total 450 900 600 Balance -150 -900 -600 Intake: IV 300 Sodium Chloride 0.9% 1, 200 000 ml @ 100 mls/hr IV . Q10H [facility] Rx#:[id number] ceFAZolin 3 gm In Sodium 100 Chloride 0.9% 100 ml @ 200 mls/hr IVPB Q8H [facility] Rx#:[id number] Output: Urine 450 900 600 Other: Voiding Method Indwelling Catheter Toilet Toilet # Voids 2 1 # Bowel Movements 1 1 - Exam Patient's mental status, speech and language functions are normal. Cranial nerves are normal. Muscle strength appears normal in the arms and legs. Patient able to have better endurance today for muscle strength testing. Patient continues to have brisk reflexes with nonsustained clonus and plantars are withdrawal bilaterally. No ataxia for [id number] testing. - Labs CBC & Chem 7: 12/16/20 04:12 12/16/20 04:12 Labs: Abnormal Lab Results - Last 24 Hours (Table) 04/04/2912/15/20 12/16/20 Range/Units 17:06 20:12 04:12 Neutrophils # 7.9 H (1.3-7.7) k/uL Sodium (137-145) mmol/L BUN (9-20) mg/dL Glucose (74-99) mg/dL POC Glucose (mg/dL) 128 H 167 H (75-99) mg/dL Magnesium (1.6-2.3) mg/dL Total Protein (6.3-8.2) g/dL Albumin (3.5-5.0) g/dL 12/16/20 12/16/20 12/16/20 Range/Units 04:12 07:10 11:38 Neutrophils # (1.3-7.7) k/uL Sodium 136 L (137-145) mmol/L BUN 25 H (9-20) mg/dL Glucose 150 H (74-99) mg/dL POC Glucose (mg/dL) 152 H 150 H (75-99) mg/dL Magnesium 2.6 H (1.6-2.3) mg/dL Total Protein 5.4 L (6.3-8.2) g/dL Albumin 3.1 L (3.5-5.0) g/dL Assessment and Plan Assessment: * 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 * Previous history of possible TIA/CVA * Depressive disorder unspecified, likely adjustment disorder with depressed mood versus major depressive disorder. * History of PTSD. * Obesity * Lumbosacral spondylosis. Plan: * Patient had undergone C6-7 ACDF 12/13/2020. Patient is doing much better. His muscle strength has improved. Paresthesias has decreased. * Patient had a normal CTA of head and neck on 12/06/2020. No flow-limiting stenosis bilateral carotid bifurcations. Normal [place]. * 2-D echo showed normal left-ventricular size, mild concentric LVH. EF is 55- 60%. * Hemoglobin A1c 5.4 * Lipid panel with cholesterol 128, LDL 70, HDL 31 and triglycerides 135. * Resume aspirin 81 mg when cleared from surgery standpoint. * DVT prophylaxis as per IM. * PT OT and rehab. Neurologically clear. Neurology will sign off.
[2020-12-17] MEDS: DEXAMETHASONE SOD PHOSPHATE 4 MG/ML 1 ML VIAL IV SCH ×5 (00:38→23:22)
[2020-12-17] MEDS: ceFAZolin 3 GM in SODIUM CHLORIDE 0.9% 100 ML IVPB SCH ×2 (05:51→19:08)
[2020-12-17 07:20] LABS: Glucose,Whole Blood 148 mg/dL (75-99)
[2020-12-17 07:38] LABS: Basophils % (A) 0 %; Eosinophils % (A) 0 %; HCT 46.9 % (39.0-53.0); HGB 15.5 gm/dL (13.0-17.5); Lymphocytes # (A) 0.4 k/uL (1.0-4.8); Lymphocytes % (A) 2 %; MCH 29.1 pg (25.0-35.0); MCV 88.3 fL (80.0-100.0); Mean Platelet Volume 6.6; Monocytes % (A) 5 %; Neutrophils # (A) 19.3 k/uL (1.3-7.7); Neutrophils % (A) 93 %; Platelet Count 257 k/uL (150-450); RBC 5.31 m/uL (4.30-5.90); RDW 13.4 % (11.5-15.5); WBC 20.9 k/uL (3.8-10.6)
[2020-12-17 07:53] LABS: ALT 598 U/L (4-49); AST 347 U/L (17-59); African American GFR (CKD) >90 (>60 ml/min/1.73 sqM); Albumin 3.2 g/dL (3.5-5.0); Albumin/Globulin Ratio 1.4; Alkaline Phosphatase 207 U/L (38-126); Anion Gap 8 mmol/L; Blood Urea Nitrogen 21 mg/dL (9-20); Calcium 8.7 mg/dL (8.4-10.2); Carbon Dioxide 27 mmol/L (22-30); Chloride 100 mmol/L (98-107); Globulin 2.3 g/dL; Glucose 143 mg/dL (74-99); Non-African American GFR(CKD) >90 (>60 ml/min/1.73 sqM); Potassium 4.4 mmol/L (3.5-5.1); Sodium 135 mmol/L (137-145); Total Bilirubin 5.8 mg/dL (0.2-1.3); Total Protein 5.5 g/dL (6.3-8.2)
--- NOTE | 2020-12-17 09:11 | XR ---
EXAMINATION TYPE: XR chest 1V portable DATE OF EXAM: 12/17/2020 COMPARISON: 12/16/2020 INDICATION: Pneumonia TECHNIQUE: Single frontal view of the chest is obtained. FINDINGS: The heart size is borderline in size. The pulmonary vasculature is normal. Subtle mild right upper lobe infiltrate may be present. Lungs are otherwise clear. IMPRESSION: 1. Mild right upper lobe infiltrate. Follow-up can be performed as clinically indicated.
[2020-12-17] MEDS: lamoTRIgine 25 MG TAB PO SCH ×2 (09:49→20:15)
[2020-12-17] MEDS: LOSARTAN 50 MG TAB PO SCH (09:49)
[2020-12-17] MEDS: PANTOPRAZOLE 40 MG TABLET PO SCH (09:49)
[2020-12-17] MEDS: INSULIN ASPART (NovoLOG) 100 UNIT/ML VIAL SQ SCH ×4 (09:50→20:16)
[2020-12-17] MEDS: VENLAFAXINE HCL ER 75 MG CAP PO SCH (09:50)
[2020-12-17] MEDS: polyethylene glycoL 3350 17 GM POWD.PACK PO SCH (09:50)
[2020-12-17 12:22] LABS: Glucose,Whole Blood 130 mg/dL (75-99)
--- NOTE | 2020-12-17 15:38 | PN ---
PROGRESS NOTE DATE OF SERVICE: 12/17/2020 INTERVAL HISTORY: This is a 40-year-old gentleman who was admitted with weakness of the right side. Had features of cervical spondylotic myelopathy. The patient is being closely monitored at this time. The patient also had gram-negative rods grown from the culture and the patient also had subconjunctival hemorrhages. The patient also had mild left lower lobe infiltrate. Multiple consultants are following the patient closely, Neurology and as well as Pulmonology. As mentioned earlier, gram-negative rods are grown from the culture. The patient had C6-7 fusion with inability to extubate. PAST MEDICAL HISTORY: Reviewed. REVIEW OF SYSTEMS: CARDIOVASCULAR: No angina. RESPIRATORY: As mentioned earlier. GI: As mentioned earlier. : No dysuria. NERVOUS SYSTEM: No numbness or weakness. CURRENT MEDICATIONS: Reviewed include Zithromax, Rocephin, Motrin, Cozaar, melatonin. Doses reviewed. PHYSICAL EXAM: GENERAL: Patient is alert and oriented times three. VITAL SIGNS: Pulse 59, blood pressure 147/67, respirations 28, temperature 98.2, pulse ox 97% on 4 liters. HEENT: Conjunctivae normal. NECK: No jugular venous distention. No carotid bruits. No lymph node enlargement. Status post surgery. RESPIRATORY: Breath sounds diminished at the bases. No rhonchi, no crackles. HEART: S1 and S2, muffled. ABDOMEN: Soft, no tenderness. EXTREMITIES: No edema, no swelling. NERVOUS: No focal deficits. LABS: At this time show WBC 20.9, sodium 135. LFTs are noted. ASSESSMENT: 1. Status post C6-7 fusion for cervical disk herniation C6-7. 2. Possible left lower lobe infiltrate and pneumonia. 3. Gram-negative rods in the blood, possible sepsis. 4. Increased WBC. 5. Elevated LFTs of undetermined etiology. 6. Weakness of the right side, possible cervical myelopathy and cervical myelomalacia. 7. Sinus bradycardia secondary to beta blockers previously. 8. Previous history of syncopal episode. 9. Increased random blood sugar, possible steroid-induced diabetes mellitus type 2. 10.Suicide ideation history. 11.History of CVA, TIA. 12.Hypertension. 13.History of migraine. 14.History of cholecystectomy. 15.History of anxiety, depression, posttraumatic stress disorder. 16.Obesity with body mass 36.2. RECOMMENDATIONS AND DISCUSSION: Recommend to continue current management and continue symptomatic treatment. Repeat labs. Empiric antibiotics. Obtain cultures. Infectious disease evaluation. I would also recommend a gastroenterology evaluation because of the elevated LFTs. Avoid hepatotoxic medications. Guarded prognosis. Further recommendations to follow. JUANY / ZENAIDAN: [id number] /
[2020-12-17 16:36] LABS: Appearance,Urine Clear (Clear); Bilirubin,Urine 2+ (Negative); Blood,Urine Trace (Negative); Color,Urine Dark Yellow; Glucose,Urine (UA) 1+ (Negative); Ketones,Urine Negative (Negative); Leukocyte Esterase,Urine Negative (Negative); Mucus,Urine Rare /hpf; Nitrite,Urine Negative (Negative); PH, Urine 6.5 (5.0-8.0); Protein,Urine Trace (Negative); RBC,Urine 1 /hpf (0-5); Specific Gravity,Urine 1.019 (1.001-1.035); Urobilinogen,Urine <2.0 mg/dL (<2.0); WBC,Urine 1 /hpf (0-5)
[2020-12-17 16:59] LABS: Glucose,Whole Blood 163 mg/dL (75-99)
[2020-12-17] MEDS: CEFEPIME 2 GM in SODIUM CHLORIDE 0.9% 100 ML IVPB SCH (18:34)
[2020-12-17 18:55] LABS: ALT 426 U/L (4-49); AST 156 U/L (17-59); African American GFR (CKD) >90 (>60 ml/min/1.73 sqM); Albumin 3.1 g/dL (3.5-5.0); Albumin/Globulin Ratio 1.2; Alkaline Phosphatase 241 U/L (38-126); Anion Gap 9 mmol/L; Blood Urea Nitrogen 20 mg/dL (9-20); Calcium 8.5 mg/dL (8.4-10.2); Carbon Dioxide 26 mmol/L (22-30); Chloride 97 mmol/L (98-107); Globulin 2.5 g/dL; Glucose 176 mg/dL (74-99); Non-African American GFR(CKD) >90 (>60 ml/min/1.73 sqM); Potassium 4.6 mmol/L (3.5-5.1); Sodium 132 mmol/L (137-145); Total Bilirubin 6.9 mg/dL (0.2-1.3); Total Protein 5.6 g/dL (6.3-8.2)
[2020-12-17 20:05] LABS: Glucose,Whole Blood 154 mg/dL (75-99)
[2020-12-17] MEDS: QUEtiapine 100 MG TAB PO SCH (20:15)
[2020-12-17] MEDS: MELATONIN 5 MG TABLET PO SCH (20:16)
[2020-12-17] MEDS: CYANOCOBALAMIN 500 MCG TAB PO SCH (20:16)
[2020-12-18] MEDS: CEFEPIME 2 GM in SODIUM CHLORIDE 0.9% 100 ML IVPB SCH ×2 (04:09→17:27)
[2020-12-18] MEDS: DEXAMETHASONE SOD PHOSPHATE 4 MG/ML 1 ML VIAL IV SCH ×4 (05:30→23:33)
--- NOTE | 2020-12-18 06:29 | CONS ---
CONSULTATION DATE OF SERVICE: 12/17/2020 REASON FOR CONSULTATION: Bacteremia. HISTORY OF PRESENT ILLNESS: The patient is a 40-year-old male who presented to the ER more than 10 days ago on 12/06/2020 for evaluation of right-sided numbness and weakness in this patient who previously had symptoms of TIA in the past affecting his right side of the body. Patient was complaining of mostly weakness on the right side of the body with tingling. With these symptoms, the patient was evaluated by the ER physician. The patient did have a CT of the brain that was negative for any acute intracranial process. The patient did have angiographic CT completed. No flow-limiting stenosis, bilateral carotid bifurcation. The patient did have a MRI of the cervical spine which shows C6-7 extruded disk herniation paracentral and to the left ventral cord, could be early compressive myelopathy suggested. Left paracentral disk protrusion at C2-3 with left neural foraminal encroachment. The patient also had a MRI of the brain which shows nonspecific white matter changes. MRI of thoracolumbar spine shows right paracentral disk bulging previously, has moderate right anterolateral cord flattening. Mild right paracentral disk bulge and and a spur at T8-9. Left paracentral disk bulge at L5-S1. The patient has been evaluated by Spine Surgery and the patient was taken to the OR status post cervical decompression with surgery completed on 12/13/2020. Operative report pending. The patient was difficult to extubate post surgery and was in the ICU for short period. Subsequently the patient has been extubated and transferred out of the ICU. The patient did have a Rizo catheter briefly while in the ICU that has subsequently been discontinued. The patient did not have any fever during this hospital stay, not document on the chart. The patient did have blood cultures obtained on the for unknown reason, which is now coming back positive with Gram-negative bacilli that has prompted this infectious disease consultation. The patient currently denies having any headache. The patient denies any pain at the surgical site. The patient's right upper and lower extremity weakness has resolved. The patient denies having any chest pain, shortness of breath or cough. No nausea, no vomiting. No abdominal pain. No diarrhea. Denies any urinary burning or frequency and did have a COVID test and it has been negative. REVIEW OF SYSTEMS: Positive points have been mentioned in HPI. Rest of systems are negative. PAST MEDICAL HISTORY: CVA, TIA, hypertension, migraine headaches. PAST SURGICAL HISTORY: Cholecystectomy and wisdom tooth extraction. PAST PSYCHOLOGICAL HISTORY: Anxiety, depression, PTSD. SOCIAL HISTORY: No history of smoking, drinking or drug use. FAMILY HISTORY: Mother with history of diabetes, fibromyalgia. ALLERGIES: DOXYCYCLINE. MEDICATIONS: The patient is currently on Rocephin 1 g daily, he is on Cepacol lozenges, Decadron, Motrin, NovoLog, Lamictal, Ativan, Cozaar, Melatonin, Zofran, Protonix, MiraLAX, Compazine, Seroquel, Senokot, Effexor. PHYSICAL EXAMINATION: VITAL SIGNS: Blood pressure 106/66 with a pulse of 72, temperature 98.9, he is 95% on room air. GENERAL DESCRIPTION: Patient is a middle-aged male lying in bed in no distress. No tachypnea or accessory muscles of respiration use. HEENT: Examination shows no pallor or scleral icterus. Oral mucous membrane is dry. NECK: Surgical site is currently dressed with no swelling, no redness or any drainage. LUNGS: Unlabored breathing, clear to auscultation. No wheeze or crackle. HEART: S1-S2, regular rate and rhythm. ABDOMEN: Soft, no tenderness. No guarding or rigidity. EXTREMITIES: No edema of the feet. SKIN: No rash or mass palpable. NEUROLOGICAL: Patient is awake, alert, oriented times three. Mood and affect normal. LABS: Hemoglobin 15.5, white count 20,000, BUN of 20, creatinine 0.91. The patient did have a bilirubin of 6.9 and that is acute change. Did have a normal bilirubin on admission with elevated ALT and AST which is new. Did have a CRP of 88.2, procalcitonin 5.448. The patient did have a UA which is negative. Castro PCR negative. The patient did have acute abdominal series, nonspecific abdomen, some mild right upper lobe infiltrate reported on x-ray. DIAGNOSTIC IMPRESSION: Patient with Gram-negative bacteremia in this patient admitted to the hospital with right-sided weakness with evidence of significant cervical spine disease status post cervical decompression on the 6th now with new fever, significant jump in white count, as well as elevated liver enzymes and Gram-negative bacteremia, source possible abdominal. Pneumonia less likely, as the patient does not have significant respiratory symptoms. PLAN: 1. We will obtain a CT of abdomen and pelvis with contrast in a.m. in view of the elevated liver enzymes and bilirubin. Make sure no evidence of any choledocholithiasis. 2. We will repeat blood cultures to document clearance of the bacteremia. 3. Will discontinue Rocephin and start the patient on cefepime 2 g Q 12 hours. 4. Gentle IV fluid. 5. We will follow on clinical condition and these investigations to further adjust medication if needed. Thank you for this consultation. Will follow this patient along with you. MMODL / IJN: [id number] /
[2020-12-18 07:24] LABS: INR 1.1 (<1.2)
[2020-12-18 07:25] LABS: Prothrombin Time 11.6 sec (9.0-12.0)
[2020-12-18 07:40] LABS: Glucose,Whole Blood 155 mg/dL (75-99)
--- NOTE | 2020-12-18 08:06 | US ---
EXAMINATION TYPE: US gallbladder DATE OF EXAM: 12/18/2020 COMPARISON: Multiple CT's 03/25/2020 CLINICAL HISTORY: high lft. EXAM MEASUREMENTS: Liver Length: 13.9 cm Gallbladder Wall: Surgically absent CBD: 0.4 cm Right Kidney: 11.2 x 4.9 x 5.9 cm Pancreas: not well visualized due to midline bowel gas. Liver: wnl Gallbladder: Surgically absent CBD: wnl Right Kidney: No hydronephrosis or masses seen IMPRESSION: Normal right upper quadrant ultrasound
[2020-12-18] MEDS: IOPAMIDOL CONTRAST (ORAL USE) VIAL PO PRN ×2 (08:14→09:19)
[2020-12-18] MEDS: PANTOPRAZOLE 40 MG TABLET PO SCH (08:15)
[2020-12-18] MEDS: lamoTRIgine 25 MG TAB PO SCH ×2 (08:15→21:11)
[2020-12-18] MEDS: LOSARTAN 50 MG TAB PO SCH (08:15)
[2020-12-18] MEDS: VENLAFAXINE HCL ER 75 MG CAP PO SCH (08:16)
[2020-12-18] MEDS: INSULIN ASPART (NovoLOG) 100 UNIT/ML VIAL SQ SCH ×4 (08:16→21:11)
[2020-12-18] MEDS: polyethylene glycoL 3350 17 GM POWD.PACK PO SCH (08:16)
--- NOTE | 2020-12-18 10:23 | CT ---
EXAMINATION TYPE: CT abdomen pelvis w con DATE OF EXAM: 12/18/2020 COMPARISON: 03/25/2020 INDICATION: elevated LFT DLP: 3417.1 mGycm, Automated exposure control for dose reduction was used. CONTRAST: 100 mL of Isovue 300. Study performed with Oral Contrast TECHNIQUE: Axial images were obtained from above the diaphragm to the pubic rami in the axial plane a t 5 mm thick sections. Reconstructed images are reviewed on the computer in the coronal plane. FINDINGS: Limited CT sections are obtained the lung bases. There is some streak opacity in the posterior left lung base likely on the basis of atelectasis. Some minimal compressive atelectasis may be bilaterally .. CT ABDOMEN: Liver: Normal Spleen: Normal Pancreas: Normal Adrenal glands: The adrenal glands are normal. Gallbladder: Surgically absent Kidneys: No masses are evident. No hydronephrosis is present. No cysts are present. Delayed images were obtained through the kidneys, which remain unremarkable. Aorta: Vascular calcification is within the aorta. Inferior vena cava: Normal. CT PELVIS: Loops of bowel within the abdomen and pelvis are normal. Few scattered diverticuli are present. Th ere loops of bowel lacking oral contrast or incompletely distended limiting evaluation. Appendix: Normal as visualized. Urinary bladder: Tiny amount of air is within the urinary bladder can be related to recent instrument ation. Genitourinary structures: Prostate is normal Osseous structures: No suspicious lytic or sclerotic lesions. IMPRESSIONS: 1. Mild diverticulosis without acute diverticulitis. 2. Tiny amount of air within the urinary bladder. Correlate for recent catheterization. UTI could be considered.
[2020-12-18 12:51] LABS: Glucose,Whole Blood 124 mg/dL (75-99)
--- NOTE | 2020-12-18 13:22 | P.PN ---
Subjective Progress Note Date: 12/18/20 Principal diagnosis: Elevated liver enzymes 40-year-old male currently hospitalized for treatment of TIA and status post cervical fusion. [facility] was initially called to see the patient due to an esophageal foreign body removed on EGD. Request was made for GI to see the patient again due to elevation in liver enzymes. Liver enzymes which were initially normal on presentation found to trend up during the patient's hospitalization with total bilirubin is 0.8 up to 6.9, alkaline phosphatase 104 up to 241, AST 30 up to 156 and ALT 30 up to 426. Currently liver enzymes are starting to trend down. Ultrasound of the abdomen performed in evaluation normal with post cholecystectomy state noted. Computed tomography scan significant only for diverticulosis. He denies any prior history of elevated liver enzymes, history of alcohol abuse, family history of liver disease, or oth er exposures. Currently he is feeling well. Objective - Vital Signs Vital signs: Vital Signs Temp 98.4 F 12/18/20 05:00 Pulse 65 12/18/20 08:00 Resp 16 12/18/20 08:00 BP 132/69 12/18/20 05:00 Pulse Ox 95 12/18/20 05:00 Intake & Output 12/17/20 12/18/20 12/18/20 18:59 06:59 18:59 Intake Total 100 950 Output Total 0 1300 0 Balance 100 -350 0 Intake: Intake, IV Titration 100 Amount Cefepime 2 gm In Sodium 100 Chloride 0.9% 100 ml @ 25 mls/hr IVPB Q12H [facility] Rx# :[id number] Oral 950 Output: Urine 1300 Stool 0 0 0 Other: Voiding Method Toilet Toilet Toilet Urinal Urinal Urinal - Exam On physical examination, patient appears comfortable in no apparent distress. HEAD: Normocephalic, atraumatic. EYES: No scleral icterus. No conjunctival injection. MOUTH: No lesions, tongue midline. NECK: Trachea midline, no gross abnormalities, currently patient has cervical collar. CHEST: Clear to auscultation with no wheezing or rhonchi appreciated. HEART: Regular rate and rhythm. ABDOMEN: Soft, obese and nontender. Bowel sounds are positive. No organomegaly. No guarding or rigidity. EXTREMITIES: No pedal edema. SKIN: No rashes, no jaundice. NEUROLOGIC: Alert and oriented x3. No focal deficits. - Labs CBC & Chem 7: 12/17/20 06:55 12/17/20 18:29 Labs: Abnormal Lab Results - Last 24 Hours (Table) 12/17/20 12/17/20 12/17/20 Range/Units 16:22 16:56 18:29 Sodium 132 L (137-145) mmol/L Chloride 97 L (98-107) mmol/L Glucose 176 H (74-99) mg/dL POC Glucose (mg/dL) 163 H (75-99) mg/dL Total Bilirubin 6.9 H (0.2-1.3) mg/dL AST 156 H (17-59) U/L ALT 426 H (4-49) U/L Alkaline Phosphatase 241 H (38-126) U/L C-Reactive Protein (<10.0) mg/L Total Protein 5.6 L (6.3-8.2) g/dL Albumin 3.1 L (3.5-5.0) g/dL Urine Protein Trace H (Negative) Urine Glucose (UA) 1+ H (Negative) Urine Blood Trace H (Negative) Urine Bilirubin 2+ H (Negative) Urine Mucus Rare H (None) /hpf 12/17/20 12/17/20 12/18/20 Range/Units 18:29 20:04 07:36 Sodium (137-145) mmol/L Chloride (98-107) mmol/L Glucose (74-99) mg/dL POC Glucose (mg/dL) 154 H 155 H (75-99) mg/dL Total Bilirubin (0.2-1.3) mg/dL AST (17-59) U/L ALT (4-49) U/L Alkaline Phosphatase (38-126) U/L C-Reactive Protein 88.2 H (<10.0) mg/L Total Protein (6.3-8.2) g/dL Albumin (3.5-5.0) g/dL Urine Protein (Negative) Urine Glucose (UA) (Negative) Urine Blood (Negative) Urine Bilirubin (Negative) Urine Mucus (None) /hpf 12/18/20 Range/Units 12:50 Sodium (137-145) mmol/L Chloride (98-107) mmol/L Glucose (74-99) mg/dL POC Glucose (mg/dL) 124 H (75-99) mg/dL Total Bilirubin (0.2-1.3) mg/dL AST (17-59) U/L ALT (4-49) U/L Alkaline Phosphatase (38-126) U/L C-Reactive Protein (<10.0) mg/L Total Protein (6.3-8.2) g/dL Albumin (3.5-5.0) g/dL Urine Protein (Negative) Urine Glucose (UA) (Negative) Urine Blood (Negative) Urine Bilirubin (Negative) Urine Mucus (None) /hpf Microbiology - Last 24 Hours (Table) 12/17/20 06:55 Blood Culture Gram Stain - Preliminary Blood 12/17/20 06:55 Blood Culture - Final Blood 12/17/20 16:22 Urine Culture - Preliminary Urine,Voided 12/16/20 20:03 Blood Culture Gram Stain - Preliminary Blood Blood Culture - Preliminary Enterobacter cloacae 12/16/20 20:03 Blood Culture - Final Blood Assessment and Plan (1) Elevated liver enzymes Narrative/Plan: 32-year-old male hospitalized and treated for multiple TIAs and status post cervical fusion. Liver enzymes found to be elevated in both a cholestatic and hepatocellular pattern after being normal on presentation with total bilirubin 6.9, alkaline phosphatase 241, AST 156 and ALT 426, currently trending down. Ultrasound negative for any acute hepatobiliary pathology patient is status post cholecystectomy. CT of the abdomen significant only for diverticulosis. Suspicion is for medication side effect with liver enzymes currently trending down. Full liver serology and viral testing will be ordered. He denies any family history of liver disease, intrinsic liver disease, prior history of heavy alcohol abuse or other risk factors. Current Visit: Yes Status: Acute Code(s): R74.8 - ABNORMAL LEVELS OF OTHER SERUM ENZYMES SNOMED Code(s): 992604587 Plan: Supportive care Okay for diet as tolerated Continue other medical management Continue to monitor CBC, BMP, LFTs Okay to continue medications for now as liver enzymes are improving, however hepatotoxic medications should be avoided Full liver serologies including viral testing ordered Computed tomography scan and ultrasound reviewed Thank you for allowing us to participate in the care of the patient
--- NOTE | 2020-12-18 15:04 | PN ---
PROGRESS NOTE DATE OF SERVICE: 12/18/2020 I am covering for Dr. Jean-Claude Buenrostro. This 40-year-old gentleman was admitted with weakness and C6-7 fusion, cervical myelopathy, had cervical fusion. Subsequently patient had intrarectal bacteremia. Dr. Alvarez was consulted. Patient is currently on cefepime. A CT scan of the abdomen and pelvis did not show any acute abnormality as well as ultrasound also. The patient has elevated LFTs and bilirubin going up to 6.9 and AST was 156 and ALT was 420. Ultrasound of the right upper quadrant was normal. PAST MEDICAL HISTORY: Reviewed. REVIEW OF SYSTEMS: CARDIOVASCULAR: No angina. RESPIRATORY: No cough or hemoptysis. GI: As mentioned early. : No dysuria. NERVOUS SYSTEM: No numbness or weakness. CURRENT MEDICATIONS: Reviewed and include cefepime, Decadron, Motrin, Lamictal, Ativan, Cozaar, melatonin, Zofran, Protonix, Seroquel, Effexor XR. PHYSICAL EXAM: Patient is alert, oriented x3. Pulse is 65, blood pressure 130/60, respirations 16, temperature 98.4, T-max is 100 degrees, pulse ox 94% on room air. HEENT: Conjunctivae normal. Oral mucosa moist. NECK: No jugular venous distention. No lymph node enlargement. CARDIOVASCULAR: S1, S2, muffled. No S3, no S4, RESPIRATORY: Diminished breath sounds at the bases. A few scattered rhonchi and crackles. ABDOMEN: Soft, nontender. LEGS: No edema, no swelling. NERVOUS SYSTEM: No focal deficits LABS: WBC 20.9. Other labs are noted as mentioned earlier. ASSESSMENT: 1. Status post C6-7 fusion, cervical disk herniation C6-7. 2. Possible left lower lobe infiltrate and pneumonia. 3. Enterobacter cloacae bacteremia. 4. Elevated LFTs of undetermined etiology. 5. Increased WBC. 6. Weakness on the right side, possible cervical myelopathy and cervical myelomalacia. 7. Sinus bradycardia secondary to beta blockers previously. 8. Previous history of syncopal episode. 9. 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 10.Suicidal ideation history. 11.History of CVA, TIA. 12.Hypertension. 13.History of migraine. 14.History of cholecystectomy. 15.History of anxiety, depression, posttraumatic stress disorder. 16.Obesity with body mass of 36.2. RECOMMENDATIONS AND DISCUSSION: I recommend to continue current management and continue symptomatic treatment. Otherwise, at this time I would recommend repeat labs and avoid hepatotoxic medications. Guarded prognosis because of the multiple complex medical issues and further recommendations to follow. See orders for details. Repeat cultures are pending at this time. MMODL / IJN: [id number] /
[2020-12-18 17:30] LABS: Glucose,Whole Blood 178 mg/dL (75-99)
[2020-12-18 20:18] LABS: Glucose,Whole Blood 172 mg/dL (75-99)
[2020-12-18] MEDS: MELATONIN 5 MG TABLET PO SCH (21:11)
[2020-12-18] MEDS: CYANOCOBALAMIN 500 MCG TAB PO SCH (21:11)
[2020-12-18] MEDS: QUEtiapine 100 MG TAB PO SCH (21:11)
--- NOTE | 2020-12-18 22:00 | PN ---
PROGRESS NOTE DATE OF SERVICE: 12/18/2020 REASON FOR FOLLOW UP: Enterobacter bacteremia. INTERVAL HISTORY: Patient is afebrile this morning. The patient is feeling better. He is breathing comfortably. Denies any pain at the right anterior neck incision site. No chest pain, shortness of breath. Minimal cough. No sputum. No vomiting. No abdominal pain. No diarrhea. PHYSICAL EXAMINATION: Blood pressure 126/72 with a pulse of 80, temperature 98.5. He is 93% on room air. General description: The patient is a middle-aged male lying in bed in no distress. Respiratory system: Unlabored breathing, decreased breath sounds at the base. No wheeze. HEART: S1, S2. Regular rate and rhythm. ABDOMEN: Soft, no tenderness. LABS: No new labs have been obtained today. Blood cultures from yesterday positive as well. DIAGNOSTIC IMPRESSION AND PLAN: Patient with bacteremia gram-negative with Enterobacter cloacae in this patient with initial concern for abdominal source. However, CT of abdomen and pelvis as well as ultrasound came back negative. Urine is negative, not behaving as pneumonia. Patient is covered with cefepime with daily monitoring of his blood culture to document clearance of bacteremia and continue supportive care. MMODL / IJN: [id number] /
[2020-12-19 04:42] LABS: Basophils % (A) 0 %; Eosinophils % (A) 0 %; HCT 45.9 % (39.0-53.0); HGB 15.4 gm/dL (13.0-17.5); Lymphocytes # (A) 0.8 k/uL (1.0-4.8); Lymphocytes % (A) 6 %; MCHC 33.5 g/dL (31.0-37.0); MCV 89.7 fL (80.0-100.0); Monocytes # (A) 0.6 k/uL (0-1.0); Monocytes % (A) 5 %; Neutrophils # (A) 12.4 k/uL (1.3-7.7); Neutrophils % (A) 89 %; Platelet Count 169 k/uL (150-450); RBC 5.12 m/uL (4.30-5.90); RDW 13.7 % (11.5-15.5); WBC 13.9 k/uL (3.8-10.6)
[2020-12-19 04:54] LABS: ALT 259 U/L (4-49); AST 49 U/L (17-59); African American GFR (CKD) >90 (>60 ml/min/1.73 sqM); Albumin 2.9 g/dL (3.5-5.0); Albumin/Globulin Ratio 1.2; Alkaline Phosphatase 218 U/L (38-126); Anion Gap 7 mmol/L; Bilirubin,Unconjugated 0.8 mg/dL (0.0-1.1); Blood Urea Nitrogen 24 mg/dL (9-20); Calcium 8.6 mg/dL (8.4-10.2); Carbon Dioxide 26 mmol/L (22-30); Chloride 103 mmol/L (98-107); Globulin 2.4 g/dL; Glucose 182 mg/dL (74-99); Non-African American GFR(CKD) >90 (>60 ml/min/1.73 sqM); Sodium 136 mmol/L (137-145); Total Bilirubin 1.4 mg/dL (0.2-1.3); Total Protein 5.3 g/dL (6.3-8.2)
[2020-12-19] MEDS: CEFEPIME 2 GM in SODIUM CHLORIDE 0.9% 100 ML IVPB SCH ×2 (04:55→17:18)
[2020-12-19] MEDS: DEXAMETHASONE SOD PHOSPHATE 4 MG/ML 1 ML VIAL IV SCH ×4 (04:56→23:40)
[2020-12-19 07:22] LABS: Glucose,Whole Blood 135 mg/dL (75-99)
[2020-12-19] MEDS: INSULIN ASPART (NovoLOG) 100 UNIT/ML VIAL SQ SCH ×4 (07:25→21:22)
[2020-12-19] MEDS: LOSARTAN 50 MG TAB PO SCH (08:12)
[2020-12-19] MEDS: PANTOPRAZOLE 40 MG TABLET PO SCH (08:12)
[2020-12-19] MEDS: polyethylene glycoL 3350 17 GM POWD.PACK PO SCH (08:13)
[2020-12-19] MEDS: lamoTRIgine 25 MG TAB PO SCH ×2 (08:13→21:22)
[2020-12-19] MEDS: VENLAFAXINE HCL ER 75 MG CAP PO SCH (09:24)
[2020-12-19 09:34] LABS: % Iron Saturation 32.81 (15.00-50.00); Iron 83 ug/dL (65-175); Protein, Total 5.3 g/dL (6.2-8.2); Total Iron Binding Capacity 253 ug/dL (228-460)
[2020-12-19 09:46] LABS: Ferritin 353.4 ng/mL (22.0-322.0)
[2020-12-19 11:32] LABS: Glucose,Whole Blood 230 mg/dL (75-99)
[2020-12-19 12:23] LABS: Hepatitis A Antibody IgM Non-Reactive (Non-Reactive); Hepatitis B Core IgM Non-Reactive (Non-Reactive); Hepatitis B Surface Antigen Non-Reactive (Non-Reactive); Hepatitis C IgG Antibody Non-Reactive (Non-Reactive)
--- NOTE | 2020-12-19 13:34 | P.PN ---
Subjective Progress Note Date: 12/19/20 Principal diagnosis: Elevated liver enzymes This is a 40-year-old who is currently hospitalized for treatment of TIA and status post cervical fusion. [facility]t Argueta was initially called to see the patient due to an esophageal foreign body which was removed on EGD. Gastroenterology was re-consulted due to elevation in liver enzymes which were initially normal on presentation and found to trend up during the patient's hospitalization. Ultrasound of the abdomen performed showed patient with postcholecystectomy otherwise normal. CT of the abdomen was significant only for diverticulosis, without any evidence of liver disease. He denies any prior history of elevated liver enzymes, history of alcohol abuse, or family history of liver disease. Today he states he is feeling very well and was like to be discharged home. He denies any abdominal pain, nausea, or vomiting. Liver enzymes are trending down. Full serology workup ordered and pending. Objective - Vital Signs Vital signs: Vital Signs Temp 98.0 F 12/19/20 12:25 Pulse 65 12/19/20 12:25 Resp 16 12/19/20 12:25 BP 153/75 12/19/20 12:25 Pulse Ox 96 12/19/20 12:25 Intake & Output 12/18/20 12/19/20 12/19/20 18:59 06:59 18:59 Intake Total 800 580 600 Output Total 0 1700 Balance 800 -1120 600 Intake: Intake, IV Titration 100 Amount Cefepime 2 gm In Sodium 100 Chloride 0.9% 100 ml @ 25 mls/hr IVPB Q12H [facility] Rx# :[id number] Oral 800 480 600 Output: Urine 1700 Stool 0 Other: Voiding Method Toilet Urinal - Exam General appearance: The patient is alert, oriented, appears in no acute distress. HET: Head is normocephalic atraumatic. Sclera ancteric. Neck: With Cervical in place. Abdomen: Soft, obese, nontender, nondistended with bowel sounds. No guarding or rigidity. Extremities: Normal skin color and turgor. No pedal edema Skin: No rashes, no jaundice Neurological: No focal deficits. Alert and oriented 3. - Labs CBC & Chem 7: 12/19/20 04:16 12/19/20 04:16 Labs: Abnormal Lab Results - Last 24 Hours (Table) 0412/18/20 12/19/20 Range/Units 17:24 20:13 04:16 WBC (3.8-10.6) k/uL Neutrophils # (1.3-7.7) k/uL Lymphocytes # (1.0-4.8) k/uL Sodium (137-145) mmol/L BUN (9-20) mg/dL Glucose (74-99) mg/dL POC Glucose (mg/dL) 178 H 172 H (75-99) mg/dL Ferritin (22.0-322.0) ng/mL Total Bilirubin (0.2-1.3) mg/dL ALT (4-49) U/L Alkaline Phosphatase (38-126) U/L Total Protein (6.3-8.2) g/dL Total Protein (PEP) 5.3 L (6.2-8.2) g/dL Albumin (3.5-5.0) g/dL 12/19/20 12/19/20 12/19/20 Range/Units 04:16 04:16 07:21 WBC 13.9 H (3.8-10.6) k/uL Neutrophils # 12.4 H (1.3-7.7) k/uL Lymphocytes # 0.8 L (1.0-4.8) k/uL Sodium 136 L (137-145) mmol/L BUN 24 H (9-20) mg/dL Glucose 182 H (74-99) mg/dL POC Glucose (mg/dL) 135 H (75-99) mg/dL Ferritin 353.4 H (22.0-322.0) ng/mL Total Bilirubin 1.4 H (0.2-1.3) mg/dL ALT 259 H (4-49) U/L Alkaline Phosphatase 218 H (38-126) U/L Total Protein 5.3 L (6.3-8.2) g/dL Total Protein (PEP) (6.2-8.2) g/dL Albumin 2.9 L (3.5-5.0) g/dL 12/19/20 Range/Units 11:30 WBC (3.8-10.6) k/uL Neutrophils # (1.3-7.7) k/uL Lymphocytes # (1.0-4.8) k/uL Sodium (137-145) mmol/L BUN (9-20) mg/dL Glucose (74-99) mg/dL POC Glucose (mg/dL) 230 H (75-99) mg/dL Ferritin (22.0-322.0) ng/mL Total Bilirubin (0.2-1.3) mg/dL ALT (4-49) U/L Alkaline Phosphatase (38-126) U/L Total Protein (6.3-8.2) g/dL Total Protein (PEP) (6.2-8.2) g/dL Albumin (3.5-5.0) g/dL Microbiology - Last 24 Hours (Table) 12/17/20 18:29 Blood Culture Gram Stain - Preliminary Blood Blood Culture - Preliminary Gram Neg Bacilli 12/17/20 06:55 Blood Culture Gram Stain - Preliminary Blood Blood Culture - Preliminary Gram Neg Bacilli 12/16/20 20:03 Blood Culture Gram Stain - Final Blood Blood Culture - Final Enterobacter cloacae 12/17/20 16:22 Urine Culture - Final Urine,Voided 12/17/20 18:29 Blood Culture - Final Blood Assessment and Plan (1) Elevated liver enzymes Narrative/Plan: 32-year-old male hospitalized and treated for multiple TIAs and status post cervical fusion. Liver enzymes found to be elevated in both a cholestatic and hepatocellular pattern after being normal on presentation with total bilirubin 6.9, alkaline phosphatase 241, AST 156 and ALT 426, currently trending down. Ultrasound negative for any acute hepatobiliary pathology patient is status post cholecystectomy. CT of the abdomen significant only for diverticulosis. Suspicion is for medication side effect with liver enzymes currently trending down. Full liver serology and viral testing will be ordered. He denies any family history of liver disease, intrinsic liver disease, prior history of heavy alcohol abuse or other risk factors. Current Visit: Yes Status: Acute Code(s): R74.8 - ABNORMAL LEVELS OF OTHER SERUM ENZYMES SNOMED Code(s): 615913372 Plan: 1. Supportive care 2. Okay for diet as tolerated 3. Continue other medical management 4. Continue to monitor CBC, BMP, LFTs 5. Okay to continue medications for now as liver enzymes are improving, however hepatotoxic medications should be avoided 6. Full liver serologies including viral testing ordered, pending 7. Computed tomography scan and ultrasound reviewed The patient may be discharged home from a gastroenterology standpoint once medically stable. Patient can have outpatient follow-up labs for LFTs. Thank you for this consultation, we will continue to follow Dr. Cori Gracia I agree with the dictator's note, documented as a scribe by Niharika Malin.
[2020-12-19 13:40] LABS: Ceruloplasmin 28.7 mg/dL (20.0-60.0)
--- NOTE | 2020-12-19 14:34 | P.PN ---
Subjective Progress Note Date: 12/19/20 This is a 40-year-old male who was recently admitted with recent C6-7 fusion, cervical myelopathy and underwent cervical fusion with orthopedics and is being closely monitored. Patient was also found to have bacteremia and infectious disease is following. Patient is currently maintained on IV cefepime and will continue. Most recent blood culture Gram stain preliminary showing gram- negative bacilli and awaiting culture finalization to determine discharge antibiotics. GI also following and working on viral serology studies which are in progress. Since liver functions continue to be elevated although are trending down. Sodium today is 136 with a potassium of 5.0 and current creatinine is 0.81. Patient is maintained on sliding scale for elevated blood sugars and is also maintained on dexamethasone and will continue. Patient continues to be weak although showing improvements and working with physical therapy. Review of systems: Constitutional: No reports of fatigue, fever, or chills Cardiovascular: No reports of chest pain or palpitations Respiratory: No reports of shortness of breath or cough GI: No reports of nausea, vomiting, or diarrhea : No reports of dysuria or retention Neurovascular: Reports generalized weakness All medications have been reviewed Objective - Vital Signs Vital signs: Vital Signs Temp 98.0 F 12/19/20 12:25 Pulse 65 12/19/20 12:25 Resp 16 12/19/20 12:25 BP 153/75 12/19/20 12:25 Pulse Ox 96 12/19/20 12:25 Intake & Output 12/18/20 12/19/20 12/19/20 18:59 06:59 18:59 Intake Total 800 580 600 Output Total 0 1700 Balance 800 -1120 600 Intake: Intake, IV Titration 100 Amount Cefepime 2 gm In Sodium 100 Chloride 0.9% 100 ml @ 25 mls/hr IVPB Q12H [facility] Rx# :[id number] Oral 800 480 600 Output: Urine 1700 Stool 0 Other: Voiding Method Toilet Urinal - Exam Gen: This is a 40-year-old male awake, alert and oriented 3, well-developed, well-nourished, obese. Not in any acute distress HEENT: Head is atraumatic, normocephalic. Pupils equal, round. Sclerae is anicteric. NECK: Supple. No JVD. No lymphadenopathy. No thyromegaly. Soft cervical collar noted. LUNGS: Clear to auscultation. No wheezes or rhonchi. No intercostal retract ions. HEART: Regular rate and rhythm. No murmur. ABDOMEN: Soft. Bowel sounds are present. No masses. No tenderness. EXTREMITIES: No pedal edema. No calf tenderness. NEUROLOGICAL: Patient is awake, alert and oriented x3. No focal deficits noted. - Labs CBC & Chem 7: 12/19/20 04:16 12/19/20 04:16 Labs: Abnormal Lab Results - Last 24 Hours (Table) 12/18/20 12/18/20 12/19/20 Range/Units 17:24 20:13 04:16 WBC (3.8-10.6) k/uL Neutrophils # (1.3-7.7) k/uL Lymphocytes # (1.0-4.8) k/uL Sodium (137-145) mmol/L BUN (9-20) mg/dL Glucose (74-99) mg/dL POC Glucose (mg/dL) 178 H 172 H (75-99) mg/dL Ferritin (22.0-322.0) ng/mL Total Bilirubin (0.2-1.3) mg/dL ALT (4-49) U/L Alkaline Phosphatase (38-126) U/L Total Protein (6.3-8.2) g/dL Total Protein (PEP) 5.3 L (6.2-8.2) g/dL Albumin (3.5-5.0) g/dL 12/19/20 12/19/20 12/19/20 Range/Units 04:16 04:16 07:21 WBC 13.9 H (3.8-10.6) k/uL Neutrophils # 12.4 H (1.3-7.7) k/uL Lymphocytes # 0.8 L (1.0-4.8) k/uL Sodium 136 L (137-145) mmol/L BUN 24 H (9-20) mg/dL Glucose 182 H (74-99) mg/dL POC Glucose (mg/dL) 135 H (75-99) mg/dL Ferritin 353.4 H (22.0-322.0) ng/mL Total Bilirubin 1.4 H (0.2-1.3) mg/dL ALT 259 H (4-49) U/L Alkaline Phosphatase 218 H (38-126) U/L Total Protein 5.3 L (6.3-8.2) g/dL Total Protein (PEP) (6.2-8.2) g/dL Albumin 2.9 L (3.5-5.0) g/dL 12/19/20 Range/Units 11:30 WBC (3.8-10.6) k/uL Neutrophils # (1.3-7.7) k/uL Lymphocytes # (1.0-4.8) k/uL Sodium (137-145) mmol/L BUN (9-20) mg/dL Glucose (74-99) mg/dL POC Glucose (mg/dL) 230 H (75-99) mg/dL Ferritin (22.0-322.0) ng/mL Total Bilirubin (0.2-1.3) mg/dL ALT (4-49) U/L Alkaline Phosphatase (38-126) U/L Total Protein (6.3-8.2) g/dL Total Protein (PEP) (6.2-8.2) g/dL Albumin (3.5-5.0) g/dL Microbiology - Last 24 Hours (Table) 12/17/20 18:29 Blood Culture Gram Stain - Preliminary Blood Blood Culture - Preliminary Gram Neg Bacilli 12/17/20 06:55 Blood Culture Gram Stain - Preliminary Blood Blood Culture - Preliminary Gram Neg Bacilli 12/16/20 20:03 Blood Culture Gram Stain - Final Blood Blood Culture - Final Enterobacter cloacae 12/17/20 16:22 Urine Culture - Final Urine,Voided 12/17/20 18:29 Blood Culture - Final Blood Assessment and Plan Assessment: Status post C6-7 fusion, cervical disc herniation C6-7 Possible left lower lobe infiltrate and pneumonia Enterobacter cloacae bacteremia Elevated liver function tests of undetermined etiology Increased white blood count Weakness on the right side, possible cervical myelopathy and cervical myomalacia Sinus bradycardia secondary to beta blockers previously Previous history of syncopal episode increased random blood sugar, possibly steroid induced diabetes mellitus type 2 Suicidal ideation history History of CVATIA Hypertension History of anxiety, depression, posttraumatic stress disorder Obesity with a BMI of or the 1.6 Full code Plan: Continue with current medications. continue with IV antibiotics in the form of cefepime while awaiting for bacteremia clearance. Infectious disease is following. GI also following for elevated liver functions which are currently trending down. Patient denies any abdominal discomfort and states he is feeling much better today. Working with physical therapy daily and continues with soft cervical collar. Orthopedics also following.
[2020-12-19 17:34] LABS: Glucose,Whole Blood 162 mg/dL (75-99)
[2020-12-19] MEDS: MEROPENEM 1 GM in SODIUM CHLORIDE 0.9% 100 ML IVPB SCH (18:20)
--- NOTE | 2020-12-19 19:42 | PN ---
PROGRESS NOTE DATE OF SERVICE: 12/19/2020 REASON FOR FOLLOWUP: Enterobacter bacteremia. INTERVAL HISTORY: The patient is currently afebrile. The patient overall is feeling better, breathing comfortably. The patient denies having any chest pain or shortness of breath or cough. No abdominal pain or diarrhea. PHYSICAL EXAMINATION: Blood pressure is 153/75 with a pulse of 55, temperature 98. He is 96% on room air. General description is a middle-aged male lying in bed in no distress. RESPIRATORY SYSTEM: Unlabored breathing. Clear to auscultation anteriorly. HEART: S1, S2. Regular rate and rhythm. ABDOMEN: Soft. No tenderness. LABS: Hemoglobin is 15.4, white count 13.9, BUN of 24, creatinine 0.81. Blood culture with Enterobacter, which is a pretty resistant pathogen, with intermediate sensitivity to ertapenem or likely behaving as CRE. DIAGNOSTIC IMPRESSION AND PLAN: Patient with Gram-negative bacteremia with [id number] Enterobacter, intermediate sensitivity to Invanz. We will discontinue the cefepime. Start the patient on meropenem. We will obtain a WBC scan for possible source. He will likely need a PICC line for outpatient antibiotic, which will depend on the source. Continue with supportive care. MMODL / IJN: [id number] /
[2020-12-19 21:02] LABS: Glucose,Whole Blood 176 mg/dL (75-99)
[2020-12-19] MEDS: QUEtiapine 100 MG TAB PO SCH (21:22)
[2020-12-19] MEDS: CYANOCOBALAMIN 500 MCG TAB PO SCH (21:22)
[2020-12-19] MEDS: MELATONIN 5 MG TABLET PO SCH (21:26)
[2020-12-20] MEDS: MEROPENEM 1 GM in SODIUM CHLORIDE 0.9% 100 ML IVPB SCH ×3 (01:13→17:23)
[2020-12-20] MEDS: DEXAMETHASONE SOD PHOSPHATE 4 MG/ML 1 ML VIAL IV SCH ×3 (05:57→17:23)
[2020-12-20 07:01] LABS: Glucose,Whole Blood 153 mg/dL (75-99)
[2020-12-20 07:19] LABS: Basophils % (A) 0 %; Eosinophils % (A) 0 %; HCT 52.2 % (39.0-53.0); HGB 16.2 gm/dL (13.0-17.5); Lymphocytes % (A) 6 %; MCH 28.6 pg (25.0-35.0); MCHC 31.1 g/dL (31.0-37.0); MCV 92.1 fL (80.0-100.0); Mean Platelet Volume 7.2; Monocytes # (A) 0.8 k/uL (0-1.0); Monocytes % (A) 5 %; Neutrophils # (A) 15.4 k/uL (1.3-7.7); Neutrophils % (A) 89 %; Platelet Count 192 k/uL (150-450); RBC 5.67 m/uL (4.30-5.90); WBC 17.4 k/uL (3.8-10.6)
[2020-12-20] MEDS: INSULIN ASPART (NovoLOG) 100 UNIT/ML VIAL SQ SCH ×4 (07:26→21:21)
[2020-12-20] MEDS: LOSARTAN 50 MG TAB PO SCH (07:26)
[2020-12-20] MEDS: VENLAFAXINE HCL ER 75 MG CAP PO SCH (07:26)
[2020-12-20] MEDS: PANTOPRAZOLE 40 MG TABLET PO SCH (07:26)
[2020-12-20] MEDS: lamoTRIgine 25 MG TAB PO SCH ×2 (07:26→21:19)
[2020-12-20] MEDS: polyethylene glycoL 3350 17 GM POWD.PACK PO SCH (07:28)
[2020-12-20 11:36] LABS: Glucose,Whole Blood 161 mg/dL (75-99)
--- NOTE | 2020-12-20 12:03 | P.PN ---
Subjective Progress Note Date: 12/20/20 Principal diagnosis: Elevated liver enzymes This is a 40-year-old who is currently hospitalized for treatment of TIA and status post cervical fusion. [facility] was initially called to see the patient due to an esophageal foreign body which was removed on EGD. Gastroenterology was re-consulted due to elevation in liver enzymes which were initially normal on presentation and found to trend up during the patient's hospitalization. Ultrasound of the abdomen performed showed patient with postcholecystectomy otherwise normal. CT of the abdomen was significant only for diverticulosis, without any evidence of liver disease. He denies any prior history of elevated liver enzymes, history of alcohol abuse, or family history of liver disease. He is seen and evaluated today without any complaints of abdominal pain, nausea, or vomiting. Liver enzymes have been trending down, however today's labs are pending at this time. Objective - Vital Signs Vital signs: Vital Signs Temp 97.6 F 12/20/20 05:00 Pulse 51 L 12/20/20 05:00 Resp 16 12/20/20 05:00 BP 131/80 12/20/20 05:00 Pulse Ox 97 12/20/20 05:00 Intake & Output 12/19/20 12/20/20 12/20/20 18:59 06:59 18:59 Intake Total 600 100 Balance 600 100 Intake: Intake, IV Titration 100 Amount Meropenem 1 gm In Sodium 100 Chloride 0.9% 100 ml @ 33 .3 mls/hr IVPB Q8H [facility] Rx #:[id number] Oral 600 Other: Voiding Method Toilet Urinal # Voids 7 - Exam General appearance: The patient is alert, oriented, appears in no acute distress. HET: Head is normocephalic atraumatic. Sclera ancteric. Neck: With Cervical in place. Abdomen: Soft, obese, nontender, nondistended with bowel sounds. No guarding or rigidity. Extremities: Normal skin color and turgor. No pedal edema Skin: No rashes, no jaundice Neurological: No focal deficits. Alert and oriented 3. - Labs CBC & Chem 7: 12/20/20 05:37 12/19/20 04:16 Labs: Abnormal Lab Results - Last 24 Hours (Table) 12/19/20 12/19/20 12/19/20 Range/Units 04:16 04:16 11:30 WBC (3.8-10.6) k/uL Neutrophils # (1.3-7.7) k/uL POC Glucose (mg/dL) 230 H (75-99) mg/dL Ferritin 353.4 H (22.0-322.0) ng/mL Total Protein (PEP) 5.3 L (6.2-8.2) g/dL 12/19/20 12/19/20 12/20/20 Range/Units 17:32 20:58 05:37 WBC 17.4 H (3.8-10.6) k/uL Neutrophils # 15.4 H (1.3-7.7) k/uL POC Glucose (mg/dL) 162 H 176 H (75-99) mg/dL Ferritin (22.0-322.0) ng/mL Total Protein (PEP) (6.2-8.2) g/dL 12/20/20 Range/Units 06:59 WBC (3.8-10.6) k/uL Neutrophils # (1.3-7.7) k/uL POC Glucose (mg/dL) 153 H (75-99) mg/dL Ferritin (22.0-322.0) ng/mL Total Protein (PEP) (6.2-8.2) g/dL Microbiology - Last 24 Hours (Table) 12/17/20 06:55 Blood Culture Gram Stain - Final Blood Blood Culture - Final Enterobacter cloacae 12/17/20 18:29 Blood Culture Gram Stain - Final Blood Blood Culture - Final Enterobacter cloacae Assessment and Plan (1) Elevated liver enzymes Narrative/Plan: 32-year-old male hospitalized and treated for multiple TIAs and status post cervical fusion. Liver enzymes found to be elevated in both a cholestatic and hepatocellular pattern after being normal on presentation with total bilirubin 6.9, alkaline phosphatase 241, AST 156 and ALT 426, currently trending down. Ultrasound negative for any acute hepatobiliary pathology patient is status post cholecystectomy. CT of the abdomen significant only for diverticulosis. Suspicion is for medication side effect with liver enzymes currently trending down. Full liver serology and viral testing ordered and negative to date. He denies any family history of liver disease, intrinsic liver disease, prior history of heavy alcohol abuse or other risk factors. Current Visit: Yes Status: Acute Code(s): R74.8 - ABNORMAL LEVELS OF OTHER SERUM ENZYMES SNOMED Code(s): 357802706 Plan: 1. Supportive care 2. Okay for diet as tolerated 3. Continue other medical management 4. Continue to monitor CBC, BMP, LFTs 5. Avoid hepatotoxic medications should be avoided 6. Full liver serologies including viral testing ordered, negative to date 7. Computed tomography scan and ultrasound reviewed The patient may be discharged home from a gastroenterology standpoint once medically stable. Patient can have outpatient follow-up labs for LFTs. Thank you for this consultation, we will continue to follow Dr. Cori Gracia I agree with the dictator's note, documented as a scribe by Niharika Malin.
[2020-12-20 14:23] LABS: African American GFR (CKD) 131.3 (60.0-200.0); Albumin 3.8 g/dL (3.80-4.90); Albumin/Globulin Ratio 2.38 (1.60-3.17); Anion Gap 15.3 mmol/L (4.00-12.00); BUN/Creat Ratio 27.5 Ratio (12.00-20.00); Calcium 8.4 mg/dL (8.7-10.3); Carbon Dioxide 22.7 mmol/L (21.6-31.8); Globulin 1.6 g/dL (1.6-3.3); Non-African American GFR(CKD) 113.3 (60.0-200.0); Total Bilirubin 1.4 mg/dL (0.2-1.2); Total Protein 5.4 g/dL (6.2-8.2)
[2020-12-20 14:36] LABS: Liver/Kidney Microsome Antibod 1.4 UNITS (<=20)
--- NOTE | 2020-12-20 15:15 | P.PN ---
Subjective Progress Note Date: 12/20/20 Principal diagnosis: RUE weakness RLE weakness RUE radiculopathy Cervical myelopathy Positive blood cultures Evaluated 40-year-old gentleman this a.m., resting comfortably in bed. She has significant history of cervical disc herniation from C6 to C7, secondary bradycardia possibly due to beta blockers, syncopal episodes, steroid-induced diabetes type 2 suicidal ideation history, history of cerebrovascular accident/transient ischemic attack, hypertension, history of migraines, anxiety depression posttraumatic stress disorder. On evaluation this a.m. patient is resting comfortably in bed noted to have right-sided weakness patient awaiting, cervical intervention with orthopedics this a.m. patient denies any fever, chills, chest pain, palpitations, abdominal pain, nausea, vomiting, diarrhea, or new additional symptoms. December 20, 2020 Evaluated 40-year-old male this a.m. resting comfortably in the side of the bed, patient moving all extremity strength 5 out of 5 in all extremities. Patient denies any complaints at this time. Patient denies fever, chills, shortness of breath, chest pain, palpitations, abdominal pain, nausea, vomiting, or diarrhea at this time. Patient continues to receive broad-spectrum antibiotics for positive blood cultures. Objective - Vital Signs Vital signs: Vital Signs Temp 98.2 F 12/20/20 11:17 Pulse 57 L 12/20/20 11:17 Resp 18 12/20/20 11:17 BP 121/79 12/20/20 11:17 Pulse Ox 96 12/20/20 11:17 Intake & Output 12/19/20 12/20/20 12/20/20 18:59 06:59 18:59 Intake Total 600 100 Output Total 700 Balance 600 100 -700 Intake: Intake, IV Titration 100 Amount Meropenem 1 gm In Sodium 100 Chloride 0.9% 100 ml @ 33 .3 mls/hr IVPB Q8H [facility] Rx #:[id number] Oral 600 Output: Urine 700 Other: Voiding Method Toilet Urinal # Voids 7 - Constitutional General appearance: Present: cooperative - EENT Eyes: Present: EOMI, PERRLA Ears: bilateral: normal - Neck Thyroid: bilateral: normal size - Respiratory Respiratory: bilateral: CTA - Cardiovascular Details: Normal sinus rhythm Heart rate: 78 Rhythm: regular Heart sounds: normal: S1, S2 - Peripheral pulses radial pulse Peripheral Pulses: bilateral: Normal dorsalis pedis Peripheral Pulses: bilateral: Normal - Gastrointestinal General gastrointestinal: Present: normal bowel sounds - Integumentary Integumentary: Present: normal turgor - Neurologic Neurologic: Present: CNII-XII intact - Musculoskeletal Musculoskeletal: Present: gait normal - Psychiatric Psychiatric: Present: A&O x's 3, appropriate affect, intact judgment & insight - Allied health notes Allied health notes reviewed: nursing - Labs CBC & Chem 7: 12/20/20 05:37 12/20/20 05:37 Labs: Abnormal Lab Results - Last 24 Hours (Table) 12/19/20 12/19/20 12/20/20 Range/Units 17:32 20:58 05:37 WBC 17.4 H (3.8-10.6) k/uL Neutrophils # 15.4 H (1.3-7.7) k/uL Anion Gap (4.00-12.00) mmol/L BUN/Creatinine Ratio (12.00-20.00) Ratio Glucose (70-110) mg/dL POC Glucose (mg/dL) 162 H 176 H (75-99) mg/dL Calcium (8.7-10.3) mg/dL Total Bilirubin (0.2-1.2) mg/dL ALT (10-49) U/L Alkaline Phosphatase (41-126) U/L Total Protein (6.2-8.2) g/dL 12/20/20 12/20/20 12/20/20 Range/Units 05:37 06:59 11:34 WBC (3.8-10.6) k/uL Neutrophils # (1.3-7.7) k/uL Anion Gap 15.30 H (4.00-12.00) mmol/L BUN/Creatinine Ratio 27.50 H (12.00-20.00) Ratio Glucose 164 H (70-110) mg/dL POC Glucose (mg/dL) 153 H 161 H (75-99) mg/dL Calcium 8.4 L (8.7-10.3) mg/dL Total Bilirubin 1.4 H (0.2-1.2) mg/dL ALT 176 H (10-49) U/L Alkaline Phosphatase 235 H (41-126) U/L Total Protein 5.4 L (6.2-8.2) g/dL Microbiology - Last 24 Hours (Table) 12/17/20 06:55 Blood Culture Gram Stain - Final Blood Blood Culture - Final Enterobacter cloacae 12/17/20 18:29 Blood Culture Gram Stain - Final Blood Blood Culture - Final Enterobacter cloacae Assessment and Plan Assessment: Weakness of right side, possibly cervical myelopathy Cervical disc herniation C6 to C7 Positive blood cultures Sinus bradycardia possibly due to beta blockers Previous history of syncopal episode Elevated blood sugars possibly due to steroids History of suicidal ideation History of cerebrovascular accident/transient ischemic attack Hypertension History of migraines History of cholecystectomy Anxiety, depression, posttraumatic stress disorder Obesity Full code Plan: Continue current medications, monitor symptomatic treatment, continue the rest of medications, DVT prophylaxis Continue antibiotic therapy for positive blood cultures continue follow treatment from ortho for cervical fusion Continue home medications Continue medical management Further recommendations based on patient's clinical status Time with Patient: Greater than 30
--- NOTE | 2020-12-20 16:53 | P.OP ---
Date of Procedure: 12/13/20 Preoperative Diagnosis: 1. RUE and RLE weakness with episodic numbness/tingling 2. 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 Cervical spondylotic myelopathy 4. Complex medical history 5. Mechanical neck pain Postoperative Diagnosis: 1. 40 yo male with RUE and RLE weakness with episodic numbness/tingling 2. 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 Cervical spondylotic myelopathy 4. Complex medical history 5. Mechanical neck pain Procedure(s) Performed: 1. C6-7 disectomy 2. C6-7 pacement of biomechanical spacer/device 3. C6-7 separate non integrated anterior plate fixation 4. Use of intraoperative microscope 5. Use of intraoperative neuro-monitoring. Implants: Adal/K2M 8 mm lordotic Ti spacer Bio4 28 mm plate Anesthesia: GETA, other (Pt is a very difficult intubation and required fib eroptis and several pre treatment with awake intubation. ) Surgeon: Bunny Condon [employer] Manager #1: Rodrigo Marquez (Was present for the entire case and was necessary due to the complexity of the case. ) Estimated Blood Loss (ml): 50 IV fluids (ml): 2,000 Urine output (ml): 0 Pathology: none sent Condition: stable Disposition: PACU Indications for Procedure: 40 yo male presented with c/o RUE and RLE weakness that was off and on with numbness/tingling since May. He states that he has had episodes of numbness/tingling/weakness in his RUE and RLE since then and has had 4 different episodes. This most recent episode started back on saturday and he came to ED due to it. He has had extensive work up for stroke, TIA and other neurovascular issues which have not returned any issues. He was found to have hyperreflexxia in his LE and UE and so MRI of the C spine was ordered which does show C6-7 HNP with stenosis and the begnings of myelomalacia type changes. He states he is having difficulty with walking and an unsteady gait. He does not have any bowel or bladder issues. and denies any genital or rectal numbness/tingling at this time. He states no f/c/sob/cp at this time as well. Operative Findings: Severe disc dessication with instability at C6-7 with large posteriolateral disc herniation and foraminal stenosis. Description of Procedure: FINDINGS: - Significant cervical degeneration was identified which was operated on secondary to a combination of significant disc space collapse, osteophyte form ation, as well as posterior longitudinal ligament thickening and uncovertebral hypertrophy contributing to spinal stenosis. - The intraoperative microscope was necessary as the neural and vascular structures dealt with as well as adhesions were too small to be safely seen and dissected without the use of microscopic magnification and instrumentation. - Intraoperative neuromonitoring including the use of SSEP and motor evoked potentials remained stable from baseline and persisted throughout the case to its conclusion. 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 The patient's clinical exam has been consistent with significant cervical neck pain and myelopathy. The patient's neuroradiographic imaging has been consistent with cervical spinal stenosis which is severe due to a large disc herniation with myelomalacia and degeneration at the above-stated levels he has failed a ppropriate nonoperative care for significant arm-related symptoms with [id number]-[id number]-left upper extremity hand paresthesias and weakness, loss of dexterity, and bilateral shoulder pain. The patient also had some signs of myelopathy both on neuroradiographic imaging and clinical exam. MRI and CT scan have shown large C6-C7 herniated disc with severe stenosis myelomalacia myelopathy.. Unfortunately, at this point in time, the patient's clinical symptoms have failed to improve with conservative management including prolonged activity modification, oral anti-inflammatories, oral pain medications, exercise-based therapy, as well as interventional pain measures. We therefore suggested an anterior decompression and fusion C6-C7. Risks and limitations of surgery including swallowing difficulties in about one-third of patients, more rare risk of hoarseness, C5 palsy, and nonunion risk were discussed. The patient has a very high risk of adjacent-segment disease, especially at C5-C6 but at this point in time there is again no indication for preemptive fusion there, but I have warned the patient that this, depending upon lifestyle and other factors, may become an issue later on. Medically the patient was cleared for the procedure. Based on the findings above, the patient has elected to proceed with surgery as outlined above and has obtained preoperative medical clearance. CONSENT: Patient was seen in the preoperative area and we again had a lengthy detailed discussions were held with the patient regarding the indications and alternatives to surgery, various surgical approaches to the problem at hand, the risk and complications of surgery as well as anticipated surgical procedure and postoperative course. The risks discussed included but were not limited to bleeding, possible need for transfusion, infection, blood vessel injury, blood vessel and lung clots, lymphatic injury, epidural hematoma, nerve injury, paralysis, dural spinal fluid leakage, urologic dysfunction, sexual dysfunction, surgical instrument failure, spinal pseudoarthrosis, adjacent segment degeneration, hardware failure, spinal instability, spinal vertebral fracture, need for further surgery, esophageal injury, difficulty swallowing, hoarseness or loss of vocalization, syncope, dizziness, headache, blindness, renal failure, pneumonia, respiratory or cardiac arrest, stroke, coma, and even . It is well understood by the patient the outcome of the complex spinal surgery such as this cannot be guaranteed. All questions were answered to the patient's satisfaction. The patient expressed excellent understanding of the above concepts. Based on our discussion, the patient elected to proceed with surgery as outlined above and signed informed consent. DESCRIPTION OF PROCEDURE: The patient was brought to the holding area on the day of surgery. In the holding area, the patient was seen and examined by myself. The surgical site was marked with my initials using an indelible pen. The patient was taken to the operating room today and after being positively identified, received general endotracheal anesthesia by our anesthesia colleagues and bilateral sequential compression devices were placed on the lower extremities by the nursing staff. SSEP, EMG and motor-evoked potential baselines were obtained after the neuromonitoring leads were applied by the neurophysiology structural engineering technician. Baseline MEPs and SSEPs were run showing good symmetric response in all extremities. SSEPs were also symmetric and stable. The patient was positioned on an interscapular pad on a Treos table with cervical lordosis roll and Castillo-Wells tongs with 10 pounds of traction were applied. Arms were circumferentially padded. All pressure points were well padded as well. Shoulder pull-down with 3-inch tape was carried out. Preoperatively within 1 hour of incision, the patient received IV antibiotic prophylaxis and steroids. C-arm was used for bio-mapping in 2 planes. Sterile prepping and draping was completed and a safety timeout was carried out. The timeout was performed in order to confirm patient's identity, procedure, laterality, site, patient allergies, and preoperative administration of antibiotics and DVT prophylaxis. I then performed, as discussed with the patient, a right sided anterior exposure along the anterior margin of the sternocleidomastoid muscle. This was about a 4 fingerbreadth-long incision. We identified the platysma and split it longitudinally. The superficial layer of the middle cervical fascia was identified and carefully dissected and then the deep layer of it. The omohyoid was mobilized and could be retracted. The deep cervical fascia was then released over the palpable osteophytes at C6-C7 and reflected left and right with monroy elevators off the uncovertebral joints. Nice exposure left and right with release of the anterior soft tissues of the longus colli was achieved. A radiopaque marker was placed to confirm the appropriate surgical level. Under C-arm guidance, we verified levels. At this point, a self-retaining cervical retractor was placed, the endotracheal cuff pressure was lowered to re duce compression on the RLN and the intraoperative microscope was brought in for anterior decompression. I then removed the anterior osteophytes at C6-C7. I also used a smaller ENT rongeur to open the disc spaces, including the uncovertebral joints left and right. Bone from the anterior decompression was saved for use as autograft bone fusion material. Under lateral C-arm guidance, I then placed with 14 mm traction pins of the West type into C6 and C7. Gentle distraction of the vertebrae was carried out until we had restored lordosis. I then spread out the C6-C7 disc after releasing the disc further with straight small curets. With the soft tissue retractors having been replaced and without any undue tension, I performed an anterior discectomy completion to the posterior inferior vertebral body wall using a combination of the high-speed bur, Kerrison punches, spinal curettes, and the microscopic instruments. The discectomy was performed to the level of the posterior longitudinal ligament. Bilateral foraminotomies and resection of the PLL was performed with the Kerrison punches to decompress the spinal cord and the exiting nerve roots. I also performed ruba dissection of the C6 endplate and the posterior superior endplate of a C 7, as well as the medial edge of the superior uncovertebral joints left and right of C7. I released the posterior longitudinal ligament and had full samish dural sac as a reference for dorsal decompression of left through right. I then turned my attention toward the application of the intervertebral biomechanical device at C6-C7. The trial cages were inserted to identify the best fit. The appropriate-sized intervertebral cage was then selected, in this case a 8 lordotic interbody implant, packed with autograft and allograft and then inserted into the interspace using gentle impaction. A set of motor evoked potentials was run showing no change from baseline. Excess bone graft was then gently impacted into the anterior exposed gutters at C6-C7 to complete the anterior interbody arthrodesis at this level. Nice purchase was obtained. All traction was removed, including pin traction of West and external traction weight. I then performed the application of the non-integrated anterior spinal instrumentation from C6-C7. A non-integrated anterior cervical plate was selected for length and then contoured as needed for lordosis with the Urdu kyle. I templated a one level plate, lordosed it, and secured it with temporary holding screws and then checked with AP and lateral imaging for adequate alignment and implant placement. With that having been accomplished, I drilled first the patient's left-hand side C7. With this having been accomplished, all screw holes were filled with 16 mm 4.0 screws, depending upon intraoperative drill finding and probing. A very nice stable fixation was obtained. Biplanar imaging revealed satisfactory alignment and implant placement. There were no electrodiagnostic changes. The wound was then copiously irrigated and final hemostasis was achieved using FloSeal hemostatic agent and the bipolar device. At this point, the anterior cervical retractor was removed and the wound was found to have good hemostasis present. I then performed final thorough irrigation and review of the surgical site and found no internal organ injuries. I then closed the incision in layers with a deep drain. I used 3-0 Vicryl for platysma, 3-0 Vicryl for subcutaneous, and 4-0 Monocryl for skin. The skin was then dressed with Exofin and a sterile bandage. Suction canister was applied to the drain. The drain was sewn in to avoid accidental translocation. Drain dressing was applied. A Soft cervical collar was then applied. A final set of motor evoked potentials were run and no change from baseline was noted. At the conclusion of the operation, all sponge, needle, and instrument counts were deemed to be correct. The patient was awakened from their anesthetic, extubated in the operating room, transferred onto their hospital bed, and transferred to the post-anesthesia care unit in a stable condition, extubated condition. COMPLICATIONS: No known complications. No blood products given. No dural tear, no CSF leak. No changes in intraoperative neuromonitoring. DRAINS: One small round sherry drain COUNTS: Needle, sponge and cottonoid count correct. UOP: See anesthesia record FLUIDS: See anesthesia record SPECIMENS SUBMITTED: None. POSTOPERATIVE PLAN: Mobilization with collar to be worn for 3 months. Head of bed should be above 30 degrees. Swallowing trial with ice chips first and then advance from there.
[2020-12-20 17:09] LABS: Glucose,Whole Blood 190 mg/dL (75-99)
--- NOTE | 2020-12-20 18:37 | NM ---
EXAMINATION TYPE: NM WBC whole body DATE OF EXAM: 12/20/2020 COMPARISON: NONE HISTORY: Bacteremia. Unknown source. TECHNIQUE: Following administration of 24.0 mCi Tc99m Ceretec. Images obtained 4 hours post injecti on. FINDINGS: Normal physiological tracer activity is noted in the liver and spleen and in the bone marrow of the a xial and appendicular skeleton. IMPRESSION: Normal white blood cell scan. No evidence for abnormal tracer activity. No evidence of a pyogenic inf ection.
[2020-12-20 20:48] LABS: Glucose,Whole Blood 179 mg/dL (75-99)
[2020-12-20] MEDS: CYANOCOBALAMIN 500 MCG TAB PO SCH (21:19)
[2020-12-20] MEDS: MELATONIN 5 MG TABLET PO SCH (21:21)
--- NOTE | 2020-12-20 22:09 | PN ---
PROGRESS NOTE DATE OF SERVICE: 12/20/2020 REASON FOR FOLLOWUP: Enterobacter bacteremia. INTERVAL HISTORY: The patient is afebrile. The patient is breathing comfortably. The patient denies having any chest pain, shortness of breath or cough. No nausea, no vomiting, no abdominal pain or diarrhea. PHYSICAL EXAMINATION: His blood pressure 121/79, pulse of 87, temperature of 98.2. He is 96% on room air. General description is a middle-aged male lying in bed in no distress. RESPIRATORY SYSTEM: Unlabored breathing. Clear to auscultation anteriorly. HEART: S1, S2. Regular rate and rhythm. ABDOMEN: Soft. No tenderness. LABS: Blood culture from 12/19 are so far negative. The patient's nuclear scan came back negative. CT of abdomen and pelvis, gallbladder was negative. DIAGNOSTIC IMPRESSION AND PLAN: Patient with Enterobacter bacteremia in this patient who is status post cervical fusion with no obvious focus in . He did have extensive workup, including a CT of abdomen and pelvis, x-rays and WBC scan. Will also check an echocardiogram. If workup is negative and the blood culture is negative as well, will get a PICC line. Recommend at least 4 weeks of IV antibiotic therapy in view of the significant bacteremia and recent cervical spine surgery. Continue with supportive care. MMODL / IJN: [id number] /
[2020-12-21] MEDS: DEXAMETHASONE SOD PHOSPHATE 4 MG/ML 1 ML VIAL IV SCH ×2 (00:51→05:41)
[2020-12-21] MEDS: MEROPENEM 1 GM in SODIUM CHLORIDE 0.9% 100 ML IVPB SCH ×3 (02:37→17:12)
[2020-12-21] MEDS: QUEtiapine 100 MG TAB PO SCH ×2 (04:19→21:10)
[2020-12-21 05:33] LABS: Herpes simplex I and/or II IgM 0.68 INDEX (<=0.90)
[2020-12-21 07:00] LABS: Glucose,Whole Blood 175 mg/dL (75-99)
[2020-12-21 07:35] LABS: ALT 127 U/L (4-49); AST 25 U/L (17-59); African American GFR (CKD) >90 (>60 ml/min/1.73 sqM); Albumin 2.9 g/dL (3.5-5.0); Albumin/Globulin Ratio 1.2; Alkaline Phosphatase 175 U/L (38-126); Anion Gap 4 mmol/L; Blood Urea Nitrogen 23 mg/dL (9-20); Calcium 8.4 mg/dL (8.4-10.2); Carbon Dioxide 30 mmol/L (22-30); Chloride 98 mmol/L (98-107); Globulin 2.4 g/dL; Glucose 165 mg/dL (74-99); Magnesium 2.1 mg/dL (1.6-2.3); Non-African American GFR(CKD) >90 (>60 ml/min/1.73 sqM); Potassium 4.8 mmol/L (3.5-5.1); Sodium 132 mmol/L (137-145); Total Bilirubin 1.4 mg/dL (0.2-1.3); Total Protein 5.3 g/dL (6.3-8.2)
[2020-12-21] MEDS: INSULIN ASPART (NovoLOG) 100 UNIT/ML VIAL SQ SCH ×4 (08:54→21:16)
[2020-12-21] MEDS: PANTOPRAZOLE 40 MG TABLET PO SCH (08:55)
[2020-12-21] MEDS: lamoTRIgine 25 MG TAB PO SCH ×2 (08:55→21:15)
[2020-12-21] MEDS: polyethylene glycoL 3350 17 GM POWD.PACK PO SCH (08:55)
[2020-12-21] MEDS: LOSARTAN 50 MG TAB PO SCH (08:55)
--- NOTE | 2020-12-21 08:55 | P.PN ---
Subjective Progress Note Date: 12/21/20 Principal diagnosis: RUE weakness RLE weakness RUE radiculopathy Cervical myelopathy Positive blood cultures Evaluated 40-year-old gentleman this a.m., resting comfortably in bed. She has significant history of cervical disc herniation from C6 to C7, secondary bradycardia possibly due to beta blockers, syncopal episodes, steroid-induced diabetes type 2 suicidal ideation history, history of cerebrovascular accident/transient ischemic attack, hypertension, history of migraines, anxiety depression posttraumatic stress disorder. On evaluation this a.m. patient is resting comfortably in bed noted to have right-sided weakness patient awaiting, cervical intervention with orthopedics this a.m. patient denies any fever, chills, chest pain, palpitations, abdominal pain, nausea, vomiting, diarrhea, or new additional symptoms. December 20, 2020 Evaluated 40-year-old male this a.m. resting comfortably in the side of the bed, patient moving all extremity strength 5 out of 5 in all extremities. Patient denies any complaints at this time. Patient denies fever, chills, shortness of breath, chest pain, palpitations, abdominal pain, nausea, vomiting, or diarrhea at this time. Patient continues to receive broad-spectrum antibiotics for positive blood cultures. 12/21/2020 Evaluated 40-year-old male this a.m., resting comfortably the side of bed moving all extremities with no noted weakness cervical fusion site intact no erythema or swelling noted itching continues to receive IV antibiotics for positive blood cultures patient denies fever, chills shortness of breath, chest pain, palpitations, abdominal pain, nausea, vomiting or diarrhea at this time he should awaiting echocardiogram negative blood cultures for PICC line placement per infectious disease for outpatient IV antibiotics Objective - Vital Signs Vital signs: Vital Signs Temp 97.9 F 12/21/20 06:34 Pulse 42 L 12/21/20 06:34 Resp 12 12/21/20 06:34 BP 121/80 12/21/20 06:34 Pulse Ox 94 L 12/21/20 08:37 Intake & Output 12/20/20 12/21/20 12/21/20 18:59 06:59 18:59 Intake Total 100 300 Output Total 700 Balance -600 300 Intake: Intake, IV Titration 100 100 Amount Meropenem 1 gm In Sodium 100 100 Chloride 0.9% 100 ml @ 33 .3 mls/hr IVPB Q8H [facility] Rx #:[id number] Oral 200 Output: Urine 700 Other: Voiding Method Toilet Urinal # Voids 4 - Constitutional General appearance: Present: cooperative - EENT Eyes: Present: PERRLA Ears: bilateral: normal - Neck Carotids: bilateral: upstroke normal Thyroid: bilateral: normal size - Respiratory Respiratory: bilateral: CTA (Anterior and posterior lung roman) - Cardiovascular Details: Sinus bradycardia Heart rate: 52 Rhythm: regular Heart sounds: normal: S1, S2 - Peripheral pulses radial pulse Peripheral Pulses: bilateral: Normal femoral Peripheral Pulses: bilateral: Normal - Gastrointestinal General gastrointestinal: Present: normal bowel sounds - Integumentary Integumentary: Present: normal - Neurologic Neurologic: Present: CNII-XII intact - Musculoskeletal Musculoskeletal: Present: gait normal - Psychiatric Psychiatric: Present: A&O x's 3, appropriate affect, intact judgment & insight - Labs CBC & Chem 7: 12/20/20 05:37 12/21/20 06:16 Labs: Abnormal Lab Results - Last 24 Hours (Table) 12/19/20 12/20/20 12/20/20 Range/Units 04:16 05:37 11:34 Sodium (137-145) mmol/L Anion Gap 15.30 H (4.00-12.00) mmol/L BUN (9-20) mg/dL BUN/Creatinine Ratio 27.50 H (12.00-20.00) Ratio Glucose 164 H (70-110) mg/dL POC Glucose (mg/dL) 161 H (75-99) mg/dL Calcium 8.4 L (8.7-10.3) mg/dL Total Bilirubin 1.4 H (0.2-1.2) mg/dL ALT 176 H (10-49) U/L Alkaline Phosphatase 235 H (41-126) U/L Total Protein 5.4 L (6.2-8.2) g/dL Albumin (3.5-5.0) g/dL CMV IgM Ab Reactive A (Non-Reactive) 12/20/20 12/20/20 12/21/20 Range/Units 17:06 20:41 06:16 Sodium 132 L (137-145) mmol/L Anion Gap (4.00-12.00) mmol/L BUN 23 H (9-20) mg/dL BUN/Creatinine Ratio (12.00-20.00) Ratio Glucose 165 H (70-110) mg/dL POC Glucose (mg/dL) 190 H 179 H (75-99) mg/dL Calcium (8.7-10.3) mg/dL Total Bilirubin 1.4 H (0.2-1.2) mg/dL ALT 127 H (10-49) U/L Alkaline Phosphatase 175 H (41-126) U/L Total Protein 5.3 L (6.2-8.2) g/dL Albumin 2.9 L (3.5-5.0) g/dL CMV IgM Ab (Non-Reactive) 12/21/20 Range/Units 06:57 Sodium (137-145) mmol/L Anion Gap (4.00-12.00) mmol/L BUN (9-20) mg/dL BUN/Creatinine Ratio (12.00-20.00) Ratio Glucose (70-110) mg/dL POC Glucose (mg/dL) 175 H (75-99) mg/dL Calcium (8.7-10.3) mg/dL Total Bilirubin (0.2-1.2) mg/dL ALT (10-49) U/L Alkaline Phosphatase (41-126) U/L Total Protein (6.2-8.2) g/dL Albumin (3.5-5.0) g/dL CMV IgM Ab (Non-Reactive) Microbiology - Last 24 Hours (Table) 12/19/20 15:06 Blood Culture - Preliminary Blood No Growth after 24 hours Assessment and Plan Assessment: Weakness of right side, possibly cervical myelopathy Cervical disc herniation C6 to C7 Cervical fusion repair Positive blood cultures Sinus bradycardia possibly due to beta blockers Previous history of syncopal episode Elevated blood sugars possibly due to steroids History of suicidal ideation History of cerebrovascular accident/transient ischemic attack Hypertension History of migraines History of cholecystectomy Anxiety, depression, posttraumatic stress disorder Obesity Full code Plan: Continue current medications, monitor symptomatic treatment, continue the rest of medications, DVT prophylaxis Continue antibiotic therapy for positive blood cultures continue follow treatment from ortho for cervical fusion Awaiting results for echocardiogram for PICC line placement Awaiting results for negative blood cultures for PICC line placed Continue consultation with infectious disease for outpatient IV antibiotics Continue home medications Continue medical management Further recommendations based on patient's clinical status Time with Patient: Greater than 30
[2020-12-21] MEDS: VENLAFAXINE HCL ER 75 MG CAP PO SCH (08:56)
[2020-12-21] MEDS ORDERED: DEXAMETHASONE SOD PHOSPHATE 4 MG/ML 1 ML VIAL IV PRN (09:07)
--- NOTE | 2020-12-21 11:00 | ECHOF ---
Referral Reason:bacteremia MEASUREMENTS -------- HEIGHT: 185.4 cm WEIGHT: 142.9 kg BP: 111/69 RVIDd: 3.7 cm (< 3.3) IVSd: 1.3 cm (0.6 - 1.1) LVIDd: 4.0 cm (3.9 - 5.3) LVPWd: 1.1 cm (0.6 - 1.1) IVSs: 1.7 cm LVIDs: 2.8 cm LVPWs: 1.7 cm LA Diam: 3.6 cm (2.7 - 3.8) LAESV Index (A-L): 26.22 ml/m Ao Diam: 3.5 cm (2.0 - 3.7) AV Cusp: 2.4 cm (1.5 - 2.6) MV EXCURSION: 12.495 mm (> 18.000) MV EF SLOPE: 55 mm/s (70 - 150) EPSS: 0.5 cm MV E Tod: 0.84 m/s MV DecT: 279 ms MV A Tod: 0.75 m/s MV E/A Ratio: 1.12 RAP: 5.00 mmHg RVSP: 23.14 mmHg FINDINGS -------- Resting bradycardia (HR<60bpm). This was a technically good study. The left ventricular size is normal. There is mild concentric left ventricular hypertrophy. Overa ll left ventricular systolic function is normal with, an EF between 60 - 65 %. The right ventricle is mildly enlarged. Normal LA size by volume 22+/-6 ml/m2. The right atrium is normal in size. Interatrial and interventricular septum intact. The aortic valve is trileaflet, and appears structurally normal. No aortic stenosis or regurgitation. The mitral valve is normal. Mild tricuspid regurgitation present. Right ventricular systolic pressure is normal at < 35 mmHg. Trace/mild (physiologic) pulmonic regurgitation. The aortic root size is normal. Normal inferior vena cava with normal inspiratory collapse consistent with estimated right atrial pre ssure of 5 mmHg. There is no pericardial effusion. CONCLUSIONS -------- 1. The left ventricular size is normal. 2. There is mild concentric left ventricular hypertrophy. 3. Overall left ventricular systolic function is normal with, an EF between 60 - 65 %. 4. The right ventricle is mildly enlarged. 5. The aortic valve is trileaflet, and appears structurally normal. No aortic stenosis or regurgitati on. 6. Mild tricuspid regurgitation present. 7. Trace/mild (physiologic) pulmonic regurgitation. 8. There is no pericardial effusion. ENGINEERING PROJECT MANAGER: Day Haro RDCS
[2020-12-21 11:27] LABS: Glucose,Whole Blood 168 mg/dL (75-99)
[2020-12-21 11:53] LABS: Albumin 2.76 g/dL (3.80-4.90); Gamma Globulin 0.48 g/dL (0.70-1.50)
--- NOTE | 2020-12-21 14:49 | P.PN ---
Subjective Progress Note Date: 12/21/20 Principal diagnosis: Elevated liver enzymes This is a 40-year-old who is currently hospitalized for treatment of TIA and status post cervical fusion. [facility] was initially called to see the patient due to an esophageal foreign body which was removed on EGD. Gastroenterology was re-consulted due to elevation in liver enzymes which were initially normal on presentation and found to trend up during the patient's hospitalization. Ultrasound of the abdomen performed showed patient with postcholecystectomy otherwise normal. CT of the abdomen was significant only for diverticulosis, without any evidence of liver disease. He denies any prior history of elevated liver enzymes, history of alcohol abuse, or family history of liver disease. He is seen and evaluated today without any complaints of abdominal pain, nausea, or vomiting. Liver enzymes and unit trend down. Patient underwent a normal white blood cell scan. No evidence for abnormal tracer activity. No evidence of pyogenic infection. Objective - Vital Signs Vital signs: Vital Signs Temp 97.7 F 12/21/20 11:22 Pulse 52 L 12/21/20 11:22 Resp 16 12/21/20 11:22 BP 135/83 12/21/20 11:22 Pulse Ox 96 12/21/20 11:22 Intake & Output 12/20/20 12/21/20 12/21/20 18:59 06:59 18:59 Intake Total 100 300 Output Total 700 Balance -600 300 Intake: Intake, IV Titration 100 100 Amount Meropenem 1 gm In Sodium 100 100 Chloride 0.9% 100 ml @ 33 .3 mls/hr IVPB Q8H [facility] Rx #:[id number] Oral 200 Output: Urine 700 Other: Voiding Method Toilet Urinal Urinal # Voids 4 - Exam General appearance: The patient is alert, oriented, appears in no acute distress. HET: Head is normocephalic atraumatic. Sclera ancteric. Neck: With Cervical in place. Abdomen: Soft, obese, nontender, nondistended with bowel sounds. No guarding or rigidity. Extremities: Normal skin color and turgor. No pedal edema Skin: No rashes, no jaundice Neurological: No focal deficits. Alert and oriented 3. - Labs CBC & Chem 7: 12/20/20 05:37 12/21/20 06:16 Labs: Abnormal Lab Results - Last 24 Hours (Table) 12/19/20 12/20/20 12/20/20 Range/Units 04:16 17:06 20:41 Sodium (137-145) mmol/L BUN (9-20) mg/dL Glucose (74-99) mg/dL POC Glucose (mg/dL) 190 H 179 H (75-99) mg/dL Total Bilirubin (0.2-1.3) mg/dL ALT (4-49) U/L Alkaline Phosphatase (38-126) U/L Total Protein (6.3-8.2) g/dL Albumin (3.5-5.0) g/dL Albumin (PEP) 2.76 L (3.80-4.90) g/dL Upnee-3-Xqnmgevfw 0.42 H (0.10-0.40) g/dL Gamma Globulins 0.48 L (0.70-1.50) g/dL Procalcitonin (0.02-0.09) ng/mL CMV IgM Ab Reactive A (Non-Reactive) 12/21/20 12/21/20 12/21/20 Range/Units 06:16 06:16 06:57 Sodium 132 L (137-145) mmol/L BUN 23 H (9-20) mg/dL Glucose 165 H (74-99) mg/dL POC Glucose (mg/dL) 175 H (75-99) mg/dL Total Bilirubin 1.4 H (0.2-1.3) mg/dL ALT 127 H (4-49) U/L Alkaline Phosphatase 175 H (38-126) U/L Total Protein 5.3 L (6.3-8.2) g/dL Albumin 2.9 L (3.5-5.0) g/dL Albumin (PEP) (3.80-4.90) g/dL Gfpwg-1-Knrsjqmcr (0.10-0.40) g/dL Gamma Globulins (0.70-1.50) g/dL Procalcitonin 0.63 H (0.02-0.09) ng/mL CMV IgM Ab (Non-Reactive) 12/21/20 Range/Units 11:24 Sodium (137-145) mmol/L BUN (9-20) mg/dL Glucose (74-99) mg/dL POC Glucose (mg/dL) 168 H (75-99) mg/dL Total Bilirubin (0.2-1.3) mg/dL ALT (4-49) U/L Alkaline Phosphatase (38-126) U/L Total Protein (6.3-8.2) g/dL Albumin (3.5-5.0) g/dL Albumin (PEP) (3.80-4.90) g/dL Fmjjy-7-Dgpqfbvkh (0.10-0.40) g/dL Gamma Globulins (0.70-1.50) g/dL Procalcitonin (0.02-0.09) ng/mL CMV IgM Ab (Non-Reactive) Microbiology - Last 24 Hours (Table) 12/17/20 18:29 Blood Culture Gram Stain - Final Blood Blood Culture - Final Enterobacter cloacae 12/19/20 15:06 Blood Culture - Preliminary Blood No Growth after 24 hours Assessment and Plan (1) Elevated liver enzymes Narrative/Plan: 32-year-old male hospitalized and treated for multiple TIAs and status post cervical fusion. Liver enzymes found to be elevated in both a cholestatic and hepatocellular pattern after being normal on presentation with total bilirubin 6.9, alkaline phosphatase 241, AST 156 and ALT 426, currently trending down. Ultrasound negative for any acute hepatobiliary pathology patient is status post cholecystectomy. CT of the abdomen significant only for diverticulosis. Suspicion is for medication side effect with liver enzymes currently trending down. Full liver serology and viral testing ordered and negative to date. He denies any family history of liver disease, intrinsic liver disease, prior history of heavy alcohol abuse or other risk factors. Liver enzymes continued to trend down, likely medication induced. Current Visit: Yes Status: Acute Code(s): R74.8 - ABNORMAL LEVELS OF OTHER SERUM ENZYMES SNOMED Code(s): 854124669 Plan: 1. Supportive care 2. Okay for diet as tolerated 3. Continue other medical management 4. Continue to monitor CBC, BMP, LFTs 5. Avoid hepatotoxic medications should be avoided 6. Full liver serologies including viral testing ordered, negative to date 7. Computed tomography scan and ultrasound reviewed The patient may be discharged home from a gastroenterology standpoint once medically stable. Patient can have outpatient follow-up labs for LFTs. Thank you for this consultation, we will continue to follow Dr. Cori Gracia I agree with the dictator's note, documented as a scribe by Niharika Malin.
[2020-12-21 17:05] LABS: Glucose,Whole Blood 114 mg/dL (75-99)
--- NOTE | 2020-12-21 18:53 | PN ---
PROGRESS NOTE DATE OF SERVICE: 12/21/2020 REASON FOR FOLLOWUP: Enterobacter bacteremia. INTERVAL HISTORY: The patient is currently afebrile. The patient is breathing comfortably. The patient denies having any chest pain or shortness of breath or cough. No nausea, no vomiting, no abdominal pain or diarrhea. PHYSICAL EXAMINATION: Blood pressure is 135/83, pulse of 82, temperature 98.7. He is 96% on room air. General description is a middle-aged male lying in bed in no distress. RESPIRATORY SYSTEM: Unlabored breathing. Clear to auscultation anteriorly. HEART: S1, S2. Regular rate and rhythm. ABDOMEN: Soft. No tenderness. LABS: BUN of 23, creatinine 0.73. Procalcitonin was 0.68. Blood culture from 12/19 so far negative. DIAGNOSTIC IMPRESSION AND PLAN: Patient with enterobacter bacteremia, nosocomial acquired, in this patient admitted to hospital with right-sided weakness. Did have cervical surgery with subsequent fever and bacteremia. The patient did have extensive workup with a negative WBC scan as well as CT of abdomen and pelvis. Echocardiogram came back normal as well. Will get a PICC line tomorrow. Plan for at least 4 weeks of IV antibiotic therapy in view of the recent surgery. All his questions and concerns were answered. MMODL / IJN: [id number] /
[2020-12-21 19:59] LABS: Glucose,Whole Blood 162 mg/dL (75-99)
[2020-12-21] MEDS: MELATONIN 5 MG TABLET PO SCH (21:13)
[2020-12-21] MEDS: CYANOCOBALAMIN 500 MCG TAB PO SCH (21:15)
[2020-12-22] MEDS: MEROPENEM 1 GM in SODIUM CHLORIDE 0.9% 100 ML IVPB SCH ×2 (02:02→10:52)
[2020-12-22 06:38] LABS: Basophils % (A) 0 %; Eosinophils % (A) 0 %; HGB 16.3 gm/dL (13.0-17.5); Lymphocytes # (A) 2.2 k/uL (1.0-4.8); Lymphocytes % (A) 14 %; MCH 29.1 pg (25.0-35.0); MCHC 31.4 g/dL (31.0-37.0); MCV 92.6 fL (80.0-100.0); Mean Platelet Volume 6.7; Monocytes # (A) 1.2 k/uL (0-1.0); Monocytes % (A) 7 %; Neutrophils # (A) 12.5 k/uL (1.3-7.7); Neutrophils % (A) 78 %; Platelet Count 204 k/uL (150-450); RBC 5.62 m/uL (4.30-5.90); RDW 13.8 % (11.5-15.5); WBC 16.1 k/uL (3.8-10.6)
[2020-12-22 06:57] LABS: ALT 109 U/L (4-49); AST 24 U/L (17-59); African American GFR (CKD) >90 (>60 ml/min/1.73 sqM); Albumin 3.2 g/dL (3.5-5.0); Albumin/Globulin Ratio 1.3; Alkaline Phosphatase 183 U/L (38-126); Anion Gap 5 mmol/L; Blood Urea Nitrogen 22 mg/dL (9-20); Calcium 8.7 mg/dL (8.4-10.2); Carbon Dioxide 32 mmol/L (22-30); Chloride 96 mmol/L (98-107); Globulin 2.4 g/dL; Glucose 109 mg/dL (74-99); Magnesium 2.2 mg/dL (1.6-2.3); Non-African American GFR(CKD) >90 (>60 ml/min/1.73 sqM); Potassium 4.4 mmol/L (3.5-5.1); Sodium 133 mmol/L (137-145); Total Bilirubin 1.4 mg/dL (0.2-1.3); Total Protein 5.6 g/dL (6.3-8.2)
[2020-12-22 07:22] LABS: Glucose,Whole Blood 105 mg/dL (75-99)
[2020-12-22] MEDS: INSULIN ASPART (NovoLOG) 100 UNIT/ML VIAL SQ SCH ×2 (08:03→12:04)
--- NOTE | 2020-12-22 08:21 | XR ---
EXAMINATION TYPE: XR chest 1V portable DATE OF EXAM: 12/22/2020 CLINICAL HISTORY: Difficulty breathing and pneumonia progress study. TECHNIQUE: Single AP portable upright view of the chest is obtained. COMPARISON: Chest x-ray from 5 days earlier FINDINGS: Anterior fusion plate lower cervical spine redemonstrated. Cardiac silhouette size stable and upper limits of normal. Persistent chronic parenchymal changes with minimal right hilar linear at electasis. Improved aeration right upper lung on current study. Left lung remains clear. No pleural e ffusion or pneumothorax seen bilaterally. IMPRESSION: Improved aeration right upper lung. New right hilar linear atelectasis.
[2020-12-22] MEDS: lamoTRIgine 25 MG TAB PO SCH (09:43)
[2020-12-22] MEDS: PANTOPRAZOLE 40 MG TABLET PO SCH (09:43)
[2020-12-22] MEDS: VENLAFAXINE HCL ER 75 MG CAP PO SCH (09:44)
[2020-12-22] MEDS: LOSARTAN 50 MG TAB PO SCH (09:44)
[2020-12-22] MEDS: polyethylene glycoL 3350 17 GM POWD.PACK PO SCH (09:44)
[2020-12-22 11:54] LABS: Glucose,Whole Blood 88 mg/dL (75-99)
[2020-12-22 12:11] VITALS: BP 107/68; PULSE 66; RESP 17; TEMP 98.1
[2020-12-22] MEDS ORDERED: LIDOCAINE 1% INJ 10MG/ML (20 ML MDV) ONE (15:00)
--- NOTE | 2020-12-22 15:06 | PN ---
PROGRESS NOTE DATE OF SERVICE: 12/22/2020 REASON FOR FOLLOWUP: Enterobacter bacteremia. INTERVAL HISTORY: The patient is afebrile. The patient is breathing comfortably. Patient denies having any chest pain, shortness of breath or cough. No nausea, no vomiting. No abdominal pain or diarrhea. Overall feeling better. PHYSICAL EXAMINATION: Blood pressure 107/68, pulse of 66, temperature 98.1. He is 97% on room air. General description is a middle-aged male lying in bed in no distress. RESPIRATORY SYSTEM: Unlabored breathing, clear to auscultation anteriorly. HEART: S1, S2. Regular rate and rhythm. ABDOMEN: Soft, no tenderness. LABS: Hemoglobin 16.3, white count 16.1. BUN and creatinine are 22 and 0.94. DIAGNOSTIC IMPRESSION AND PLAN: Patient with Enterobacter bacteremia. Initial blood cultures did show intermediate sensitive ertapenem, repeated a slightly different sensitivity. However, did not risk antibiotic failure, the patient is on meropenem 1 gram q.8 to continue for a total of 4 weeks from his negative blood culture because of recent response, surgery and replacement. Weekly CBC, BMP, sedimentation rate, CRP and close outpatient followup. MMODL / IJN: [id number] /
--- NOTE | 2020-12-22 15:24 | P.PN ---
Subjective Progress Note Date: 12/22/20 Principal diagnosis: Elevated liver enzymes This is a 40-year-old who is currently hospitalized for treatment of TIA and status post cervical fusion. [facility] was initially called to see the patient due to an esophageal foreign body which was removed on EGD. Gastroenterology was re-consulted due to elevation in liver enzymes which were initially normal on presentation and found to trend up during the patient's hospitalization. Ultrasound of the abdomen performed showed patient with postcholecystectomy otherwise normal. CT of the abdomen was significant only for diverticulosis, without any evidence of liver disease. He denies any prior history of elevated liver enzymes, history of alcohol abuse, or family history of liver disease. He is seen and evaluated today without any complaints of abdominal pain, nausea, or vomiting. Liver enzymes continue to trend down. He denies any abdominal pain, nausea, or vomiting. He did have a positive CMV IgM antibody, this was discussed with the patient as a possibility for also increasing liver enzymes. Objective - Vital Signs Vital signs: Vital Signs Temp 98.1 F 12/22/20 12:11 Pulse 66 12/22/20 12:11 Resp 17 12/22/20 12:11 BP 107/68 12/22/20 12:11 Pulse Ox 97 12/22/20 12:11 Intake & Output 12/21/20 12/22/20 12/22/20 18:59 06:59 18:59 Intake Total 100 Output Total 550 0 Balance -450 0 Intake: Intake, IV Titration 100 Amount Meropenem 1 gm In Sodium 100 Chloride 0.9% 100 ml @ 33 .3 mls/hr IVPB Q8H [facility] Rx #:[id number] Output: Urine 550 Stool 0 Other: Voiding Method Urinal Urinal # Voids 2 - Exam General appearance: The patient is alert, oriented, appears in no acute distress. HET: Head is normocephalic atraumatic. Sclera ancteric. Neck: With Cervical in place. Abdomen: Soft, obese, nontender, nondistended with bowel sounds. No guarding or rigidity. Extremities: Normal skin color and turgor. No pedal edema Skin: No rashes, no jaundice Neurological: No focal deficits. Alert and oriented 3. - Labs CBC & Chem 7: 12/22/20 05:52 12/22/20 05:52 Labs: Abnormal Lab Results - Last 24 Hours (Table) 12/21/20 12/21/20 12/21/20 Range/Units 06:16 17:03 19:57 WBC (3.8-10.6) k/uL Neutrophils # (1.3-7.7) k/uL Monocytes # (0-1.0) k/uL Sodium (137-145) mmol/L Chloride (98-107) mmol/L Carbon Dioxide (22-30) mmol/L BUN (9-20) mg/dL Glucose (74-99) mg/dL POC Glucose (mg/dL) 114 H 162 H (75-99) mg/dL Total Bilirubin (0.2-1.3) mg/dL ALT (4-49) U/L Alkaline Phosphatase (38-126) U/L Total Protein (6.3-8.2) g/dL Albumin (3.5-5.0) g/dL Procalcitonin 0.63 H (0.02-0.09) ng/mL 12/22/20 12/22/20 12/22/20 Range/Units 05:52 05:52 05:52 WBC 16.1 H (3.8-10.6) k/uL Neutrophils # 12.5 H (1.3-7.7) k/uL Monocytes # 1.2 H (0-1.0) k/uL Sodium 133 L (137-145) mmol/L Chloride 96 L (98-107) mmol/L Carbon Dioxide 32 H (22-30) mmol/L BUN 22 H (9-20) mg/dL Glucose 109 H (74-99) mg/dL POC Glucose (mg/dL) (75-99) mg/dL Total Bilirubin 1.4 H (0.2-1.3) mg/dL ALT 109 H (4-49) U/L Alkaline Phosphatase 183 H (38-126) U/L Total Protein 5.6 L (6.3-8.2) g/dL Albumin 3.2 L (3.5-5.0) g/dL Procalcitonin 0.41 H (0.02-0.09) ng/mL 12/22/20 Range/Units 07:20 WBC (3.8-10.6) k/uL Neutrophils # (1.3-7.7) k/uL Monocytes # (0-1.0) k/uL Sodium (137-145) mmol/L Chloride (98-107) mmol/L Carbon Dioxide (22-30) mmol/L BUN (9-20) mg/dL Glucose (74-99) mg/dL POC Glucose (mg/dL) 105 H (75-99) mg/dL Total Bilirubin (0.2-1.3) mg/dL ALT (4-49) U/L Alkaline Phosphatase (38-126) U/L Total Protein (6.3-8.2) g/dL Albumin (3.5-5.0) g/dL Procalcitonin (0.02-0.09) ng/mL Microbiology - Last 24 Hours (Table) 12/17/20 18:29 Blood Culture Gram Stain - Final Blood Blood Culture - Final Enterobacter cloacae 12/21/20 06:16 Blood Culture - Preliminary Blood No Growth after 24 hours 12/19/20 15:06 Blood Culture - Preliminary Blood No Growth after 48 hours Assessment and Plan (1) Elevated liver enzymes Narrative/Plan: 32-year-old male hospitalized and treated for multiple TIAs and status post cervical fusion. Liver enzymes found to be elevated in both a cholestatic and hepatocellular pattern after being normal on presentation with total bilirubin 6.9, alkaline phosphatase 241, AST 156 and ALT 426, currently trending down. Ultrasound negative for any acute hepatobiliary pathology patient is status post cholecystectomy. CT of the abdomen significant only for diverticulosis. Suspicion is for medication side effect with liver enzymes currently trending down. Full liver serology and viral testing ordered and negative to date. He denies any family history of liver disease, intrinsic liver disease, prior history of heavy alcohol abuse or other risk factors. Liver enzymes continued to trend down, likely medication induced. Current Visit: Yes Status: Acute Code(s): R74.8 - ABNORMAL LEVELS OF OTHER SERUM ENZYMES SNOMED Code(s): 234812717 Plan: 1. Supportive care 2. Okay for diet as tolerated 3. Continue other medical management 4. Continue to monitor CBC, BMP, LFTs 5. Avoid hepatotoxic medications should be avoided 6. Full liver serologies including viral testing ordered, negative to date 7. Computed tomography scan and ultrasound reviewed The patient may be discharged home from a gastroenterology standpoint once medically stable. Recommend outpatient labs with primary medicine. Discussed with patient he does not need to follow-up with gastroenterology unless liver enzymes do not normalize. Thank you for this consultation, we will sign off at this time Dr. Cori Gracia I agree with the dictator's note, documented as a scribe by Niharika Malin.
--- NOTE | 2020-12-22 16:53 | IR ---
EXAMINATION TYPE: IR cvc insert >=5 years DATE OF EXAM: 12/22/2020 COMPARISON: NONE CLINICAL HISTORY: Infection Needs long-term intravenous access for antibiotics. PROCEDURE: Hand hygiene obtained with soap and water and alcohol-based hand rub. After informed consent, the skin overlying the left upper extremity vein was localized with ultrasoun d and noted to be compressible and patent. An ultrasound image was obtained and submitted on the pat ient's chart. The overlying skin was prepped and draped and Lidocaine was used for local anesthesia. A skin yifan was made with a scalpel. Access was gained to the vein under ultrasound guidance with a 21 gauge needle and a 0.018 inch wire was advanced. Access site was dilated with Peel-Away sheath and catheter tailored to the appropriate length and advanced such that the distal tip is at the cavoa trial junction. Spot image was obtained verifying placement. Catheter was fixed to the skin and a s terile dressing was placed following hemostasis. Catheter was aspirated and flushed with saline. Dustin maravilla was discharged in stable condition without complication. Maximal barrier technique is utilized. Ultrasound image is documented on the chart. Ultrasound used with sterile technique. Fluoro time and fluoroscopic images submitted to document procedure: 293 intraoperative C-arm images, 0.3 minutes fluoroscopy time IMPRESSION: STATUS POST ULTRASOUND AND FLUOROSCOPIC GUIDED PICC LINE PLACEMENT, READY FOR USE. THIS PROCEDURE WAS PERFORMED BY THE UNDERSIGNED.
--- NOTE | 2020-12-22 17:57 | P.DS ---
Providers Date of admission: 12/06/20 11:48 Expected date of discharge: 12/22/20 Attending physician: Jean-Claude Buenrostro Consults: 12/06/20 11:49 Consult Physician Routine Consulting Provider: Jeremiah Shankar Consult Reason/Comments: CVA Do you want consulting provider notified?: Yes Consult Physician Routine Consulting Provider: Ector Chou Consult Reason/Comments: SI Do you want consulting provider notified?: Yes 12/07/20 19:04 Consult Physician Routine Consulting Provider: Bunny Condon Consult Reason/Comments: abnormal mri neck Do you want consulting provider notified?: Yes 12/13/20 16:10 Consult Physician Routine Consulting Provider: Pietro Shankar Consult Reason/Comments: ICU management Do you want consulting provider notified?: Yes 12/17/20 13:03 Consult Physician Routine Consulting Provider: Cory Alvarez Consult Reason/Comments: sepsis Do you want consulting provider notified?: Yes 12/18/20 07:04 Consult Physician Urgent Consulting Provider: Psychiatry - [facility] Psych[facility] Consult Reason/Comments: elevated liver . can we hold psych meds/ Do you want consulting provider notified?: Yes Primary care physician: Jean-Claude Buenrostro Hospital Course: 40-year-old male was admitted to the hospital with right-sided weakness possibly cervical myelopathy. Patient had extensive diagnostic workup in the emergency department revealing cervical disc herniation from C6 to C7, noted to have right-sided weakness prior to surgical intervention. Patient underwent cervical fusion of C6 to C7, after extubation patient regain strength on the right side was able to move all extremities without difficulty. Patient noted to have sinus bradycardia with AV block beta blockers were on hold and discontinue until cardiology to restart. Patient had significant abdominal pain and pleural pain,abdominal series was ordered and positive blood cultures were obtained patient was placed on meropenem for bacteremia.infectious disease, orthopedics, neurology, cardiology, psychiatry were consulted for expert opinion and recommendations of treatment plan of patient's complicated hospital stay. Patient fully ambulatory, with no complaints at this time.upon discharge PICC line in place for outpatient antibiotics of meropenem for 4 week duration for bacteremia. Patient to follow-up with primary care, cardiology, orthopedics, neurology, and psychiatry for continuation of care. 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 Bacteremia Sinus bradycardia due to beta blockers History of syncopal episode Elevated blood sugars due to steroid History of suicidal ideation History of cerebrovascular accident/transient ischemic attack Hypertension History of migraine History of cholecystectomy Anxiety, depression, posttraumatic stress disorder Obesity Health Concerns: PICC line placement with outpatient IV antibiotics for 4 week duration Pertinent Studies: Cervical MRI X-ray of C-spine Echocardiogram Serial chest x-rays CT of brain/cervical spine CT angiogram CT abdomen and pelvis Procedures: Cervical fusion of C6 to C7 PICC line placement for outpatient antibiotics of meropenem for 4 week duration Patient Condition at Discharge: Good Plan - Discharge Summary Discharge Rx Participant: Yes New Discharge Prescriptions: New Meropenem [Merrem] 1 gm IVPB Q8H vial QUEtiapine [SEROquel] 100 mg PO HS #30 tab Continue Aspirin 81 mg PO DAILY #30 chewable lamoTRIgine [LaMICtal] 50 mg PO BID Losartan [Cozaar] 50 mg PO DAILY Cyanocobalamin (Vitamin B-12) [Vitamin B-12] 1,000 mcg PO HS Atorvastatin [Lipitor] 40 mg PO HS Venlafaxine HCl [Effexor XR] 150 mg PO DAILY Discontinued Metoprolol Tartrate [Lopressor] 25 mg PO BID traZODone HCL [Desyrel] 50 - 100 mg PO HS Discharge Medication List Aspirin 81 mg PO DAILY #30 chewable 05/04/20 [Rx] Atorvastatin [Lipitor] 40 mg PO HS 12/06/20 [History] Cyanocobalamin (Vitamin B-12) [Vitamin B-12] 1,000 mcg PO HS 12/06/20 [History] Losartan [Cozaar] 50 mg PO DAILY 12/06/20 [History] Venlafaxine HCl [Effexor XR] 150 mg PO DAILY 12/06/20 [History] lamoTRIgine [LaMICtal] 50 mg PO BID 12/06/20 [History] Meropenem [Merrem] 1 gm IVPB Q8H vial 12/22/20 [Rx] QUEtiapine [SEROquel] 100 mg PO HS #30 tab 12/22/20 [Rx] Follow up Appointment(s)/Referral(s): Jean-Claude Buenrostro MD [Primary Care Provider] - 12/27/20 3:00 pm [facility], [NON-STAFF] - 1 Week [facility], [NON-STAFF] - 1 Week Bunny Condon DO [Doctor of Osteopathic Medicine] - 01/02/21 3:10 pm Osmany Gracia MD [STAFF PHYSICIAN] - 2 Weeks (The office will call you with an appointment time and date.) Activity/Diet/Wound Care/Special Instructions: Spine Discharge and Recovery Instructions Date of Surgery: 12/13/2020 Diagnosis: [RUE and RLE weakness with episodic numbness/tingling] Procedure: [Anterior cervical discectomy and fusion of C6-C7] Medications: See medication list All medication refills should be obtained through your primary care doctor or your clinic spine surgeon. Please discuss prescription refills at your follow up appointment. Do not call the hospital for medication refills. Dressing: Leave your dressing in place for a total of 5 days post operatively. Then you may remove your dressing and leave open to air. Keep the area clean and if not able to keep area clean, then cover with sterile gauze and tape. Showering: You may shower 3 days after your procedure allowing soap and water to run over incision. Do not scrub. Do not soak. Blot dry. Follow up: Please confirm a follow up appointment with your surgeon 3 weeks post operatively. Please make an appointment to follow up with your PCP in 1-2 weeks after surgery for evaluation 3 phase, 3-week plan POST OP WEEKS 1-3 1. Lifting/carrying/pushing/pulling limited to less than 5 pounds. 2. Do not sit for longer than 15 minutes at one time. Get up and walk around. Prolonged sitting is NOT advised. If you lay down, see if you can tolerate laying down on you front (belly side) 3. Walk for periods of 15 minutes = 1 mile but no longer; do it multiple times times each day. 4. Ice your low back after activity. POST OP WEEKS 3-6 1. Lifting limited to less than 20 pounds. 2. Do not sit for longer than 30 minutes at a time. Frequently change positions. Use a sit-to stand workstation or take frequent breaks from sitting if you have returned to work. 3. Walk for 30 minutes each day. If possible, do these three or more times a day POST OP WEEKS 6+ At your 6-week appointment we will give you a physical therapy referral to focus on a core stabilization and strengthening program. You should also work on leg & buttock strengthening, hamstring & quadriceps stretching, and continue a low impact aerobic activity program such as swimming, walking, or riding a stationar y bicycle. During the initial 6 weeks after your surgery, you are at the highest risk of re-injuring your spine. You should generally avoid BLTs (bending, lifting and twisting combination motions) and follow the above guidelines to reduce the chance of reinjury. You can anticipate post op appointments in our office at approximately 3 weeks and 6 weeks after your surgery. INCISION CARE: If your incision is not draining you do NOT need to cover it with a dressing. Keep your incision clean, dry and intact. In most cases, we apply skin glue, elda or sutures to the incision at the time of surgery. This will be like a crust or have the appearance of a scab and will fall off in time on its own. The stitches or elda need to be removed at 3 weeks post op appointment. You may begin to shower 3 days after surgery (this allows the glue to corea well). However, please avoid scrubbing the incision site or peeling off any of the skin glue. This will ensure optimal healing of your incision. Also, during this time avoid soaking the incision area in water - this includes swimming pools, hot tubs or baths. No ointments, lotions or oils on the incision until your surgeon allows. Leave elda, sutures or glue in place. Neurological dysfunction that comes on suddenly can also be a sign of a stroke. Below some common symptoms of a stroke are listed: B - balance difficulty such as sudden onset walking or leaning to one side - NEW E - eye problem such as sudden double vision or trouble seeing on one side - NEW F - Facial weakness or numbness on one side - NEW A - Arm or leg weakness or numbness on one side - NEW S - Slurred speech or difficulty with word finding - NEW T - Time is BRAIN! Call 911 as soon as you recognize these symptoms Diet: Consume a regular diet rich in vegetables and lean protein such as chicken or fish. You should consume in a ratio of approximately 20% fats|40% carbohyd rates|40%protein. Vegetables, sweet potatoes, brown rice or quinoa are examples of good carbohydrates. Chips, white bread, cookies and sweets/sugar are examples of bad carbohydrates. Limit your bad carbs, go wild with good carbs. "Life's Simple 7" Guidelines as per [place] [employer] These will help you reclaim your life after surgery and street light repairer helper in your recovery, keeping in mind your restrictions. (1) Get Active. Physical activity can help people lose weight, control high blood pressure and cholesterol, feel emotionally better, and sleep better. (2) Control Cholesterol. Avoid a diet high in saturated fat, trans fat, & cholesterol. Limit whole milk & cream, ice cream, butter, egg yolks, processed meats (like sausage and hot dogs), and fatty meats. Choose healthy foods that are low in saturated fat, trans fat and cholesterol which include: Fruits and vegetables, fiber rich grain products (like whole grain pasta and brown rice), lean meat such as chicken, fish, nuts, seeds, and legumes. (3) Eat Better. Eat small portions. Shop at the grocery with a list and do not stray from it. Tips for a healthy diet include: Limit sodium intake to le ss than 1500mg daily, avoid prepackaged, processed, and fast foods, choose a diet rich in fruits, vegetables, and whole grain, high fiber foods, and limit saturated & cholesterol in your diet. (4) Manage Blood Pressure. If you have high blood pressure, you should have a cuff at home so that you can check your blood pressure regularly. Be sure you have a good cuff. An arm one is generally better than a wrist one. Bring the cuff to a doctor's appointment to validate that the measurements that your cuff are taking are accurate. Take your blood pressure twice daily when you are sitting down and relaxing. Record the numbers in a log and bring this log with you to your doctors' appointments. (5) Lose Weight if your BMI is above 25. A healthy BMI is between 19-25. To calculate Your BMI, you may use a Standard BMI Calculator on the NIH BMI website: <www.nhlbi.nih.gov/guidelines/obesity/BMI/bmicalc.htm>. Weigh oneself daily. If you are overweight, set a goal to lose weight. A pound a week loss if needed is a good target. (6) Reduce Blood Sugar. Limit foods and liquids with "added sugars." (Added sugars include sucrose, fructose, glucose, maltose, dextrose, high fructose corn syrup, corn syrup, concentrated fruit juice and honey). (7) Stop Smoking. If you smoke, quitting smoking is one of the best things that you can do for your health. Smoking increases your risk of heart attack, stroke, and peripheral vascular disease, which is a build-up of plaque in your arteries. Please discard all the cigarettes and lighters in your house. Have a plan for what you will do when you have the urge to smoke. Direct and second- hand smoke shortens your life as well as the lives of your family, friends and others around you. For your health and the health of those around you, please consider quitting! Proper Bending Body Mechanics: Maintain a wide stance with one foot slightly in front of the other. Keep your back straight. Bend utilizing the strength in your hips and knees. Do not bend at the waist. Maintain the lifted object at your waist-level close to your body. Avoid lifting weight that causes immediately pain or pain anywhere in the body afterwards. Smoking/Nicotine If there was ever one thing that you could do to increase your overall health, decrease your risk of cardiovascular problems by about 39% the second you make the choice, it is to STOP SMOKING. Your body's most instant gratification is the second you stop smoking. We have all heard the studies, read the articles but it is true, smoking is extremely bad for your overall health, and moreover it is detrimental to your bone health. Nicotine, IN ANY FORM, kills bone cells, prevents your body from healing fractur es, and significantly prolongs healing after surgery. In spine surgery specifically, it increases your risk of not healing your bones to create a fusion and increases your risk of having a revision surgery due to this up to 60%. I know it is hard. I know it feels impossible. But there are ways. Take control of your life. We are here to help you through it. And when you are ready, ask us and we can direct you to help if you desire. Use the START Plan to Quit Smoking (please visit the Helpguide.org website listed below for more information): S = Set a quit date. Choose a date within the next 2 weeks, so you have enough time to prepare without losing your motivation to quit. If you mainly smoke at work, quit on the weekend, so you have a few days to adjust to the change. T = Tell family, friends, and co-workers that you plan to quit. Let your friends and family in on your plan to quit smoking and tell them you need their support and encouragement to stop. Look for a quit ivory who wants to stop smoking as well. You can help each other get through the rough times. A = Anticipate and plan for the challenges you'll face while quitting. Most people who begin smoking again do so within the first 3 months. You can help yourself make it through by preparing ahead for common challenges, such as nicotine withdrawal and cigarette cravings. R = Remove cigarettes and other tobacco products from your home, car, and work. Throw away all your cigarettes (no emergency pack!), lighters, ashtrays, and matches. Wash your clothes and freshen up anything that smells like smoke. Shampoo your car, clean your drapes and carpet, and steam your furniture. T = Talk to your doctor about getting help to quit. Your doctor can prescribe medication to help with withdrawal and suggest other alternatives. If you can't see a doctor, you can get many products over the counter at your local pharmacy or grocery store, including the nicotine patch, nicotine lozenges, and nicotine gum. Resources for Quitting Smoking: <https://www.[place].gov/documents/[facility]/Quit_Tobacco_Resources_for_patients_313 480_7.pdf> Supplementation: Take recommended dosages of Vitamin D and Calcium to help fortify your bones and help them to heal. See your health maintenance packet for dosages and recommended levels. DVT/VTE prophylaxis: You will be given compression stockings from the hospital. Wear these daily for the first two weeks after surgery. You may take them off at night. You may be prescribed a medication to help thin your blood. Take this as directed. If you are not prescribed this medication, early and frequent ambulation has been shown to be the best prophylaxis to deep vein thrombosis and sequelae related to this event. Discharge Disposition: HOME SELF-CARE
== END 2020-12-22 18:05 | disposition home health service (06) | DRG 472 ==
LOC: EC 10:09 → 3SCARD 11:48 → 2SICU 12-13 18:38 → 5NMEDONC 12-15 09:51
PROVIDERS: ADMIT Family Medicine; ATTEND Family Medicine
PROC: B3251ZZ Computerized Tomography (CT Scan) of Bilateral Common Carotid Arteries using Low Osmolar Contrast (ICD-10-PCS; 2020-12-06)
PROC: B32G1ZZ Computerized Tomography (CT Scan) of Bilateral Vertebral Arteries using Low Osmolar Contrast (ICD-10-PCS; 2020-12-06)
PROC: B3281ZZ Computerized Tomography (CT Scan) of Bilateral Internal Carotid Arteries using Low Osmolar Contrast (ICD-10-PCS; 2020-12-06)
PROC: 0DC68ZZ Extirpation of Matter from Stomach, Via Natural or Artificial Opening Endoscopic (ICD-10-PCS; 2020-12-09)
PROC: 0RB30ZZ Excision of Cervical Vertebral Disc, Open Approach (ICD-10-PCS; 2020-12-13)
PROC: 01N10ZZ Release Cervical Nerve, Open Approach (ICD-10-PCS; 2020-12-13)
PROC: 4A1104G Monitoring of Peripheral Nervous Electrical Activity, Intraoperative, Open Approach (ICD-10-PCS; 2020-12-13)
PROC: 00NW0ZZ Release Cervical Spinal Cord, Open Approach (ICD-10-PCS; 2020-12-13)
PROC: 0RG10A0 Fusion of Cervical Vertebral Joint with Interbody Fusion Device, Anterior Approach, Anterior Column, Open Approach (ICD-10-PCS; principal; 2020-12-13 13:30)
PROC: 02HV33Z Insertion of Infusion Device into Superior Vena Cava, Percutaneous Approach (ICD-10-PCS; 2020-12-22)
DX: M50.023 Cervical disc disorder at C6-C7 level with myelopathy (principal); R45.851 Suicidal ideations; M47.12 Other spondylosis with myelopathy, cervical region; E87.3 Alkalosis; R78.81 Bacteremia; G95.89 Other specified diseases of spinal cord; Z86.73 Personal history of transient ischemic attack (TIA), and cerebral infarction without residual deficits; Z79.82 Long term (current) use of aspirin; Z90.49 Acquired absence of other specified parts of digestive tract; F43.10 Post-traumatic stress disorder, unspecified; Z20.822 Contact with and (suspected) exposure to COVID-19; Z83.3 Family history of diabetes mellitus; F32.9 Major depressive disorder, single episode, unspecified; R53.1 Weakness; I10 Essential (primary) hypertension; Z53.29 Procedure and treatment not carried out because of patient's decision for other reasons; R20.0 Anesthesia of skin; G43.909 Migraine, unspecified, not intractable, without status migrainosus; Z68.36 Body mass index [BMI] 36.0-36.9, adult; E66.01 Morbid (severe) obesity due to excess calories; F41.9 Anxiety disorder, unspecified; R00.1 Bradycardia, unspecified; E78.5 Hyperlipidemia, unspecified; Z53.09 Procedure and treatment not carried out because of other contraindication; E11.65 Type 2 diabetes mellitus with hyperglycemia; T38.0X5A Adverse effect of glucocorticoids and synthetic analogues, initial encounter; T88.4XXA Failed or difficult intubation, initial encounter; R74.8 Abnormal levels of other serum enzymes; K57.90 Diverticulosis of intestine, part unspecified, without perforation or abscess without bleeding; R41.3 Other amnesia; M48.02 Spinal stenosis, cervical region; B96.89 Other specified bacterial agents as the cause of diseases classified elsewhere; Z88.1 Allergy status to other antibiotic agents; Z91.09 Other allergy status, other than to drugs and biological substances; Z79.899 Other long term (current) drug therapy; Z83.79 Family history of other diseases of the digestive system; Z82.69 Family history of other diseases of the musculoskeletal system and connective tissue; Y84.8 Other medical procedures as the cause of abnormal reaction of the patient, or of later complication, without mention of misadventure at the time of the procedure; Y92.234 Operating room of hospital as the place of occurrence of the external cause; I44.30 Unspecified atrioventricular block; T18.198A Other foreign object in esophagus causing other injury, initial encounter; M47.22 Other spondylosis with radiculopathy, cervical region
CPT/HCPCS: 36415; 36573; 36600; 43247; 70450; 70496; 70498; 70553; 71045; 72040; 72125; 72141; 72146; 72148; 74022; 74177; 76705; 78306; 80048; 80053; 80061; 80074; 81001; 81003; 82103; 82248; 82390; 82525; 82728; 82747; 82805; 83516; 83540; 83550; 83735; 84132; 84145; 84165; 84443; 84484; 85025; 85610; 85652; 85730; 86038; 86140; 86376; 86645; 86694; 86850; 86900; 86901; 87040; 87077; 87086; 87186; 87635; 93005; 93306; 94003; 94640; 94760; 99285; C1762

== ENCOUNTER → 2021-01-23 | Outpatient (CLI) | payer OTHER ==
[2021-01-23 09:01] VITALS: BP 123/83; RESP 16; TEMP 98.5
== END ==
LOC: PROCWHC3 08:51
PROVIDERS: ATTEND Nurse Practitioner
DX: Z48.812 Encounter for surgical aftercare following surgery on the circulatory system (principal); Z95.828 Presence of other vascular implants and grafts
CPT/HCPCS: 87070; G0463; 99212

== ENCOUNTER 2021-02-22 19:30 | Emergency (ER) | payer OTHER ==
[2021-02-22 19:45] VITALS: TEMP 97.8
[2021-02-22] MEDS ORDERED: ACETAMINOPHEN TAB 500 MG TAB PO STA (20:06)
[2021-02-22] MEDS ORDERED: MAGNESIUM SULFATE-D5W PMX 1 GM in DEXTROSE/WATER 1 100ML.BAG IVPB ONE (20:06)
[2021-02-22] MEDS ORDERED: METOCLOPRAMIDE 5 MG/ML 2 ML VIAL IVP STA (20:07)
[2021-02-22] MEDS ORDERED: SODIUM CHLORIDE 0.9% 1,000 ML IV ONE (20:07)
[2021-02-22 20:35] LABS: Basophils # (A) 0.1 k/uL (0-0.2); Basophils % (A) 1 %; Eosinophils % (A) 0 %; HCT 45.1 % (39.0-53.0); HGB 15.5 gm/dL (13.0-17.5); Lymphocytes # (A) 3.8 k/uL (1.0-4.8); Lymphocytes % (A) 43 %; MCH 29.9 pg (25.0-35.0); MCHC 34.3 g/dL (31.0-37.0); MCV 87.1 fL (80.0-100.0); Mean Platelet Volume 6.1; Monocytes # (A) 0.6 k/uL (0-1.0); Monocytes % (A) 7 %; Neutrophils # (A) 4.2 k/uL (1.3-7.7); Neutrophils % (A) 47 %; Platelet Count 315 k/uL (150-450); RBC 5.19 m/uL (4.30-5.90); RDW 13.9 % (11.5-15.5)
[2021-02-22 20:45] LABS: INR 0.9 (<1.2); Partial Thromboplastin Time 27.6 sec (22.0-30.0); Prothrombin Time 9.8 sec (9.0-12.0)
--- NOTE | 2021-02-22 20:48 | ED ---
General Adult HPI - General Chief complaint: Headache Stated complaint: Headache Time Seen by Provider: 02/22/21 19:49 Source: patient, RN notes reviewed, old records reviewed Mode of arrival: ambulatory Limitations: no limitations - History of Present Illness Initial comments: 40-year-old male presenting for evaluation of headache and neck pain. Patient's symptoms have been present for approximately 3 days. He had cervical discectomy approximately 2 months ago. He has been doing well with no significant pain. He denies injury. Denies fever. Denies chest pain or abdominal pain. Headache is predominantly left-sided occipital and cervical. - Related Data Home Medications Medication Instructions Recorded Confirmed Atorvastatin [Lipitor] 40 mg PO HS 12/06/20 01/23/21 Cyanocobalamin (Vitamin B-12) 1,000 mcg PO HS 12/06/20 01/23/21 [Vitamin B-12] Losartan [Cozaar] 50 mg PO DAILY 12/06/20 01/23/21 Venlafaxine HCl [Effexor XR] 150 mg PO DAILY 12/06/20 01/23/21 lamoTRIgine [LaMICtal] 50 mg PO BID 12/06/20 01/23/21 Previous Rx's Medication Instructions Recorded QUEtiapine [SEROquel] 100 mg PO HS #30 tab 12/22/20 Allergies Allergy/AdvReac Type Severity Reaction Status Date / Time aripiprazole [From Abilify] Allergy Rash/Hives, Verified 02/22/21 19:45 AGITATION doxycycline AdvReac Interaction Verified 02/22/21 19:45 w/psych meds & Rash Review of Systems ROS Statement: Those systems with pertinent positive or pertinent negative responses have been documented in the HPI. ROS Other: All systems not noted in ROS Statement are negative. Past Medical History Past Medical History: CVA/TIA, Hypertension Additional Past Medical History / Comment(s): MIGRAINES History of Any Multi-Drug Resistant Organisms: None Reported Past Surgical History: Cholecystectomy Additional Past Surgical History / Comment(s): WISDOM TEETH EXTRACTIONS, neck surgery- [id number] Past Anesthesia/Blood Transfusion Reactions: Postoperative Nausea & Vomiting (PONV) Additional Past Anesthesia/Blood Transfusion Reaction / Comment(s): Patient has no previous surgical history EXCEPT FOR TOOTH EXTRACTIONS. Past Psychological History: Anxiety, Depression, PTSD Smoking Status: Never smoker Past Alcohol Use History: None Reported Past Drug Use History: None Reported - Past Family History Mother Family Medical History: Diabetes Mellitus, Fibromyalgia, GERD/Reflux Additional Family Medical History / Comment(s): VERTIGO General Exam Limitations: no limitations General appearance: alert, in no apparent distress Head exam: Present: atraumatic, normocephalic Eye exam: Present: normal appearance, PERRL ENT exam: Present: normal exam Neck exam: Present: normal inspection, tenderness (paraspinal left), full ROM. Absent: meningismus Respiratory exam: Present: normal lung sounds bilaterally. Absent: respiratory distress, wheezes Cardiovascular Exam: Present: regular rate, normal rhythm GI/Abdominal exam: Present: soft. Absent: distended, tenderness, guarding, rebound Extremities exam: Present: normal inspection, normal capillary refill. Absent: pedal edema, calf tenderness Neurological exam: Present: alert, oriented X3, CN II-XII intact. Absent: motor sensory deficit Psychiatric exam: Present: normal affect, normal mood Skin exam: Present: warm, dry, intact. Absent: cyanosis, diaphoretic Course Vital Signs 02/22/21 19:40 Temperature 97.8 F Pulse Rate 74 Respiratory 20 Rate Blood Pressure 171/97 O2 Sat by Pulse 100 Oximetry Medical Decision Making - Medical Decision Making CT negative for intracranial hemorrhage or mass effect, CT cervical spine showing previous fusion at C6-C7. Patient feeling better on reevaluation, normal labs. will follow with his surgeon Dr. Condon. - Lab Data Result diagrams: 02/22/21 20:29 02/22/21 20:29 Lab Results 02/22/21 02/22/21 02/22/21 Range/Units 20:29 20:29 20:29 WBC 9.0 (3.8-10.6) k/uL RBC 5.19 (4.30-5.90) m/uL Hgb 15.5 (13.0-17.5) gm/dL Hct 45.1 (39.0-53.0) % MCV 87.1 (80.0-100.0) fL MCH 29.9 (25.0-35.0) pg MCHC 34.3 (31.0-37.0) g/dL RDW 13.9 (11.5-15.5) % Plt Count 315 (150-450) k/uL MPV 6.1 Neutrophils % 47 % Lymphocytes % 43 % Monocytes % 7 % Eosinophils % 0 % Basophils % 1 % Neutrophils # 4.2 (1.3-7.7) k/uL Lymphocytes # 3.8 (1.0-4.8) k/uL Monocytes # 0.6 (0-1.0) k/uL Eosinophils # 0.0 (0-0.7) k/uL Basophils # 0.1 (0-0.2) k/uL PT 9.8 (9.0-12.0) sec INR 0.9 (<1.2) APTT 27.6 (22.0-30.0) sec Sodium 140 (137-145) mmol/L Potassium 4.4 (3.5-5.1) mmol/L Chloride 105 (98-107) mmol/L Carbon Dioxide 28 (22-30) mmol/L Anion Gap 7 mmol/L BUN 9 (9-20) mg/dL Creatinine 0.98 (0.66-1.25) mg/dL Est GFR (CKD-EPI)AfAm >90 (>60 ml/min/1.73 sqM) Est GFR (CKD-EPI)NonAf >90 (>60 ml/min/1.73 sqM) Glucose 94 (74-99) mg/dL Calcium 9.8 (8.4-10.2) mg/dL Disposition Clinical Impression: Headache, Acute strain of neck muscle Disposition: HOME SELF-CARE Condition: Good Instructions (If sedation given, give patient instructions): Acute Headache (ED) Is patient prescribed a controlled substance at d/c from ED?: No Referrals: Jean-Claude Buenrostro MD [Primary Care Provider] - 1-2 days Bunny Condon DO [Doctor of Osteopathic Medicine] - 1-2 days Time of Disposition: 21:50
[2021-02-22 20:50] LABS: African American GFR (CKD) >90 (>60 ml/min/1.73 sqM); Anion Gap 7 mmol/L; Blood Urea Nitrogen 9 mg/dL (9-20); Calcium 9.8 mg/dL (8.4-10.2); Carbon Dioxide 28 mmol/L (22-30); Chloride 105 mmol/L (98-107); Glucose 94 mg/dL (74-99); Non-African American GFR(CKD) >90 (>60 ml/min/1.73 sqM); Potassium 4.4 mmol/L (3.5-5.1); Sodium 140 mmol/L (137-145)
--- NOTE | 2021-02-22 21:48 | CT ---
EXAMINATION TYPE: CT brain cspine wo con DATE OF EXAM: 02/22/2021 COMPARISON: CT 12/14/2020 cervical spine HISTORY: Headache CT DLP: 1816.9 mGycm Automated exposure control for dose reduction was used. TECHNIQUE: CT scan of the head and cervical spine are performed without contrast. FINDINGS: There is no acute intracranial hemorrhage, mass effect, or midline shift identified. The ventricles and sulci are within normal limits in size. The globes are intact and the visualized sin uses are clear. There is cortical atrophy. Cervical spine is visualized in its entirety from C1 through upper thoracic levels and demonstrates s atisfactory alignment without evidence of acute fracture or dislocation. Patient is status post anter ior cervical fusion and discectomy at C6-7. There is a spinal curvature. Prevertebral soft tissue jeniffer ears within normal limits. The C1-C2 articulation is unremarkable. IMPRESSION: 1. There is no acute fracture or dislocation evident in the cervical spine. 2. No acute intracranial hemorrhage, mass effect, or midline shift is seen.
[2021-02-22] MEDS ORDERED: KETOROLAC 15 MG/ML 1 ML VIAL IVP STA (21:50)
[2021-02-22 22:12] VITALS: BP 124/85; PULSE 81; RESP 16
== END 2021-02-22 22:11 | disposition home or self-care (01) ==
LOC: EC 19:30
DX: S16.1XXA Strain of muscle, fascia and tendon at neck level, initial encounter (principal); R51.9 Headache, unspecified; I10 Essential (primary) hypertension; Z86.69 Personal history of other diseases of the nervous system and sense organs; Z86.73 Personal history of transient ischemic attack (TIA), and cerebral infarction without residual deficits; Z79.899 Other long term (current) drug therapy; Z98.1 Arthrodesis status; Z88.1 Allergy status to other antibiotic agents; Z88.8 Allergy status to other drugs, medicaments and biological substances; X58.XXXA Exposure to other specified factors, initial encounter
CPT/HCPCS: 96361 ×2; 96365 ×2; 96375 ×2; 99284 ×2; 36415; 80048; 85025; 85610; 85730; 72125; 70450; J2765; J3475

== ENCOUNTER 2021-03-21 16:58 | Emergency (ER) | payer OTHER ==
[2021-03-21 17:13] VITALS: RESP 18; TEMP 98.2
[2021-03-21] MEDS ORDERED: MORPHINE SULFATE 2 MG/ML SYRINGE IVP STA (17:35)
[2021-03-21] MEDS ORDERED: SODIUM CHLORIDE 0.9% 1,000 ML IV STA (17:35)
--- NOTE | 2021-03-21 17:42 | ED ---
General Adult HPI - General Chief complaint: Back Pain/Injury Stated complaint: Lower back pain/Bloody Navel Source: patient, family, RN notes reviewed, old records reviewed Mode of arrival: ambulatory Limitations: no limitations - History of Present Illness Initial comments: 40-year-old obese white male presents to the emergency room with complaints of drainage from his umbilicus for the past 2 days. He states that it was purulent and bloody. There is small amount of dried blood noted around his umbilicus. He denies any fevers but does state that the pain does radiate to his back. He was told that he has an umbilical hernia that needs to be repaired and has been seen in the past by Dr. Marcum who did a cholecystectomy but Dr. Marcum does not want to do an umbilical hernia repair on him. Patient states that he was being seen at the [facility] for the hernia repair but he needed clearance from neurology because of his TIAs in the past before they would perform the surgery. Patient states that he is still waiting to see someone in neurology to get that clearance. Patient denies any chest pain, shortness of breath, nausea or vomiting. He is a nonsmoker. -: days(s) (3) Location: abdomen Radiation: back (Low back), flank Severity scale (1-10): 9 Quality: aching Consistency: constant Improves with: none Associated Symptoms: denies other symptoms - Related Data Home Medications Medication Instructions Recorded Confirmed Atorvastatin [Lipitor] 40 mg PO HS 12/06/20 01/23/21 Cyanocobalamin (Vitamin B-12) 1,000 mcg PO HS 12/06/20 01/23/21 [Vitamin B-12] Losartan [Cozaar] 50 mg PO DAILY 12/06/20 01/23/21 Venlafaxine HCl [Effexor XR] 150 mg PO DAILY 12/06/20 01/23/21 lamoTRIgine [LaMICtal] 50 mg PO BID 12/06/20 01/23/21 Previous Rx's Medication Instructions Recorded QUEtiapine [SEROquel] 100 mg PO HS #30 tab 12/22/20 Allergies Allergy/AdvReac Type Severity Reaction Status Date / Time aripiprazole [From Abilify] Allergy Rash/Hives, Verified 03/21/21 17:11 AGITATION doxycycline AdvReac Interaction Verified 03/21/21 17:11 w/psych meds & Rash Review of Systems ROS Statement: Those systems with pertinent positive or pertinent negative responses have been documented in the HPI. ROS Other: All systems not noted in ROS Statement are negative. Past Medical History Past Medical History: CVA/TIA, Hypertension Additional Past Medical History / Comment(s): MIGRAINES History of Any Multi-Drug Resistant Organisms: None Reported Past Surgical History: Cholecystectomy Additional Past Surgical History / Comment(s): WISDOM TEETH EXTRACTIONS, neck surgery- [id number] Past Anesthesia/Blood Transfusion Reactions: Postoperative Nausea & Vomiting (PONV) Additional Past Anesthesia/Blood Transfusion Reaction / Comment(s): Patient has no previous surgical history EXCEPT FOR TOOTH EXTRACTIONS. Past Psychological History: Anxiety, Depression, PTSD Smoking Status: Never smoker Past Alcohol Use History: None Reported Past Drug Use History: None Reported - Past Family History Mother Family Medical History: Diabetes Mellitus, Fibromyalgia, GERD/Reflux Additional Family Medical History / Comment(s): VERTIGO General Exam Limitations: no limitations General appearance: alert, in no apparent distress, obese Head exam: Present: atraumatic, normocephalic, normal inspection Eye exam: Present: normal appearance, PERRL, EOMI. Absent: scleral icterus, conjunctival injection, periorbital swelling ENT exam: Present: normal exam, normal oropharynx, mucous membranes moist Neck exam: Present: normal inspection, full ROM. Absent: tenderness, meningismus, lymphadenopathy, thyromegaly Respiratory exam: Present: normal lung sounds bilaterally, other (Poor inspiratory effort). Absent: respiratory distress, wheezes, rales, rhonchi, stridor, chest wall tenderness, accessory muscle use Cardiovascular Exam: Present: regular rate, normal rhythm, normal heart sounds. Absent: systolic murmur, diastolic murmur, rubs, gallop, clicks GI/Abdominal exam: Present: soft, distended, tenderness (Periumbilical, small amount dried blood noted). Absent: guarding, rebound, rigid, mass, hernia Extremities exam: Present: normal inspection, full ROM, normal capillary refill. Absent: tenderness, pedal edema, joint swelling, calf tenderness Back exam: Present: normal inspection, full ROM, CVA tenderness (L). Absent: tenderness, CVA tenderness (R), muscle spasm, paraspinal tenderness, vertebral tenderness, rash noted Neurological exam: Present: alert, oriented X3, CN II-XII intact Psychiatric exam: Present: normal affect, normal mood. Absent: anxious Skin exam: Present: warm, dry, intact, normal color. Absent: rash, cyanosis, diaphoretic, erythema, petechiae, pallor, mottled Course Vital Signs 03/21/21 03/21/21 03/21/21 17:11 18:15 19:25 Temperature 98.2 F Pulse Rate 61 56 L 55 L Respiratory 18 18 18 Rate Blood Pressure 127/82 119/73 126/66 O2 Sat by Pulse 99 98 100 Oximetry Medical Decision Making - Medical Decision Making WBC count is 8.3, hemoglobin and hematocrit is 15 and 45 respectively, all other labs are within normal limits, UA is negative for signs of infection or blood. CT shows a nonspecific colitis with transverse colon, denies any diarrhea. cholecystectomy clips with adjacent small pouch also seen. No obstruction or free air. Hepatic steatosis noted. Patient is afebrile he does not have any complaints of nausea vomiting or diarrhea. No hematochezia and no hematemesis. Patient states that he seen a GI doctor at [facility] but cannot have hernia repair into these cleared by neurology which she has not had at this time. Patient states that Dr. Davies will not see him and is frustrated that no one will help him. Patient was directed again to continue following up with the GI doctor [facility] for continuation of care. Patient very upset as he cannot get clearance for that GI doctor and has been seen here multiple times for the same problem. Case discussed with Dr Arias. - Lab Data Result diagrams: 03/21/21 17:53 03/21/21 17:53 Lab Results 03/21/21 03/21/21 03/21/21 Range/Units 17:53 17:53 17:53 WBC 8.3 (3.8-10.6) k/uL RBC 5.29 (4.30-5.90) m/uL Hgb 15.7 (13.0-17.5) gm/dL Hct 45.9 (39.0-53.0) % MCV 86.9 (80.0-100.0) fL MCH 29.6 (25.0-35.0) pg MCHC 34.1 (31.0-37.0) g/dL RDW 13.4 (11.5-15.5) % Plt Count 306 (150-450) k/uL MPV 6.4 Neutrophils % 49 % Lymphocytes % 42 % Monocytes % 7 % Eosinophils % 0 % Basophils % 1 % Neutrophils # 4.1 (1.3-7.7) k/uL Lymphocytes # 3.5 (1.0-4.8) k/uL Monocytes # 0.6 (0-1.0) k/uL Eosinophils # 0.0 (0-0.7) k/uL Basophils # 0.0 (0-0.2) k/uL PT 9.8 (9.0-12.0) sec INR 0.9 (<1.2) APTT 29.5 (22.0-30.0) sec Sodium (137-145) mmol/L Potassium (3.5-5.1) mmol/L Chloride (98-107) mmol/L Carbon Dioxide (22-30) mmol/L Anion Gap mmol/L BUN (9-20) mg/dL Creatinine (0.66-1.25) mg/dL Est GFR (CKD-EPI)AfAm (>60 ml/min/1.73 sqM) Est GFR (CKD-EPI)NonAf (>60 ml/min/1.73 sqM) Glucose (74-99) mg/dL Plasma Lactic Acid Damian (0.7-2.0) mmol/L Calcium (8.4-10.2) mg/dL Total Bilirubin (0.2-1.3) mg/dL AST (17-59) U/L ALT (4-49) U/L Alkaline Phosphatase (38-126) U/L Total Protein (6.3-8.2) g/dL Albumin (3.5-5.0) g/dL Amylase (30-110) U/L Lipase (23-300) U/L Urine Color Yellow Urine Appearance Clear (Clear) Urine pH 6.5 (5.0-8.0) Ur Specific Gering 1.022 (1.001-1.035) Urine Protein Negative (Negative) Urine Glucose (UA) Negative (Negative) Urine Ketones Negative (Negative) Urine Blood Negative (Negative) Urine Nitrite Negative (Negative) Urine Bilirubin Negative (Negative) Urine Urobilinogen <2.0 (<2.0) mg/dL Ur Leukocyte Esterase Negative (Negative) 03/21/21 03/21/21 Range/Units 17:53 17:53 WBC (3.8-10.6) k/uL RBC (4.30-5.90) m/uL Hgb (13.0-17.5) gm/dL Hct (39.0-53.0) % MCV (80.0-100.0) fL MCH (25.0-35.0) pg MCHC (31.0-37.0) g/dL RDW (11.5-15.5) % Plt Count (150-450) k/uL MPV Neutrophils % % Lymphocytes % % Monocytes % % Eosinophils % % Basophils % % Neutrophils # (1.3-7.7) k/uL Lymphocytes # (1.0-4.8) k/uL Monocytes # (0-1.0) k/uL Eosinophils # (0-0.7) k/uL Basophils # (0-0.2) k/uL PT (9.0-12.0) sec INR (<1.2) APTT (22.0-30.0) sec Sodium 142 (137-145) mmol/L Potassium 4.9 (3.5-5.1) mmol/L Chloride 103 (98-107) mmol/L Carbon Dioxide 32 H (22-30) mmol/L Anion Gap 7 mmol/L BUN 12 (9-20) mg/dL Creatinine 0.99 (0.66-1.25) mg/dL Est GFR (CKD-EPI)AfAm >90 (>60 ml/min/1.73 sqM) Est GFR (CKD-EPI)NonAf >90 (>60 ml/min/1.73 sqM) Glucose 103 H (74-99) mg/dL Plasma Lactic Acid Damian 1.0 (0.7-2.0) mmol/L Calcium 9.6 (8.4-10.2) mg/dL Total Bilirubin 0.5 (0.2-1.3) mg/dL AST 33 (17-59) U/L ALT 38 (4-49) U/L Alkaline Phosphatase 99 (38-126) U/L Total Protein 6.7 (6.3-8.2) g/dL Albumin 4.3 (3.5-5.0) g/dL Amylase 55 (30-110) U/L Lipase 61 (23-300) U/L Urine Color Urine Appearance (Clear) Urine pH (5.0-8.0) Ur Specific Gering (1.001-1.035) Urine Protein (Negative) Urine Glucose (UA) (Negative) Urine Ketones (Negative) Urine Blood (Negative) Urine Nitrite (Negative) Urine Bilirubin (Negative) Urine Urobilinogen (<2.0) mg/dL Ur Leukocyte Esterase (Negative) Disposition Clinical Impression: Abscess Disposition: HOME SELF-CARE Condition: Fair Instructions (If sedation given, give patient instructions): Abscess (ED) Additional Instructions: Follow-up with your primary care doctor and the doctor at the [facility] for continuation of care for your hernia repair. Return to the emergency room with fever or increased abdominal pain. Is patient prescribed a controlled substance at d/c from ED?: No Referrals: Jean-Claude Buenrostro MD [Primary Care Provider] - 1-2 days June Gracia MD [STAFF PHYSICIAN] - 1-2 days Time of Disposition: 20:05
[2021-03-21 18:03] LABS: Appearance,Urine Clear (Clear); Basophils % (A) 1 %; Bilirubin,Urine Negative (Negative); Blood,Urine Negative (Negative); Color,Urine Yellow; Eosinophils % (A) 0 %; Glucose,Urine (UA) Negative (Negative); HCT 45.9 % (39.0-53.0); HGB 15.7 gm/dL (13.0-17.5); Ketones,Urine Negative (Negative); Leukocyte Esterase,Urine Negative (Negative); Lymphocytes # (A) 3.5 k/uL (1.0-4.8); Lymphocytes % (A) 42 %; MCH 29.6 pg (25.0-35.0); MCHC 34.1 g/dL (31.0-37.0); MCV 86.9 fL (80.0-100.0); Mean Platelet Volume 6.4; Monocytes # (A) 0.6 k/uL (0-1.0); Monocytes % (A) 7 %; Neutrophils # (A) 4.1 k/uL (1.3-7.7); Neutrophils % (A) 49 %; Nitrite,Urine Negative (Negative); PH, Urine 6.5 (5.0-8.0); Platelet Count 306 k/uL (150-450); Protein,Urine Negative (Negative); RBC 5.29 m/uL (4.30-5.90); RDW 13.4 % (11.5-15.5); Specific Gravity,Urine 1.022 (1.001-1.035); Urobilinogen,Urine <2.0 mg/dL (<2.0); WBC 8.3 k/uL (3.8-10.6)
[2021-03-21 18:12] LABS: ALT 38 U/L (4-49); AST 33 U/L (17-59); African American GFR (CKD) >90 (>60 ml/min/1.73 sqM); Albumin 4.3 g/dL (3.5-5.0); Alkaline Phosphatase 99 U/L (38-126); Amylase 55 U/L (30-110); Anion Gap 7 mmol/L; Blood Urea Nitrogen 12 mg/dL (9-20); Calcium 9.6 mg/dL (8.4-10.2); Carbon Dioxide 32 mmol/L (22-30); Chloride 103 mmol/L (98-107); Glucose 103 mg/dL (74-99); Lipase 61 U/L (23-300); Non-African American GFR(CKD) >90 (>60 ml/min/1.73 sqM); Potassium 4.9 mmol/L (3.5-5.1); Sodium 142 mmol/L (137-145); Total Bilirubin 0.5 mg/dL (0.2-1.3); Total Protein 6.7 g/dL (6.3-8.2)
[2021-03-21 18:23] LABS: INR 0.9 (<1.2); Partial Thromboplastin Time 29.5 sec (22.0-30.0); Prothrombin Time 9.8 sec (9.0-12.0)
[2021-03-21 19:27] VITALS: BP 126/66; PULSE 55
--- NOTE | 2021-03-21 19:27 | CT ---
EXAMINATION TYPE: CT abdomen pelvis w con DATE OF EXAM: 03/21/2021 COMPARISON: 12/18/2020. HISTORY: Bleeding from umbilicus. Left low back pain. CT DLP: 2472.8 mGycm Automated exposure control for dose reduction was used. TECHNIQUE: Helical acquisition of images was performed from the lung bases through the pelvis. CONTRAST: Performed without Oral Contrast and with IV Contrast, patient injected with 100 mL of Isovue 300. FINDINGS: LUNG BASES: No significant abnormality is appreciated. LIVER/GB: No acute abnormality is appreciated. Cholecystectomy clips with adjacent small pouch seen. Hepatic steatosis. PANCREAS: No significant abnormality is seen. SPLEEN: No significant abnormality is seen. ADRENALS: No significant abnormality is seen. KIDNEYS: No significant abnormality is seen. FREE AIR: No free air is visualized. RETROPERITONEAL ADENOPATHY: None visualized REPRODUCTIVE ORGANS: No significant abnormality is seen URINARY BLADDER: No significant abnormality is seen. PELVIC ADENOPATHY: None visualized. OSSEOUS STRUCTURES: No significant abnormality is seen. BOWEL: Partially collapsed transverse colon with mild wall thickening. No bowel obstruction, free ai r or fluid. Normal appendix. OTHER: None. IMPRESSION: NONSPECIFIC COLITIS TRANSVERSE COLON WITH MILD WALL THICKENING, CORRELATE FOR POSSIBLE COLITIS. CHOLECYSTECTOMY CLIPS WITH ADJACENT SMALL POUCH SEEN. RECOMMEND CLINICAL AND SURGICAL CORRELATION.
== END 2021-03-21 20:47 | disposition home or self-care (01) ==
LOC: EC 16:58
DX: L02.216 Cutaneous abscess of umbilicus (principal); I10 Essential (primary) hypertension; E66.9 Obesity, unspecified; Z86.73 Personal history of transient ischemic attack (TIA), and cerebral infarction without residual deficits; Z88.1 Allergy status to other antibiotic agents; Z90.49 Acquired absence of other specified parts of digestive tract; Z68.36 Body mass index [BMI] 36.0-36.9, adult; Z88.8 Allergy status to other drugs, medicaments and biological substances; Z79.899 Other long term (current) drug therapy
CPT/HCPCS: 36415; 80053; 82150; 83605; 83690; 85025; 85610; 85730; 81003; 74177; 99284; 96360; 96361; Q9967

== ENCOUNTER → 2022-04-18 | Outpatient (CLI) | payer OTHER ==
[2022-04-19 02:42] LABS: HIV 2 AB Non-Reactive (Non-Reactive); HIV AB P24 Non-Reactive (Non-Reactive); HIV P24 AG Non-Reactive (Non-Reactive)
== END | disposition home or self-care (01) ==
LOC: LABWHC1 14:39
PROVIDERS: ATTEND Family Medicine
DX: Z72.89 Other problems related to lifestyle (principal)
CPT/HCPCS: 36415; 87390

== ENCOUNTER → 2022-08-06 | Outpatient (CLI) | payer OTHER | END | disposition home or self-care (01) | LOC: LABWHC1 08:51 | PROVIDERS: ATTEND Family Medicine | DX: Z72.89 Other problems related to lifestyle (principal) | CPT/HCPCS: 36415; 87390 ==

== ENCOUNTER 2022-09-08 18:09 | Emergency (ER) | payer OTHER ==
[2022-09-08 18:19] VITALS: TEMP 97.2
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
[2022-09-08 19:10] LABS: Basophils % (A) 1 %; Eosinophils % (A) 0 %; HCT 45.4 % (39.0-53.0); HGB 15.6 gm/dL (13.0-17.5); Lymphocytes # (A) 2.8 k/uL (1.0-4.8); Lymphocytes % (A) 43 %; MCHC 34.5 g/dL (31.0-37.0); MCV 90.1 fL (80.0-100.0); Mean Platelet Volume 7.1; Monocytes # (A) 0.5 k/uL (0-1.0); Monocytes % (A) 7 %; Neutrophils # (A) 3.2 k/uL (1.3-7.7); Neutrophils % (A) 47 %; Platelet Count 266 k/uL (150-450); RBC 5.04 m/uL (4.30-5.90); RDW 13.3 % (11.5-15.5); WBC 6.6 k/uL (3.8-10.6)
[2022-09-08 19:24] LABS: INR 0.9 (<1.2); Partial Thromboplastin Time 28.9 sec (22.0-30.0); Prothrombin Time 9.8 sec (9.0-12.0)
--- NOTE | 2022-09-08 19:24 | XR ---
EXAMINATION TYPE: XR chest 1V portable DATE OF EXAM: 09/08/2022 COMPARISON: 12/18/2021 HISTORY: Trauma TECHNIQUE: Single view FINDINGS: There is some mild interstitial infiltrate at the lung bases. Heart size is normal. There a re no hilar masses. No pleural effusion. Bony thorax is intact IMPRESSION: There is some minimal interstitial infiltrate at the lung bases which is new compared to old exam. Normal heart.
[2022-09-08 20:13] LABS: ALT 37 U/L (4-49); AST 25 U/L (17-59); African American GFR (CKD) >90 (>60 ml/min/1.73 sqM); Albumin 4.5 g/dL (3.5-5.0); Alcohol <10 mg/dL; Alkaline Phosphatase 148 U/L (38-126); Anion Gap 8 mmol/L; Blood Urea Nitrogen 10 mg/dL (9-20); Calcium 9.3 mg/dL (8.4-10.2); Carbon Dioxide 26 mmol/L (22-30); Chloride 109 mmol/L (98-107); Glucose 102 mg/dL (74-99); Non-African American GFR(CKD) 83 (>60 ml/min/1.73 sqM); Potassium 3.8 mmol/L (3.5-5.1); Sodium 143 mmol/L (137-145); Total Bilirubin 0.6 mg/dL (0.2-1.3)
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
[2022-09-08 20:52] LABS: Amphetamine Screen,Urine Not Detected (NotDetected); Barbiturate Screen,Urine Not Detected (NotDetected); Benzodiazepines Screen,Urine Not Detected (NotDetected); Cocaine Screen,Urine Not Detected (NotDetected); Methadone Screen, Urine Not Detected (NotDetected); Opiate Screen,Urine Not Detected (NotDetected); Oxycodone Screen, Urine Not Detected (NotDetected); Phencyclidine Screen,Urine Not Detected (NotDetected); Tricyclic Antidepressant,Urine Not Detected (NotDetected); Urn Cannabinoid Scrn Not Detected (NotDetected)
[2022-09-08] MEDS ORDERED: KETOROLAC 15 MG/ML 1 ML VIAL IVP STA (21:23)
--- NOTE | 2022-09-08 21:25 | XR ---
EXAMINATION TYPE: XR cervical spine comp DATE OF EXAM: 09/08/2022 COMPARISON: NONE HISTORY: Pain TECHNIQUE: 5 view FINDINGS: There is no evidence of fracture nor dislocation. Joint spaces are normal. There is plate w ith screws fusing anteriorly the cervical spine at C6-7. No cervical ribs. Atlantoaxial facet joint i s normal. The neural foramina are fairly well-maintained. IMPRESSION: Previous surgery. No acute abnormality of the cervical spine.
[2022-09-08 21:30] VITALS: BP 134/82; PULSE 56; RESP 18
== END 2022-09-08 21:58 | disposition home or self-care (01) ==
LOC: EC 18:09 → SUPCPDRO 18:09 → EC 21:58
DX: S16.1XXA Strain of muscle, fascia and tendon at neck level, initial encounter (principal); S20.219A Contusion of unspecified front wall of thorax, initial encounter; I10 Essential (primary) hypertension; F41.9 Anxiety disorder, unspecified; F32.A Depression, unspecified; Z79.82 Long term (current) use of aspirin; Z88.1 Allergy status to other antibiotic agents; V49.9XXA Car occupant (driver) (passenger) injured in unspecified traffic accident, initial encounter; Y92.410 Unspecified street and highway as the place of occurrence of the external cause
CPT/HCPCS: 36415; 71045; 71260; 72050; 74177; 80053; 80306; 80320; 84484; 85025; 85610; 85730; 86850; 86900; 86901; 93005; 96374; 99285

== ENCOUNTER 2022-09-19 11:38 | Emergency (ER) | payer OTHER ==
[2022-09-19 11:56] VITALS: TEMP 98.6
--- NOTE | 2022-09-19 12:22 | XR ---
EXAMINATION TYPE: XR chest 2V DATE OF EXAM: 09/19/2022 COMPARISON: 09/08/2022 INDICATION: Congestion, short of breath TECHNIQUE: Frontal and lateral views of the chest are obtained. FINDINGS: The heart size is normal. The pulmonary vasculature is normal. The lungs are clear. IMPRESSION: 1. No acute pulmonary process.
[2022-09-19] MEDS ORDERED: IPRATROPIUM-ALBUTEROL 3 ML NEB INHALATION STA (13:38)
[2022-09-19] MEDS ORDERED: methylPREDNISolone SOD SUCCI 125 MG/2 ML VIAL IV STA (13:38)
--- NOTE | 2022-09-19 14:07 | ED ---
SOB HPI - General Chief Complaint: Shortness of Breath Stated Complaint: SOB Time Seen by Provider: 09/19/22 13:16 Source: patient Mode of arrival: ambulatory Limitations: no limitations - History of Present Illness Initial Comments: 42-year-old male with past medical history of CVA, hypertension, migraines presents to the emergency department with cough and shortness of breath. States that his symptoms started around September 06. He has had wheezing, shortness of breath and a productive cough. He has no history of underlying lung issues to include asthma or COPD. He tried to go to his primary care today however they turned him away if they did not have any appointments. He admits to fevers. No chest pain. No history of coronary disease or any other cardiac issues. He has not been taking any medications at home for his symptoms. States that his coughing has been so severe that he has had some urinary incontinence during his coughing fits. No nausea, vomiting or diarrhea. No other alleviating, precipitating or modifying factors - Related Data Home Medications Medication Instructions Recorded Confirmed Atorvastatin [Lipitor] 40 mg PO DAILY 12/06/20 09/19/22 Cyanocobalamin (Vitamin B-12) 1,000 mcg PO DAILY 12/06/20 09/19/22 [Vitamin B-12] Losartan [Cozaar] 50 mg PO DAILY 12/06/20 09/19/22 Venlafaxine HCl [Effexor XR] 150 mg PO DAILY 12/06/20 09/19/22 Aspirin EC [Ecotrin Low Dose] 81 mg PO DAILY 12/18/21 09/19/22 Emtricitabine/Tenofovir (Tdf) 1 tab PO DAILY 12/18/21 09/19/22 [Emtricitabine-Tenofv 200-300Mg] lamoTRIgine [LaMICtal] 100 mg PO DAILY 12/18/21 09/19/22 Meclizine [Antivert] 12.5 mg PO DAILY 09/19/22 09/19/22 Previous Rx's Medication Instructions Recorded Albuterol Nebulized [Ventolin 2.5 mg INHALATION Q4H PRN #75 ml 09/19/22 Nebulized] Albuterol Sulfate [Proair Hfa] 1 - 2 puff INHALATION Q4HR PRN 09/19/22 #8.5 gm Azithromycin [Zithromax Z Pack] 1 tab PO DIRECTED #6 tab 09/19/22 predniSONE [Deltasone] 20 mg PO BID #10 tab 09/19/22 Allergies Allergy/AdvReac Type Severity Reaction Status Date / Time aripiprazole [From Abilify] Allergy Rash/Hives, Verified 09/19/22 15:37 AGITATION doxycycline AdvReac Interaction Verified 09/19/22 15:37 w/psych meds & Rash Review of Systems ROS Statement: Those systems with pertinent positive or pertinent negative responses have been documented in the HPI. ROS Other: All systems not noted in ROS Statement are negative. Past Medical History Past Medical History: CVA/TIA, Hypertension Additional Past Medical History / Comment(s): MIGRAINES History of Any Multi-Drug Resistant Organisms: None Reported Past Surgical History: Cholecystectomy Additional Past Surgical History / Comment(s): WISDOM TEETH EXTRACTIONS, neck surgery- [id number] Past Anesthesia/Blood Transfusion Reactions: Postoperative Nausea & Vomiting (PONV) Additional Past Anesthesia/Blood Transfusion Reaction / Comment(s): Patient has no previous surgical history EXCEPT FOR TOOTH EXTRACTIONS. Past Psychological History: Anxiety, Depression, PTSD Smoking Status: Never smoker Past Alcohol Use History: None Reported Past Drug Use History: None Reported - Past Family History Mother Family Medical History: Diabetes Mellitus, Fibromyalgia, GERD/Reflux Additional Family Medical History / Comment(s): VERTIGO General Exam Limitations: no limitations General appearance: alert, in no apparent distress Head exam: Present: atraumatic, normocephalic, normal inspection Eye exam: Present: normal appearance, PERRL, EOMI. Absent: scleral icterus, conjunctival injection, periorbital swelling ENT exam: Present: normal exam, mucous membranes moist Neck exam: Present: normal inspection. Absent: tenderness, meningismus, lymphadenopathy Respiratory exam: Present: wheezes, decreased breath sounds. Absent: respirato ry distress, rales, rhonchi, stridor Cardiovascular Exam: Present: regular rate, normal rhythm, normal heart sounds. Absent: systolic murmur, diastolic murmur, rubs, gallop, clicks GI/Abdominal exam: Present: soft, normal bowel sounds. Absent: distended, tenderness, guarding, rebound, rigid Extremities exam: Present: normal inspection, full ROM, normal capillary refill. Absent: tenderness, pedal edema, joint swelling, calf tenderness Back exam: Present: normal inspection Neurological exam: Present: alert, oriented X3, CN II-XII intact Psychiatric exam: Present: normal affect, normal mood Skin exam: Present: warm, dry, intact, normal color. Absent: rash Course Vital Signs 09/19/22 09/19/22 09/19/22 11:53 13:56 14:00 Temperature 98.6 F 98.6 F Pulse Rate 87 76 Respiratory 18 15 Rate Blood Pressure 115/88 O2 Sat by Pulse 98 100 Oximetry 09/19/22 09/19/22 09/19/22 14:23 14:30 14:33 Temperature Pulse Rate 77 90 80 Respiratory 20 Rate Blood Pressure 128/88 O2 Sat by Pulse 100 Oximetry 09/19/22 09/19/22 15:00 16:47 Temperature Pulse Rate 75 74 Respiratory 24 18 Rate Blood Pressure 121/87 116/80 O2 Sat by Pulse 96 99 Oximetry Medical Decision Making - Medical Decision Making Was pt. sent in by a medical professional or institution? no Did you speak to anyone other than the patient for history? no Did you review nursing and triage notes? yes and I agree Were old charts reviewed? no Differential Diagnosis? MDM Differential Dyspnea: Coronary syndrome, arrhythmia, tamponade, asthma, COPD, pulmonary embolism, pneumonia, pneumothorax, pulmonary effusion, anaphylaxis, diabetic ketoacidosis, flailed chest, pulmonary contusion, diaphragmatic rupture, anemia, neuromuscular this is not meant to be an all-inclusive list. EKG interpreted by me (3pts min.)? yes X-rays interpreted by me (1pt min.)? yes CT interpreted by me (1pt min.)? no U/S interpreted by me (1pt. min.)? no What testing was considered but not performed? (CT, X-rays, U/S, labs)? Why? none What meds were considered but not given? Why? none Did you discuss the management of the patient with other professionals? no Did you reconcile home meds? no Was smoking cessation discussed for >3mins.? no Was critical care preformed (if so, how long)? no Were there social determinants of health that impacted care today? How? (Homelessness, low income, unemployed, alcoholism, drug addiction, transportation, low edu. Level, literacy, decrease access to med. care, custodial, rehab)? none Was there de-escalation of care discussed even if they declined? (Discuss DNR or withdrawal of care, Hospice)? no What co-morbidities impacted this encounter? (DM, HTN, Smoking, COPD, CAD, Cancer, CVA, Hep., AIDS, mental health diagnosis, sleep apnea, morbid obesity)? CVA, htn Was patient admitted / discharged? Upon arrival patient was placed into room 6. A thorough history and physical exam was performed. Viral swab had been performed prior to my evaluation. He had also received a chest x-ray. Covid, influenza and RSV are negative. Chest x-ray demonstrates no acute process. After speaking with the patient I did place laboratory studies. He is wheezing on physical exam and therefore DuoNeb breathing treatment is ordered. He is additionally given 125 mg of Solu-Medrol. Laboratory studies returned and are within normal limits. He has improvement in his wheezing with the breathing treatment. At this time patient will be discharged home with prescriptions for prednisone, azithromycin, pro-air inhaler and albuterol with a nebulizer. He is to take the medications as directed. Follow up with his doctor in 2-4 days and return should he have any new or worsening symptoms. Patient does maintain oxygen saturation of 96%. Patient was agreeable to this. Given written and verbal discharge instructions and discharged home in stable condition Undiagnosed new problem with uncertain prognosis? yes Drug Therapy requiring intensive monitoring for toxicity (Heparin, Nitro, Insulin, Cardizem)? no Were any procedures done? no Diagnosis/symptom? bronchitis Acute, or Chronic, or Acute on Chronic? acute Uncomplicated (without systemic symptoms) or Complicated (systemic symptoms)? complicated Side effects of treatment? tachycardia, nausea, vomiting, restlessness, hypergylcemia Exacerbation, Progression, or Severe Exacerbation] no Poses a threat to life or bodily function? yes - Lab Data Result diagrams: 09/19/22 14:06 09/19/22 14:06 Lab Results 09/19/22 09/19/22 09/19/22 Range/Units 11:58 14:06 14:06 WBC 6.8 (3.8-10.6) k/uL RBC 5.45 (4.30-5.90) m/uL Hgb 16.6 (13.0-17.5) gm/dL Hct 48.6 (39.0-53.0) % MCV 89.1 (80.0-100.0) fL MCH 30.5 (25.0-35.0) pg MCHC 34.2 (31.0-37.0) g/dL RDW 13.3 (11.5-15.5) % Plt Count 249 (150-450) k/uL MPV 6.7 Neutrophils % 62 % Lymphocytes % 28 % Monocytes % 7 % Eosinophils % 0 % Basophils % 1 % Neutrophils # 4.2 (1.3-7.7) k/uL Lymphocytes # 1.9 (1.0-4.8) k/uL Monocytes # 0.4 (0-1.0) k/uL Eosinophils # 0.0 (0-0.7) k/uL Basophils # 0.0 (0-0.2) k/uL PT 10.1 (9.0-12.0) sec INR 0.9 (<1.2) APTT 30.4 H (22.0-30.0) sec Sodium (137-145) mmol/L Potassium (3.5-5.1) mmol/L Chloride (98-107) mmol/L Carbon Dioxide (22-30) mmol/L Anion Gap mmol/L BUN (9-20) mg/dL Creatinine (0.66-1.25) mg/dL Est GFR (CKD-EPI)AfAm (>60 ml/min/1.73 sqM) Est GFR (CKD-EPI)NonAf (>60 ml/min/1.73 sqM) Glucose (74-99) mg/dL Calcium (8.4-10.2) mg/dL Total Bilirubin (0.2-1.3) mg/dL AST (17-59) U/L ALT (4-49) U/L Alkaline Phosphatase (38-126) U/L Troponin I (0.000-0.034) ng/mL NT-Pro-B Natriuret Pep pg/mL Total Protein (6.3-8.2) g/dL Albumin (3.5-5.0) g/dL Influenza Type A (PCR) Not Detected (Not Detectd) Influenza Type B (PCR) Not Detected (Not Detectd) RSV (PCR) Not Detected (Not Detectd) SARS-CoV-2 (PCR) Not Detected (Not Detectd) 09/19/22 09/19/22 09/19/22 Range/Units 14:06 14:06 14:06 WBC (3.8-10.6) k/uL RBC (4.30-5.90) m/uL Hgb (13.0-17.5) gm/dL Hct (39.0-53.0) % MCV (80.0-100.0) fL MCH (25.0-35.0) pg MCHC (31.0-37.0) g/dL RDW (11.5-15.5) % Plt Count (150-450) k/uL MPV Neutrophils % % Lymphocytes % % Monocytes % % Eosinophils % % Basophils % % Neutrophils # (1.3-7.7) k/uL Lymphocytes # (1.0-4.8) k/uL Monocytes # (0-1.0) k/uL Eosinophils # (0-0.7) k/uL Basophils # (0-0.2) k/uL PT (9.0-12.0) sec INR (<1.2) APTT (22.0-30.0) sec Sodium 141 (137-145) mmol/L Potassium 4.7 (3.5-5.1) mmol/L Chloride 103 (98-107) mmol/L Carbon Dioxide 31 H (22-30) mmol/L Anion Gap 7 mmol/L BUN 12 (9-20) mg/dL Creatinine 1.16 (0.66-1.25) mg/dL Est GFR (CKD-EPI)AfAm >90 (>60 ml/min/1.73 sqM) Est GFR (CKD-EPI)NonAf 79 (>60 ml/min/1.73 sqM) Glucose 95 (74-99) mg/dL Calcium 9.5 (8.4-10.2) mg/dL Total Bilirubin 0.6 (0.2-1.3) mg/dL AST 35 (17-59) U/L ALT 53 H (4-49) U/L Alkaline Phosphatase 154 H (38-126) U/L Troponin I <0.012 (0.000-0.034) ng/mL NT-Pro-B Natriuret Pep <11 pg/mL Total Protein 7.4 (6.3-8.2) g/dL Albumin 4.7 (3.5-5.0) g/dL Influenza Type A (PCR) (Not Detectd) Influenza Type B (PCR) (Not Detectd) RSV (PCR) (Not Detectd) SARS-CoV-2 (PCR) (Not Detectd) - EKG Data EKG Comments: EKG demonstrates sinus rhythm with a rate of 94. TX interval 164. QRS 112. QTC of 386. No acute ST segment elevations or depressions Disposition Clinical Impression: Acute tracheobronchitis, Cough, Acute respiratory insufficiency, Bronchitis Disposition: HOME SELF-CARE Condition: Stable Instructions (If sedation given, give patient instructions): Acute Bronchitis (ED) Additional Instructions: Please have your doctor reevaluate you on Saturday if possible. Take the steroids and antibiotics as directed. Start the steroids tomorrow. Use the inhaler or nebulizer every 4 hours. Return for any new or worsening symptoms Prescriptions: predniSONE [Deltasone] 20 mg PO BID #10 tab Albuterol Sulfate [Proair Hfa] 1 - 2 puff INHALATION Q4HR PRN #8.5 gm PRN Reason: difficulty in breathing Albuterol Nebulized [Ventolin Nebulized] 2.5 mg INHALATION Q4H PRN #75 ml PRN Reason: difficulty in breathing Azithromycin [Zithromax Z Pack] 1 tab PO DIRECTED #6 tab Is patient prescribed a controlled substance at d/c from ED?: No Referrals: Jean-Claude Buenrostro MD [Primary Care Provider] - 1-2 days Time of Disposition: 15:36
[2022-09-19 14:26] LABS: Basophils % (A) 1 %; Eosinophils % (A) 0 %; HCT 48.6 % (39.0-53.0); HGB 16.6 gm/dL (13.0-17.5); Lymphocytes # (A) 1.9 k/uL (1.0-4.8); Lymphocytes % (A) 28 %; MCH 30.5 pg (25.0-35.0); MCHC 34.2 g/dL (31.0-37.0); MCV 89.1 fL (80.0-100.0); Mean Platelet Volume 6.7; Monocytes # (A) 0.4 k/uL (0-1.0); Monocytes % (A) 7 %; Neutrophils # (A) 4.2 k/uL (1.3-7.7); Neutrophils % (A) 62 %; Platelet Count 249 k/uL (150-450); RBC 5.45 m/uL (4.30-5.90); RDW 13.3 % (11.5-15.5); WBC 6.8 k/uL (3.8-10.6)
[2022-09-19 14:27] LABS: ALT 53 U/L (4-49); AST 35 U/L (17-59); African American GFR (CKD) >90 (>60 ml/min/1.73 sqM); Albumin 4.7 g/dL (3.5-5.0); Alkaline Phosphatase 154 U/L (38-126); Anion Gap 7 mmol/L; Blood Urea Nitrogen 12 mg/dL (9-20); Calcium 9.5 mg/dL (8.4-10.2); Carbon Dioxide 31 mmol/L (22-30); Chloride 103 mmol/L (98-107); Glucose 95 mg/dL (74-99); INR 0.9 (<1.2); Non-African American GFR(CKD) 79 (>60 ml/min/1.73 sqM); Partial Thromboplastin Time 30.4 sec (22.0-30.0); Potassium 4.7 mmol/L (3.5-5.1); Prothrombin Time 10.1 sec (9.0-12.0); Sodium 141 mmol/L (137-145); Total Bilirubin 0.6 mg/dL (0.2-1.3); Total Protein 7.4 g/dL (6.3-8.2)
[2022-09-19 16:49] VITALS: BP 116/80; PULSE 74; RESP 18
== END 2022-09-19 16:48 | disposition home or self-care (01) ==
LOC: EC 11:38
DX: J20.9 Acute bronchitis, unspecified (principal); I10 Essential (primary) hypertension; F32.A Depression, unspecified; Z20.822 Contact with and (suspected) exposure to COVID-19; Z88.1 Allergy status to other antibiotic agents; Z79.82 Long term (current) use of aspirin; Z79.899 Other long term (current) drug therapy; Z90.49 Acquired absence of other specified parts of digestive tract
CPT/HCPCS: 99285; 96374; 36415; 94640; 93005; 83880; 80053; 84484; 85025; 85610; 85730; 87636; 71046; J2930

== ENCOUNTER 2022-11-07 23:11 | Emergency (ER) | payer OTHER ==
[2022-11-07 23:30] VITALS: TEMP 98.6
--- NOTE | 2022-11-08 00:47 | ED ---
ENT HPI - General Chief complaint: ENT Stated complaint: Nose Bleed Time Seen by Provider: 11/08/22 00:39 Source: patient Mode of arrival: ambulatory Limitations: no limitations - History of Present Illness Initial comments: Patient is a 42-year-old male presents to the emergency room with complaints of nose bleeding ongoing intermittently but persistently for 4 days with primarily post nasal bleeding into the throat. He denies any known aggravating factors. She reports nasal congestion and mild difficulty breathing through his nose when nosebleeds are occurring but denies any specific shortness of breath. He denies any trouble swallowing, headache or dizziness. He denies any chest pain, shortness of breath, nausea, vomiting, fevers or chills. He is on aspirin daily for stroke history. In addition to his CVA without residual his tory is a past medical history significant for migraines and hypertension. - Related Data Home Medications Medication Instructions Recorded Confirmed Atorvastatin [Lipitor] 40 mg PO DAILY 12/06/20 09/19/22 Cyanocobalamin (Vitamin B-12) 1,000 mcg PO DAILY 12/06/20 09/19/22 [Vitamin B-12] Losartan [Cozaar] 50 mg PO DAILY 12/06/20 09/19/22 Venlafaxine HCl [Effexor XR] 150 mg PO DAILY 12/06/20 09/19/22 Aspirin EC [Ecotrin Low Dose] 81 mg PO DAILY 12/18/21 09/19/22 Emtricitabine/Tenofovir (Tdf) 1 tab PO DAILY 12/18/21 09/19/22 [Emtricitabine-Tenofv 200-300Mg] lamoTRIgine [LaMICtal] 100 mg PO DAILY 12/18/21 09/19/22 Meclizine [Antivert] 12.5 mg PO DAILY 09/19/22 09/19/22 Previous Rx's Medication Instructions Recorded Albuterol Nebulized [Ventolin 2.5 mg INHALATION Q4H PRN #75 ml 09/19/22 Nebulized] Albuterol Sulfate [Proair Hfa] 1 - 2 puff INHALATION Q4HR PRN 09/19/22 #8.5 gm Azithromycin [Zithromax Z Pack] 1 tab PO DIRECTED #6 tab 09/19/22 predniSONE [Deltasone] 20 mg PO BID #10 tab 09/19/22 Allergies Allergy/AdvReac Type Severity Reaction Status Date / Time aripiprazole [From Abilify] Allergy Rash/Hives, Verified 09/19/22 15:37 AGITATION doxycycline AdvReac Interaction Verified 09/19/22 15:37 w/psych meds & Rash Review of Systems ROS Statement: Those systems with pertinent positive or pertinent negative responses have been documented in the HPI. ROS Other: All systems not noted in ROS Statement are negative. Past Medical History Past Medical History: CVA/TIA, Hypertension Additional Past Medical History / Comment(s): MIGRAINES History of Any Multi-Drug Resistant Organisms: None Reported Past Surgical History: Cholecystectomy Additional Past Surgical History / Comment(s): WISDOM TEETH EXTRACTIONS, neck surgery- [id number] Past Anesthesia/Blood Transfusion Reactions: Postoperative Nausea & Vomiting (PONV) Additional Past Anesthesia/Blood Transfusion Reaction / Comment(s): Patient has no previous surgical history EXCEPT FOR TOOTH EXTRACTIONS. Past Psychological History: Anxiety, Depression, PTSD Smoking Status: Never smoker Past Alcohol Use History: None Reported Past Drug Use History: None Reported - Past Family History Mother Family Medical History: Diabetes Mellitus, Fibromyalgia, GERD/Reflux Additional Family Medical History / Comment(s): VERTIGO General Exam - General Exam Comments Initial Comments: GENERAL: No acute distress, well developed, well nourished. HEENT: Normocephalic, atraumatic. Pupils equal, round, reactive to light. Moist mucous membranes. Left naris with edema and dry blood but patent no evidence of bleeding at this time. Right now without out abnormalities. No pharyngeal injection. LUNGS: No respiratory distress. Clear to auscultation, no adventitious sounds, no use of accessory muscles. HEART: Regular rate and rhythm without murmur, rub, or gallop. ABDOMEN: Normal bowel sounds. Soft, non-tender, non-distended. EXTREMITIES: No edema. No tenderness. Moves all extremities. NEUROLOGIC: Alert & oriented x 3. CN II-XII grossly intact. PSYCHIATRIC: Normal affect and behavior. DERMATOLOGIC: Skin intact, without rashes or lesions noted. Limitations: no limitations Course Vital Signs 11/07/22 11/08/22 23:24 02:04 Temperature 98.6 F Pulse Rate 78 72 Respiratory 12 16 Rate Blood Pressure 140/88 130/78 O2 Sat by Pulse 98 98 Oximetry Medical Decision Making - Medical Decision Making Was pt. sent in by a medical professional or institution (KATELYNN Law, FIELD REPRESENTATIVE, urgent care, hospital, or prison...) When possible be specific @ -No Did you speak to anyone other than the patient for history (EMS, parent, family, police, friend...)? What history was obtained from this source @ -No Did you review nursing and triage notes (agree or disagree)? Why? @ -I reviewed and agree with nursing and triage notes Were old charts reviewed (outside hosp., previous admission, EMS record, old EKG, old radiological studies, urgent care reports/EKG's, prison records)? Report findings @ -No old charts were reviewed Differential Diagnosis (chest pain, altered mental status, abdominal pain women, abdominal pain men, vaginal bleeding, weakness, fever, dyspnea, syncope, headache, dizziness, GI bleed, back pain, seizure, CVA, palpatations, mental health, musculoskeletal)? @ -not applicable EKG interpreted by me (3pts min.). @ -None done X-rays interpreted by me (1pt min.). @ -None done CT interpreted by me (1pt min.). @ -None done U/S interpreted by me (1pt. min.). @ -None done What testing was considered but not performed or refused? (CT, X-rays, U/S, labs)? Why? @ -None What meds were considered but not given or refused? Why? @ -None Did you discuss the management of the patient with other professionals (professionals i.e. KATELYNN Law, FIELD REPRESENTATIVE, lab, RT, psych nurse, social work instructor, video game producer, teacher, commercial loan collection officer, pillowcase cutter)? Give summary @ -No Was smoking cessation discussed for >3mins.? @ -No Was critical care preformed (if so, how long)? @ -No Were there social determinants of health that impacted care today? How? (Homelessness, low income, unemployed, alcoholism, drug addiction, transportation, low edu. Level, literacy, decrease access to med. care, half-way, r ehab)? @ -No Was there de-escalation of care discussed even if they declined (Discuss DNR or withdrawal of care, Hospice)? DNR status @ -No What co-morbidities impacted this encounter? (DM, HTN, Smoking, COPD, CAD, Cancer, CVA, ARF, Chemo, Hep., AIDS, mental health diagnosis, sleep apnea, morbid obesity)? @ -None Was patient admitted / discharged? Hospital course, mention meds given and route, prescriptions, significant lab abnormalities, going to OR and other pertinent info. @ -42-year-old male presents to the emergency room with complaints of nose bleeding ongoing for the several days with primarily post nasal bleeding into the throat. He denies any known aggravating factors. He is on aspirin daily for stroke. Due to duration of bleeding will obtain CBC and BMP. No indication for diagnostic imaging. Will Pl., Rhino Rocket and monitor. Rhino Rocket placed without complication tolerated well. No episodes of bleeding. CBC without abnormalities. BMP with carbon dioxide elevated 31 BUN low at 8 creatinine normal the remaining electrolytes normal. No indication for further laboratory studies. Findings discussed with patient. Rhino Rocket care and nose bleed instructions given. Questions and concerns answered. Return parameters to the emergency room discussed. Will discharge home in stable condition with Rhino Rocket in place to left naris for nosebleed advising follow-up with ENT in 48-72 hours. Undiagnosed new problem with uncertain prognosis? @ -No Drug Therapy requiring intensive monitoring for toxicity (Heparin, Nitro, Insulin, Cardizem)? @ -No Were any procedures done? @ -Rhino Rocket inserted into the left nare, tolerated well Diagnosis/symptom? @ -Epitaxis Acute, or Chronic, or Acute on Chronic? @ -Acute Uncomplicated (without systemic symptoms) or Complicated (systemic symptoms)? @ -Uncomplicated Side effects of treatment? @ -No Exacerbation, Progression, or Severe Exacerbation? @ -No Poses a threat to life or bodily function? How? (Chest pain, [place], [place], pneumonia, PE, COPD, DKA, ARF, appy, cholecystitis, CVA, Diverticulitis, Homicidal, Suicidal, threat to staff... and all critical care pts) @ -No Case discussed with Dr. Mercedes. - Lab Data Result diagrams: 11/08/22 01:00 11/08/22 01:00 Lab Results 11/08/22 11/08/22 Range/Units 01:00 01:00 WBC 8.5 (3.8-10.6) k/uL RBC 5.11 (4.30-5.90) m/uL Hgb 15.4 (13.0-17.5) gm/dL Hct 44.7 (39.0-53.0) % MCV 87.5 (80.0-100.0) fL MCH 30.1 (25.0-35.0) pg MCHC 34.4 (31.0-37.0) g/dL RDW 13.4 (11.5-15.5) % Plt Count 329 (150-450) k/uL MPV 6.5 Neutrophils % 56 % Lymphocytes % 32 % Monocytes % 8 % Eosinophils % 0 % Basophils % 0 % Neutrophils # 4.8 (1.3-7.7) k/uL Lymphocytes # 2.7 (1.0-4.8) k/uL Monocytes # 0.7 (0-1.0) k/uL Eosinophils # 0.0 (0-0.7) k/uL Basophils # 0.0 (0-0.2) k/uL Sodium 141 (137-145) mmol/L Potassium 4.0 (3.5-5.1) mmol/L Chloride 101 (98-107) mmol/L Carbon Dioxide 31 H (22-30) mmol/L Anion Gap 9 mmol/L BUN 8 L (9-20) mg/dL Creatinine 1.09 (0.66-1.25) mg/dL Est GFR (CKD-EPI)AfAm >90 (>60 ml/min/1.73 sqM) Est GFR (CKD-EPI)NonAf 85 (>60 ml/min/1.73 sqM) Glucose 91 (74-99) mg/dL Calcium 8.8 (8.4-10.2) mg/dL Disposition Clinical Impression: Epistaxis Disposition: HOME SELF-CARE Condition: Stable Instructions (If sedation given, give patient instructions): Nosebleed (ED) Additional Instructions: Please keep Rhino Rocket (nasal packing) in place for 48-72 hours; to be removed by ear nose and throat provider. Please contact requested ear nose and throat provider for follow-up in 48-72 hours. May continue to take baby aspirin, avoid other blood thinners including NSAIDs. Utilize Tylenol as needed for pain. Do not blow your nose. Please return to the Emergency Department if symptoms worsen or any other concerns. Is patient prescribed a controlled substance at d/c from ED?: No Referrals: Jean-Claude Buenrostro MD [Primary Care Provider] - 1-2 days Justin Birmingham MD [STAFF PHYSICIAN] - 1-2 days Time of Disposition: 01:39
[2022-11-08 01:09] LABS: Basophils % (A) 0 %; Eosinophils % (A) 0 %; HCT 44.7 % (39.0-53.0); HGB 15.4 gm/dL (13.0-17.5); Lymphocytes # (A) 2.7 k/uL (1.0-4.8); Lymphocytes % (A) 32 %; MCH 30.1 pg (25.0-35.0); MCHC 34.4 g/dL (31.0-37.0); MCV 87.5 fL (80.0-100.0); Mean Platelet Volume 6.5; Monocytes # (A) 0.7 k/uL (0-1.0); Monocytes % (A) 8 %; Neutrophils # (A) 4.8 k/uL (1.3-7.7); Neutrophils % (A) 56 %; Platelet Count 329 k/uL (150-450); RBC 5.11 m/uL (4.30-5.90); RDW 13.4 % (11.5-15.5); WBC 8.5 k/uL (3.8-10.6)
[2022-11-08 01:28] LABS: African American GFR (CKD) >90 (>60 ml/min/1.73 sqM); Anion Gap 9 mmol/L; Blood Urea Nitrogen 8 mg/dL (9-20); Calcium 8.8 mg/dL (8.4-10.2); Carbon Dioxide 31 mmol/L (22-30); Chloride 101 mmol/L (98-107); Glucose 91 mg/dL (74-99); Non-African American GFR(CKD) 85 (>60 ml/min/1.73 sqM); Sodium 141 mmol/L (137-145)
[2022-11-08 02:05] VITALS: BP 130/78; PULSE 72; RESP 16
== END 2022-11-08 02:05 | disposition home or self-care (01) ==
LOC: EC 23:11
DX: R04.0 Epistaxis (principal); I10 Essential (primary) hypertension; Z86.73 Personal history of transient ischemic attack (TIA), and cerebral infarction without residual deficits; Z88.1 Allergy status to other antibiotic agents; Z79.82 Long term (current) use of aspirin; Z79.899 Other long term (current) drug therapy
CPT/HCPCS: 30903; 36415; 80048; 85025; 99283

== ENCOUNTER 2022-11-30 18:25 | Emergency (ER) | payer OTHER ==
[2022-11-30 18:30] VITALS: TEMP 98.4
--- NOTE | 2022-11-30 19:23 | ED ---
Recheck HPI - General Chief Complaint: Recheck/Abnormal Lab/Rx Stated Complaint: poss hernia Time Seen by Provider: 11/30/22 19:00 Source: patient Mode of arrival: ambulatory Limitations: no limitations - History of Present Illness Initial Comments: Patient is a 42-year-old male presenting with chief complaint of painful bump near the navel. Patient had hernia repair surgery back in May, along his scar he noted a small painful bump today. He is having no abdominal pain, nausea, vomiting, diarrhea, hematochezia, melena, chest pain, difficulty breathing, fever, chills. He attempted to contact a surgeon but was told that his surgeon is on vacation at this time. - Related Data Home Medications Medication Instructions Recorded Confirmed Atorvastatin [Lipitor] 40 mg PO DAILY 12/06/20 09/19/22 Cyanocobalamin (Vitamin B-12) 1,000 mcg PO DAILY 12/06/20 09/19/22 [Vitamin B-12] Losartan [Cozaar] 50 mg PO DAILY 12/06/20 09/19/22 Venlafaxine HCl [Effexor XR] 150 mg PO DAILY 12/06/20 09/19/22 Aspirin EC [Ecotrin Low Dose] 81 mg PO DAILY 12/18/21 09/19/22 Emtricitabine/Tenofovir (Tdf) 1 tab PO DAILY 12/18/21 09/19/22 [Emtricitabine-Tenofv 200-300Mg] lamoTRIgine [LaMICtal] 100 mg PO DAILY 12/18/21 09/19/22 Meclizine [Antivert] 12.5 mg PO DAILY 09/19/22 09/19/22 Previous Rx's Medication Instructions Recorded Albuterol Nebulized [Ventolin 2.5 mg INHALATION Q4H PRN #75 ml 09/19/22 Nebulized] Albuterol Sulfate [Proair Hfa] 1 - 2 puff INHALATION Q4HR PRN 09/19/22 #8.5 gm Azithromycin [Zithromax Z Pack] 1 tab PO DIRECTED #6 tab 09/19/22 predniSONE [Deltasone] 20 mg PO BID #10 tab 09/19/22 Allergies Allergy/AdvReac Type Severity Reaction Status Date / Time aripiprazole [From Abilify] Allergy Rash/Hives, Verified 11/30/22 18:30 AGITATION doxycycline AdvReac Interaction Verified 11/30/22 18:30 w/psych meds & Rash Review of Systems ROS Statement: Those systems with pertinent positive or pertinent negative responses have been documented in the HPI. ROS Other: All systems not noted in ROS Statement are negative. Past Medical History Past Medical History: CVA/TIA, Hypertension Additional Past Medical History / Comment(s): MIGRAINES History of Any Multi-Drug Resistant Organisms: None Reported Past Surgical History: Cholecystectomy, Hernia Repair Additional Past Surgical History / Comment(s): WISDOM TEETH EXTRACTIONS, neck surgery- [id number] Past Anesthesia/Blood Transfusion Reactions: Postoperative Nausea & Vomiting (PONV) Additional Past Anesthesia/Blood Transfusion Reaction / Comment(s): Patient has no previous surgical history EXCEPT FOR TOOTH EXTRACTIONS. Past Psychological History: Anxiety, Depression, PTSD Smoking Status: Never smoker Past Alcohol Use History: None Reported Past Drug Use History: None Reported - Past Family History Mother Family Medical History: Diabetes Mellitus, Fibromyalgia, GERD/Reflux Additional Family Medical History / Comment(s): VERTIGO General Exam Limitations: no limitations General appearance: alert, in no apparent distress Head exam: Present: atraumatic, normocephalic, normal inspection Eye exam: Present: normal appearance Neck exam: Present: normal inspection, full ROM Neurological exam: Present: alert, oriented X3, CN II-XII intact Psychiatric exam: Present: normal affect, normal mood Skin exam: Present: other (Patient has a tender slightly elevated small area of pinkness over his surgical scar) Course Vital Signs 11/30/22 11/30/22 18:27 19:50 Temperature 98.4 F Pulse Rate 97 87 Respiratory 20 18 Rate Blood Pressure 162/83 159/100 O2 Sat by Pulse 98 97 Oximetry Medical Decision Making - Medical Decision Making Was pt. sent in by a medical professional or institution (, PA, AUTOMOTIVE ENGINEERING TECHNICIAN, urgent care, hospital, or halfway...) When possible be specific @ -[No] Did you speak to anyone other than the patient for history (EMS, parent, family, police, friend...)? What history was obtained from this source @ -[No] Did you review nursing and triage notes (agree or disagree)? Why? @ -[I reviewed and agree with nursing and triage notes] Were old charts reviewed (outside hosp., previous admission, EMS record, old EKG, old radiological studies, urgent care reports/EKG's, halfway records)? Report findings @ -[No old charts were reviewed] Differential Diagnosis (chest pain, altered mental status, abdominal pain women, abdominal pain men, vaginal bleeding, weakness, fever, dyspnea, syncope, headache, dizziness, GI bleed, back pain, seizure, CVA, palpatations, mental health, musculoskeletal)? @ -Differential includes cellulitis, folliculitis, this is not an all-inclusive list EKG interpreted by me (3pts min.). @ -[As above] X-rays interpreted by me (1pt min.). @ -[None done] CT interpreted by me (1pt min.). @ -[None done] U/S interpreted by me (1pt. min.). @ -[None done] What testing was considered but not performed or refused? (CT, X-rays, U/S, labs)? Why? @ -[None] What meds were considered but not given or refused? Why? @ -[None] Did you discuss the management of the patient with other professionals (professionals i.e. , PA, AUTOMOTIVE ENGINEERING TECHNICIAN, lab, RT, psych nurse, social media sr strategy manager, accountant budget, teacher, state patrol officer, medical case manager)? Give summary @ -[No] Was smoking cessation discussed for >3mins.? @ -[No] Was critical care preformed (if so, how long)? @ -[No] Were there social determinants of health that impacted care today? How? (Homelessness, low income, unemployed, alcoholism, drug addiction, transportation, low edu. Level, literacy, decrease access to med. care, halfway, rehab)? @ -[No] Was there de-escalation of care discussed even if they declined (Discuss DNR or withdrawal of care, Hospice)? DNR status @ -[No] What co-morbidities impacted this encounter? (DM, HTN, Smoking, COPD, CAD, Cancer, CVA, ARF, Chemo, Hep., AIDS, mental health diagnosis, sleep apnea, morbid obesity)? @ -[None] Was patient admitted / discharged? Hospital course, mention meds given and route, prescriptions, significant lab abnormalities, going to OR and other pertinent info. @ -Patient is 42-year-old male presenting with chief complaint of painful bump to the skin that he noticed today on his surgical scar. Patient had hernia repair surgery back in May. On physical examination there are no cellulitic changes. There is a small area of tenderness noted, no warmth, induration, discharge, fever, chills. There appears to be no infection, the patient is having no abdominal pain and no abdominal tenderness on examination. He is instructed to follow-up with his surgeon and he is discharged home. Follow-up with PCP. Report back to ER with any new or worsening symptoms. Discussed return parameters and answered all questions. Patient conveyed verbal understanding and agreed to the plan. I discussed this case in detail with my attending Dr. Nova Undiagnosed new problem with uncertain prognosis? @ -[No] Drug Therapy requiring intensive monitoring for toxicity (Heparin, Nitro, Insulin, Cardizem)? @ -[No] Were any procedures done? @ -[No] Diagnosis/symptom? @ -Skin tenderness Acute, or Chronic, or Acute on Chronic? @ -Acute Uncomplicated (without systemic symptoms) or Complicated (systemic symptoms)? @ -Uncomplicated Side effects of treatment? @ -[No] Exacerbation, Progression, or Severe Exacerbation? @ -[No] Poses a threat to life or bodily function? How? (Chest pain, [place], [place], pneumonia, PE, COPD, DKA, ARF, appy, cholecystitis, CVA, Diverticulitis, Homicidal, Suicidal, threat to staff... and all critical care pts) @ -[No] Disposition Clinical Impression: Skin tenderness Disposition: HOME SELF-CARE Condition: Good Additional Instructions: Follow-up with PCP and surgeon. Report back to ER with any new or worsening symptoms. Take Motrin and Tylenol as needed for pain control. Is patient prescribed a controlled substance at d/c from ED?: No Referrals: Jean-Claude Buenrostro MD [Primary Care Provider] - 1-2 days Time of Disposition: 19:23
[2022-11-30 20:07] VITALS: BP 159/100; PULSE 87; RESP 18
== END 2022-11-30 20:07 | disposition home or self-care (01) ==
LOC: EC 18:25
DX: R20.8 Other disturbances of skin sensation (principal); I10 Essential (primary) hypertension; Z86.73 Personal history of transient ischemic attack (TIA), and cerebral infarction without residual deficits; F41.9 Anxiety disorder, unspecified; F32.A Depression, unspecified; Z88.8 Allergy status to other drugs, medicaments and biological substances; Z79.82 Long term (current) use of aspirin; Z79.899 Other long term (current) drug therapy
CPT/HCPCS: 99282

== ENCOUNTER → 2023-01-08 | Outpatient (CLI) | payer OTHER ==
[2023-01-09 02:13] LABS: Basophils # (A) 0.03 X 10*3/uL (0.00-0.10); Basophils % (A) 0.4 %; Eosinophils # (A) 0.01 X 10*3/uL (0.04-0.35); Eosinophils % (A) 0.1 %; HCT 49.7 % (39.6-50.0); HGB 15.9 g/dL (13.0-17.0); Immature Grans, Automated 0.2 %; Lymphocytes # (A) 2.19 X 10*3/uL (0.90-5.00); Lymphocytes % (A) 26.7 %; MCH 29.9 pg (27.0-32.0); MCV 93.4 fL (80.0-97.0); Mean Platelet Volume 9.1 fL (9.5-12.2); Monocytes # (A) 0.64 X 10*3/uL (0.20-1.00); Monocytes % (A) 7.8 %; NRBC Per 100 WBC 0 /100 WBCS (0.0-0.0); Neutrophils # (A) 5.31 X 10*3/uL (1.80-7.70); Neutrophils % (A) 64.8 %; Platelet Count 282 X 10*3/uL (140-440); RBC 5.32 X 10*6/uL (4.40-5.60); RDW 13.2 % (11.5-14.5)
[2023-01-09 02:58] LABS: ALT 37 U/L (10-49); AST 27 U/L (14-35); African American GFR (CKD) 87.1 (60.0-200.0); Albumin 4.8 g/dL (3.8-4.9); Albumin/Globulin Ratio 2.03 (1.60-3.17); Alkaline Phosphatase 149 U/L (41-126); Blood Urea Nitrogen 10.2 mg/dL (9.0-27.0); Carbon Dioxide 27.3 mmol/L (20.0-27.5); Chloride 102 mmol/L (96-109); Chol/HDL Ratio 2.53 Ratio; Globulin 2.4 g/dL (1.6-3.3); Glucose 98 mg/dL (70-110); Non-African American GFR(CKD) 75.2 (60.0-200.0); Sodium 143 mmol/L (135-145); Total Protein 7.2 g/dL (6.2-8.2); VLDL Calculation 18.16 mg/dL (5.00-40.00)
[2023-01-09 05:10] LABS: HIV 2 AB Non-Reactive (Non-Reactive); HIV AB P24 Non-Reactive (Non-Reactive); HIV P24 AG Non-Reactive (Non-Reactive)
== END | disposition home or self-care (01) ==
LOC: LABWHC1 11:28
PROVIDERS: ATTEND Family Medicine
DX: Z00.00 Encounter for general adult medical examination without abnormal findings (principal); Z11.4 Encounter for screening for human immunodeficiency virus [HIV]
CPT/HCPCS: 36415; 80053; 80061; 82306; 83036; 84439; 84443; 85025; 87390

== ENCOUNTER → 2023-04-30 | Outpatient (CLI) | payer OTHER ==
[2023-04-30 20:29] LABS: Basophils # (A) 0.03 X 10*3/uL (0.00-0.10); Basophils % (A) 0.4 %; Eosinophils # (A) 0.01 X 10*3/uL (0.04-0.35); Eosinophils % (A) 0.1 %; HCT 48.3 % (39.6-50.0); Lymphocytes % (A) 35.3 %; MCH 30.2 pg (27.0-32.0); MCHC 33.1 d/dL (32.0-37.0); MCV 91.3 FL (80.0-97.0); Mean Platelet Volume 9.1 FL (9.5-12.2); Monocytes # (A) 0.64 X 10*3/uL (0.20-1.00); NRBC Per 100 WBC 0 X 10*3/uL (0.00-0.01); Neutrophils # (A) 3.87 X 10*3/uL (1.80-7.70); Neutrophils % (A) 54.8 %; Platelet Count 298 X 10*3/uL (140-440); RBC 5.29 X 10*6/uL (4.40-5.60); RDW 13.3 % (11.5-14.5); WBC 7.08 X 10*3/uL (4.50-10.00)
[2023-04-30 21:22] LABS: ALT 32 U/L (10-49); AST 24 U/L (14-35); Albumin 5.1 d/dL (3.8-4.9); Albumin/Globulin Ratio 2.43 Ratio (1.60-3.17); Alkaline Phosphatase 137 U/L (41-126); BUN/Creat Ratio 8.25 Ratio (12.00-20.00); Blood Urea Nitrogen 9.9 mg/dL (9.0-27.0); Calcium 9.9 mg/dL (8.7-10.3); Carbon Dioxide 28.7 mmol/L (21.6-31.8); Chloride 101 mmol/L (96-109); Globulin 2.1 d/dL (1.6-3.3); Glucose 92 mg/dL (70-110); LDL Cholesterol,Calculated 59.2 mg/dL (0.0-131.0); Potassium 4.2 mmol/L (3.5-5.5); Sodium 142 mmol/L (135-145); T4, Free (Free Thyroxine) 1.09 ng/dL (0.80-1.80); Total Bilirubin 0.8 mg/dL (0.3-1.2); Total Protein 7.2 d/dL (6.2-8.2)
[2023-05-01 00:39] LABS: HIV 2 AB Non-Reactive (Non-Reactive); HIV AB P24 Non-Reactive (Non-Reactive); HIV P24 AG Non-Reactive (Non-Reactive)
== END | disposition home or self-care (01) ==
LOC: LABWHC1 16:03
PROVIDERS: ATTEND Family Medicine
DX: Z11.4 Encounter for screening for human immunodeficiency virus [HIV] (principal); E55.9 Vitamin D deficiency, unspecified; E03.9 Hypothyroidism, unspecified; E78.5 Hyperlipidemia, unspecified
CPT/HCPCS: 36415; 80053; 80061; 82306; 84439; 84443; 84481; 85025; 87390

== ENCOUNTER → 2023-08-13 | Outpatient (CLI) | payer OTHER ==
[2023-08-14 02:10] LABS: Basophils # (A) 0.03 X 10*3/uL (0.00-0.10); Basophils % (A) 0.4 %; Eosinophils # (A) 0.15 X 10*3/uL (0.04-0.35); HCT 48.1 % (39.6-50.0); HGB 15.8 g/dL (13.0-17.0); Lymphocytes # (A) 2.25 X 10*3/uL (0.90-5.00); Lymphocytes % (A) 29.8 %; MCH 29.8 pg (27.0-32.0); MCHC 32.8 g/dL (32.0-37.0); MCV 90.8 FL (80.0-97.0); Mean Platelet Volume 9.3 FL (9.5-12.2); Monocytes # (A) 0.84 X 10*3/uL (0.20-1.00); Monocytes % (A) 11.1 %; NRBC Per 100 WBC 0 X 10*3/uL (0.00-0.01); Neutrophils # (A) 4.28 X 10*3/uL (1.80-7.70); Neutrophils % (A) 56.6 %; Platelet Count 270 X 10*3/uL (140-440); RDW 13.2 % (11.5-14.5); WBC 7.56 X 10*3/uL (4.50-10.00)
[2023-08-14 02:37] LABS: ALT 28 U/L (10-49); AST 26 U/L (14-35); Albumin 4.9 g/dL (3.8-4.9); Albumin/Globulin Ratio 1.88 Ratio (1.60-3.17); Alkaline Phosphatase 146 U/L (41-126); BUN/Creat Ratio 7.42 Ratio (12.00-20.00); Blood Urea Nitrogen 8.9 mg/dL (9.0-27.0); Calcium 10.1 mg/dL (8.7-10.3); Carbon Dioxide 26.3 mmol/L (21.6-31.8); Chloride 101 mmol/L (96-109); Chol/HDL Ratio 3.04 Ratio; Globulin 2.6 g/dL (1.6-3.3); Glucose 87 mg/dL (70-110); LDL Cholesterol,Calculated 45.7 mg/dL (0.0-131.0); Potassium 4.1 mmol/L (3.5-5.5); Sodium 141 mmol/L (135-145); Total Bilirubin 0.6 mg/dL (0.3-1.2); Total Protein 7.5 g/dL (6.2-8.2)
== END | disposition home or self-care (01) ==
LOC: LABWHC1 15:56
PROVIDERS: ATTEND Family Medicine
DX: Z11.4 Encounter for screening for human immunodeficiency virus [HIV] (principal); E55.9 Vitamin D deficiency, unspecified; E78.5 Hyperlipidemia, unspecified
CPT/HCPCS: 36415; 80053; 80061; 82306; 85025; 87390

== ENCOUNTER → 2023-11-25 | Outpatient (CLI) | payer OTHER ==
[2023-11-25 16:16] LABS: Basophils # (A) 0.03 X 10*3/uL (0.00-0.10); Basophils % (A) 0.3 %; Eosinophils # (A) 0.17 X 10*3/uL (0.04-0.35); Eosinophils % (A) 1.9 %; HCT 49.2 % (39.6-50.0); HGB 16.4 g/dL (13.0-17.0); Lymphocytes # (A) 3.12 X 10*3/uL (0.90-5.00); Lymphocytes % (A) 34.9 %; MCH 29.9 pg (27.0-32.0); MCHC 33.3 g/dL (32.0-37.0); MCV 89.8 FL (80.0-97.0); Mean Platelet Volume 8.9 FL (9.5-12.2); Monocytes # (A) 0.87 X 10*3/uL (0.20-1.00); Monocytes % (A) 9.7 %; NRBC Per 100 WBC 0 X 10*3/uL (0.00-0.01); Neutrophils # (A) 4.71 X 10*3/uL (1.80-7.70); Neutrophils % (A) 52.9 %; Platelet Count 285 X 10*3/uL (140-440); RBC 5.48 X 10*6/uL (4.40-5.60); RDW 12.9 % (11.5-14.5); WBC 8.93 X 10*3/uL (4.50-10.00)
[2023-11-25 16:22] LABS: BUN/Creat Ratio 8.09 Ratio (12.00-20.00); Blood Urea Nitrogen 8.9 mg/dL (9.0-27.0); Carbon Dioxide 30.2 mmol/L (21.6-31.8); Chloride 99 mmol/L (96-109); Chol/HDL Ratio 2.86 Ratio; Glucose 107 mg/dL (70-110); LDL Cholesterol,Calculated 44.1 mg/dL (0.0-131.0); Potassium 4.2 mmol/L (3.5-5.5); Sodium 139 mmol/L (135-145)
[2023-11-25 16:23] LABS: ALT 34 U/L (10-49); AST 21 U/L (14-35); Albumin 4.8 g/dL (3.8-4.9); Albumin/Globulin Ratio 2.09 Ratio (1.60-3.17); Alkaline Phosphatase 144 U/L (41-126); Calcium 10.2 mg/dL (8.7-10.3); Globulin 2.3 g/dL (1.6-3.3); Total Bilirubin 0.7 mg/dL (0.3-1.2); Total Protein 7.1 g/dL (6.2-8.2)
[2023-11-25 17:41] LABS: HIV 2 AB Non-Reactive (Non-Reactive); HIV AB P24 Non-Reactive (Non-Reactive); HIV P24 AG Non-Reactive (Non-Reactive)
== END | disposition home or self-care (01) ==
LOC: LABWHC1 08:23
PROVIDERS: ATTEND Family Medicine
DX: E78.5 Hyperlipidemia, unspecified (principal)
CPT/HCPCS: 36415; 80053; 80061; 83036; 84443; 85025; 87390

== ENCOUNTER → 2023-12-23 | Outpatient (CLI) | payer OTHER ==
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
== END | disposition home or self-care (01) ==
LOC: RADMRIMAIN 19:04
PROVIDERS: ATTEND Family Medicine
DX: R51.9 Headache, unspecified (principal); M54.2 Cervicalgia
CPT/HCPCS: 70553; 72156; A9585

== ENCOUNTER 2024-02-27 21:46 | Inpatient (IN) | payer OTHER ==
[2024-02-27 22:08] LABS: Glucose,Whole Blood 98 mg/dL (70-110)
--- NOTE | 2024-02-27 22:08 | ED ---
General Adult HPI - General Chief complaint: Neuro Symptoms/Deficit Stated complaint: Stroke Symptoms, Numbness Time Seen by Provider: 02/27/24 21:58 Source: patient Mode of arrival: ambulatory Limitations: no limitations - History of Present Illness Initial comments: Dictation was produced using [employer] dictation software. please excuse any grammatical, word or spelling errors. Chief Complaint: 43-year-old male with history of CVA presents to the ER for right-sided neurologic symptoms History of Present Illness: Patient is a 43-year-old male presents emergency department for acute right-sided neurologic symptoms. States that his symptoms started approximately 30 minutes ago. He was with his mother and was last normal at that time. They were at the store shopping. Patient states that his symptoms initially began as numbness and weakness to his right upper extremity. He is now states that it started to spread to his right lower extremity. Patient has history of carotid endarterectomy and CVA approximately 2 to 3 years ago. The ROS documented in this emergency department record has been reviewed and confirmed by me. Those systems with pertinent positive or negative responses have been documented in the HPI. All other systems are other negative and/or noncontributory. - Related Data Home Medications Medication Instructions Recorded Confirmed Atorvastatin [Lipitor] 40 mg PO DAILY 12/06/20 09/19/22 Cyanocobalamin (Vitamin B-12) 1,000 mcg PO DAILY 12/06/20 09/19/22 [Vitamin B-12] Losartan [Cozaar] 50 mg PO DAILY 12/06/20 09/19/22 Venlafaxine HCl [Effexor XR] 150 mg PO DAILY 12/06/20 09/19/22 Aspirin EC [Ecotrin Low Dose] 81 mg PO DAILY 12/18/21 09/19/22 Emtricitabine/Tenofovir (Tdf) 1 tab PO DAILY 12/18/21 09/19/22 [Emtricitabine-Tenofv 200-300Mg] lamoTRIgine [LaMICtal] 100 mg PO DAILY 12/18/21 09/19/22 Meclizine [Antivert] 12.5 mg PO DAILY 09/19/22 09/19/22 Previous Rx's Medication Instructions Recorded Albuterol Nebulized [Ventolin 2.5 mg INHALATION Q4H PRN #75 ml 09/19/22 Nebulized] Albuterol Sulfate [Proair Hfa] 1 - 2 puff INHALATION Q4HR PRN 09/19/22 #8.5 gm Azithromycin [Zithromax Z Pack] 1 tab PO DIRECTED #6 tab 09/19/22 predniSONE [Deltasone] 20 mg PO BID #10 tab 09/19/22 Allergies Allergy/AdvReac Type Severity Reaction Status Date / Time aripiprazole [From Abilify] Allergy Rash/Hives, Verified 02/27/24 21:52 AGITATION doxycycline AdvReac Interaction Verified 02/27/24 21:52 w/psych meds & Rash Review of Systems ROS Statement: Those systems with pertinent positive or pertinent negative responses have been documented in the HPI. ROS Other: All systems not noted in ROS Statement are negative. Past Medical History Past Medical History: CVA/TIA, Hypertension Additional Past Medical History / Comment(s): MIGRAINES History of Any Multi-Drug Resistant Organisms: None Reported Past Surgical History: Cholecystectomy, Hernia Repair Additional Past Surgical History / Comment(s): WISDOM TEETH EXTRACTIONS, neck surgery- [id number] Past Anesthesia/Blood Transfusion Reactions: Postoperative Nausea & Vomiting (PONV) Additional Past Anesthesia/Blood Transfusion Reaction / Comment(s): Patient has no previous surgical history EXCEPT FOR TOOTH EXTRACTIONS. Past Psychological History: Anxiety, Depression, PTSD Smoking Status: Never smoker Past Alcohol Use History: None Reported Past Drug Use History: None Reported - Past Family History Mother Family Medical History: Diabetes Mellitus, Fibromyalgia, GERD/Reflux Additional Family Medical History / Comment(s): VERTIGO General Exam - General Exam Comments Initial Comments: PHYSICAL EXAM: General Impression: Alert and oriented x3, not in acute distress HEENT: Normocephalic atraumatic, extra-ocular movements intact, pupils equal and reactive to light bilaterally, mucous membranes moist. Cardiovascular: Heart regular rate and rhythm Chest: Able to complete full sentences, no retractions, no tachypnea Abdomen: abdomen soft, non-tender, non-distended, no organomegaly Musculoskeletal: Pulses present and equal in all extremities, no peripheral edema Motor: no focal deficits noted Neurological: No facial droop, drift of the right upper and right lower extremity, patient reports no sensation to light touch of the right arm he reports diminished sensation to touch of his right lower leg. Not aphasic, nondysarthric, mild ataxia to the extremities Skin: Intact with no visualized rashes Psych: Normal affect and mood Limitations: no limitations Course Vital Signs 02/27/24 02/27/24 02/27/24 21:50 22:18 22:48 Temperature 99.1 F Pulse Rate 80 75 73 Respiratory 18 18 18 Rate Blood Pressure 133/83 136/81 116/78 O2 Sat by Pulse 98 98 97 Oximetry - Reevaluation(s) Reevaluation #1: 02/27/24 22:06 Patient was seen and evaluated in trauma bay #2. Patient has NIH score of 67. Patient is technically a candidate for alteplase however he is not consenting to receiving this medication due to the risk of potential brain bleed. He understands that without this medication he could have permanent neurologic deficit. Patient is of sound mind and judgment at the time of this discussion. Mother at the bedside agrees with patient's decision. Code stroke paged EKG Findings - EKG Comments: EKG Findings:: My EKG interpretation: Ventricular rate 69, sinus rhythm,. 199, cures 109, QTc 379. No MD prolongation, no QTC prolongation, no ST or T-wave changes noted. Overall, this EKG is unremarkable Medical Decision Making - Medical Decision Making Was pt. sent in by a medical professional or institution (, PA, BORING INSPECTOR, urgent care, hospital, or half-way...) When possible be specific @ -No Did you speak to anyone other than the patient for history (EMS, parent, family, police, friend...)? What history was obtained from this source @ -No Did you review nursing and triage notes (agree or disagree)? Why? @ -I reviewed and agree with nursing and triage notes Were old charts reviewed (outside hosp., previous admission, EMS record, old EKG, old radiological studies, urgent care reports/EKG's, half-way records)? Report findings @ -No old charts were reviewed Differential Diagnosis (chest pain, altered mental status, abdominal pain women, abdominal pain men, vaginal bleeding, musculoskeletal, weakness, fever, dyspnea, syncope, headache, dizziness, GI bleed, back pain, seizure, CVA, palpatations, mental health)? @ - Differential CVA: Ischemic stroke, hemorrhagic stroke, brain tumor, atypical migraine, Wernicke's encephalopathy, seizure, multiple sclerosis, meningitis, encephalitis, hypoglycemia, Guillain-Swain, electrolytes disturbance, myasthenia gravis.... This is not meant to be an all-inclusive list EKG interpreted by me (3pts min.). @ -See above X-rays interpreted by me (1pt min.). @ -Two-view chest x-ray is nonacute CT interpreted by me (1pt min.). @ -CT brain and CT angiography of the head and neck shows no acute processes. U/S interpreted by me (1pt. min.). @ -None done What testing was considered but not performed or refused? (CT, X-rays, U/S, labs)? Why? @ -None What meds were considered but not given or refused? Why? @ -None Did you discuss the management of the patient with other professionals (professionals i.e. , PA, BORING INSPECTOR, lab, RT, psych nurse, social service assistant, equal opportunity officer, teacher, radio electronics officer, porter sample case)? Give summary @ -Case discussed with hospitalist for admission Was smoking cessation discussed for >3mins.? @ -No Was critical care preformed (if so, how long)? @ -No Were there social determinants of health that impacted care today? How? (Homelessness, low income, unemployed, alcoholism, drug addiction, transportation, low edu. Level, literacy, decrease access to med. care, senior care, rehab)? @ -No Was there de-escalation of care discussed even if they declined (Discuss DNR or withdrawal of care, Hospice)? DNR status @ -No What co-morbidities impacted this encounter? (DM, HTN, Smoking, COPD, CAD, Cancer, CVA, ARF, Chemo, Hep., AIDS, mental health diagnosis, sleep apnea, morbid obesity)? @ -None Was patient admitted / discharged? Hospital course, mention meds given and route, prescriptions, significant lab abnormalities, going to OR and other pertinent info. @ -43-year-old male presents to the emergency department for acute strokelike symptoms. Vital signs upon arrival are within acceptable limits. Patient is a candidate for thrombolytics however he is refusing due to concerns of its adverse effects. Code stroke paged. CT imaging are negative. Labs are unremarkable. Patient symptoms improved at the bedside during ER observation. Patient given aspirin will be admitted consultation to neurology. Undiagnosed new problem with uncertain prognosis? @ -No Drug Therapy requiring intensive monitoring for toxicity (Heparin, Nitro, Insulin, Cardizem)? @ -No Were any procedures done? @ -No Diagnosis/symptom? Acute, or Chronic, or Acute on Chronic? Uncomplicated (without systemic symptoms) or Complicated (systemic symptoms)? @ -Strokelike symptoms Side effects of treatment? @ -No Exacerbation, Progression, or Severe Exacerbation? @ -No Poses a threat to life or bodily function? How? (Chest pain, [place], [place], pneumonia, PE, COPD, DKA, ARF, appy, cholecystitis, CVA, Diverticulitis, Homicidal, Suicidal, threat to staff... and all critical care pts) @ -yes - Lab Data Result diagrams: 02/27/24 22:07 02/27/24 22:07 Lab Results 02/27/24 02/27/24 02/27/24 Range/Units 22:06 22:07 22:07 WBC 7.9 (3.8-10.6) k/uL RBC 5.42 (4.30-5.90) m/uL Hgb 16.3 (13.0-17.5) gm/dL Hct 49.8 (39.0-53.0) % MCV 91.8 (80.0-100.0) fL MCH 30.1 (25.0-35.0) pg MCHC 32.8 (31.0-37.0) g/dL RDW 13.2 (11.5-15.5) % Plt Count 281 (150-450) k/uL MPV 6.5 Neutrophils % 59 % Lymphocytes % 32 % Monocytes % 7 % Eosinophils % 0 % Basophils % 1 % Neutrophils # 4.6 (1.3-7.7) k/uL Lymphocytes # 2.5 (1.0-4.8) k/uL Monocytes # 0.5 (0-1.0) k/uL Eosinophils # 0.0 (0-0.7) k/uL Basophils # 0.0 (0-0.2) k/uL PT 10.8 (10.0-12.5) sec INR 1.0 (<1.2) APTT 32.0 H (22.0-30.0) sec Sodium (137-145) mmol/L Potassium (3.5-5.1) mmol/L Chloride (98-107) mmol/L Carbon Dioxide (22-30) mmol/L Anion Gap mmol/L BUN (9-20) mg/dL Creatinine (0.66-1.25) mg/dL Est GFR (CKD-EPI)AfAm (>60 ml/min/1.73 sqM) Est GFR (CKD-EPI)NonAf (>60 ml/min/1.73 sqM) Glucose (74-99) mg/dL POC Glucose (mg/dL) 98 (70-110) mg/dL POC Glu Production Foreman ID Stuart Restrepo Calcium (8.4-10.2) mg/dL Total Bilirubin (0.2-1.3) mg/dL AST (17-59) U/L ALT (4-49) U/L Alkaline Phosphatase (38-126) U/L Creatine Kinase (55-170) U/L Troponin I (0.000-0.034) ng/mL Total Protein (6.3-8.2) g/dL Albumin (3.5-5.0) g/dL 02/27/24 02/27/24 Range/Units 22:07 22:07 WBC (3.8-10.6) k/uL RBC (4.30-5.90) m/uL Hgb (13.0-17.5) gm/dL Hct (39.0-53.0) % MCV (80.0-100.0) fL MCH (25.0-35.0) pg MCHC (31.0-37.0) g/dL RDW (11.5-15.5) % Plt Count (150-450) k/uL MPV Neutrophils % % Lymphocytes % % Monocytes % % Eosinophils % % Basophils % % Neutrophils # (1.3-7.7) k/uL Lymphocytes # (1.0-4.8) k/uL Monocytes # (0-1.0) k/uL Eosinophils # (0-0.7) k/uL Basophils # (0-0.2) k/uL PT (10.0-12.5) sec INR (<1.2) APTT (22.0-30.0) sec Sodium 138 (137-145) mmol/L Potassium 3.7 (3.5-5.1) mmol/L Chloride 101 (98-107) mmol/L Carbon Dioxide 25 (22-30) mmol/L Anion Gap 12 mmol/L BUN 8 L (9-20) mg/dL Creatinine 1.14 (0.66-1.25) mg/dL Est GFR (CKD-EPI)AfAm >90 (>60 ml/min/1.73 sqM) Est GFR (CKD-EPI)NonAf 80 (>60 ml/min/1.73 sqM) Glucose 99 (74-99) mg/dL POC Glucose (mg/dL) (70-110) mg/dL POC Glu Production Foreman ID Calcium 9.2 (8.4-10.2) mg/dL Total Bilirubin 0.8 (0.2-1.3) mg/dL AST 28 (17-59) U/L ALT 35 (4-49) U/L Alkaline Phosphatase 106 (38-126) U/L Creatine Kinase 95 (55-170) U/L Troponin I <0.012 (0.000-0.034) ng/mL Total Protein 7.3 (6.3-8.2) g/dL Albumin 5.0 (3.5-5.0) g/dL Disposition Clinical Impression: CVA (cerebral vascular accident) Disposition: ADMITTED IP TO THIS HOSP Condition: Fair Referrals: Jean-Claude Buenrostro MD [Primary Care Provider] - 1-2 days Decision Time: 00:20
[2024-02-27 22:26] LABS: Basophils % (A) 1 %; Eosinophils % (A) 0 %; HCT 49.8 % (39.0-53.0); HGB 16.3 gm/dL (13.0-17.5); Lymphocytes # (A) 2.5 k/uL (1.0-4.8); Lymphocytes % (A) 32 %; MCH 30.1 pg (25.0-35.0); MCHC 32.8 g/dL (31.0-37.0); MCV 91.8 fL (80.0-100.0); Mean Platelet Volume 6.5; Monocytes # (A) 0.5 k/uL (0-1.0); Monocytes % (A) 7 %; Neutrophils # (A) 4.6 k/uL (1.3-7.7); Neutrophils % (A) 59 %; Platelet Count 281 k/uL (150-450); RBC 5.42 m/uL (4.30-5.90); RDW 13.2 % (11.5-15.5); WBC 7.9 k/uL (3.8-10.6)
--- NOTE | 2024-02-27 22:29 | CT ---
EXAM: CT Head Without Intravenous Contrast CLINICAL HISTORY: ITS.REASON CT Reason: Neuro deficit, acute, stroke suspected TECHNIQUE: Axial computed tomography images of the head/brain without intravenous contrast. CTDI is 49.2 mGy and DLP is 1217.6 mGy-cm. This CT exam was performed using one or more of the following dose reduction techniques: automated exposure control, adjustment of the mA and/or kV according to patient size, and/or use of iterative reconstruction technique. COMPARISON: 12/18/2021 FINDINGS: Brain: Unremarkable. No hemorrhage. No significant white matter disease. No edema. Ventricles: No acute findings. No ventriculomegaly. Bones/joints: Unremarkable. No acute fracture. Soft tissues: Unremarkable. Sinuses: Functional endoscopic sinonasal surgery changes. Mild mucosal thickening in the ethmoid air cells. Mastoid air cells: Unremarkable as visualized. No mastoid effusion. IMPRESSION: No acute findings in the head/brain.
[2024-02-27 22:34] LABS: Prothrombin Time 10.8 sec (10.0-12.5)
[2024-02-27 22:37] LABS: ALT 35 U/L (4-49); AST 28 U/L (17-59); African American GFR (CKD) >90 (>60 ml/min/1.73 sqM); Alkaline Phosphatase 106 U/L (38-126); Anion Gap 12 mmol/L; Blood Urea Nitrogen 8 mg/dL (9-20); Calcium 9.2 mg/dL (8.4-10.2); Carbon Dioxide 25 mmol/L (22-30); Chloride 101 mmol/L (98-107); Creatine Kinase 95 U/L (55-170); Glucose 99 mg/dL (74-99); Non-African American GFR(CKD) 80 (>60 ml/min/1.73 sqM); Potassium 3.7 mmol/L (3.5-5.1); Sodium 138 mmol/L (137-145); Total Bilirubin 0.8 mg/dL (0.2-1.3); Total Protein 7.3 g/dL (6.3-8.2)
--- NOTE | 2024-02-27 22:40 | CT ---
EXAM: CT Angiography Head With Intravenous Contrast CLINICAL HISTORY: ITS.REASON CT Reason: Neuro deficit, acute, stroke suspected TECHNIQUE: Axial computed tomographic angiography images of the head with intravenous contrast. CTDI is 13.5 mGy and DLP is 404.5 mGy-cm. This CT exam was performed using one or more of the following dose reduction techniques: automated exposure control, adjustment of the mA and/or kV according to patient size, and/or use of iterative reconstruction technique. 3D and MIP reconstructed images were created and reviewed. COMPARISON: No relevant prior studies available. FINDINGS: Right internal carotid artery: No acute findings. Intracranial segment is patent with no significant stenosis. No aneurysm. Right anterior cerebral artery: No occlusion or significant stenosis. No aneurysm. Right middle cerebral artery: No occlusion or significant stenosis. No aneurysm. Right posterior cerebral artery: No occlusion or significant stenosis. No aneurysm. Right vertebral artery: Unremarkable as visualized. Left internal carotid artery: No acute findings. Intracranial segment is patent with no significant stenosis. No aneurysm. Left anterior cerebral artery: No occlusion or significant stenosis. No aneurysm. Left middle cerebral artery: No occlusion or significant stenosis. No aneurysm. Left posterior cerebral artery: No occlusion or significant stenosis. No aneurysm. Left vertebral artery: Unremarkable as visualized. Basilar artery: No occlusion or significant stenosis. No aneurysm. IMPRESSION: No large vessel occlusion or aneurysm. EXAM: CT Angiography Neck With Intravenous Contrast CLINICAL HISTORY: ITS.REASON CT Reason: Neuro deficit, acute, stroke suspected TECHNIQUE: Routine carotid CT angiography protocol was performed with intravenous contrast. NASCET criteria using the distal ICAs for comparison were used for evaluation of stenoses. CTDI is 13.5 mGy and DLP is 404.5 mGy-cm. This CT exam was performed using one or more of the following dose reduction techniques: automated exposure control, adjustment of the mA and/or kV according to patient size, and/or use of iterative reconstruction technique. 3D and MIP reconstructed images were created and reviewed. COMPARISON: None. FINDINGS: VASCULATURE: Right common carotid artery: No significant stenosis. No dissection or occlusion. Right internal carotid artery: Extracranial segment is patent with no significant stenosis. No dissection or occlusion. Right external carotid artery: No occlusion. Right vertebral artery: No significant stenosis. No dissection or occlusion. Left common carotid artery: No significant stenosis. No dissection or occlusion. Left internal carotid artery: Extracranial segment is patent with no significant stenosis. No dissection or occlusion. Left external carotid artery: No occlusion. Left vertebral artery: No significant stenosis. No dissection or occlusion. NECK: Bones/joints: No acute findings. Soft tissues: Unremarkable. Lung apices: No acute disease. CAROTID STENOSIS REFERENCE USING NASCET CRITERIA: % ICA stenosis = (1 - narrowest ICA diameter/diameter of distal cervical ICA) x 100. Mild - <50% stenosis. Moderate - 50-69% stenosis. Severe - 70-94% stenosis. Near occlusion - 95-99% stenosis. Occluded - 100% stenosis. IMPRESSION: Negative CTA neck.
--- NOTE | 2024-02-28 00:25 | XR ---
EXAM: XR Chest, 2 Views CLINICAL HISTORY: ITS.REASON XR Reason: altered mental status TECHNIQUE: Frontal and lateral views of the chest. COMPARISON: 09/19/2022 FINDINGS: Lungs: No consolidation. Pleural space: Unremarkable. No pneumothorax. Heart: No cardiomegaly. Bones/joints: No acute osseous abnormality. IMPRESSION: No acute cardiopulmonary abnormality.
[2024-02-28] MEDS: ASPIRIN 81 MG PO STA (01:38)
[2024-02-28] MEDS: SODIUM CHLORIDE 0.9% 1,000 ML IV SCH (01:38)
--- NOTE | 2024-02-28 15:28 | P.HPIM ---
History of Present Illness H&P Date: 02/28/24 Chief Complaint: Numbness and weakness right upper extremity 43-year-old male, history of hypertension, CVA, migraine headaches, presents emergency department for acute right-sided neurologic symptoms. States that his symptoms started approximately 30 minutes ago. He was with his mother and was last normal at that time. They were at the store shopping. Patient states that his symptoms initially began as numbness and weakness to his right upper extremity. He is now states that it started to spread to his right lower extremity. Patient has history of carotid endarterectomy and CVA approximately 2 to 3 years ago. EKG Findings: Ventricular rate 69, sinus rhythm,. 199, cures 109, QTc 379. No MD prolongation, no QTC prolongation, no ST or T-wave changes noted. Overall, this EKG is unremarkable Two-view chest x-ray is nonacute -CT brain and CT angiography of the head and neck shows no acute processes. Blood work reveals WBC of 7.9, hemoglobin of 16.3 and platelet count of 281, sodium 138, potassium 3.7, BUNs/creatinine of 8/1.14, troponin less than 0.012 Review of Systems REVIEW OF SYSTEMS: CONSTITUTIONAL: No fever, no malaise, no fatigue. HEENT: No recent visual problems or hearing problems. Denied any sore throat. CARDIOVASCULAR: No chest pain, orthopnea, PND, no palpitations, no syncope. PULMONARY: No shortness of breath, no cough, no hemoptysis. GASTROINTESTINAL: No diarrhea, no nausea, no vomiting, no abdominal pain. NEUROLOGICAL: No headaches, no weakness, no numbness. HEMATOLOGICAL: Denies any bleeding or petechiae. GENITOURINARY: Denies any burning micturition, frequency, or urgency. MUSCULOSKELETAL/RHEUMATOLOGICAL: Denies any joint pain, swelling, or any muscle pain. ENDOCRINE: Denies any polyuria or polydipsia. The rest of the 14-point review of systems is negative. Past Medical History Past Medical History: CVA/TIA, Hypertension Additional Past Medical History / Comment(s): vertigo, MIGRAINES History of Any Multi-Drug Resistant Organisms: None Reported Past Surgical History: Cholecystectomy, Hernia Repair Additional Past Surgical History / Comment(s): WISDOM TEETH EXTRACTIONS, neck surgery- [id number] Past Anesthesia/Blood Transfusion Reactions: Postoperative Nausea & Vomiting (PONV) Additional Past Anesthesia/Blood Transfusion Reaction / Comment(s): Patient has no previous surgical history EXCEPT FOR TOOTH EXTRACTIONS. Past Psychological History: Anxiety, Depression, PTSD Smoking Status: Never smoker Past Alcohol Use History: None Reported Additional Past Alcohol Use History / Comment(s): Patient states that he drinks alcohol rarely Past Drug Use History: None Reported Additional Drug Use History / Comment(s): Patient denies history of drug use. - Past Family History Mother Family Medical History: Diabetes Mellitus, Fibromyalgia, GERD/Reflux Additional Family Medical History / Comment(s): VERTIGO Medications and Allergies Home Medications Medication Instructions Recorded Confirmed Type Atorvastatin [Lipitor] 40 mg PO DAILY 12/06/20 02/28/24 History Cyanocobalamin (Vitamin B-12) 1,000 mcg PO DAILY 12/06/20 02/28/24 History [Vitamin B-12] Venlafaxine HCl [Effexor XR] 150 mg PO DAILY 12/06/20 02/28/24 History Aspirin EC [Ecotrin Low Dose] 81 mg PO DAILY 12/18/21 02/28/24 History Emtricitabine/Tenofovir (Tdf) 1 tab PO DAILY 12/18/21 02/28/24 History [Emtricitabine-Tenofv 200-300Mg] lamoTRIgine [LaMICtal] 100 mg PO DAILY 12/18/21 02/28/24 History Meclizine [Antivert] 12.5 mg PO DAILY 09/19/22 02/28/24 History Ergocalciferol [Vitamin D2 (1250 1,250 mcg PO MENSAH 02/28/24 02/28/24 History Mcg = 65556 Iu)] Gabapentin [Neurontin] 100 mg PO DAILY 02/28/24 02/28/24 History Ibuprofen [Motrin] 800 mg PO DAILY 02/28/24 02/28/24 History Irbesartan/Hydrochlorothiazide 1 tab PO DAILY 02/28/24 02/28/24 History [Irbesartan-Hctz 150-12.5 mg Tb] Levothyroxine Sodium [Synthroid] 50 mcg PO DAILY 02/28/24 02/28/24 History Semaglutide [Wegovy] 0.5 mg SQ MO 02/28/24 02/28/24 History Allergies Allergy/AdvReac Type Severity Reaction Status Date / Time aripiprazole [From Abilify] Allergy Rash/Hives, Verified 02/28/24 07:25 AGITATION doxycycline AdvReac Interaction Verified 02/28/24 07:25 w/psych meds & Rash Physical Exam Vitals: Vital Signs Temp Pulse Pulse Resp BP BP Pulse Ox 02/28/24 08:00 98.9 F 61 16 115/74 98 02/28/24 07:00 52 L 20 113/75 98 02/28/24 06:00 54 L 20 106/51 95 02/28/24 05:00 71 20 127/76 98 02/28/24 04:00 52 L 20 120/79 98 02/28/24 03:31 60 18 116/77 96 02/28/24 01:26 59 L 18 116/72 98 02/27/24 22:48 73 18 116/78 97 02/27/24 22:18 75 18 136/81 98 02/27/24 21:50 99.1 F 80 18 133/83 98 Intake and Output 02/27/24 02/28/24 02/28/24 22:59 06:59 14:59 Other: Voiding Method Urinal Weight 113.398 kg 113.398 kg General Impression: Alert and oriented x3, not in acute distress HEENT: Normocephalic atraumatic, extra-ocular movements intact, pupils equal and reactive to light bilaterally, mucous membranes moist. Cardiovascular: Heart regular rate and rhythm Chest: Able to complete full sentences, no retractions, no tachypnea Abdomen: abdomen soft, non-tender, non-distended, no organomegaly Musculoskeletal: Pulses present and equal in all extremities, no peripheral edema Motor: no focal deficits noted Neurological: No facial droop, drift of the right upper and right lower extr emity, patient reports no sensation to light touch of the right arm he reports diminished sensation to touch of his right lower leg. Not aphasic, nondysarthric, mild ataxia to the extremities Skin: Intact with no visualized rashes Psych: Normal affect and mood Results CBC & Chem 7: 02/27/24 22:07 02/27/24 22:07 Labs: Abnormal Lab Results - Last 24 Hours (Table) 02/27/24 02/27/24 Range/Units 22:07 22:07 APTT 32.0 H (22.0-30.0) sec BUN 8 L (9-20) mg/dL Thrombosis Risk Factor Assmnt - Choose All That Apply Each Factor Represents 1 point: Age 41-60 years Thrombosis Risk Factor Assessment Total Risk Factor Score: 1 Thrombosis Risk Factor Assessment Level: Low Risk Assessment and Plan Assessment: 1. Right-sided weakness/numbness; possible TIA versus CVA -- CT head completed in ED was negative for any acute process; patient being in tPA window was recommended tPA but he refused -- Patient has been placed on neurochecks per protocol -- Consult neurology for any recommendations 2. Hypertension; patient takes irbesartan/hydrochlorothiazide 150 to 0.5 mg daily 3. Hyperlipidemia; Lipitor 40 mg daily 4. Hypothyroidism; levothyroxine 50 mcg daily 5. Anxiety/depression; patient takes Effexor XR 150 mg daily, Lamictal 100 mg daily, Neurontin 100 mg daily 6. History of cervical myelopathy patient had extruded C6-C7 s/p ACDF on 02/2021 7. Morbid obesity DVT prophylaxis; SCDs CODE STATUS; full code
--- NOTE | 2024-02-28 16:32 | P.CNNES ---
History of Present Illness Consult date: 02/28/24 Requesting physician: Shmuel Nettles Reason for Consult: code stroke History of Present Illness: This is a 43-year-old gentleman who presented emergency department for right- sided numbness tingling and weakness. He stated that yesterday at 8:30 PM he was at the grocery store with his mother who noticed sudden onset right-sided numbness tingling that involves the entire right side including the face that he felt weak and he feels his speech is slow. He states he is on aspirin 81 mg daily and Lipitor 20 mg nightly. Patient denies any significant neck pain. Is following up with neurologist as an outpatient. Patient stated that he did not know he has to follow-up with a neurologist for his prior neurological issues. There is reported by the ED note that the patient has carotid enterectomy about 2 to 3 years ago but patient denies having carotid enterectomy and unsure if he was trying to relay that he had cervical surgery. Patient is known to me and I have seen him last on 12/20/2021 and at that time he had vertigo and diplopia which resolved and I felt was not a stroke or TIA. Patient had MRI of the brain and cervical spine which was negative. He had cervical myopathy in the past over C6-C7 status post ACDF on 12/13/2020. Please refer to my notes for details. Some of the workup during this hospital visit consisted of: CBC with differential and chemistry panel is unremarkable. CT of the head is reported as no acute finding in the head/brain I personally reviewed the CT and agree with the report. CT angiography of the head and neck is reported as negative. Throat stroke was activated by the ED physician. NIH was a 6-7 by the ED team. The patient was offered IV thrombolytic but he declined. Review of Systems The positive and negative as per HPI. Past Medical History Past Medical History: CVA/TIA, Hypertension Additional Past Medical History / Comment(s): vertigo, MIGRAINES History of Any Multi-Drug Resistant Organisms: None Reported Past Surgical History: Cholecystectomy, Hernia Repair Additional Past Surgical History / Comment(s): WISDOM TEETH EXTRACTIONS, neck surgery- [id number] Past Anesthesia/Blood Transfusion Reactions: Postoperative Nausea & Vomiting (PONV) Additional Past Anesthesia/Blood Transfusion Reaction / Comment(s): Patient has no previous surgical history EXCEPT FOR TOOTH EXTRACTIONS. Past Psychological History: Anxiety, Depression, PTSD Smoking Status: Never smoker Past Alcohol Use History: None Reported Additional Past Alcohol Use History / Comment(s): Patient states that he drinks alcohol rarely Past Drug Use History: None Reported Additional Drug Use History / Comment(s): Patient denies history of drug use. - Past Family History Mother Family Medical History: Diabetes Mellitus, Fibromyalgia, GERD/Reflux Additional Family Medical History / Comment(s): VERTIGO Medications and Allergies Home Medications Medication Instructions Recorded Confirmed Type Atorvastatin [Lipitor] 40 mg PO DAILY 12/06/20 02/28/24 History Cyanocobalamin (Vitamin B-12) 1,000 mcg PO DAILY 12/06/20 02/28/24 History [Vitamin B-12] Venlafaxine HCl [Effexor XR] 150 mg PO DAILY 12/06/20 02/28/24 History Aspirin EC [Ecotrin Low Dose] 81 mg PO DAILY 12/18/21 02/28/24 History Emtricitabine/Tenofovir (Tdf) 1 tab PO DAILY 12/18/21 02/28/24 History [Emtricitabine-Tenofv 200-300Mg] lamoTRIgine [LaMICtal] 100 mg PO DAILY 12/18/21 02/28/24 History Meclizine [Antivert] 12.5 mg PO DAILY 09/19/22 02/28/24 History Ergocalciferol [Vitamin D2 (1250 1,250 mcg PO MENSAH 02/28/24 02/28/24 History Mcg = [id number] Iu)] Gabapentin [Neurontin] 100 mg PO DAILY 02/28/24 02/28/24 History Ibuprofen [Motrin] 800 mg PO DAILY 02/28/24 02/28/24 History Irbesartan/Hydrochlorothiazide 1 tab PO DAILY 02/28/24 02/28/24 History [Irbesartan-Hctz 150-12.5 mg Tb] Levothyroxine Sodium [Synthroid] 50 mcg PO DAILY 02/28/24 02/28/24 History Semaglutide [Wegovy] 0.5 mg SQ MO 02/28/24 02/28/24 History Allergies Allergy/AdvReac Type Severity Reaction Status Date / Time aripiprazole [From Abilify] Allergy Rash/Hives, Verified 02/28/24 07:25 AGITATION doxycycline AdvReac Interaction Verified 02/28/24 07:25 w/psych meds & Rash Physical Examination - Vital Signs Vital Signs: Vital Signs Temp Pulse Pulse Resp BP BP Pulse Ox 02/28/24 12:00 51 L 16 120/71 97 02/28/24 08:00 98.9 F 61 16 115/74 98 02/28/24 07:00 52 L 20 113/75 98 02/28/24 06:00 54 L 20 106/51 95 02/28/24 05:00 71 20 127/76 98 02/28/24 04:00 52 L 20 120/79 98 02/28/24 03:31 60 18 116/77 96 02/28/24 01:26 59 L 18 116/72 98 02/27/24 22:48 73 18 116/78 97 02/27/24 22:18 75 18 136/81 98 02/27/24 21:50 99.1 F 80 18 133/83 98 Intake and Output 02/28/24 02/28/24 02/28/24 06:59 14:59 22:59 Intake Total 660 Output Total 350 Balance 310 Intake: Oral 660 Output: Urine 350 Other: Voiding Method Urinal Weight 113.398 kg GENERAL: The patient is lying in bed and is not in acute distress. NEUROLOGICAL: Higher mental function: The patient is awake, alert, oriented to self, place and time. Patient is following commands. No aphasia and no neglect. Cranial nerves: The pupils are round, equal and reactive to light and accommodation. Visual roman are full to confrontation throughout. Extraocular movement is intact no nystagmus is noted. Decrease facial sensation to touch on the right side. The facial strength is normal throughout. Hearing is normal bilaterally to hand rub. Tongue is midline and moved [id number] without any difficulty. No dysarthria is noted. Shoulder shrug is normal bilaterally. Motor: The strength is 3 on the right side but feel there is effort related since with motivation there is some improvement. Otherwise 5 over 5 throughout left side. Normal tone and bulk. Cerebellum: Normal finger to nose on left but had difficulty performing on the right because of weakness. Sensation: Decrease to touch on the right side. Reflexes (right/left): Brachioradialis on left is 3+. Otherwise 2+ throughout. Plantars mute bilaterally. Results - Laboratory Findings CBC and BMP: 02/27/24 22:07 02/27/24 22:07 Abnormal Lab Findings: Abnormal Labs 02/27/24 02/27/24 22:07 22:07 APTT 32.0 H BUN 8 L Assessment and Plan Assessment: This is a 43-year-old gentleman who presents emergency department because of acute onset numbness tingling and weakness over the right side also involving the face that started around 8:30 PM. While in the ED he had NIH stroke scale of 6-[address] of the head and CT angiography of the head and neck is unremarkable. He declined the IV thrombolytic. My examination I feel he has effort related. Acute right hemiparesis, numbness (right side and face) and he feels his speech is slow. On my examination I feel this is more effort related. History of questionable TIA in the past History of cervical myelopathy the patient had extruded C6-C7 status post ACDF on 12/2020 Lumbosacral spondylosis History of hypertension Depression Anxiety PTSD Obesity Plan: I ordered MRI of the brain with and without Lipid panel was ordered and is pending Ordered 2D echo Patient was given aspirin 325 once in the ED then monitor was resumed on his home dose of aspirin 81 mg daily. I will avoid dual antiplatelets for now until MRI of the brain comes back Patient is on Lipitor 40 mg daily Continue neurochecks Cardiac monitoring PT, OT and EMPLOYEE DEVELOPMENT MANAGER are consulted Will defer the rest of the medical management the primary and other specialist. The patient to follow-up with psychiatrist/therapist as an outpatient I also notified the patient that he needs to follow-up with a neurologist as an outpatient. For DVT prophylaxis I started the patient on subcu heparin 5000 units every 12 hours Thank you for the consultation. Time with Patient: Greater than 30
[2024-02-28] MEDS: GABAPENTIN 100 MG CAP PO SCH (17:42)
[2024-02-28] MEDS: VENLAFAXINE HCL ER 150 MG CAP PO SCH (17:42)
[2024-02-28] MEDS: ATORVASTATIN 40 MG TAB PO SCH (17:43)
[2024-02-28] MEDS: LEVOTHYROXINE 50 MCG TAB PO SCH (17:44)
[2024-02-28] MEDS: TRUVADA PO SCH (17:49)
[2024-02-28] MEDS: HEPARIN SODIUM,PORCINE 5,000 UNIT/ML 1 ML VIAL SQ SCH (19:45)
[2024-02-29] MEDS: ASPIRIN 81 MG PO SCH (08:58)
[2024-02-29] MEDS: lamoTRIgine 100 MG TAB PO SCH (08:58)
[2024-02-29] MEDS: CYANOCOBALAMIN 500 MCG TAB PO SCH (08:58)
[2024-02-29 10:16] LABS: Chol/HDL Ratio 2.94 Ratio; LDL Cholesterol,Calculated 45.4 mg/dL (0.0-131.0)
--- NOTE | 2024-02-29 13:18 | CA ---
Transthoracic Echo Report Name: Shekhar Hernandez Age: 43 Gender: M : 1980 Exam Date: 02/29/2024 07:35 Exam Location: [facility] Ht (in): 73 Wt (lb): 250 Ordering Physician: Jeremiah Shankar MD Attending/Referring Phys: [facility]mo Lead Trish Levy RDCS Procedure CPT: Indications: stroke Cardiac Hx: Technical Quality: Technically difficult study Contrast 1: Definity Total Dose (mL): 2 Contrast 2: Total Dose (mL): MEASUREMENTS (Male / Female) Normal Values 2D ECHO LV Diastolic Diameter PLAX 4.2 cm 4.2 - 5.9 / 3.9 - 5.3 cm LV Systolic Diameter PLAX 2.8 cm IVS Diastolic Thickness 1.3 cm 0.6 - 1.0 / 0.6 - 0.9 cm LVPW Diastolic Thickness 0.9 cm 0.6 - 1.0 / 0.6 - 0.9 cm LV Relative Wall Thickness 0.5 RV Internal Dim ED PLAX 3.2 cm LVOT Diameter 2.6 cm LA Volume 61.2 cm??? 18 - 58 / 22 - 52 cm??? LA Volume Index 25.0 cm???/m??? 16 - 28 cm???/m??? Ascending Aorta Diameter 3.0 cm DOPPLER AV Peak Velocity 137.4 cm/s AV Peak Gradient 7.6 mmHg AV Mean Velocity 100.0 cm/s AV Mean Gradient 4.4 mmHg AV Velocity Time Integral 29.9 cm LVOT Peak Velocity 117.9 cm/s LVOT Peak Gradient 5.6 mmHg LVOT Velocity Time Integral 27.1 cm LVOT Stroke Volume 148.2 cm??? LVOT Stroke Volume Index 62.6 ml/m??? LVOT Cardiac Index 3146.1 cm???/min???m??? AV Area Cont Eq vti 5.0 cm??? AV Area Cont Eq pk 4.7 cm??? MV Area PHT 3.5 cm??? Mitral E Point Velocity 84.7 cm/s Mitral A Point Velocity 52.3 cm/s Mitral E to A Ratio 1.6 MV Deceleration Time 215.2 ms TR Peak Velocity 245.6 cm/s TR Peak Gradient 24.1 mmHg PV Peak Velocity 127.9 cm/s PV Peak Gradient 6.5 mmHg FINDINGS Left Ventricle Left ventricular ejection fraction is estimated at 55-60 %. Mildly increased septal wall thickness. Left ventricular cavity size normal. No obvious regional wall motion abnormalities. Right Ventricle Normal right ventricular size and function. Unable to estimate the right ventricular systolic pressure. Right Atrium Mild right atrial dilatation. Left Atrium Mildly increased left atrial volume. Mildly increased left atrial area. Mitral Valve Structurally normal mitral valve. No evidence for mitral valve prolapse. No mitral stenosis. Trace mitral regurgitation. Aortic Valve Trileaflet aortic valve. No aortic valve stenosis or regurgitation. Tricuspid Valve Structurally normal tricuspid valve. No tricuspid stenosis. Trace to mild tricuspid regurgitation. Pulmonic Valve Structurally normal pulmonic valve. No pulmonic stenosis. Trace pulmonic regurgitation. Pericardium No pericardial effusion. Aorta Normal size aortic root and proximal ascending aorta. CONCLUSIONS Technically difficult study. Definity ECHO contrast used for improved visualization of the endocardial borders (inadequate visualization of two or more contiguous segments). Normal left ventricle size and systolic function Trace mitral and pulmonic regurgitation Trace to mild tricuspid regurgitation Previewed by: Dr. Josefina Sams MD (Electronically Signed) Final Date: 29 February 2024 13:17
--- NOTE | 2024-02-29 14:12 | P.PN ---
Subjective Progress Note Date: 02/29/24 43-year-old male, history of hypertension, CVA, migraine headaches, presents emergency department for acute right-sided neurologic symptoms. States that his symptoms started approximately 30 minutes ago. He was with his mother and was last normal at that time. They were at the store shopping. Patient states that his symptoms initially began as numbness and weakness to his right upper extremity. He is now states that it started to spread to his right lower extremity. Patient has history of carotid endarterectomy and CVA approximately 2 to 3 years ago. EKG Findings: Ventricular rate 69, sinus rhythm,. 199, cures 109, QTc 379. No TN prolongation, no QTC prolongation, no ST or T-wave changes noted. Overall, this EKG is unremarkable Two-view chest x-ray is nonacute -CT brain and CT angiography of the head and neck shows no acute processes. Blood work reveals WBC of 7.9, hemoglobin of 16.3 and platelet count of 281, sodium 138, potassium 3.7, BUNs/creatinine of 8/1.14, troponin less than 0.012 Objective - Vital Signs Vital signs: Vital Signs Temp 97.7 F 02/29/24 08:55 Pulse 57 L 02/29/24 08:55 Resp 17 02/29/24 08:55 BP 100/62 02/29/24 08:55 Pulse Ox 97 02/29/24 08:55 FiO2 Intake & Output 02/28/24 02/29/24 02/29/24 18:59 06:59 18:59 Intake Total 660 1080 Output Total 350 Balance 310 1080 Intake: Oral 660 1080 Output: Urine 350 Other: Voiding Method Urinal Urinal Urinal - Exam General Impression: Alert and oriented x3, not in acute distress HEENT: Normocephalic atraumatic, extra-ocular movements intact, pupils equal and reactive to light bilaterally, mucous membranes moist. Cardiovascular: Heart regular rate and rhythm Chest: Able to complete full sentences, no retractions, no tachypnea Abdomen: abdomen soft, non-tender, non-distended, no organomegaly Musculoskeletal: Pulses present and equal in all extremities, no peripheral edema Motor: no focal deficits noted Neurological: No facial droop, drift of the right upper and right lower extremity, patient reports no sensation to light touch of the right arm he reports diminished sensation to touch of his right lower leg. Not aphasic, nondysarthric, mild ataxia to the extremities Skin: Intact with no visualized rashes Psych: Normal affect and mood - Labs CBC & Chem 7: 02/27/24 22:07 02/27/24 22:07
--- NOTE | 2024-02-29 14:20 | P.PN ---
Subjective Progress Note Date: 02/29/24 I am following-up with patient and he states he is getting better and has more strength on the right side but not resolved. Still pending MRI Brain. Objective - Vital Signs Vital signs: Vital Signs Temp 97.7 F 02/29/24 08:55 Pulse 63 02/29/24 12:09 Resp 16 02/29/24 12:09 BP 127/82 02/29/24 12:09 Pulse Ox 98 02/29/24 12:09 FiO2 Intake & Output 02/28/24 02/29/24 02/29/24 18:59 06:59 18:59 Intake Total 660 1080 Output Total 350 Balance 310 1080 Intake: Oral 660 1080 Output: Urine 350 Other: Voiding Method Urinal Urinal Urinal - Exam GENERAL: The patient is lying in bed and is not in acute distress. NEUROLOGICAL: Higher mental function: The patient is awake, alert, oriented to self, place and time. Patient is following commands. No aphasia and no neglect. Cranial nerves: The pupils are round, equal and reactive to light and accommodation. Visual roman are full to confrontation throughout. Extraocular movement is intact no nystagmus is noted. Decrease facial sensation to touch on the right side. The facial strength is normal throughout. Hearing is normal bilaterally to hand rub. Tongue is midline and moved [id number] without any difficulty. No dysarthria is noted. Shoulder shrug is normal bilaterally. Motor: The strength right upper 5-/5 while the right lower is 3/5 but felt effort related. Otherwise 5 over 5 throughout left side. Normal tone and bulk. Cerebellum: Normal finger to nose on left but had difficulty performing on the right because of weakness. Sensation: Decrease to touch on the right side. Reflexes (right/left): Brachioradialis on left is 3+. Otherwise 2+ throughout. Plantars mute bilaterally. Some of the workup during this hospital visit consisted of: CBC with differential and chemistry panel is unremarkable. Lipid panel: Triglycerides 149, cholesterol 114, LDL is 45 and HDL is 38. CT of the head is reported as no acute finding in the head/brain I personally r eviewed the CT and agree with the report. CT angiography of the head and neck is reported as negative. 2D echo: Technically difficult study. Definitely echo contrast used for improved visualization of the endocardium borders. Normal left ventricular size and systolic function. Trace mitral and pulmonary regurgitation. Trace to mild tricuspid regurgitation - Labs CBC & Chem 7: 02/27/24 22:07 02/27/24 22:07 Labs: Abnormal Lab Results - Last 24 Hours (Table) 02/27/24 Range/Units 20:07 HDL Cholesterol 38.80 L (40.00-60.00) mg/dL Assessment and Plan Assessment: This is a 43-year-old gentleman who presents emergency department because of acute onset numbness tingling and weakness over the right side also involving the face that started around 8:30 PM. While in the ED he had NIH stroke scale of 6-[address] of the head and CT angiography of the head and neck is unremarkable. He declined the IV thrombolytic. My examination I feel he has effort related. Acute right hemiparesis, numbness (right side and face) and he feels his speech is slow. On my examination I feel this is more effort related. On presentation patient had NIH stroke 6-7 but declined IV thrombolytic. History of questionable TIA in the past History of cervical myelopathy the patient had extruded C6-C7 status post ACDF on 12/2020 Lumbosacral spondylosis History of hypertension Depression Anxiety PTSD Obesity Plan: MRI of the brain with and without: pending. Patient was given aspirin 325 once in the ED then monitor was resumed on his home dose of aspirin 81 mg daily. I will avoid dual antiplatelets for now until MRI of the brain comes back. MRI is negative then no need for dual antiplatelet since feel more effort related/functional. Patient is on Lipitor 40 mg daily Continue neurochecks Cardiac monitoring PT, OT and TRAVEL MONEY ADVISOR are consulted Will defer the rest of the medical management the primary and other specialist. The patient to follow-up with psychiatrist/therapist as an outpatient I also notified the patient that he needs to follow-up with a neurologist as an outpatient. For DVT prophylaxis On subcu heparin 5000 units every 12 hours The plan is discussed with patient and primary attending. Time with Patient: Less than 30
[2024-02-29] MEDS: ACETAMINOPHEN TAB 500 MG TAB PO PRN (15:52)
[2024-03-01 07:23] LABS: Basophils % (A) 0 %; Eosinophils % (A) 0 %; HCT 43.3 % (39.0-53.0); HGB 14.2 gm/dL (13.0-17.5); Lymphocytes # (A) 2.2 k/uL (1.0-4.8); Lymphocytes % (A) 38 %; MCH 30.2 pg (25.0-35.0); MCHC 32.7 g/dL (31.0-37.0); MCV 92.4 fL (80.0-100.0); Mean Platelet Volume 6.5; Monocytes # (A) 0.5 k/uL (0-1.0); Monocytes % (A) 9 %; Neutrophils # (A) 2.9 k/uL (1.3-7.7); Neutrophils % (A) 51 %; Platelet Count 264 k/uL (150-450); RBC 4.69 m/uL (4.30-5.90); RDW 13.2 % (11.5-15.5); WBC 5.7 k/uL (3.8-10.6)
[2024-03-01 07:25] LABS: African American GFR (CKD) >90 (>60 ml/min/1.73 sqM); Anion Gap 3 mmol/L; Blood Urea Nitrogen 10 mg/dL (9-20); Carbon Dioxide 30 mmol/L (22-30); Chloride 106 mmol/L (98-107); Glucose 85 mg/dL (74-99); Non-African American GFR(CKD) >90 (>60 ml/min/1.73 sqM); Potassium 3.7 mmol/L (3.5-5.1); Sodium 139 mmol/L (137-145)
[2024-03-01] MEDS: ERGOCALCIFEROL 1,250 MCG (50,000 IU) CAPSULE PO SCH (07:50)
[2024-03-02 09:38] LABS: African American GFR (CKD) >90 (>60 ml/min/1.73 sqM); Anion Gap 5 mmol/L; Blood Urea Nitrogen 7 mg/dL (9-20); Calcium 9.1 mg/dL (8.4-10.2); Carbon Dioxide 30 mmol/L (22-30); Chloride 105 mmol/L (98-107); Glucose 91 mg/dL (74-99); Non-African American GFR(CKD) >90 (>60 ml/min/1.73 sqM); Potassium 3.9 mmol/L (3.5-5.1); Sodium 140 mmol/L (137-145)
[2024-03-02 10:46] VITALS: RESP 18
--- NOTE | 2024-03-02 12:12 | P.PN ---
Subjective Progress Note Date: 03/01/24 43-year-old male, history of hypertension, CVA, migraine headaches, presents emergency department for acute right-sided neurologic symptoms. States that his symptoms started approximately 30 minutes ago. He was with his mother and was last normal at that time. They were at the store shopping. Patient states that his symptoms initially began as numbness and weakness to his right upper extremity. He is now states that it started to spread to his right lower extremity. Patient has history of carotid endarterectomy and CVA approximately 2 to 3 years ago. EKG Findings: Ventricular rate 69, sinus rhythm,. 199, cures 109, QTc 379. No AL prolongation, no QTC prolongation, no ST or T-wave changes noted. Overall, this EKG is unremarkable Two-view chest x-ray is nonacute -CT brain and CT angiography of the head and neck shows no acute processes. Blood work reveals WBC of 7.9, hemoglobin of 16.3 and platelet count of 281, sodium 138, potassium 3.7, BUNs/creatinine of 8/1.14, troponin less than 0.012 03/01/2024; patient documentation advertently missed yesterday-note being comple raj on 03/02/2024 Patient is seen and evaluated in room at bedside; reports improvement in shoulder pain; awaits MRI of the brain --Patient discussed with neurology; recommending to continue to proceed with MRI of the brain prior to discharge; patient could be discharged with outpatient f ollow-up with neurology if MRI is negative Blood work is reviewed and stable with WBC of 5.7, hemoglobin of 14.2 and platelet count of 264, sodium 139, potassium 3.7, BUNs/creatinine of 10/0.95, total cholesterol of 114 with LDL of 45 -- Per neurology patient will not need dual antiplatelet therapy if MRI of the brain is negative; patient remains on aspirin and Lipitor Discharge home with outpatient follow-up with neurology and psychiatry per neurology recommendations if MRI with and without contrast is negative Objective - Vital Signs Vital signs: Vital Signs Temp 97.6 F 03/02/24 08:00 Pulse 52 L 03/02/24 08:00 Resp 18 03/02/24 08:00 BP 104/65 03/02/24 08:00 Pulse Ox 98 03/02/24 08:00 FiO2 Intake & Output 03/01/24 03/02/2424 18:59 06:59 18:59 Intake Total 565 356 Balance 565 356 Intake: Oral 565 356 Other: Voiding Method Urinal Urinal Urinal # Voids 1 100 2 - Exam General Impression: Alert and oriented x3, not in acute distress HEENT: Normocephalic atraumatic, extra-ocular movements intact, pupils equal and reactive to light bilaterally, mucous membranes moist. Cardiovascular: Heart regular rate and rhythm Chest: Able to complete full sentences, no retractions, no tachypnea Abdomen: abdomen soft, non-tender, non-distended, no organomegaly Musculoskeletal: Pulses present and equal in all extremities, no peripheral edema Motor: no focal deficits noted Neurological: No facial droop, drift of the right upper and right lower extremity, patient reports no sensation to light touch of the right arm he reports diminished sensation to touch of his right lower leg. Not aphasic, nondysarthric, mild ataxia to the extremities Skin: Intact with no visualized rashes Psych: Normal affect and mood - Labs CBC & Chem 7: 03/01/24 06:27 03/02/24 08:19 Labs: Abnormal Lab Results - Last 24 Hours (Table) 03/02/24 Range/Units 08:19 BUN 7 L (9-20) mg/dL Assessment and Plan Assessment: 1. Right-sided weakness/numbness; possible TIA versus CVA -- CT head completed in ED was negative for any acute process; patient being in tPA window was recommended tPA but he refused -- Patient has been placed on neurochecks per protocol -- Consult neurology for any recommendations 2. Hypertension; patient takes irbesartan/hydrochlorothiazide 150 to 0.5 mg daily 3. Hyperlipidemia; Lipitor 40 mg daily 4. Hypothyroidism; levothyroxine 50 mcg daily 5. Anxiety/depression; patient takes Effexor XR 150 mg daily, Lamictal 100 mg daily, Neurontin 100 mg daily 6. History of cervical myelopathy patient had extruded C6-C7 s/p ACDF on 12/13/2020 7. Morbid obesity DVT prophylaxis; SCDs CODE STATUS; full code
--- NOTE | 2024-03-02 17:41 | MR ---
EXAMINATION TYPE: MR brain wo/w con DATE OF EXAM: 03/02/2024 3:32 PM CLINICAL INDICATION:Male, 43 years old with history of stroke. right sided weakness and numbness; PH H, Stroke, Right sided weakness and numbness COMPARISON: 12/23/2023 TECHNIQUE: Multi planar, multi sequence imaging was performed through the brain including: T1, T2, In version recovery, susceptibility weighted imaging and gradient echo imaging and Diffusion weighted im aging. The patient was then given intravenous contrast and multi planar, T1 fat-saturation images wer e obtained. IV Contrast: 11.5 cc Gadavist FINDINGS: The duffy-white junctions, ventricular system, basal cisterns appear unremarkable. Diffusion-weighted imaging shows no evidence of restricted diffusion to suggest acute/subacute infarct. Intracranial ar terial flow voids are maintained. Midline structures show no abnormality. No significant white matter changes identified.. The susceptibility weighted images do not reveal any evidence for micro-hemorrh age. After administration of gadolinium, no abnormal enhancement is seen. The bone marrow signal is within normal limits. Paranasal sinuses and mastoid air cells: No significant paranasal sinus disease. Visualized orbits: Orbital contents are intact. IMPRESSION: No evidence for active demyelination. No significant white matter changes identified No evidence of i ntracranial mass, acute/subacute infarct, or abnormal enhancement.
[2024-03-02 18:00] VITALS: BP 107/55; PULSE 58; TEMP 98.7
--- NOTE | 2024-03-03 09:46 | P.DS ---
Providers Date of admission: 02/28/24 00:12 Expected date of discharge: 03/02/24 Attending physician: Grady Richard Consults: 02/28/24 00:13 Consult Physician Routine Consulting Provider: Jeremiah Shankar Consult Reason/Comments: code stroke Do you want consulting provider notified?: Yes Primary care physician: Jean-Claude Buenrostro Hospital Course: Final diagnosis - Right-sided weakness/numbness; possible TIA, CVA ruled out per MRI -Hypertension -Hyperlipidemia -Hypothyroidism -Anxiety/depression -History of cervical myelopathy patient had extruded C6-C7 s/p ACDF on 12/13/2020 -obesity with a BMI of 33.0 -GI prophylaxis -DVT prophylaxis; SCDs -full code Discharge disposition Patient is being discharged in a stable condition with guarded prognosis to home. Patient will follow-up with Dr. Jean-Claude Buenrostro in the outpatient setting upon discharge. Patient is to continue with current medications and outpatient follow-up with neurology as scheduled. Total time taken is greater than 35 minutes. Hospital course This is a 43year-old male who was recently admitted with right-sided weakness and numbness with concerns of possible TIA versus CVA. Patient underwent neurological workup and CT of the brain was negative. Patient underwent MRI of the brain was negative for CVA. Symptoms have resolved and patient has been instructed to follow-up with neurology outpatient. Continue statin and aspirin therapy. Patient reports to feeling well and would like to go home. Please refer to neurology notes for further HPI. Currently no reports of chest pain, shortness of breath, or palpitations. Patient is afebrile. No reports of nausea or vomiting and patient is tolerating diet. Patient will be discharged home today. Guarded prognosis Physical exam: Gen: This is a 43-year-old male who is awake, alert and oriented x 3, well- developed, well-nourished, obese HEENT: Head is atraumatic, normocephalic. Pupils equal, round. Sclerae is anicteric. NECK: Supple. No JVD. No lymphadenopathy. No thyromegaly. LUNGS: Diminished breath sounds bilaterally otherwise clear to auscultation. No wheezes or rhonchi. No intercostal retractions. HEART: S1, S2 are muffled ABDOMEN: Soft. Obese bowel sounds are present. No masses. No tenderness. EXTREMITIES: No pedal edema. No calf tenderness. NEUROLOGICAL: Patient is awake, alert and oriented x3. Cranial nerves 2 through 12 are grossly intact. Please refer to medication reconciliation sheet for a list of medications. The impression and plan of care has been dictated by Mary Broussard, Nurse Practitioner as directed. Dr. Jose Manuel MD I have performed a history and examination and MDM of this patient, discussed the same with the dictator, and agree with the dictator's assessment and plan as written ,documented as a scribe. Based on total visit time, I have performed more than 50% of the visit. Patient Condition at Discharge: Fair Plan - Discharge Summary New Discharge Prescriptions: New Acetaminophen Tab [Tylenol] 500 mg PO Q4HR PRN tab PRN Reason: Fever And/ Or Pain Continue Cyanocobalamin (Vitamin B-12) [Vitamin B-12] 1,000 mcg PO DAILY Aspirin EC [Ecotrin Low Dose] 81 mg PO DAILY lamoTRIgine [LaMICtal] 100 mg PO DAILY Ergocalciferol [Vitamin D2 (1250 Mcg = 71448 Iu)] 1,250 mcg PO MENSAH Gabapentin [Neurontin] 100 mg PO DAILY Ibuprofen [Motrin] 800 mg PO DAILY Semaglutide [Wegovy] 0.5 mg SQ MO Atorvastatin [Lipitor] 40 mg PO DAILY Venlafaxine HCl [Effexor XR] 150 mg PO DAILY Emtricitabine/Tenofovir (Tdf) [Emtricitabine-Tenofv 200-300Mg] 1 tab PO DAILY Meclizine [Antivert] 12.5 mg PO DAILY Levothyroxine Sodium [Synthroid] 50 mcg PO DAILY Discontinued Irbesartan/Hydrochlorothiazide [Irbesartan-Hctz 150-12.5 mg Tb] 1 tab PO DAILY Discharge Medication List Atorvastatin [Lipitor] 40 mg PO DAILY 12/06/20 [History] Cyanocobalamin (Vitamin B-12) [Vitamin B-12] 1,000 mcg PO DAILY 12/06/20 [History] Venlafaxine HCl [Effexor XR] 150 mg PO DAILY 12/06/20 [History] Aspirin EC [Ecotrin Low Dose] 81 mg PO DAILY 12/18/21 [History] Emtricitabine/Tenofovir (Tdf) [Emtricitabine-Tenofv 200-300Mg] 1 tab PO DAILY 12/18/21 [History] lamoTRIgine [LaMICtal] 100 mg PO DAILY 12/18/21 [History] Meclizine [Antivert] 12.5 mg PO DAILY 09/19/22 [History] Ergocalciferol [Vitamin D2 (1250 Mcg = 22603 Iu)] 1,250 mcg PO MENSAH 02/28/24 [History] Gabapentin [Neurontin] 100 mg PO DAILY 02/28/24 [History] Ibuprofen [Motrin] 800 mg PO DAILY 02/28/24 [History] Levothyroxine Sodium [Synthroid] 50 mcg PO DAILY 02/28/24 [History] Semaglutide [Wegovy] 0.5 mg SQ MO 02/28/24 [History] Acetaminophen Tab [Tylenol] 500 mg PO Q4HR PRN tab 03/02/24 [Rx] Follow up Appointment(s)/Referral(s): Jean-Claude Buenrostro MD [Primary Care Provider] - 1-2 days (please call to make appointment to be seen in 1-2 days ) Shahla Chi MD [Medical Doctor] - 1 Week (please call to set up appointment to be seen for hospital follow up ) Patient Instructions/Handouts: Transient Ischemic Attack (DC) Activity/Diet/Wound Care/Special Instructions: Activity limited until follow-up Follow-up with primary care provider on discharge Follow-up with neurology outpatient Continue taking medications as prescribed Discharge Disposition: HOME SELF-CARE
== END 2024-03-02 18:48 | disposition home or self-care (01) | DRG 47 ==
LOC: EC 21:46 → 3SCARD 02-28 00:12
PROVIDERS: ADMIT Hospitalist; ATTEND Hospitalist
DX: G45.9 Transient cerebral ischemic attack, unspecified (principal); R29.707 NIHSS score 7; F41.9 Anxiety disorder, unspecified; F43.10 Post-traumatic stress disorder, unspecified; E03.9 Hypothyroidism, unspecified; E66.01 Morbid (severe) obesity due to excess calories; E78.5 Hyperlipidemia, unspecified; G43.909 Migraine, unspecified, not intractable, without status migrainosus; R47.9 Unspecified speech disturbances; F32.A Depression, unspecified; G43.009 Migraine without aura, not intractable, without status migrainosus; G81.91 Hemiplegia, unspecified affecting right dominant side; M47.817 Spondylosis without myelopathy or radiculopathy, lumbosacral region; Z68.33 Body mass index [BMI] 33.0-33.9, adult; Z79.82 Long term (current) use of aspirin; Z79.890 Hormone replacement therapy; Z79.899 Other long term (current) drug therapy; Z86.73 Personal history of transient ischemic attack (TIA), and cerebral infarction without residual deficits; Z79.1 Long term (current) use of non-steroidal anti-inflammatories (NSAID); Z79.85 Long-term (current) use of injectable non-insulin antidiabetic drugs; Z98.1 Arthrodesis status; E66.9 Obesity, unspecified; H53.2 Diplopia
CPT/HCPCS: 36415; 70450; 70496; 70498; 70553; 71046; 80048; 80053; 80061; 82550; 84484; 85025; 85610; 85730; 93005; 93306; 94760; 99285

== ENCOUNTER → 2024-04-15 | Outpatient (CLI) | payer OTHER ==
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
== END | disposition home or self-care (01) ==
LOC: RADMRIMAIN 15:00
PROVIDERS: ATTEND Psychiatry & Neurology Neurology
DX: M48.061 Spinal stenosis, lumbar region without neurogenic claudication (principal); M51.17 Intervertebral disc disorders with radiculopathy, lumbosacral region
CPT/HCPCS: 72148

== ENCOUNTER → 2024-04-17 | Outpatient (CLI) | payer OTHER | END | disposition home or self-care (01) | LOC: LABWHC1 11:40 | PROVIDERS: ATTEND Family Medicine | DX: Z12.5 Encounter for screening for malignant neoplasm of prostate (principal); Z11.4 Encounter for screening for human immunodeficiency virus [HIV]; F41.9 Anxiety disorder, unspecified; E78.00 Pure hypercholesterolemia, unspecified; E53.8 Deficiency of other specified B group vitamins; E55.9 Vitamin D deficiency, unspecified; E03.9 Hypothyroidism, unspecified | CPT/HCPCS: 36415; 80053; 80061; 82306; 82607; 84443; 85025; 87390 ==

== ENCOUNTER 2024-04-30 16:30 | Emergency (ER) | payer OTHER ==
[2024-04-30] MEDS ORDERED: IBUPROFEN 400 MG TAB ONE (18:38)
[2024-05-01] MEDS ORDERED: methylPREDNISolone SOD SUCCI 125 MG/2 ML VIAL ONE (12:22)
[2024-05-01] MEDS ORDERED: FAMOTIDINE 20 MG/2 ML VIAL ONE (12:23)
[2024-05-01] MEDS ORDERED: diphenhydrAMINE 50 MG/ML 1 ML VIAL ONE (12:23)
--- NOTE | 2024-05-27 15:44 | US ---
Patient: Shekhar Hernandez Ordering Physician: Unknown, Unknown ID: [id number] Phone, Pager: Phone: N/A Dustin olivia: N/A : 04/03/2000 Age/Gender: 24Y, M Primary Location: N/A Procedure: US scrotum with doppler Brijesh wallace Date: 04/30/2024 6:00:00 PM EXAMINATION TYPE: US scrotum. Grayscale and color Doppler Duplex imaging performed of the scrotum. DATE OF EXAM: 04/30/2024 COMPARISON: NONE CLINICAL INDICATION: Pain history: left sided testicular pain. no known injury tech impression: rt testicle: 4.1 x 2.5 x 3.0cm. appears wnl as best seen. Rt epi head measures 1.1 x 1.0cm and contai ns a 0.4 x 0.3cm anechoic area. lt testicle: 4. x 2.6 x 2.9cm. appears wnl as best seen. left epi head not able to visualize Bilateral hydroceles seen. Vessels lateral to testicles bilaterally appear dilated, ? varicocele. vascular waveforms seen bilaterally, no evidence of torsion seen today IMPRESSION: 1. Small bilateral hydroceles and bilateral varicoceles. Right epididymal head cyst.
== END 2024-04-30 21:06 | disposition home or self-care (01) ==
LOC: EC 16:30
DX: N50.3 Cyst of epididymis (principal)
CPT/HCPCS: 76870; 93975; 99284

== ENCOUNTER 2024-08-01 23:25 | Emergency (ER) | payer OTHER ==
[2024-08-01 23:33] VITALS: BP 144/85; PULSE 71; RESP 16; TEMP 98.3
--- NOTE | 2024-08-01 23:38 | ED ---
General Adult HPI - General Chief complaint: Recheck/Abnormal Lab/Rx Stated complaint: Blood in Stool Time Seen by Provider: 08/01/24 23:38 Source: patient Mode of arrival: ambulatory Limitations: no limitations - History of Present Illness Initial comments: Shekhar is a-year-old male presents the ER today for evaluation of anal discomfort and possible worms. Patient states that today he felt like his perirectal area was moist somewhat pruritic and uncomfortable, he had a small bowel movement earlier in the day and thought he saw 1 small worm. Patient was not sure what this was but did note that when he wiped there was some streaks of blood. Patient states that he went on throughout the day but then later in the day had another bowel movement and at times all 3 small white worms. Patient then decided to come to the ER. Patient denies any known contact with anybody with worms. Patient denies any suspicious food intake or foreign food intake. Patient does not eat seafood. Does not believe he has eaten any undercooked pork. Patient does not have any abdominal pain constipation or diarrhea. - Related Data Home Medications Medication Instructions Recorded Confirmed Atorvastatin [Lipitor] 40 mg PO DAILY 12/06/20 02/28/24 Cyanocobalamin (Vitamin B-12) 1,000 mcg PO DAILY 12/06/20 02/28/24 [Vitamin B-12] Venlafaxine HCl [Effexor XR] 150 mg PO DAILY 12/06/20 02/28/24 Aspirin EC [Ecotrin Low Dose] 81 mg PO DAILY 12/18/21 02/28/24 Emtricitabine/Tenofovir (Tdf) 1 tab PO DAILY 12/18/21 02/28/24 [Emtricitabine-Tenofv 200-300Mg] lamoTRIgine [LaMICtal] 100 mg PO DAILY 12/18/21 02/28/24 Meclizine [Antivert] 12.5 mg PO DAILY 09/19/22 02/28/24 Ergocalciferol [Vitamin D2 (1250 1,250 mcg PO MENSAH 02/28/24 02/28/24 Mcg = 42921 Iu)] Gabapentin [Neurontin] 100 mg PO DAILY 02/28/24 02/28/24 Ibuprofen [Motrin] 800 mg PO DAILY 02/28/24 02/28/24 Levothyroxine Sodium [Synthroid] 50 mcg PO DAILY 02/28/24 02/28/24 Semaglutide [Wegovy] 0.5 mg SQ MO 02/28/24 02/28/24 Previous Rx's Medication Instructions Recorded Acetaminophen Tab [Tylenol] 500 mg PO Q4HR PRN tab 03/02/24 Albendazole [Albenza] 400 mg PO ONCE 2 Days #4 tab 08/02/24 Allergies Allergy/AdvReac Type Severity Reaction Status Date / Time aripiprazole [From Abilify] Allergy Rash/Hives, Verified 08/01/24 23:33 AGITATION doxycycline AdvReac Interaction Verified 08/01/24 23:33 w/psych meds & Rash Review of Systems ROS Statement: Those systems with pertinent positive or pertinent negative responses have been documented in the HPI. ROS Other: All systems not noted in ROS Statement are negative. Past Medical History Past Medical History: CVA/TIA, Hypertension Additional Past Medical History / Comment(s): MIGRAINES History of Any Multi-Drug Resistant Organisms: None Reported Past Surgical History: Cholecystectomy, Hernia Repair Additional Past Surgical History / Comment(s): WISDOM TEETH EXTRACTIONS, neck surgery- [id number] Past Anesthesia/Blood Transfusion Reactions: Postoperative Nausea & Vomiting (PONV) Additional Past Anesthesia/Blood Transfusion Reaction / Comment(s): Patient has no previous surgical history EXCEPT FOR TOOTH EXTRACTIONS. Past Psychological History: Anxiety, Depression, PTSD Smoking Status: Never smoker Past Alcohol Use History: None Reported Past Drug Use History: None Reported - Past Family History Mother Family Medical History: Diabetes Mellitus, Fibromyalgia, GERD/Reflux Additional Family Medical History / Comment(s): VERTIGO General Exam - General Exam Comments Initial Comments: Physical Exam GENERAL: Patient is well-developed and well-nourished. Patient is nontoxic and well-hydrated and is in no distress. HENT: Normocephalic, Atraumatic. EYES: PERRL, EOMI PULMONARY: Unlabored respirations. CARDIOVASCULAR: RRR Warm and well perfused extremities ABDOMEN: Non-distended SKIN: No rashes or bruising : General exam reveals some excoriations of the skin, no large hemorrhoids no active bleeding. No obvious worms but some debris's which could be pinworm eggs. NEUROLOGIC: Alert and oriented Normal speech Normal gait MUSCULOSKELETAL: Moving all extremities with no apparent injury PSYCHIATRIC: No SI/HI Limitations: no limitations Course Vital Signs 08/01/24 23:27 Temperature 98.3 F Pulse Rate 71 Respiratory 16 Rate Blood Pressure 144/85 O2 Sat by Pulse 99 Oximetry Medical Decision Making - Medical Decision Making Was pt. sent in by a medical professional or institution ([facility], [facility] [facility], urgent care, hospital, or residential...) When possible be specific @ -No Did you speak to anyone other than the patient for history (EMS, parent, family, police, friend...)? What history was obtained from this source @ -No Did you review nursing and triage notes (agree or disagree)? Why? @ -I reviewed and agree with nursing and triage notes Were old charts reviewed (outside hosp., previous admission, EMS record, old EKG, old radiological studies, urgent care reports/EKG's, residential records)? Report findings @ -No old charts were reviewed Differential Diagnosis (chest pain, altered mental status, abdominal pain women, abdominal pain men, vaginal bleeding, weakness, fever, dyspnea, syncope, headache, dizziness, GI bleed, back pain, seizure, CVA, palpatations, mental health)? @ -Not applicable EKG interpreted by me (3pts min.). @ -As above X-rays interpreted by me (1pt min.). @ -None done CT interpreted by me (1pt min.). @ -None done U/S interpreted by me (1pt. min.). @ -None done What testing was considered but not performed or refused? (CT, X-rays, U/S, labs)? Why? @ -None What meds were considered but not given or refused? Why? @ -None Did you discuss the management of the patient with other professionals (professionals i.e. [facility], [employer], lab, RT, psych nurse, psychologist social, advanced practice rn, teacher, unclaimed property officer, senior case manager)? Give summary @ -No Was smoking cessation discussed for >3mins.? @ -No Was critical care preformed (if so, how long)? @ -No Were there social determinants of health that impacted care today? How? (Homelessness, low income, unemployed, alcoholism, drug addiction, transportation, low edu. Level, literacy, decrease access to med. care, group home, rehab)? @ -No Was there de-escalation of care discussed even if they declined (Discuss DNR or withdrawal of care, Hospice)? DNR status @ -No What co-morbidities impacted this encounter? (DM, HTN, Smoking, COPD, CAD, Cancer, CVA, ARF, Chemo, Hep., AIDS, mental health diagnosis, sleep apnea, morbid obesity)? @ -None Was patient admitted / discharged? Hospital course, mention meds given and route, prescriptions, significant lab abnormalities, going to OR and other pertinent info. @ -Patient was seen and evaluated, history is obtained from patient. History and physical exam with no acute emergent findings, history and physical are concerning for possible pinworm infection and patient will be treated for such. Prescription was written for albendazole 400 mg once repeat dose in 2 weeks. Patient stable for discharge home and outpatient management. Undiagnosed new problem with uncertain prognosis? @ -No Drug Therapy requiring intensive monitoring for toxicity (Heparin, Nitro, Insulin, Cardizem)? @ -No Were any procedures done? @ -No Diagnosis/symptom? @ -Rectal pruritus likely pinworms Acute, or Chronic, or Acute on Chronic? @ -Default Uncomplicated (without systemic symptoms) or Complicated (systemic symptoms)? @ -Default Side effects of treatment? @ -No Exacerbation, Progression, or Severe Exacerbation? @ -No Poses a threat to life or bodily function? How? (Chest pain, [place], [place], pneumonia, PE, COPD, DKA, ARF, appy, cholecystitis, CVA, Diverticulitis, Homicidal, Suicidal, threat to staff... and all critical care pts) @ -No Disposition Clinical Impression: Pinworms Disposition: HOME SELF-CARE Condition: Stable Prescriptions: Albendazole [Albenza] 400 mg PO ONCE 2 Days #4 tab Is patient prescribed a controlled substance at d/c from ED?: No Referrals: Ozzie Gannon [Primary Care Provider] - 1-2 days
== END 2024-08-02 01:22 | disposition home or self-care (01) ==
LOC: EC 23:25
DX: B80 Enterobiasis (principal); Z88.1 Allergy status to other antibiotic agents; Z88.8 Allergy status to other drugs, medicaments and biological substances
CPT/HCPCS: 99283

== ENCOUNTER → 2024-09-16 | Outpatient (CLI) | payer OTHER ==
[2024-09-16 15:48] VITALS: BP 118/77; PULSE 64; RESP 16; TEMP 98
--- NOTE | 2024-09-16 16:34 | P.SLEEP ---
History of Present Illness DATE: 09/16/2024 CONSULTATION/NEW PATIENT EVALUATION HISTORY OF PRESENT ILLNESS/SLEEP-WAKE EVALUATION: 44-year-old gentleman had been evaluated in the sleep center for possible obstructive sleep apnea hypopnea syndrome. SLEEP SCHEDULE: Usually sleep schedule from 1 AM until 1 PM 7 days a week. FALLING ASLEEP: No problems with falling asleep. DURING SLEEP: Patient snores, wakes up from sleep 3 times with sweating, sleep talking, nocturia. No history of hypnogogical hallucinations, sleep paralysis, or cataplexy. DURING THE DAY/WAKE STATE: In the morning patient wake up tired, has difficulties to pay attention, has problems with memory, concentration, irritability, depression, anxiety, sometimes claustrophobia. [place] sleepiness scale is significantly increased to 16. Usually patient does not take naps. PAST MEDICAL HISTORY: Depression, anxiety, posttraumatic stress disorder, nasal fracture. PAST SURGICAL HISTORY: Cholecystectomy. MEDICATIONS: Please see below. SOCIAL HISTORY: Please see below. FAMILY HISTORY: Please see below. REVIEW OF SYSTEMS: Snoring, multiple awakenings from sleep, sleepiness during the day. No fevers. No double vision. No recent chest pain. No shortness of breath. No abdominal pain. No bleeding episodes. No blood in urine. No seizure episodes. PHYSICAL EXAMINATION: GENERAL: A pleasant patient without any distress. VITAL SIGNS: Please see below, weight 306 pounds, BMI 43.9. HEENT: PERRLA, EOMI. Evaluation of oropharynx showed tongue protrudes midline, low position of soft palate Mallampati 3. NECK: Supple. No JVD. Thyroid is not palpable. 19 inches in circumference. LUNGS: Clear to percussion and to auscultation. Good air exchange. No wheezing or rhonchi. HEART: S1, S2 regular. No murmurs, gallops or rubs. ABDOMEN: Soft and nontender. Bowel sounds are present. No organomegaly appreciated. EXTREMITIES: No clubbing or cyanosis. RN ADVANCED: Awake, alert, and oriented x3. Cranial nerves 2 to 7 intact. There is no fasciculation or atrophy noted. No focal deficits observed. ASSESSMENT: 1. Snoring, multiple awakenings from sleep, low position of soft palate Mallampati 3, wide neck 19 inches in circumference, significant sleepiness by [place] Horse Sleepiness Scale 16. Obstructive sleep apnea hypopnea syndrome. 2. Obesity, BMI 43.9. 3. Hypothyroidism. 4. History of depression. 5 history of anxiety. 6 . History of posttraumatic stress disorder. 7. Status post cholecystectomy. 8. History of nasal fracture, possibly nasal septum deviation. PLAN: 1. Polysomnography for evaluation of patient's breathing during sleep. 2. Following plan after reading sleep study. 3. Preferable position during sleep on the side. 4. No driving if patient feels any sleepiness. Patient is aware of civil and criminal liability for unsafe driving. 5. Sleep hygiene with regular sleep time for at least 7.5-8 hours. 6. Watching and losing weight. Thank you very much for referring this patient for consultation. Sincerely, All Majano MD, PhD, FAASM. Diplomat of [place] [employer], Sleep Medicine Board by [place] [employer] [employer] [facility] [place] cc: Ozzie Gannon MD Past Medical History Past Medical History: CVA/TIA, Hypertension Additional Past Medical History / Comment(s): MIGRAINES History of Any Multi-Drug Resistant Organisms: None Reported Past Surgical History: Cholecystectomy, Hernia Repair Additional Past Surgical History / Comment(s): WISDOM TEETH EXTRACTIONS, neck surgery- [id number] Past Anesthesia/Blood Transfusion Reactions: Postoperative Nausea & Vomiting (PONV) Additional Past Anesthesia/Blood Transfusion Reaction / Comment(s): Patient has no previous surgical history EXCEPT FOR TOOTH EXTRACTIONS. Past Psychological History: Anxiety, Depression, PTSD Additional Psychological History / Comment(s): . Smoking Status: Never smoker Past Alcohol Use History: None Reported Additional Past Alcohol Use History / Comment(s): Patient states that he drinks alcohol rarely Past Drug Use History: None Reported Additional Drug Use History / Comment(s): Patient denies history of drug use. - Past Family History Mother Family Medical History: Cancer, CVA/TIA, Diabetes Mellitus, Fibromyalgia, GERD /Reflux, Hyperlipidemia, Hypertension, Rheumatoid Arthritis (RA), Sleep Apnea/CPAP/BIPAP, Thyroid Disorder Additional Family Medical History / Comment(s): VERTIGO, sinus headaches, pneumonia, mental illness Medications and Allergies Home Medications Medication Instructions Recorded Confirmed Type Atorvastatin [Lipitor] 40 mg PO DAILY 12/06/20 09/16/24 History Cyanocobalamin (Vitamin B-12) 1,000 mcg PO DAILY 12/06/20 09/16/24 History [Vitamin B-12] Venlafaxine HCl [Effexor XR] 150 mg PO DAILY 12/06/20 09/16/24 History Aspirin EC [Ecotrin Low Dose] 81 mg PO DAILY 12/18/21 09/16/24 History Emtricitabine/Tenofovir (Tdf) 1 tab PO DAILY 12/18/21 02/28/24 History [Emtricitabine-Tenofv 200-300Mg] lamoTRIgine [LaMICtal] 100 mg PO DAILY 12/18/21 09/16/24 History Meclizine [Antivert] 12.5 mg PO DAILY 09/19/22 02/28/24 History Ergocalciferol [Vitamin D2 (1250 1,250 mcg PO MENSAH 02/28/24 09/16/24 History Mcg = 27722 Iu)] Gabapentin [Neurontin] 100 mg PO DAILY 02/28/24 02/28/24 History Ibuprofen [Motrin] 800 mg PO DAILY 02/28/24 02/28/24 History Levothyroxine Sodium [Synthroid] 50 mcg PO DAILY 02/28/24 02/28/24 History Semaglutide [Wegovy] 0.5 mg SQ MO 02/28/24 02/28/24 History Acetaminophen Tab [Tylenol] 500 mg PO Q4HR PRN tab 03/02/24 Rx Albendazole [Albenza] 400 mg PO ONCE 2 Days #4 tab 08/02/24 Rx Allergies Allergy/AdvReac Type Severity Reaction Status Date / Time aripiprazole [From Abilify] Allergy Rash/Hives, Verified 08/01/24 23:33 AGITATION doxycycline AdvReac Interaction Verified 08/01/24 23:33 w/psych meds & Rash Physical Exam Vitals: Vital Signs Temp Pulse Resp BP Pulse Ox 09/16/24 15:46 98 F 64 16 118/77 99 Intake and Output 09/16/24 09/16/24 09/16/24 06:59 14:59 22:59 Other: Weight 138.799 kg Sleep Note - Sleep Data ESS Total: 16 - Sleep Note Sleep Note: Temperature: 98 F Pulse Rate: 64 Respiratory Rate: 16 Blood Pressure: 118/77 SpO2: 99 Height: 5 ft 10 in Weight: 138.799 kg BMI: Neck Circumference: 19
== END ==
LOC: 3 N SLEEP 15:30
PROVIDERS: ATTEND Internal Medicine
DX: G47.33 Obstructive sleep apnea (adult) (pediatric) (principal); E03.9 Hypothyroidism, unspecified; F43.10 Post-traumatic stress disorder, unspecified; Z86.59 Personal history of other mental and behavioral disorders; Z90.49 Acquired absence of other specified parts of digestive tract; Z87.81 Personal history of (healed) traumatic fracture; Z88.8 Allergy status to other drugs, medicaments and biological substances; Z79.82 Long term (current) use of aspirin
CPT/HCPCS: 99211

== ENCOUNTER 2024-11-04 19:05 | Outpatient (CLI) | payer OTHER ==
--- NOTE | 2024-11-12 11:29 | P.PCN ---
Description of Procedure: POLYSOMNOGRAPHY REPORT PROCEDURE(S)/DATE(S): Polysomnography 11/04/2024 CLINICAL: Patient has been seen in the sleep center for evaluation of obstructive sleep apnea-hypopnea syndrome. Please see my consultation. Sleep study has been done for evaluation of patient breathing during the sleep. PROCEDURE: The standard montage for clinical polysomnography included the electroencephalogram, the electrooculogram, the mentalis surface electromyography and Lead II cardiography. The respiratory battery consisted of measurements of nasal/buccal air flow, pressure transducer measurements from nose, thoracic and/or abdominal effort and intercostal surface electromyography. Video monitoring has been done to check for any parasomnia events. Nocturnal oxyhemoglobin saturations were obtained by finger oximetry. Step-kaiser titration with positive airway pressure was utilized to control the respiratory events, if necessary. RESULTS: During the diagnostic sleep study sleep efficiency was close to normal 85.7%. Latency to sleep onset was normal at 15.0 min. Sleep architecture show ed stage NI was normal 7.4%, Delta sleep was normal 9.7%, REM sleep was decreased to 13.6%. Respiratory channel showed 0 obstructive apneas, 0 mixed apneas, 0 central apneas, 24 hypopneas with lowest oxygen level 86%. Total apnea hypopnea index was 3.9. Oxygen level was below or equal 88% for 0.7-minute. Heart rate was in the range between 53 and 61, average 56. EMG showed 7.2 periodic limb movements per hour with 1.1 micro-arousals per hour. IMPRESSIONS: 1. No significant respiratory abnormalities have been documented during the sleep study, normal oxygenation during sleep. 2. Very minimal periodic limb movements have been documented 7 times per hour, which is in normal range by today's criteria's, no significant micro arousals related to leg movements. 3. During consultation [place] Sleepiness Scale is in very high range of 16, which may indicate possibility of narcolepsy or hypersomnia. Please see other impressions from consultation PLAN: 1. Multiple sleep latency test, if patient continued to have symptoms of excessive daytime sleepiness. 2. Losing weight program. 3. Sleep hygiene with regular time in bed for at least 7-1/2 hours. 4. No driving if feeling sleepiness. 5. Please check iron profile including ferritin level. Low level of iron may increase the risk for periodic limb movements. Thank you very much for allowing me to participate in the management of your patient. Sincerely, All Majano MD, PhD, FAASM. Diplomat of [place] [employer], Sleep Medicine Board by [place] [employer] [facility] [place] cc: Ozzie Gannon MD
== END 2024-11-05 05:35 | disposition home or self-care (01) ==
LOC: 3 N SLEEP 19:05
PROVIDERS: ATTEND Internal Medicine
DX: G47.61 Periodic limb movement disorder (principal); Z88.1 Allergy status to other antibiotic agents
CPT/HCPCS: 95810